=== PATIENT | male | born 1985 | race Caucasian/White ===

== ENCOUNTER 2017-12-18 21:16 | Emergency (ER) | payer OTHER ==
--- OUTSIDE RECORDS SUMMARY | 2017-12-18 21:18 | XMS REPORT | Clinical Summary ---
:1985 Author Organization [facility] Address [address] [place] [address] Care Team Providers Name Role Phone Asked, No Pcp Primary Care Provider Unavailable Allergies No Known Allergies Current Medications Prescription Sig. Disp. Refills Start Date End Date Status cyclobenzaprine Take 1 tablet 20 tablet 0 08/28/2017 09/27/2017 (FLEXERIL) 10 mg (10 mg total) tablet by mouth 2 (two) times a day as needed for muscle spasms for up to 30 days. ibuprofen Take 1 tablet 30 tablet 0 08/28/2017 09/27/2017 (ADVIL,MOTRIN) 600 MG (600 mg total) tablet by mouth every 6 (six) hours as needed for mild pain for up to 30 days. acetaminophen-codeine Take 1-2 15 tablet 0 08/28/2017 09/02/2017 (TYLENOL WITH CODEINE tablets by #3) 300-30 mg per mouth every 6 tablet (six) hours as needed for moderate pain for up to 5 days. Active Problems Not on file Encounters Date Type Specialty Care Team Description 08/28/2017 Emergency Emergency Medicine Brock Mock Strain of lumbar region, initial encounter (Primary Dx); MD Tera Functional diarrhea after 12/17/2016 Social History Tobacco Use Types Packs/Day Years Used Date Never Assessed Smokeless Tobacco: Never Used Alcohol Use Drinks/Week oz/Week Comments No Sex Assigned at Date Recorded Not on file Last Filed Vital Signs Vital Sign Reading Time Taken Blood Pressure 107/68 08/28/2017 9:40 PM CDT Pulse 71 08/28/2017 9:40 PM CDT Temperature 36.2 C (97.1 F) 08/28/2017 7:22 PM CDT Respiratory Rate 18 08/28/2017 9:40 PM CDT Oxygen Saturation 95% 08/28/2017 9:40 PM CDT Inhaled Oxygen Concentration - - Weight - - Height - - Body Mass Index - - Plan of Treatment Health Maintenance Due Date Last Done Comments INFLUENZA VACCINE 01/13/2018 Procedures Procedure Name Priority Date/Time Associated Diagnosis Comments CT LUMBAR SPINE WO STAT 08/28/2017 8:08 PM Results for this CONTRAST CDT procedure are in the results section. after 12/17/[address] Lumbar Spine Wo Contrast (08/28/2017 8:08 PM) Narrative Performed At EXAMINATION:CT LUMBAR SPINE WO CONTRAST RADIANT COMPARISON:None CLINICAL HISTORY:BACK PAINUNSPECIFIED TECHNIQUE: Coronal and sagittal reformations were accomplished.Up to date CT equipment and radiation dose reduction technique were utilized. FINDINGS: L1-2: The disc is degenerated without significant bulge or protrusion. The neural foramina are patent. The facets are unremarkable. L2-3: There is a mild bulge which in combination with facet hypertrophy and ligamentum flavum thickening results in mild spinal stenosis. The neural foramina are patent. L3-4: There is a mild bulge which in combination with facet hypertrophy and ligamentum flavum thickening results in mild spinal stenosis. The neural foramina are patent. L4-5:The disc is unremarkable without significant bulge or protrusion. The neural foramina are patent. There are degenerative facet changes.. L5-S1:The disc is unremarkable without significant bulge or protrusion. There is 7 mm of anterior listhesis of L5 on S1 secondary to underlying spondylolysis. The neural foramina are distorted there is no definite compromise of either L5 root. There is no malalignment and no spinal stenosis. There is no fracture or lytic lesion. IMPRESSION: Grade 1 anterior listhesis of L5 on S1 secondary to underlying spondylolysis. No definite compromise of either L5 root. [facility]-[id number] Procedure Note Interface, Radiology Results Incoming - 08/28/2017 8:19 PM CDT EXAMINATION: CT LUMBAR SPINE WO CONTRAST COMPARISON: None CLINICAL HISTORY: BACK PAIN UNSPECIFIED TECHNIQUE: Coronal and sagittal reformations were accomplished. Up to date CT equipment and radiation dose reduction technique were utilized. FINDINGS: L1-2: The disc is degenerated without significant bulge or protrusion. The neural foramina are patent. The facets are unremarkable. L2-3: There is a mild bulge which in combination with facet hypertrophy and ligamentum flavum thickening results in mild spinal stenosis. The neural foramina are patent. L3-4: There is a mild bulge which in combination with facet hypertrophy and ligamentum flavum thickening results in mild spinal stenosis. The neural foramina are patent. L4-5:The disc is unremarkable without significant bulge or protrusion. The neural foramina are patent. There are degenerative facet changes.. L5-S1:The disc is unremarkable without significant bulge or protrusion. There is 7 mm of anterior listhesis of L5 on S1 secondary to underlying spondylolysis. The neural foramina are distorted there is no definite compromise of either L5 root. There is no malalignment and no spinal stenosis. There is no fracture or lytic lesion. IMPRESSION: Grade 1 anterior listhesis of L5 on S1 secondary to underlying spondylolysis. No definite compromise of either L5 root. [facility]-[id number] Performing Organization Address [facility] Phone Number [phone] [place] [address] after 12/17/2016 Insurance Payer Benefit Plan / Group Subscriber ID Type Phone Address COMMERCIAL MISC MISC COMMERCIAL xxxxxxxxxx Commercial [employer] [phone]
--- OUTSIDE RECORDS SUMMARY | 2017-12-18 21:25 | XMS REPORT | Continuity of Care Document ---
:1985 Author Organization Interface Problems Problem Status Onset Classification Date Comments Source Date Reported CHEST PAIN Active 11/12/19 [facility] [place] mason [place]ey,[facility] CHEST PAIN, Active 11/12/19 DIABETES, HTN 18 [facility] Left upper 08/28/19 11/25/2017 [facility] quadrant pain 18 Abdominal mass 08/20/19 11/25/2017 [facility] 18 Abdominal pain, 08/20/19 11/25/2017 [facility] acute 18 CHSET PAIN R/O OR Active 07/05/[address] ALEXANDRA BILLING Active 03/29/[address] STEMI Active 03/29/[address] LFLT TRANSFER Active 10/08/19 [facility] [address] [place] [address] Diarrhea, 11/25/2017 [facility] unspecified Intra-abdominal 11/25/2017 [facility] and pelvic swelling, mass and lump, unspecified site Essential 11/25/2017 [facility] hypertension 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 bypass graft retirement use of 11/25/2017 [facility] aspirin Personal history 11/25/2017 [facility] of nicotine dependence 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 STEMI (<span Resolved Problem 11/25/2017 ID="[id number]"> [place],M Confirmed</span>) [facility] CAD (<span Resolved Problem 11/25/2017 ID="[id number]"> [place], Confirmed</span>) [facility] Knee pain Resolved Problem 11/25/2017 [place],[facility] Hypertension Resolved Problem 11/25/2017 [place],[facility] Obesity Resolved Problem 11/25/2017 [place],[facility] Psoriasis (<span Resolved Problem 11/25/2017 ID="[id number]"> [place],[facility] Confirmed</span>) [facility] [place] PTSD (<span Resolved Problem 11/25/2017 ID="[id number]"> [place], Confirmed</span>) [facility] [place] CHEST PAIN, Active UNSPECIFIED [place],M [facility] DIABETES DUE TO Active UNDERLYING [facility] CONDITION W H HYPERTENSIVE Active EMERGENCY [place] [facility] ELEVATION Active [facility] (STEMI) MYOCARDIAL Medical [facility]CTI Center Medications Medication Details Route Status Patient Ordering Order Source Instructions Provider Date PLease bring Pt's PLease bring No Longer Own APremilast to Pt's Own Active 2017 [facility] pharmacy for label APremilast to pharmacy for label, Reminder, Drug form: MISC, Route: MISC, Daily, 11/12/17 9:00:00 CDT, Duration: 30 day, Stop date: 12/11/17 9:00:00 CDT Sertraline 100 mg, 1 tab, No Longer Route: PO, Active 2017 [facility] Drug form: TAB, Daily, Dosing Weight 136, kg, Start date: 11/12/17 9:00:00 CDT, Duration: 30 day, Stop date: 12/11/17 9:00:00 CDTNotes: (Same as: Zoloft) Ticagrelor 90 mg, 1 tab, Inactive Route: PO, 2017 [facility] Drug form: TAB, Q12H, Dosing Weight 136, kg, Start date: 11/11/17 21:00:00 CDT, Duration: 30 day, Stop date: 12/11/17 9:00:00 CDTNotes: (Same as: Brilinta) atorvastatin 80 mg, 2 tab, Inactive Route: PO, 2017 [facility] Drug form: TAB, Bedtime, Dosing Weight 136, kg, Start date: 11/11/17 21:00:00 CDT, Duration: 30 day, Stop date: 12/10/17 21:00:00 CDTNotes: (Same as: Lipitor) Hytrin 2 mg, 1 cap, Inactive Route: PO, 2017 [facility] Drug form: CAP, Daily, Start date: 11/11/17 21:00:00 CDT, Duration: 30 day, Stop date: 12/10/17 21:00:00 CDTNotes: (Same As: Hytrin) 24 HR Metoprolol 100 mg, 1 tab, Inactive Tartrate 100 MG Route: PO, 2017 [facility] Extended Release Drug form: Tablet [Toprol] ERTAB, Daily, Start date: 11/11/17 17:00:00 CDT, Duration: 30 day, Stop date: 12/10/17 17:00:00 CDTNotes: (Same as: Toprol XL) May split tab, but do not crush. Fish Oil 1,000 mg, 1 Inactive cap, Route: 2017 [facility] PO, Drug form: CAP, BID, Dosing Weight 136, kg, Start date: 11/11/17 17:00:00 CDT, Duration: 30 day, Stop date: 12/11/17 9:00:00 CDTNotes: (Same as: MaxEPA, [place] 3 fish oil ) Non-Formulary Drug Prazosin 2 mg, Route: Inactive PO, Drug form: 2017 [facility] CAP, BID, Dosing Weight 136, kg, Start date: 11/11/17 17:00:00 CDT, Duration: 30 day, Stop date: 12/11/17 9:00:00 CDT apremilast 30 mg apremilast 30 Inactive oral tablet mg oral 2017 tablet, 30 mg, Route: PO, BID, 11/11/17 17:00:00 CDT, Duration: 30 day, Stop date: 12/11/17 9:00:00 CDT ezetimibe 10 mg, 1 tab, Inactive Route: PO, 2017 [facility] Drug form: TAB, Daily, Dosing Weight 136, kg, Start date: 11/11/17 17:00:00 CDT, Duration: 30 day, Stop date: 12/10/17 17:00:00 CDTNotes: (Same as: Zetia) Docusate Sodium 100 mg, 1 cap, Inactive 100 MG Oral Route: PO, 2017 [facility] Capsule Drug form: CAP, BID, Dosing Weight 136, kg, Start date: 11/11/17 17:00:00 CDT, Duration: 30 day, Stop date: 12/11/17 9:00:00 CDTNotes: (Same as: Colace) (Do Not Crush) morphine Sulfate 6 mg, 3 mL, Inactive Route: PO, 2017 [facility] Drug form: SOLN, Q6H, PRN Pain Score 7-10, Start date: 11/11/17 16:00:00 CDT, Duration: 30 day, Stop date: 12/11/17 15:59:00 CDTNotes: (Same as:MORPhine Sulfate) gabapentin 300 MG 300 mg, 1 cap, Inactive Oral Capsule Route: PO2017 [facility] Drug form: CAP, Q8H, Dosing Weight 136, kg, Start date: 11/11/17 16:00:00 CDT, Duration: 30 day, Stop date: 12/11/17 8:00:00 CDTNotes: (Same as: Neurontin) Dicyclomine 10 mg=1 cap, Active Hydrochloride 10 PO, QID-Before 2017 [facility] MG Oral Capsule Meals, PRN [Bentyl] Abdominal Pain, # 20 cap, 0 Refill(s), Pharmacy: [facility]/pharmacy #[id number] Aspirin 81 MG 81 mg, 1 tab, Inactive Enteric Coated Route: PO2017 [facility] Tablet Drug form: ECTAB, Daily, Dosing Weight 136, kg, Start date: 11/11/17 11:00:00 CDT, Duration: 30 day, Stop date: 12/11/17 9:00:00 CDTNotes: Do not crush or chew. (Same As: Ecotrin) Isosorbide 30 mg, 1 tab, Inactive Route: PO2017 [facility] Drug form: ERTAB, QAM, Dosing Weight 136, kg, Start date: 11/11/17 11:00:00 CDT, Duration: 30 day, Stop date: 12/11/17 9:00:00 CDT Lisinopril 5 mg, 1 tab, Inactive Route: PO2017 [facility] Drug form: TAB, Daily, Dosing Weight 136, kg, Start date: 11/11/17 11:00:00 CDT, Duration: 30 day, Stop date: 12/11/17 9:00:00 CDTNotes: (Same as: Prinivil, Zestril) Morphine 2 mg, 1 mL, Inactive Route: IVP, 2017 [facility] Drug form: SOLN, Q6H, Dosing Weight 136, kg, PRN Pain Score 7-10, Start date: 11/11/17 9:48:00 CDT, Duration: 1 doses or times, Stop date: Limited # of times Acetaminophen 325 1 tab, Route: Inactive MG / Hydrocodone PO, Drug Form: 2017 [facility] Bitartrate 5 MG TAB, Dosing Oral Tablet [[place] Weight 136, 5/325] kg, Q6H, PRN Pain Score 4-6, Start date: 11/11/17 9:48:00 CDT, Duration: 30 day, Stop date: 12/11/17 9:47:00 CDTNotes: (Same as: [place] 325/5) Do not exceed 4gm/day of acetaminophen. Nitroglycerin 0.4 0.4 mg, 1 tab, Inactive MG Sublingual Route: 2017 [facility] Tablet Drug form: TAB, Q5Min, Dosing Weight 136, kg, PRN Chest Pain, Start date: 11/11/17 9:44:00 CDT, Duration: 30 day, Stop date: 12/11/17 9:43:00 CDTNotes: (Same as:Nitroquick, Nitrostat) "Do Not Crush" Sublingual tablet Bisacodyl 5 mg, 1 tab, Inactive Route: PO, 2017 [facility] Drug form: ECTAB, Q6H, Dosing Weight 136, kg, PRN Constipation, Start date: 11/11/17 9:44:00 CDT, Duration: 30 day, Stop date: 12/11/17 9:43:00 CDTNotes: (Same As: Dulcolax, Correctol) (Do Not Crush) "Do Not Crush" Saline Flush 0.9% 10 ml, Route: Inactive IVP, Drug 2017 [facility] Form: INJ, Dosing Weight 136, kg, Q12H, Start date: 11/11/17 9:00:00 CDT, Duration: 30 day, Stop date: 12/10/17 21:00:00 CDTNotes: (Same as: BD Posiflush) Saline Flush 0.9% 10 ml, Route: Inactive IVP, Drug 2017 [facility] Form: INJ, Dosing Weight 136, kg, PRN, PRN Line Flush, Start date: 11/11/17 6:03:00 CDT, Duration: 30 day, Stop date: 12/11/17 6:02:00 CDTNotes: (Same as: BD Posiflush) Nitroglycerin 0.4 mg, 1 tab, Inactive Route: SL, 2017 [facility] Drug form: TAB, Q5Min, Dosing Weight 136, kg, PRN Chest Pain, Start date: 11/11/17 6:03:00 CDT, Duration: 3 doses or times, Stop date: Limited # of timesNotes: (Same as:Nitroquick, Nitrostat) "Do Not Crush" Sublingual tablet pneumococcal 0.5 mL, Route: Inactive capsular IM, Drug Form: 2017 [facility] polysaccharide INJ, ONCALL, type 1 vaccine / Start date: pneumococcal 11/11/17 capsular 1:56:13 CDT, polysaccharide Stop date: type 10A vaccine / 12/11/17 pneumococcal 1:51:13 capsular CDTNotes: polysaccharide (Same as: type 11A vaccine / Pneumovax 23) pneumococcal Refrigerate capsular polysaccharide type 12F vaccine / pneumococcal capsular polysacchar ezetimibe 10 mg=1 tab, Active PO, Daily, # 2017 30 tab, 0 Refill(s) Metformin 500 mg, PO, Active BID, 0 2017 Refill(s) Clonazepam 0.5 mg, PO, Active TID, PRN 2017 [facility] Anxiety, 0 Refill(s) Acetaminophen 300 1 tab, PO, Active MG / Codeine Q4H, PRN Pain, 2017 [place] Phosphate 30 MG # 24 tab, 0 Oral Tablet Refill(s) [Tylenol with Codeine #3] Morphine 4 mg, 1 mL, Inactive Route: IVP, 2017 [place] Drug form: SOLN, ONCE, Dosing Weight 127.273, kg, Priority: STAT, Start date: 08/19/17 3:21:00 BLEACHER PULP, Stop date: 08/19/17 3:21:00 CSTNotes: (Same as:MORPhine Sulfate) Ondansetron 4 mg, 2 mL, Inactive Route: IVP, 2017 [place] Drug form: INJ, ONCE, Dosing Weight 127.273, kg, Priority: STAT, Start date: 08/19/17 3:21:00 BLEACHER PULP, Stop date: 08/19/17 3:21:00 CSTNotes: (Same as: [place]) MEDICATION WASTE Product Size: 4 mg Product Wasted: ___ mg Sodium Chloride 1,000 mL, 1000 Inactive 0.9% (Bolus) IV ml/hr, Infuse 2017 [place] Over: 1 hr, Route: IV, 1,000, Drug form: INJ, ONCE, Priority: STAT, Dosing Weight 127.273 kg, Start date: 08/19/17 3:21:00 BLEACHER PULP, Stop date: 08/19/17 3:21:00 BLEACHER PULP indomethacin 25 mg 25 mg=1 cap, Active [place] oral capsule PO, BID, PRN 2016 [facility] Pain, # 14 Center cap, 0 Refill(s) Acetaminophen 300 1 - 2 tab, PO, No Longer [place] MG / Codeine Q6H, PRN Pain, Active 2016 [facility] Phosphate 30 MG X 2 day, # 12 Center Oral Tablet tab, 0 [Tylenol with Refill(s) Codeine #3] Acetaminophen 300 1 tab, Route: Inactive [place] MG / Codeine PO, Drug Form: 2015 [facility] Phosphate 30 MG TAB, Dosing Center Oral Tablet Weight [Tylenol with 134.347, kg, Codeine #3] ONCE, Start date: 03/31/16 17:18:00 CDT, Stop date: 03/31/16 17:18:00 CDTNotes: Do not exceed 4gm/day of acetaminophen. (Same as: Tylenol with Codeine # 3) Bupropion 150 mg=1 tab, Active [place] PO, Before 2016 [facility] Breakfast, 0 Center Refill(s) buPROPion 100 mg 100 mg=1 tab, Active [place] oral tablet, PO, After 2016 [facility] extended release Dinner, 0 Center Refill(s) bisacodyl 5 mg 5 mg=1 tab, Active [place] oral enteric PO, Q6H, PRN 2016 [facility] coated tablet Constipation, Center 0 Refill(s) atorvastatin 80 mg 80 mg=1 tab, Active [place] oral tablet PO, Bedtime, # 2016 [facility] 90 tab, 1 Center Refill(s) Acetaminophen 325 1 tab, PO, Inactive [place] MG / Hydrocodone Q4H, PRN Pain 2016 [facility] Bitartrate 5 MG Score 1-3, 0 Center Oral Tablet [[place] Refill(s) 5/325] metoprolol 50 mg 50 mg=1 tab, Active [place] oral tablet, PO, Daily, # 2016 [facility] extended release 90 tab, 1 Center Refill(s) Aspirin 81 MG 81 mg=1 tab, Active [place] Enteric Coated PO, Daily, # 2016 [facility] Tablet 90 tab, 1 Center Refill(s) Bupropion 150 mg, 1 tab, Inactive [place] Route: PO, 2016 [facility] Drug form: [place] ERTAB, Before Breakfast, Dosing Weight 134.347, kg, Start date: 03/31/16 11:30:00 CDT, Duration: 30 day, Stop date: 04/30/16 7:30:00 CSTNotes: (Do not crush) (Same As: Wellbutrin SR) Bupropion 100 mg, Route: No Longer [place] PO, Before Active 2015 [facility] Breakfast, Center Dosing Weight 134.347, kg, Start date: 03/31/16 7:30:00 CDT, Duration: 30 day, Stop date: 04/29/16 7:30:00 BLEACHER PULP Sertraline 50 mg, 1 tab, No Longer [place] Route: PO, Active 2015 [facility] Drug form: [place] TAB, Daily, Dosing Weight 131.818, kg, Start date: 03/30/16 21:00:00 CDT, Duration: 30 day, Stop date: 04/29/16 9:00:00 CSTNotes: (Same as: Zoloft) heparin sodium, 5,000 unit, 1 No Longer [place] porcine 2500 mL, Route: Active 2015 [facility] UNT/ML Injectable SUB-Q, Drug Center Solution form: INJ, Q8H, Dosing Weight 134.347, kg, Start date: 03/30/16 21:00:00 CDT, Duration: 30 day, Stop date: 04/29/16 16:00:00 CSTNotes: porcine heparin atorvastatin 80 mg, 1 tab, No Longer [place] Route: PO, Active 2015 [facility] Drug form: [place] TAB, Bedtime, Dosing Weight 134.347, kg, Start date: 03/30/16 21:00:00 CDT, Stop date: 04/28/16 21:00:00 CSTNotes: Same as Lipitor Dulcolax Laxative 5 mg, 1 tab, No Longer [place] Route: PO, Active 2015 [facility] Drug form: Center ECTAB, Q6H, Dosing Weight 134.347, kg, PRN Constipation, Start date: 03/30/16 17:50:00 CDT, Duration: 30 day, Stop date: 04/29/16 17:49:00 CSTNotes: (Same As: Dulcolax, Correctol) (Do Not Crush) "Do Not Crush" Motrin 200 mg, 1 tab, No Longer [place] Route: PO, Active 2015 [facility] Drug form: [place] TAB, Q6H, Dosing Weight 134.347, kg, PRN For Temp > 100.4 F, Start date: 03/30/16 17:50:00 CDT, Duration: 30 day, Stop date: 04/29/16 17:49:00 CSTNotes: (Same as: Advil) Give with food. Bupropion 150 mg, Route: Inactive [place] PO, BID, 2015 [facility] Dosing Weight Center 134.347, kg, Start date: 03/30/16 17:00:00 CDT, Duration: 30 day, Stop date: 04/29/16 9:00:00 BLEACHER PULP Sodium Chloride 250 mL, 250 Inactive [place] 0.154 MEQ/ML ml/hr, Infuse 2016 Medical Injectable Over: 1 hr, [place] Solution Route: IV, 250, Drug form: INJ, ONCALL, Priority: Routine, Dosing Weight 134.347 kg, Start date: 03/30/16 16:00:00 CDT, Duration: 1 doses or times, Stop date: 03/31/16 0:00:00 CDT Sodium Chloride 750 mL, Rate: No Longer [place] 0.154 MEQ/ML 75 ml/hr, Active 2015 [facility] Injectable Infuse over: Center Solution 10 hr, Route: IV, Dosing Weight 134.347 kg, Total Volume: 750, Start date: 03/30/16 15:42:00 CDT, Duration: 24 hr, Stop date: 03/31/16 15:41:00 CDT Iohexol 110 mL, Route: No Longer [place] IVP, Drug Active 2015 Medical Form: BRYANNA [place] Dosing Weight 134.347, kg, ONCALL, STAT, Start date: 03/30/16 14:11:00 CDT, Stop date: 03/31/16 0:00:00 CDT, Dose=2.2ml/kg, Max [id number] -- "To be infused by Radiology Staff ONLY"Notes: (Same as:Omnipaque 350). WASTE: F/P - Black; E - Municipal Trash Bin Lisinopril 5 mg, 1 tab, No Longer [place] Route: PO, Active 2015 [facility] Drug form: [place] TAB, Daily, Dosing Weight 131.818, kg, Start date: 03/30/16 9:00:00 CDT, Duration: 30 day, Stop date: 04/28/16 9:00:00 CSTNotes: (Same as: Prinivil, Zestril) metoprolol 12.5 mg, 1 No Longer [place] tartrate tab, Route: Active 2015 Medical PO, Drug form: [place] TAB, Q12H, Dosing Weight 131.818, kg, Start date: 03/30/16 9:00:00 CDT, Duration: 30 day, Stop date: 04/28/16 21:00:00 CSTNotes: (Same as: Lopressor) 12.5mg=1/4 X 50 mg tab. Plavix 75 mg, 1 tab, No Longer [place] Route: PO, Active 2015 [facility] Drug form: [place] TAB, Daily, Dosing Weight 131.818, kg, Start date: 03/30/16 9:00:00 CDT, Duration: 30 day, Stop date: 04/28/16 9:00:00 CSTNotes: (Same As: Plavix) Aspirin 81 mg, 1 tab, No Longer [place] Route: PO, Active 2015 [facility] Drug form: [place] ECTAB, Daily, Dosing Weight 131.818, kg, Start date: 03/30/16 9:00:00 CDT, Duration: 30 day, Stop date: 04/28/16 9:00:00 CSTNotes: Do not crush or chew. (Same As: Ecotrin) Acetaminophen 325 1 tab, Route: No Longer [place] MG / Hydrocodone PO, Drug Form: Active 2016 [facility] Bitartrate 5 MG TAB, Dosing Center Oral Tablet [[place] Weight 5/325] 134.347, kg, Q4H, PRN Pain Score 1-3, Start date: 03/30/16 8:38:00 CDT, Duration: 30 day, Stop date: 04/29/16 8:37:00 CSTNotes: (Same as: [place] 325/5) Do not exceed 4gm/day of acetaminophen. gabapentin 300 mg, 1 cap, No Longer [place] Route: PO, Active 2015 [facility] Drug form: Center CAP, Q8H, Dosing Weight 131.818, kg, (CrCl > 60 ml/min), Start date: 03/30/16 8:00:00 CDT, Duration: 30 day, Stop date: 04/29/16 0:00:00 CSTNotes: (Same as: Neurontin) sodium phosphate + 15 mmol, 5 mL, No Longer [place] sodium chloride Route: IVPB, Active 2015 Medical 0.9% INJ 250 mL Drug form: Center INJ, PRN, Dosing Weight 134.347, kg, PRN Abnormal Lab Result, For NON-ICU Patients Only., Start date: 03/30/16 6:07:00 CDT, Duration: 30 day, Stop date: 04/29/16 5:06:00 BLEACHER PULP potassium 30 mmol, 10 No Longer [place] phosphate + sodium mL, Route: Active 2015 Medical chloride 0.9% INJ IVPB, Drug Center 250 mL form: INJ, PRN, Dosing Weight 134.347, kg, PRN Abnormal Lab Result, For NON-ICU Patients Only., Start date: 03/30/16 6:07:00 CDT, Duration: 30 day, Stop date: 04/29/16 5:06:00 CSTNotes: (Same as: K Phosphate.) 1 mMol phoshate has 1.47 mEq potassium Infuse over 4 hours potassium 2 pkt, Route: No Longer [place] phosphate-sodium PO, Drug Form: Active 2015 [facility] phosphate 250 PDR/REC, Center mg-280 mg-160 mg Dosing Weight oral powder for 134.347, kg, reconstitution PRN, PRN Abnormal Lab Result, For NON-ICU Patients Only, Start date: 03/30/16 6:07:00 CDT, Duration: 30 day, Stop date: 04/29/16 5:06:00 CSTNotes: (Same as: Phos-NaK) Each 1.5 gm pkt has 250mg phosphorous. Mix w/2.5oz water and stir. potassium chloride 10 mEq, 50 mL, No Longer [place] Route: IVPB, Active 2015 Medical Drug form: Center INJ, PRN, Dosing Weight 134.347, kg, PRN Abnormal Lab Result, For NON-ICU Patients Only, Start date: 03/30/16 6:07:00 CDT, Duration: 30 day, Stop date: 04/29/16 5:06:00 CSTNotes: (Same as: KCL) Infuse over 2 hours. Magnesium Sulfate 2 gm, 50 mL, No Longer [place] Route: IVPB, Active 2015 [facility] Drug form: Center INJ, PRN, Dosing Weight 134.347, kg, PRN Abnormal Lab Result, For NON-ICU Patients Only., Start date: 03/30/16 6:07:00 CDT, Duration: 30 day, Stop date: 04/29/16 5:06:00 CSTNotes: WASTE: F/P - Sink; E - Municipal Trash Bin Calcium Gluconate 3 gm, 30 mL, No Longer [place] Route: IVPB, 2015 Medical Drug form: Center INJ, PRN, Dosing Weight 134.347, kg, PRN Abnormal Lab Result, For NON-ICU Patients Only., Start date: 03/30/16 6:07:00 CDT, Duration: 30 day, Stop date: 04/29/16 5:06:00 CSTNotes: WASTE: F/P - Sink; E - Municipal Trash Bin Magnesium Oxide 800 mg, 2 tab, No Longer [place] Route: PO, Active 2015 Medical Drug form: Center TAB, PRN, Dosing Weight 134.347, kg, PRN Abnormal Lab Result, For NON-ICU Patients Only., Start date: 03/30/16 6:07:00 CDT, Duration: 30 day, Stop date: 04/29/16 5:06:00 CSTNotes: (Same as: Mag-Ox 400) Magnesium oxide [id number] elemental magnesium Dose=____mg magnesium oxide (___mg elemental magnesium) Ketorolac 15 mg, 1 mL, Inactive [place] Route: IV, 2015 Medical Drug form: [place] INJ, ONCE, Dosing Weight 134.347, kg, Start date: 03/30/16 3:38:00 CDT, Stop date: 03/30/16 3:38:00 CDTNotes: (Same as:Toradol) IV bolus must be given >15 seconds. Give IM administration slowly and deeply into the muscle. Not for use > 4 days. Morphine 4 mg, Route: Inactive [facility] IVP, ONCE, 2015 Medical Dosing Weight Center 134.347, kg, Priority: STAT, Start date: 03/30/16 3:27:00 CDT, Stop date: 03/30/16 3:27:00 CDT sertraline 50 mg 50 mg=1 tab, Active [facility] oral tablet PO, Daily, 0 2015 Medical Refill(s) [place] Tramadol 100 mg, 2 tab, No Longer [facility] Route: PO, Active 2015 Medical Drug form: Center TAB, Q6H, Dosing Weight 131.818, kg, PRN Pain Score 4-6, Start date: 03/30/16 1:15:00 CDT, Duration: 30 day, Stop date: 04/29/16 1:14:00 CSTNotes: Not to exceed 400mg/day. (Same As: Ultram) Saline Flush 0.9% 10 mL, Route: No Longer [facility] IVP, Drug Active 2015 Medical Form: INJ, Center Dosing Weight 131.818, kg, PRN, PRN Line Flush, Start date: 03/29/16 22:26:00 CDT, Duration: 30 day, Stop date: 04/28/16 21:25:00 CSTNotes: (Same as: BD Posiflush) Lipitor 20 mg, 1 tab, Inactive [facility] Route: PO, 2016 Medical Drug form: Center TAB, Bedtime, Dosing Weight 123.182, kg, Start date: 10/22/15 21:00:00 CDT, Duration: 30 day, Stop date: 11/20/15 21:00:00 CDTNotes: (Same As: Lipitor) atorvastatin 20 mg 20 mg=1 tab, Inactive [place] oral tablet PO, Bedtime, # 2016 Medical 30 tab, 0 Center Refill(s) metoprolol 25 mg=1 tab, Active [place] tartrate 25 mg PO, Q12H, # 60 2016 Medical oral tablet tab, 0 Center Refill(s) oxyCODONE 5 mg 5 mg=1 tab, Active [place] oral tablet PO, Q4H, PRN 2016 [facility] Pain Score Center 4-6, # 30 tab, 0 Refill(s) lisinopril 5 mg 5 mg=1 tab, Active [place] oral tablet PO, Daily, # 2016 Medical 30 tab, 0 Center Refill(s) docusate sodium 100 mg=1 cap, Active [place] 100 mg oral PO, BID, # 30 2015 [facility] capsule cap, 0 Center Refill(s) gabapentin 300 MG 300 mg=1 cap, Active [place] Oral Capsule PO, Q8H-06, # 2016 Medical 60 cap, 0 Center Refill(s) celecoxib 200 mg 200 mg=1 cap, Active [place] oral capsule PO, Q12H, # 30 2016 [facility] cap, 0 Center Refill(s) Aspirin 81 MG 162 mg=2 tab, Active [place] Enteric Coated PO, Daily, # 2016 [facility] Tablet 60 tab, 0 Center Refill(s) clopidogrel 75 mg 75 mg=1 tab, Active [place] oral tablet PO, Daily, # 2016 [facility] 30 tab, 0 Center Refill(s) tramadol 100 mg=2 tab, Active [place] hydrochloride 50 PO, Q6H, # 50 2016 [facility] MG Oral Tablet tab, 0 Center Refill(s) topiramate 25 mg 25 mg=1 cap, Inactive [place] oral capsule PO, Q12H, # 30 2016 [facility] cap, 0 Center Refill(s) Oxycodone 5 mg, 1 tab, Inactive [place] Hydrochloride 5 MG Route: PO, 2016 [facility] Oral Tablet Drug form: Center TAB, Q4H, Dosing Weight 123.182, kg, PRN Pain Score 4-6, Start date: 10/22/15 8:35:00 CDT, Duration: 30 day, Stop date: 11/21/15 8:34:00 CDTNotes: (Same as: Roxicodone) gabapentin 300 MG 300 mg, 1 cap, No Longer [facility] Oral Capsule Route: PO, Active 2015 Medical Drug form: Center CAP, Q8H-06, Dosing Weight 123.182, kg, (CrCl > 60 ml/min), Start date: 10/21/15 22:00:00 CDT, Duration: 30 day, Stop date: 11/20/15 14:00:00 CDTNotes: (Same as: Neurontin) Tramadol 100 mg, 2 tab, No Longer [facility] Route: PO, Active 2015 Medical Drug form: [place] TAB, Q6H, Dosing Weight 123.182, kg, Start date: 10/21/15 17:55:00 CDT, Duration: 30 day, Stop date: 11/20/15 12:00:00 CDTNotes: Not to exceed 400mg/day. (Same As: Ultram) Acetaminophen 325 1 tab, Route: No Longer [facility] MG / Hydrocodone PO, Drug Form: Active 2015 Medical Bitartrate 5 MG TAB, Dosing Center Oral Tablet [[place] Weight 5/325] 123.182, kg, Q4H, PRN Pain Score 1-3, Start date: 10/21/15 17:54:00 CDT, Duration: 30 day, Stop date: 11/20/15 17:53:00 CDTNotes: (Same as: [place] 325/5) Do not exceed 4gm/day of acetaminophen. Benzocaine 15 MG / 1 lozenge, No Longer [facility] Menthol 3.6 MG Route: MUCOUS Active 2015 Medical Lozenge [Cepacol [facility], [facility] Sore Throat Pain Form: ANISHA, Relief 15/3.6] Dosing Weight 123.182, kg, Q2H, PRN Sore Throat, Start date: 10/21/15 0:30:00 CDT, Duration: 30 day, Stop date: 11/20/15 0:29:00 CDTNotes: Cepacol lozenges Dispense 1 box=16 lozenges (Same As: Cepacol Lozenges) Morphine 2 mg, 1 mL, Inactive [facility] Route: IVP2015 Medical Drug form: [place] INJ, ONCALL, Dosing Weight 123.182, kg, Start date: 10/20/15 13:00:00 CDT, Duration: 1 doses or times, Stop date: 10/21/15 0:00:00 CDTNotes: (Same as:MORPhine Sulfate) Tylenol 1,000 mg, 2 No Longer [place] tab, Route: Active 2015 Medical PO, Drug form: [place] TAB, Q6H, Dosing Weight 123.182, kg, Start date: 10/19/15 12:00:00 CDT, Duration: 30 day, Stop date: 11/18/15 6:00:00 CDTNotes: Max acetaminophen 4000 mg/day (4 gm/day). (Same as: Tylenol Extra Strength) Morphine 2 mg, 1 mL, Inactive [facility] Route: IVP2015 Medical Drug form: [place] INJ, ONCE, Dosing Weight 123.182, kg, Start date: 10/19/15 10:22:00 CDT, Stop date: 10/19/15 10:22:00 CDTNotes: (Same as:MORPhine Sulfate) Celebrex 200 mg, 1 cap, No Longer [facility] Route: PO, Active 2015 Medical Drug form: [place] CAP, Q12H, Dosing Weight 123.182, kg, Start date: 10/19/15 8:00:00 CDT, Duration: 30 day, Stop date: 11/17/15 21:00:00 CDTNotes: NSAID. Please check indication. Not for seizure. (Same As: CeleBREX) remove patch 3 patch, No Longer [facility] Route: TOP, Active 2015 Medical Bedtime, Drug Center form: ERFILM, Start date: 10/18/15 21:00:00 CDT, Duration: 30 day, Stop date: 11/16/15 21:00:00 CDTNotes: Remove patch 12 hours after application each day. metoprolol 25 mg, 1 tab, No Longer [facility] tartrate Route: PO, Active 2015 Medical Drug form: [facility] TAB, Q12H, Dosing Weight 123.182, kg, Start date: 10/18/15 21:00:00 CDT, Duration: 30 day, Stop date: 11/17/15 9:00:00 CDTNotes: (Same as: Lopressor) Celebrex 400 mg, 2 cap, Inactive [facility] Route: PO, 2015 Medical Drug form: [place] CAP, ONCE, Dosing Weight 123.182, kg, Priority: NOW, Start date: 10/18/15 17:30:00 CDT, Stop date: 10/18/15 17:30:00 CDTNotes: NSAID. Please check indication. Not for seizure. (Same As: CeleBREX) tapentadol 100 mg, 2 tab, No Longer [facility] Route: PO, Active 2015 Medical Drug form: [facility] TAB, Q4H, Dosing Weight 123.182, kg, PRN Pain Score 7-10, Start date: 10/18/15 17:29:00 CDT, Duration: 30 day, Stop date: 11/17/15 17:28:00 CDTNotes: Same as: Nucynta tapentadol 50 mg, 1 tab, No Longer [facility] Route: PO, Active 2015 Medical Drug form: [facility] TAB, Q4H, Dosing Weight 123.182, kg, PRN Pain Score 4-6, Start date: 10/18/15 17:28:00 CDT, Duration: 30 day, Stop date: 11/17/15 17:27:00 CDTNotes: Same as: Nucynta Lisinopril 5 mg, 1 tab, No Longer [facility] Route: PO, Active 2015 Medical Drug form: [facility] TAB, Daily, Dosing Weight 123.182, kg, Start date: 10/18/15 17:00:00 CDT, Duration: 30 day, Stop date: 11/17/15 9:00:00 CDTNotes: (Same as: Prinivil, Zestril) Lidocaine 3 patch, No Longer [facility] Hydrochloride 0.05 Route: TOP, Active 2015 Medical MG/MG Transdermal Daily, Drug Center Patch form: FILM, Start date: 10/18/15 9:00:00 CDT, Duration: 30 day, Stop date: 11/16/15 9:00:00 CDTNotes: Apply only once for up to 12 hours in a 24-hour period (12 hours on and 12 hours off). (Same as: Lidoderm) "Remove old patch before application of new patch" Plavix 75 mg, 1 tab, No Longer [facility] Route: PO, Active 2015 Medical Drug form: [facility] TAB, Daily, Dosing Weight 123.182, kg, Start date: 10/18/15 9:00:00 CDT, Duration: 30 day, Stop date: 11/16/15 9:00:00 CDTNotes: (Same As: Plavix) metoprolol 12.5 mg, 1 No Longer [facility] tartrate tab, Route: Active 2015 Medical PO, Drug form: Center TAB, Q12H, Dosing Weight 123.182, kg, Start date: 10/17/15 21:00:00 CDT, Duration: 30 day, Stop date: 11/16/15 9:00:00 CDTNotes: (Same as: Lopressor) 12.5mg=1/4 X 50 mg tab. sennosides, [place] 17.2 mg, 2 No Longer [facility] tab, Route: Active 2015 Medical PO, Drug Form: Center TAB, Dosing Weight 123.182, kg, Bedtime, Start date: 10/17/15 21:00:00 CDT, Duration: 30 day, Stop date: 11/15/15 21:00:00 CDTNotes: (Same as: Senokot) Tetrahydrocannabin 5 mg, 1 cap, No Longer [facility] ol Route: PO, Active 2015 Medical Drug form: Center CAP, Q12H, Dosing Weight 123.182, kg, Start date: 10/17/15 21:00:00 CDT, Duration: 30 day, Stop date: 11/16/15 9:00:00 CDTNotes: (Same as: Marinol) Non-Formulary Drug. Insulin Glargine 5 unit, 0.05 No Longer [facility] mL, Route: Active 2016 Medical SUB-Q, Drug Center form: INJ, Daily, Dosing Weight 123.182, kg, Priority: NOW, Start date: 10/17/15 17:31:00 CDT, Duration: 30 day, Stop date: 11/16/15 9:00:00 CDTNotes: Same as Ayo Solostar PEN Do not hold insulin without contacting prescriber "single patient use only" WASTE: F/P - Black; E - Municipal Trash Bin Stable for 28 days at room temperature. Expires in days from Date Protonix 40 mg, 1 tab, No Longer [facility] Route: PO, Active 2015 Medical Drug form: [place] ECTAB, Before Dinner, Dosing Weight 123.182, kg, Start date: 10/17/15 16:30:00 CDT, Duration: 30 day, Stop date: 11/15/15 16:30:00 CDTNotes: Tablet should not be chewed or crushed. (Same as: Protonix) potassium 2 pkt, Route: No Longer [place] phosphate-sodium PO, Drug Form: Active 2015 Medical phosphate 250 PDR/REC, Center mg-278 mg-164 mg Dosing Weight oral powder 123.182, kg, PRN, PRN Abnormal Lab Result, For NON-ICU Patients Only, Start date: 10/17/15 16:14:00 CDT, Duration: 30 day, Stop date: 11/16/15 16:13:00 CDTNotes: (Same as: Neutra-Phos) Each 1.25 gm pkt has 250mg phosphorous. Mix w/2.5oz water and stir. sodium phosphate + 15 mmol, 5 mL, No Longer [facility] Sodium Chloride Route: IVPB, Active 2015 Medical 0.9% IV 250 mL PRN, Dosing Center Weight 123.182, kg, PRN Abnormal Lab Result, For NON-ICU Patients Only., Start date: 10/17/15 16:14:00 CDT, Duration: 30 day, Stop date: 11/16/15 16:13:00 CDT potassium 30 mmol, 10 No Longer [facility] phosphate + Sodium mL, Route: Active 2015 Medical Chloride 0.9% IV IVPB, PRN, Center 250 mL Dosing Weight 123.182, kg, PRN Abnormal Lab Result, For NON-ICU Patients Only., Start date: 10/17/15 16:14:00 CDT, Duration: 30 day, Stop date: 11/16/15 16:13:00 CDTNotes: (Same as: K Phosphate.) 1 mMol phoshate has 1.47 mEq potassium Infuse over 4 hours Magnesium Sulfate 1 gm, 100 mL, No Longer [place] Route: IVPB, Active 2015 Medical Drug form: Center INJ, PRN, Dosing Weight 123.182, kg, PRN Abnormal Lab Result, For NON-ICU Patients Only., Start date: 10/17/15 16:14:00 CDT, Duration: 30 day, Stop date: 11/16/15 16:13:00 CDTNotes: WASTE: F/P - Sink; E - Municipal Trash Bin Calcium Gluconate 3 gm, 30 mL, No Longer [place] Route: IVPB, Active 2015 Medical PRN, Dosing Center Weight 123.182, kg, PRN Abnormal Lab Result, For NON-ICU Patients Only., Start date: 10/17/15 16:14:00 CDT, Duration: 30 day, Stop date: 11/16/15 16:13:00 CDTNotes: WASTE: F/P - Sink; E - Municipal Trash Bin Magnesium Oxide 800 mg, 2 tab, No Longer [place] Route: PO, Active 2015 Medical Drug form: Center TAB, PRN, Dosing Weight 123.182, kg, PRN Abnormal Lab Result, For NON-ICU Patients Only., Start date: 10/17/15 16:14:00 CDT, Duration: 30 day, Stop date: 11/16/15 16:13:00 CDTNotes: (Same as: Mag-Ox 400) Magnesium oxide [id number] elemental magnesium Dose=____mg magnesium oxide (___mg elemental magnesium) potassium chloride 10 mEq, 50 mL, No Longer [place] Route: IVPB, Active 2015 Medical Drug form: Center INJ, PRN, Dosing Weight 123.182, kg, PRN Abnormal Lab Result, For NON-ICU Patients Only, Start date: 10/17/15 16:14:00 CDT, Duration: 30 day, Stop date: 11/16/15 16:13:00 CDTNotes: (Same as: KCL) Infuse over 2 hours. Glucagon 1 mg, Route: No Longer [facility] IM, Drug form: Active 2015 Medical PDR/INJ, PRN, Center Dosing Weight 123.182, kg, PRN Blood Glucose Results, Start date: 10/17/15 16:10:00 CDT, Duration: 30 day, Stop date: 11/16/15 16:09:00 CDT Dextrose 50% 25 gm, 50 mL, No Longer [facility] Syringe Route: IVP, Active 2015 Medical Drug Form: [facility] INJ, Dosing Weight 123.182, kg, PRN, PRN Blood Glucose Results, Start date: 10/17/15 16:10:00 CDT, Duration: 30 day, Stop date: 11/16/15 16:09:00 CDT Insulin, Aspart, 6 unit, 0.06 No Longer [place] Human mL, Route: Active 2015 Medical SUB-Q, Drug Center form: SOLN, TID-Before Meals, Dosing Weight 123.182, kg, PRN Blood Glucose Results, Start date: 10/17/15 16:10:00 CDT, Duration: 30 day, Stop date: 11/16/15 16:09:00 CDTNotes: Roll in palms of hands gently; Do not shake vigorously. (Same as: NovoLOG) "single patient use only" WASTE: F/P - Black; E - Municipal Trash Bin Stable for 28 days at room temperature. Expires in days from Date heparin sodium, 5,000 unit, 1 No Longer [facility] porcine 2500 mL, Route: Active 2015 Medical UNT/ML Injectable SUB-Q, Drug Center Solution form: INJ, Q8H, Dosing Weight 123.182, kg, Start date: 10/17/15 16:00:00 CDT, Duration: 30 day, Stop date: 11/16/15 8:00:00 CDTNotes: porcine heparin pregabalin 100 mg, 1 cap, No Longer [facility] Route: PO, Active 2015 Medical Drug form: [place] CAP, Q8Hnow, Dosing Weight 123.182, kg, Start date: 10/17/15 14:00:00 CDT, Duration: 30 day, Stop date: 11/16/15 6:00:00 CDTNotes: (Same as: Lyrica) Acetaminophen 1,000 mg, 2 No Longer [place] tab, Route: Active 2015 Medical PO, Drug form: [place] TAB, Q6Hnow, Dosing Weight 123.182, kg, Start date: 10/17/15 14:00:00 CDT, Duration: 30 day, Stop date: 11/16/15 8:00:00 CDTNotes: Max acetaminophen 4000 mg/day (4 gm/day). (Same as: Tylenol Extra Strength) Docusate 100 mg, 1 cap, No Longer [facility] Route: PO, Active 2015 Medical Drug form: [place] CAP, BID, Dosing Weight 123.182, kg, Start date: 10/17/15 9:00:00 CDT, Duration: 30 day, Stop date: 11/15/15 17:00:00 CDTNotes: (Same as: Colace) (Do Not Crush) Aspirin 81 MG 162 mg, 2 tab, No Longer [facility] Enteric Coated Route: PO, Active 2015 Medical Tablet Drug form: [place] ECTAB, Daily, Dosing Weight 123.182, kg, Start date: 10/17/15 9:00:00 CDT, Duration: 30 day, Stop date: 11/15/15 9:00:00 CDTNotes: Do not crush or chew. (Same As: Ecotrin) gabapentin 100 mg, 1 cap, Inactive [facility] Route: PO, 2015 Medical Drug form: [place] CAP, Q8Hnow, Dosing Weight 123.182, kg, Start date: 10/17/15 8:00:00 CDT, Duration: 30 day, Stop date: 11/16/15 0:00:00 CDTNotes: (Same as: Neurontin) Tramadol 100 mg, 2 tab, No Longer [facility] Route: PO, Active 2015 Medical Drug form: [place] TAB, Q6Hnow, Dosing Weight 123.182, kg, Start date: 10/17/15 8:00:00 CDT, Duration: 30 day, Stop date: 11/16/15 2:00:00 CDTNotes: Not to exceed 400mg/day. (Same As: Ultram) Alprazolam 0.25 mg, 1 No Longer [facility] tab, Route: Active 2015 Medical PO, Drug form: [place] TAB, Q8H, Dosing Weight 123.182, kg, PRN Anxiety, Start date: 10/17/15 7:45:00 CDT, Duration: 30 day, Stop date: 11/16/15 7:44:00 CDTNotes: With food or milk (Same as: Xanax) Oxycodone 10 mg, 2 tab, No Longer [facility] Hydrochloride 5 MG Route: PO, Active 2015 Medical Oral Tablet Drug form: [place] TAB, Q4H, Dosing Weight 123.182, kg, PRN Pain Score 7-10, Start date: 10/17/15 7:45:00 CDT, Duration: 30 day, Stop date: 11/16/15 7:44:00 CDTNotes: (Same as: Roxicodone) ketOROLAC 15 mg/mL 15 mg, 1 mL, Inactive [facility] injectable Route: IV, 2015 Medical solution Drug form: [place] INJ, ONCE, Dosing Weight 123.182, kg, Start date: 10/17/15 6:05:00 CDT, Stop date: 10/17/15 6:05:00 CDTNotes: (Same as:Toradol) IV bolus must be given >15 seconds. Give IM administration slowly and deeply into the muscle. Not for use > 4 days. Acetaminophen 1,000 mg, 100 Inactive [facility] mL, Route: IV, 2015 Medical Drug form: [place] INJ, Q6H, Dosing Weight 123.182, kg, Start date: 10/17/15 6:00:00 CDT, Duration: 30 day, Stop date: 11/16/15 0:00:00 CDT, > 67 kg; Pediatric DosingNotes: Infuse over 15 minutes Do not exceed 4gm/day of acetaminophen MEDICATION WASTE Product Size: 1000 mg Product Wasted: _0__ mg Hydromorphone 15 mg, 30 mL, Inactive [facility] Route: IV, 2015 [facility] Initial Center Loading Dose: 0.4mg, BUSINESS RELATIONSHIP MANAGER Dose: 0.2 mg, BUSINESS RELATIONSHIP MANAGER Lockout: 10 minutes, Continuous Basal Rate: 0 mg, 4 Hour Limit (In MG): 6, Drug Form: INJ, Continuous, Start date: 10/17/15 2:30:00 CDT, Duration: 30 day, Stop date: 11/16/15...Not es: (Same as: Dilaudid) conc=0.5 mg/ml Hydromorphone BUSINESS RELATIONSHIP MANAGER Dose: ;Delay: ;Basal: Naloxone 0.04 mg, 0.1 Inactive [facility] mL, Route: 2016 Medical IVP, Drug Center form: INJ, Q2MIN, Dosing Weight 123.182, kg, PRN Narcotic Reversal, Start date: 10/17/15 2:20:00 CDT, Duration: 30 day, Stop date: 11/16/15 2:19:00 CDTNotes: Same as Narcan Calcium Chloride 500 mL, 500 Inactive [facility] 0.0014 MEQ/ML / ml/hr, Infuse 2015 Medical Potassium Chloride Over: 1 hr, Center 0.004 MEQ/ML / Route: IV, Sodium Chloride 500, Drug 0.103 MEQ/ML / form: INJ, Sodium Lactate ONCE, 0.028 MEQ/ML Priority: Injectable STAT, Dosing Solution Weight 123.182 kg, Start date: 10/17/15 2:07:00 CDT, Duration: 1 doses or times, Stop date: 10/17/15 2:07:00 CDT ceFAZolin (SCIP) 2 gm, 100 mL, Inactive [facility] Route: IVPB, 2015 Medical Drug form: Center INJ, ABXQ8H, Dosing Weight 123.182, kg, Start date: 10/17/15 2:00:00 CDT, Duration: 2 day, Stop date: 10/18/15 18:00:00 CDTNotes: Same as: Ancef Calcium Chloride 500 mL, 500 Inactive [facility] 0.0014 MEQ/ML / ml/hr, Infuse 2015 Medical Potassium Chloride Over: 1 hr, Center 0.004 MEQ/ML / Route: IV, Sodium Chloride 500, Drug 0.103 MEQ/ML / form: INJ, Sodium Lactate ONCE, 0.028 MEQ/ML Priority: Injectable STAT, Dosing Solution Weight 123.182 kg, Start date: 10/17/15 0:19:00 CDT, Duration: 1 doses or times, Stop date: 10/17/15 0:19:00 CDT Vancomycin 6.67 1,750 mg, Inactive [facility] MG/ML Injectable Route: IVPB, 2015 Medical Solution Drug form: Center INJ, Q12H, Dosing Weight 123.182, kg, Time Critical Medication, Start date: 10/17/15 0:00:00 CDT, Duration: 2 day, Stop date: 10/18/15 12:00:00 CDTNotes: TIME CRITICAL MEDICATION (Same As: Vancocin) Infusion rate 2001 mg: infuse over 2.5 hours MEDICATION WASTE Product Size: 1000 mg Product Wasted: ___ mg Calcium Chloride 500 mL, 500 Inactive [facility] 0.0014 MEQ/ML / ml/hr, Infuse 2015 [facility] Potassium Chloride Over: 1 hr, [place] 0.004 MEQ/ML / Route: IV, Sodium Chloride 500, Drug 0.103 MEQ/ML / form: INJ, Sodium Lactate ONCE, 0.028 MEQ/ML Priority: Injectable STAT, Dosing Solution Weight 123.182 kg, Start date: 10/16/15 22:31:00 CDT, Duration: 1 doses or times, Stop date: 10/16/15 22:31:00 CDT Fentanyl 50 microgram, Inactive [facility] 1 mL, Route: 2015 Medical IV, Drug form: Center INJ, ONCE, Dosing Weight 123.182, kg, Start date: 10/16/15 21:33:00 CDT, Stop date: 10/16/15 21:33:00 CDTNotes: (Same as: Sublimaze) Preservative free. Acetaminophen 325 2 tab, Route: Inactive [facility] MG / Hydrocodone PO, Drug Form: 2015 Medical Bitartrate 5 MG TAB, Dosing Center Oral Tablet [[place] Weight 5/325] 123.182, kg, ONCE, Start date: 10/16/15 21:30:00 CDT, Stop date: 10/16/15 21:30:00 CDTNotes: (Same as: [place] 325/5) Do not exceed 4gm/day of acetaminophen. Dexmedetomidine 400 microgram, No Longer [facility] 4 mL, Rate: Active 2015 Medical Titrate, Start Center Dose: 0.2 microgram/kg/h r, Titration: 0.1 microgram/kg/h r every 30 min, Goal(s): RASS +1 to 0, Max Dose: 1.5 microgram/kg/h r, Route: IV, Dosing Weight 123.182 kg, Total Volume: 100, Start date: 10/16/15 21:30:...Notes : Not for use > 24 hours Calcium Carbonate 1,000 mg, 2 No Longer [place] 500 MG Chewable tab, Route: Active 2015 Medical Tablet PO, Drug form: [place] CHEWTAB, PRN, Dosing Weight 123.182, kg, PRN Abnormal Lab Result, FOR ICU USE ONLY, Start date: 10/16/15 20:15:00 CDT, Duration: 30 day, Stop date: 11/15/15 20:14:00 CDTNotes: (Same As: Tums) Calcium Carbonate 500 ov=774 mg elemental calcium Dose= mg calcium carbonate ( mg elemental calcium) Magnesium Oxide 800 mg, 2 tab, No Longer [place] Route: PO, Active 2015 Medical Drug form: [place] TAB, PRN, Dosing Weight 123.182, kg, PRN Abnormal Lab Result, FOR ICU USE ONLY, Start date: 10/16/15 20:15:00 CDT, Duration: 30 day, Stop date: 11/15/15 20:14:00 CDTNotes: (Same as: Mag-Ox 400) Magnesium oxide [id number] elemental magnesium Dose=____mg magnesium oxide (___mg elemental magnesium) Magnesium Sulfate 2 gm, 50 mL, No Longer [place] Route: IVPB, Active 2015 Medical Drug form: [place] INJ, PRN, Dosing Weight 123.182, kg, PRN Abnormal Lab Result, Start date: 10/16/15 20:15:00 CDT, Duration: 30 day, Stop date: 11/15/15 20:14:00 CDT, FOR ICU USE ONLYNotes: WASTE: F/P - Sink; E - Municipal Trash Bin Neutra-Phos 2 pkt, Route: No Longer [place] PO, Drug Form: Active 2015 Medical PDR/REC, Center Dosing Weight 123.182, kg, PRN, PRN Abnormal Lab Result, FOR ICU USE ONLY, Start date: 10/16/15 20:15:00 CDT, Duration: 30 day, Stop date: 11/15/15 20:14:00 CDTNotes: (Same as: Neutra-Phos) Each 1.25 gm pkt has 250mg phosphorous. Mix w/2.5oz water and stir. Calcium Gluconate 1 gm, 10 mL, No Longer [place] Route: IVPB, Active 2015 Medical PRN, Dosing Center Weight 123.182, kg, PRN Abnormal Lab Result, Start date: 10/16/15 20:15:00 CDT, Duration: 30 day, Stop date: 11/15/15 20:14:00 CDT, FOR ICU USE ONLYNotes: WASTE: F/P - Sink; E - Municipal Trash Bin potassium chloride 20 mEq, 100 No Longer [place] mL, Route: Active 2015 Medical IVPB, Drug Center form: INJ, PRN, Dosing Weight 123.182, kg, PRN Abnormal Lab Result, Via central line, Start date: 10/16/15 20:15:00 CDT, Duration: 30 day, Stop date: 11/15/15 20:14:00 CDT, FOR ICU USE ONLYNotes: (Same as: KCL) Infuse no faster than 10 mEq/hr if given peripherally. sodium phosphate + 15 mmol, 5 mL, No Longer [facility] Sodium Chloride Route: IVPB, Active 2015 Medical 0.9% IV 250 mL PRN, Dosing Center Weight 123.182, kg, PRN Abnormal Lab Result, Start date: 10/16/15 20:15:00 CDT, Duration: 30 day, Stop date: 11/15/15 20:14:00 CDT, FOR ICU USE ONLY potassium 30 mmol, 10 No Longer [facility] phosphate + Sodium mL, Route: Active 2015 Medical Chloride 0.9% IV IVPB, PRN, Center 250 mL Dosing Weight 123.182, kg, PRN Abnormal Lab Result, Start date: 10/16/15 20:15:00 CDT, Duration: 30 day, Stop date: 11/15/15 20:14:00 CDT, FOR ICU USE ONLYNotes: (Same as: K Phosphate.) 1 mMol phoshate has 1.47 mEq potassium Infuse over 4 hours Norepinephrine 8 mg, 8 mL, No Longer [place] Rate: Titrate, Active 2015 Medical Start Dose: 5 Center microgram/min, Titration: 2 microgram/min every 2-5 minutes, Goal(s): MAP>65, Max Dose: 70 microgram/min, Route: IV, Dosing Weight 123.182 kg, Total Volume: 250, Start date: 10/16/15 20:15:00 CDT, Duration: 30...Notes: Not for direct administration - DILUTE. Protect from light. (Same as:Levophed). Administer by either central venous catheter or peripherally-i nserted central catheter (PICC) line. Insulin regular 99 mL, Rate: No Longer [place] 100 unit + Sodium Start Insulin Active 2015 Medical Chloride 0.9% Drip Per ICU Center (titrate) 99 mL Protocol, Dosing Weight 123.182, kg, Route: IVPB, Total Volume: 100, Start Date: 10/16/15 20:15:00 CDT, Duration: 30 day, Stop date: 11/15/15 20:14:00 CDT, Replace Every: 24 hrNotes: (Same as: Humulin R and NovoLIN R) WASTE: F/P - Black; E - Municipal Trash Bin (Do not shake) Dextrose 50% 12.5 gm, 25 No Longer [place] Syringe mL, Route: Active 2015 Medical IVP, Drug Center Form: INJ, Dosing Weight 123.182, kg, PRN, PRN Blood Glucose Results, Start date: 10/16/15 20:15:00 CDT, Duration: 30 day, Stop date: 11/15/15 20:14:00 CDT norepinephrine Route: IV, Inactive [facility] (ANES) Drug form: 2015 Medical INJ, ONCE, Center Stop date: 10/16/15 19:45:00 CDT calcium gluconate Route: IV, Inactive [facility] (ANES) Drug form: 2016 Medical INJ, ONCE, Center Stop date: 10/16/15 19:20:00 CDT Sodium Chloride Route: IV, Inactive [facility] 0.9% IV (ANES) Total Volume: 2015 Medical (ANES) 500, Start Center date: 10/16/15 19:15:00 CDT, Stop date: 10/16/15 20:15:00 CDT protamine (ANES) Route: IV, Inactive [facility] (ANES) Drug form: 2016 Medical INJ, Start Center date: 10/16/15 18:42:00 CDT, Stop date: 10/16/15 19:42:00 CDT magnesium sulfate Route: IV, Inactive [facility] (ANES) Drug form: 2015 Medical INJ, ONCE, Center Stop date: 10/16/15 18:20:00 CDT lidocaine (ANES) Route: IV, Inactive [facility] Drug form: 2015 Medical INJ, ONCE, Center Stop date: 10/16/15 18:20:00 CDT Insulin regular Route: IV, Inactive [facility] (ANES) Drug form: 2015 Medical INJ, ONCE, Center Stop date: 10/16/15 18:15:00 CDT midazolam (ANES) Route: IV, Inactive [facility] Drug form: 2015 Medical SOLN, ONCE, Center Stop date: 10/16/15 17:40:00 CDT Thrombate III 560 unit, Inactive [facility] Route: IV, 2015 Medical Drug form: Center INJ, ONCE, Start date: 10/16/15 16:49:00 CDT, Stop date: 10/16/15 16:49:00 CDTNotes: WASTE: F/P - Red; E -Red Call 2 hours ahead for the next dose; "blood product derivative" EPINEPHrine (ANES) Route: IV, Inactive [facility] Drug form: 2015 Medical INJ, ONCE, Center Stop date: 10/16/15 16:45:00 CDT vecuronium (ANES) Route: IV, Inactive [facility] Drug form: 2015 Medical INJ, ONCE, Center Stop date: 10/16/15 16:45:00 CDT vasopressin (ANES) Route: IV, Inactive [facility] Drug form: 2016 Medical INJ, ONCE, Center Stop date: 10/16/15 16:20:00 CDT norepinephrine Route: IV, Inactive [place] (ANES) Drug form: 2015 Medical INJ, ONCE, Center Stop date: 10/16/15 16:20:00 CDT norepinephrine Route: IV, Inactive [facility] (ANES) (ANES) Drug form: 2015 Medical INJ, Start Center date: 10/16/15 16:10:00 CDT, Stop date: 10/16/15 17:10:00 CDT antithrombin III Route: IV, Inactive [place] (ANES) Drug form: 2015 Medical INJ, ONCE, Center Stop date: 10/16/15 16:00:00 CDT ceFAZolin (ANES) Route: IV, Inactive [facility] Drug form: 2015 Medical INJ, ONCE, Center Stop date: 10/16/15 16:00:00 CDT heparin (ANES) Route: IV, Inactive [facility] Drug form: 2015 Medical INJ, ONCE, [place] Stop date: 10/16/15 15:50:00 CDT Thrombate III 560 unit, Inactive [facility] Route: IV, 2015 Medical Drug form: [place] INJ, ONCE, Start date: 10/16/15 15:14:00 CDT, Stop date: 10/16/15 15:14:00 CDTNotes: WASTE: F/P - Red; E -Red Call 2 hours ahead for the next dose; "blood product derivative" rocuronium (ANES) Route: IV, Inactive [facility] Drug form: 2015 Medical INJ, ONCE, [place] Stop date: 10/16/15 15:10:00 CDT Antithrombin III 573 unit, Inactive [facility] Route: IVP, 2015 Medical Drug form: [place] INJ, ONCE, Dosing Weight 123.182, kg, Start date: 10/16/15 15:08:00 CDT, Duration: 1 doses or times, Stop date: 10/16/15 15:08:00 CDT metoprolol (ANES) Route: IV, Inactive 10/15[facility] Drug form: 2015 Medical INJ, ONCE, [place] Stop date: 10/16/15 14:45:00 CDT fentaNYL (ANES) Route: IV, Inactive 10/15[facility] Drug form: 2015 Medical INJ, ONCE, Center Stop date: 10/16/15 14:45:00 CDT ceFAZolin (ANES) Route: IV, Inactive 10/15[facility] Drug form: 2016 Medical INJ, ONCE, Center Stop date: 10/16/15 12:54:00 CDT propofol (ANES) Route: IV, Inactive [facility] Drug form: 2016 Medical INJ, ONCE, Center Stop date: 10/16/15 12:49:00 CDT lidocaine (ANES) Route: IV, Inactive [facility] Drug form: 2016 Medical INJ, ONCE, Center Stop date: 10/16/15 12:49:00 CDT fentaNYL (ANES) Route: IV, Inactive [facility] Drug form: 2016 Medical INJ, ONCE, Center Stop date: 10/16/15 12:49:00 CDT midazolam (ANES) Route: IV, Inactive [facility] Drug form: 2015 Medical SOLN, ONCE, Center Stop date: 10/16/15 12:49:00 CDT rocuronium (ANES) Route: IV, Inactive [facility] Drug form: 2015 Medical INJ, ONCE, Center Stop date: 10/16/15 12:49:00 CDT vancomycin (ANES) Route: IV, Inactive [facility] (ANES) Drug form: 2015 Medical INJ, Start Center date: 10/16/15 12:20:00 CDT, Stop date: 10/16/15 13:20:00 CDT Isolyte S PH 7.4 Route: IV, Inactive [facility] (ANES) (ANES) Total Volume: 2015 Medical 1,000, Start Center date: 10/16/15 12:13:00 CDT, Stop date: 10/16/15 13:13:00 CDT Sodium Chloride Route: IV, Inactive [facility] 0.9% IV (ANES) Drug form: 2015 Medical (ANES) + INJ, Start Center tranexamic acid date: 10/16/15 (ANES) (ANES) 12:10:00 CDT, Stop date: 10/16/15 13:10:00 CDT Lactated Ringers Route: IV, Inactive [facility] Injection IV Drug form: 2015 Medical (ANES) (ANES) + INJ, Start Center tranexamic acid date: 10/16/15 (ANES) (ANES) 12:10:00 CDT, Stop date: 10/16/15 13:10:00 CDT Sodium Chloride Route: IV, Inactive [place] 0.9% IV (ANES) Total Volume: 2015 Medical (ANES) 1,000, Start Center date: 10/16/15 11:46:00 CDT, Stop date: 10/16/15 12:46:00 CDT NS 1,000 mL 1,000 mL, No Longer [place] Rate: 75 Active 2015 Medical ml/hr, Infuse Center over: 13.3 hr, Route: IV, Dosing Weight 123.182 kg, Total Volume: 1,000, Start date: 10/16/15 0:01:00 CDT, Duration: 30 day, Stop date: 11/15/15 0:00:00 CDT Iohexol 99 mL, Route: Inactive [facility] IVP, Drug 2015 Medical Form: [facility] Dosing Weight 123.182, kg, ONCALL, STAT, Start date: 10/15/15 18:24:00 CDT, Duration: 1 doses or times, Dose=2.2ml/kg, Max vigd=[id number] -- "To be infused by Radiology Staff ONLY" Lisinopril 2.5 mg, 1 tab, No Longer [place] Route: PO, Active 2015 Medical Drug form: Center TAB, Daily, Dosing Weight 123.182, kg, Start date: 10/15/15 15:05:00 CDT, Duration: 30 day, Stop date: 11/14/15 9:00:00 CDTNotes: (Same as: Prinivil) PlasmaLyte A 1,000 mL, Inactive [place] PH-7.4 1,000 mL Rate: 75 2016 Medical ml/hr, Infuse Center over: 13.3 hr, Route: IV, Dosing Weight 123.182 kg, Total Volume: 1,000, Start date: 10/15/15 0:01:00 CDT, Duration: 30 day, Stop date: 11/14/15 0:00:00 CDTNotes: WASTE: F/P - Sink; E - Municipal Trash Bin Iohexol 100 mL, Route: Inactive [facility] IVP, Drug 2015 Medical Form: [facility] Dosing Weight 123.182, kg, ONCALL, STAT, Start date: 10/14/15 14:26:00 CDT, Duration: 1 doses or times, Dose=2.2ml/kg, Max mpmf=[id number] -- "To be infused by Radiology Staff ONLY"Notes: (Same as:Omnipaque 350). WASTE: F/P - Black; E - Municipal Trash Bin heparin 5,000 unit, 1 Inactive [place] mL, Route: 2015 Medical SUB-Q, Drug Center form: INJ, Q8H, Dosing Weight 123.182, kg, Start date: 10/12/15 16:00:00 CDT, Duration: 30 day, Stop date: 11/11/15 8:00:00 CDTNotes: porcine heparin Acetaminophen 300 1 tab, Route: No Longer [place] MG / Codeine PO, Drug Form: Active 2015 Medical Phosphate 30 MG TAB, Dosing Center Oral Tablet Weight [Tylenol with 123.182, kg, Codeine #3] Q6H, PRN Pain Score 1-5, Start date: 10/12/15 15:46:00 CDT, Duration: 30 day, Stop date: 11/11/15 15:45:00 CDTNotes: Do not exceed 4gm/day of acetaminophen. (Same as: Tylenol with Codeine # 3) heparin additive 500 mL, Rate: No Longer [place] 25,000 unit [14 27.22 ml/hr, Active 2015 Medical unit/kg/hr] + Infuse over: [place] Premix Diluent 18.4 hr, Dextrose 5% 500 mL Route: IV, Dosing Weight 97.21 kg, Total Volume: 500 mL, Start date: 10/12/15 15:45:00 CDT, Duration: 30 day, Stop date: 11/11/15 15:44:00 CDT topiramate 25 mg, 1 cap, No Longer [place] Route: PO, Active 2015 Medical Drug form: Center CAP, Q12H, Dosing Weight 123.182, kg, Start date: 10/11/15 21:00:00 CDT, Duration: 30 day, Stop date: 11/10/15 9:00:00 CDTNotes: Sprinkle formulation. 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) Magnesium Sulfate 2 gm, 50 mL, No Longer [facility] Route: IVPB, Active 2015 Medical Drug form: [place] INJ, PRN, Dosing Weight 123.182, kg, PRN Abnormal Lab Result, For NON-ICU Patients Only., Start date: 10/11/15 11:58:00 CDT, Duration: 30 day, Stop date: 11/10/15 11:57:00 CDTNotes: WASTE: F/P - Sink; E - [place] Trash Bin Magnesium Oxide 800 mg, 2 tab, No Longer [facility] Route: PO, Active 2015 Medical Drug form: [place] TAB, PRN, Dosing Weight 123.182, kg, PRN Abnormal Lab Result, For NON-ICU Patients Only., Start date: 10/11/15 11:58:00 CDT, Duration: 30 day, Stop date: 11/10/15 11:57:00 CDTNotes: (Same as: Mag-Ox 400) Magnesium oxide [id number] elemental magnesium Dose=____mg magnesium oxide (___mg elemental magnesium) sodium phosphate + 30 mmol, 10 No Longer [place] Sodium Chloride mL, Route: Active 2015 Medical 0.9% IV 250 mL IVPB, PRN, Center Dosing Weight 123.182, kg, PRN Abnormal Lab Result, For NON-ICU Patients Only., Start date: 10/11/15 11:58:00 CDT, Duration: 30 day, Stop date: 11/10/15 11:57:00 CDT Calcium Gluconate 2 gm, 20 mL, No Longer [facility] Route: IVPB, Active 2015 Medical PRN, Dosing Center Weight 123.182, kg, PRN Abnormal Lab Result, For NON-ICU Patients Only., Start date: 10/11/15 11:58:00 CDT, Duration: 30 day, Stop date: 11/10/15 11:57:00 CDTNotes: WASTE: F/P - Sink; E - [place] Trash Bin potassium chloride 20 mEq, 1 tab, No Longer [place] Route: PO, Active 2015 Medical Drug form: Center ERTAB, PRN, Dosing Weight 123.182, kg, PRN Abnormal Lab Result, For NON-ICU Patients Only, Start date: 10/11/15 11:58:00 CDT, Duration: 30 day, Stop date: 11/10/15 11:57:00 CDTNotes: (Same as: K-Dur 20) "Do Not Crush" With food and full glass of water potassium 2 pkt, Route: No Longer [place] phosphate-sodium PO, Drug Form: Active 2015 Medical phosphate 250 PDR/REC, Center mg-278 mg-164 mg Dosing Weight oral powder 123.182, kg, PRN, PRN Abnormal Lab Result, For NON-ICU Patients Only, Start date: 10/11/15 11:58:00 CDT, Duration: 30 day, Stop date: 11/10/15 11:57:00 CDTNotes: (Same as: Neutra-Phos) Each 1.25 gm pkt has 250mg phosphorous. Mix w/2.5oz water and stir. potassium 15 mmol, 5 mL, No Longer [place] phosphate + Sodium Route: IVPB, Active 2015 Medical Chloride 0.9% IV PRN, Dosing Center 250 mL Weight 123.182, kg, PRN Abnormal Lab Result, For NON-ICU Patients Only., Start date: 10/11/15 11:58:00 CDT, Duration: 30 day, Stop date: 11/10/15 11:57:00 CDTNotes: (Same as: K Phosphate.) 1 mMol phoshate has 1.47 mEq potassium Infuse over 4 hours Tylenol 650 mg, 2 tab, No Longer [place] Route: PO, Active 2015 Medical Drug form: Center TAB, Q6H, Dosing Weight 123.182, kg, PRN Headache 1-3, Start date: 10/11/15 11:12:00 CDT, Stop date: 11/10/15 11:11:00 CDTNotes: Do not exceed 4 gm/day. (Same as: Tylenol) potassium chloride 10 mEq, 50 mL, Inactive [place] Route: IVPB, 2015 Medical Drug form: Center INJ, Q1H, Dosing Weight 123.182, kg, Total Dose=40 meq, Start date: 10/11/15 7:00:00 CDT, Duration: 4 doses or times, Stop date: 10/11/15 10:00:00 CDT, Peripheral LineNotes: (Same as: KCL) Infuse over 2 hours. Magnesium Sulfate 2 gm, 50 mL, Inactive [place] Route: IVPB, 2015 Medical Drug form: Center INJ, ONCE, Dosing Weight 123.182, kg, Total dose=2 gm, Start date: 10/11/15 6:22:00 CDT, Duration: 1 doses or times, Stop date: 10/11/15 6:22:00 CDTNotes: WASTE: F/P - Sink; E - Municipal Trash Bin Isolyte S PH 7.4 1,000 mL, No Longer [place] 1,000 mL Rate: 75 Active 2015 Medical ml/hr, Infuse Center over: 13.3 hr, Route: IV, Dosing Weight 123.182 kg, Total Volume: 1,000, Start date: 10/11/15 0:01:00 CDT, Duration: 30 day, Stop date: 11/10/15 0:00:00 CDTNotes: (Same as: Isolyte S PH 7.4) heparin additive 500 mL, Rate: No Longer [place] 25,000 unit [14 27.22 ml/hr, Active 2015 Medical unit/kg/hr] + Infuse over: Center Premix Diluent 18.4 hr, Dextrose 5% 500 mL Route: IV, Dosing Weight 97.21 kg, Total Volume: 500 mL, Start date: 10/10/15 14:33:00 CDT, Duration: 30 day, Stop date: 11/09/15 14:32:00 CDT Acetaminophen 325 1 tab, Route: No Longer [place] MG / Hydrocodone PO, Drug Form: Active 2015 Medical Bitartrate 5 MG TAB, Dosing Center Oral Tablet [[place] Weight 5/325] 123.182, kg, Q4H, PRN Pain Score 1-3, Start date: 10/10/15 13:43:00 CDT, Duration: 30 day, Stop date: 11/09/15 13:42:00 CDTNotes: (Same as: [place] 325/5) Do not exceed 4gm/day of acetaminophen. Alprazolam 0.5 MG 0.5 mg, 1 tab, No Longer [place] Oral Tablet Route: PO, Active 2015 Medical [Xanax] Drug form: [place] TAB, TID, Dosing Weight 123.182, kg, PRN Anxiety, Start date: 10/10/15 13:42:00 CDT, Duration: 30 day, Stop date: 11/09/15 13:41:00 CDTNotes: With food or milk (Same as: Xanax) Melatonin 3 MG 3 mg, 1 tab, No Longer [place] Extended Release Route: PO, Active 2015 Medical Tablet Drug Form: [place] TAB, Dosing Weight 123.182, kg, Bedtime, PRN Insomnia, Start date: 10/09/15 21:42:00 CDT, Duration: 30 day, Stop date: 11/08/15 21:41:00 CDTNotes: (Same as: Melatonin) Tylenol 650 mg, 20.3 Inactive [place] mL, Route: PO, 2015 Medical Drug form: [place] LIQ, ONCE, Dosing Weight 123.182, kg, Priority: STAT, Start date: 10/09/15 17:39:00 CDT, Stop date: 10/09/15 17:39:00 CDTNotes: Max acetaminophen= 4000mg/day (4 gm/day). (Same as: Tylenol) heparin additive 500 mL, Rate: No Longer [place] 25,000 unit [12 23.33 ml/hr, Active 2015 Medical unit/kg/hr] + Infuse over: [place] Premix Diluent 21.4 hr, Dextrose 5% 500 mL Route: IV, Dosing Weight 97.21 kg, Total Volume: 500 mL, Start date: 10/09/15 17:39:00 CDT, Duration: 30 day, Stop date: 11/08/15 17:38:00 CDT Sodium Chloride 750 mL, Rate: No Longer [place] 0.154 MEQ/ML 75 ml/hr, Active 2015 Medical Injectable Infuse over: [place] Solution 10 hr, Route: IV, Dosing Weight 123.182 kg, Total Volume: 750, Start date: 10/09/15 15:04:00 CDT, Duration: 10 hr, Stop date: 10/10/15 1:03:00 CDT Nitroglycerin 100 mg, 250 No Longer [facility] mL, Rate: Active 2015 Medical Titrate, Start Center Dose: 0.25 microgram/kg/m in, Titration: 0.2 microgram/kg/m in every 5 minutes, Goal(s): Chest pain and SBP between 100 - 150 mmHg, Max Dose: 3 microgram/kg/m in, Route: IV, Dosing Weight 123.182 kg, Total Volume: 250...Notes: (Same as:Tridil) Final conc=0.4 mg/ml. Premix bottle. Nitroglycerin 0.4 mg, 1 tab, Inactive [facility] Route: SL, 2015 Medical Drug form: Center TAB, ONCE, Dosing Weight 123.182, kg, Start date: 10/09/15 10:41:00 CDT, Stop date: 10/09/15 10:41:00 CDTNotes: (Same as:Nitroquick, Nitrostat) "Do Not Crush" Sublingual tablet Ticagrelor 90 mg, 1 tab, Inactive [facility] Route: PO, 2015 Medical Drug form: [place] TAB, Q12H, Dosing Weight 123.182, kg, Start date: 10/09/15 9:00:00 CDT, Duration: 30 day, Stop date: 11/07/15 21:00:00 CDTNotes: (Same as: Brilinta) metoprolol 12.5 mg, 1 No Longer [facility] tartrate tab, Route: Active 2015 Medical PO, Drug form: [place] TAB, BID, Dosing Weight 123.182, kg, Start date: 10/09/15 9:00:00 CDT, Duration: 30 day, Stop date: 11/07/15 17:00:00 CDTNotes: (Same as: Lopressor) 12.5mg=1/4 X 50 mg tab. Acetaminophen 325 1 tab, Route: Inactive [facility] MG / Hydrocodone PO, Drug Form: 2015 Medical Bitartrate 5 MG TAB, Dosing Center Oral Tablet Weight 123.182, kg, ONCE, STAT, Start date: 10/09/15 5:06:00 CDT, Stop date: 10/09/15 5:06:00 CDT Aspirin 81 mg, 1 tab, No Longer [facility] Route: PO, Active 2015 Medical Drug form: [place] ECTAB, Daily, Dosing Weight 123.182, kg, Start date: 10/09/15 2:12:00 CDT, Duration: 30 day, Stop date: 11/07/15 9:00:00 CDTNotes: Do not crush or chew. (Same As: Ecotrin) atorvastatin 80 mg, 1 tab, No Longer [facility] Route: PO, Active 2015 Medical Drug form: [place] TAB, Bedtime, Dosing Weight 123.182, kg, Start date: 10/09/15 2:09:00 CDT, Stop date: 11/05/15 21:00:00 CDTNotes: Same as Lipitor Ondansetron 4 mg, Route: Inactive [facility] IVP, Drug 2015 Medical form: INJ, [place] ONCE, Dosing Weight 123.182, kg, Priority: STAT, Start date: 10/08/15 20:51:00 CDT, Stop date: 10/08/15 20:51:00 CDT Morphine 4 mg, Route: Inactive [facility] IVP, ONCE, 2015 Medical Dosing Weight Center 123.182, kg, Priority: STAT, Start date: 10/08/15 20:51:00 CDT, Stop date: 10/08/15 20:51:00 CDT heparin additive 500 mL, Rate: No Longer [facility] 25,000 unit [12 23.33 ml/hr, Active 2015 Medical unit/kg/hr] + Infuse over: [place] Premix Diluent 21.4 hr, Dextrose 5% 500 mL Route: IV, Dosing Weight 97.21 kg, Total Volume: 500 mL, Start date: 10/08/15 18:16:00 CDT, Duration: 30 day, Stop date: 11/07/15 18:15:00 CDT Heparin - one time 4,000 unit, Inactive [facility] bolus for ACS Route: IV, 2015 Medical Drug form: [place] INJ, ONCE, Dosing Weight 123.182, kg, Priority: STAT, Start date: 10/08/15 18:16:00 CDT, Stop date: 10/08/15 18:16:00 CDT Heparin 60 unit/kg Route: IVP, No Longer [facility] Bolus (Heparin PRN, 5,800 Active 2015 Medical Dosing Weight) unit, 5.8 mL, Center Drug form: INJ, PRN, Heparin Protocol, Start date: 10/08/15 18:16:00 CDT Stop date: 11/07/15 18:15:00 CDT, 30 day Heparin 30 unit/kg Route: IVP, No Longer [facility] Bolus (Heparin PRN, 2,900 Active 2015 Medical Dosing Weight) unit, 2.9 mL, Center Drug form: INJ, PRN, Heparin Protocol, Start date: 10/08/15 18:16:00 CDT Stop date: 11/07/15 18:15:00 CDT, 30 day Ticagrelor 180 mg, 2 tab, Inactive [facility] Route: PO, 2015 Medical Drug form: Center TAB, ONCE, kg, Start date: 10/08/15 17:42:00 CDT, Stop date: 10/08/15 17:42:00 CDTNotes: (Same as: Brilinta) Plavix 300 mg, Route: Inactive [facility] PO, Drug form: 2015 Medical TAB, ONCE, kg, [place] Priority: STAT, Start date: 10/08/15 17:36:00 CDT, Stop date: 10/08/15 17:36:00 CDT Allergies, Adverse Reactions, Alerts Substance Category Reaction Severity Reaction Status Date Comments Source type Reported NKDA Assertion Drug Active allergy [place] Immunizations Immunization Date Given Site Status Last Updated Comments Source Results Order Name Results Value Reference Date Interpretation Comments Source Range CARDIAC Troponin-I null 0.00 - 11/11 [facility] 0.40 [place] CARDIAC Total CK 169 unit/L 12 - 11/11 [facility] /2017 [facility] CARDIAC Troponin-I null 0.00 - 11/11 [facility] 0.40 [facility] CARDIAC CK MB Index 0.7 0.0 - 2.5 30 [facility] /2018 [facility] CARDIAC CK MB 1.2 ng/mL 0.5 - 3.6 30 [facility] /2017 [facility] CARDIAC Troponin-I null 0.00 - 11/11 [facility] 0.40 [facility] CARDIAC Total CK 207 unit/L 12 - 191 11/11 MH [facility]YM[facility] /2017 [facility] CARDIAC CK MB Index 0.6 0.0 - 2.5 /30 MH [facility]YM[facility] /2017 [facility] CARDIAC CK MB 1.2 ng/mL 0.5 - 3.6 11/11 MH [facility]YMES /2017 [facility] ELECTROLYT AGAP 19.1 meq/L 10.0 - 11/11 MH ES 20.0 /2017 [facility] ELECTROLYT eGFR 74 11/11 Result Comment: The eGFR is calculated using the CKD-EPI formula. In most young, healthy individuals the eGFR will be >90 mL/ min/1.73m2. The eGFR declines with age. An eGFR of 60-89 may be normal in ES mL/min/1.7 /2017 some populations, particularly the elderly, for whom the CKD-EPI formula has not been extensively validated. Use of the eGFR is not recommended in the following populations: [facility] 3m2 Individuals with unstable creatinine concentrations, including patients and those with serious co-morbid conditions. Patients with extremes in muscle mass or diet. The data above are obtained from the National Kidney Disease Education Program (NKDEP) which additionally recommends that when the eGFR is used in patients with extremes of body mass index for purposes of drug dosing, the eGFR should be multiplied by the estimated BMI. ELECTROLYT Calcium Lvl 9.3 mg/dL 8.5 - 10.5 11/11 MH ES [facility] ELECTROLYT Chloride Lvl 95 meq/L 95 - 109 11/11 ES /2017 [facility] ELECTROLYT CO2 25 meq/L 24 - 32 11/11 ES /2017 [facility] ELECTROLYT Sodium Lvl 134 meq/L 135 - 145 / ES /2017 [facility] ELECTROLYT Potassium 5.1 meq/L 3.5 - 5.1 11/11 MH ES Lvl /2017 [facility] ELECTROLYT Creatinine 1.27 mg/dL 0.50 - 11/11 MH ES Lvl 1.40 /2017 [facility] ELECTROLYT Glucose Lvl 272 mg/dL 70 - 99 /30 MH ES /2017 [facility] ELECTROLYT BUN 12 mg/dL 7 - 22 11/11 MH ES /2017 [facility] HEMATOLOGY Basophils # 0.2 K/CMM 0.0 - 0.2 11/11 [facility] HEMATOLOGY Eosinophils 0.3 K/CMM 0.0 - 0.5 /30 MH # /2018 [facility] HEMATOLOGY Monocytes # 1.2 K/CMM 0.0 - 0.8 11/11 [facility] HEMATOLOGY Lymphocytes 2.7 K/CMM 1.0 - 5.5 11/11 MH # /2018 [facility] HEMATOLOGY Segs-Bands # 11.0 K/CMM 1.5 - 8.1 11/11 [facility] HEMATOLOGY Basophils 1.1 % 0.0 - 1.0 11/11 [facility] HEMATOLOGY Eosinophils 1.7 % 0.0 - 4.0 11/11 [facility] HEMATOLOGY Monocytes 7.7 % 2.0 - 12.0 11/11 [facility] HEMATOLOGY Lymphocytes 17.5 % 20.0 - 11/11 MH 40.0 /2017 [facility] HEMATOLOGY Segs 72.0 % 45.0 - 11/11 MH 75.0 [facility] HEMATOLOGY MCV 84.9 fL 80.0 - 11/11 94.0 [facility] HEMATOLOGY MPV 9.3 fL 7.4 - 10.4 11/11 [facility] HEMATOLOGY Platelet 310 K/CMM 133 - 450 11/11 [facility] HEMATOLOGY RDW 13.6 % 11.5 - 11/11 MH 14.5 [facility] HEMATOLOGY MCHC 33.8 g/dL 32.0 - 11/11 MH 36.0 [facility] HEMATOLOGY MCH 28.7 pg 27.0 - 11/11 MH 31.0 [facility] HEMATOLOGY Hct 45.8 % 42.0 - 11/11 MH 54.0 [facility] HEMATOLOGY Hgb 15.5 g/dL 14.0 - 11/11 MH 18.0 [facility] HEMATOLOGY RBC 5.39 M/CMM 4.70 - 11/11 MH 6.10 [facility] HEMATOLOGY WBC 15.3 K/CMM 3.7 - 10.4 11/11 [facility] URINE AND UA Color Yellow Yellow 08/19 STOOL [place] *NA* (08/19/17 2:08 AM) URINE AND UA Turbidity Clear Clear 08/19 STOOL [place] (08/19/17 2:08 AM) URINE AND UA Protein Negative Negative 08/19 [facility]OOL mg/dL mg/dL [place] URINE AND UA Spec Grav 1.017 <=1.030 08/19 STOOL [place] URINE AND UA pH 5.0 5.0 - 8.0 08/19 STOOL [place] URINE AND UA Bili Negative Negative 08/19 [place] *NA* (08/19/17 2:08 AM) URINE AND UA Blood Negative Negative 08/19 STOOL [place] (08/19/17 2:08 AM) URINE AND UA Ketones Negative Negative 08/19 [facility] mg/dL mg/dL [place] URINE AND UA Nitrite Negative Negative 08/19 STOOL [place] (08/19/17 2:08 AM) URINE AND UA RBC null 0 - 2 08/19 [place] URINE AND UA Mucus Few /LPF None Seen 08/19 STOOL /LPF [place] URINE AND UA Sq Epi Occasional Few /LPF 08/19 STOOL /LPF [place] URINE AND UA WBC 1 /HPF 0 - 5 08/19 STOOL [place] URINE AND UA Leuk Est Negative Negative 08/19 [place] (08/19/17 2:08 AM) URINE AND UA Glucose 50 mg/dL 08/19 STOOL [place] URINE AND UA <=1.0 0.1 - 1.0 08/19 STOOL Urobilinogen mg/dL /2017 [place] CARDIAC CK MB Index 2.6 0.0 - 2.5 08/19 [facility]ES [place] CARDIAC CK MB 2.4 ng/mL 0.5 - 3.6 08/19 EN[facility]ES [place] CARDIAC Total CK 91 unit/L 12 - 191 08/19 [facility] [place] CARDIAC Troponin-I null 0.00 - 08/19 [facility] 0.40 /2018 [place] CHEM PANEL Lipase Lvl 233 unit/L 73 - 393 08/19 [place] CHEM PANEL eGFR 116 08/19 Result Comment: The eGFR is calculated using the CKD-EPI formula. In most young, healthy individuals the eGFR will be >90 mL/ min/1.73m2. The eGFR declines with age. An eGFR of 60-89 may be normal in mL/min/1.7 some populations, particularly the elderly, for whom the CKD-EPI formula has not been extensively validated. Use of the eGFR is not recommended in the following populations: [place] 3m2 Individuals with unstable creatinine concentrations, including patients and those with serious co-morbid conditions. Patients with extremes in muscle mass or diet. The data above are obtained from the National Kidney Disease Education Program (NKDEP) which additionally recommends that when the eGFR is used in patients with extremes of body mass index for purposes of drug dosing, the eGFR should be multiplied by the estimated BMI. CHEM PANEL A/G Ratio 0.8 0.7 - 1.6 08/19 [place] CHEM PANEL Globulin 4.0 g/dL 2.7 - 4.2 08/19 [place] CHEM PANEL B/C Ratio 9 6 - 25 08/19 [place] CHEM PANEL AGAP 8.8 meq/L 10.0 - 08/19 MH 20.0 [place] CHEM PANEL Total 7.3 g/dL 6.4 - 8.4 08/19 [place] CHEM PANEL Calcium Lvl 8.6 mg/dL 8.5 - 10.5 08/19 [place] CHEM PANEL Potassium 3.8 meq/L 3.5 - 5.1 08/19 Lvl [place] CHEM PANEL CO2 27 meq/L 24 - 32 08/19 [place] CHEM PANEL Chloride Lvl 102 meq/L 95 - 109 08/19 [place] CHEM PANEL AST 48 unit/L 0 - 37 08/19 [place] CHEM PANEL ALT 64 unit/L 0 - 65 08/19 [place] CHEM PANEL Bili Total 0.4 mg/dL 0.2 - 1.3 08/19 [place] CHEM PANEL Alk Phos 73 unit/L 39 - 136 08/19 [place] CHEM PANEL Albumin Lvl 3.3 g/dL 3.5 - 5.0 08/19 [place] CHEM PANEL Glucose Lvl 236 mg/dL 70 - 99 08/19 [place] CHEM PANEL Creatinine 0.86 mg/dL 0.50 - 03 MH Lvl 1.40 [place] CHEM PANEL BUN 8 mg/dL 7 - 22 08/19 [place] CHEM PANEL Sodium Lvl 134 meq/L 135 - 145 08/19 [place] HEMATOLOGY Segs 66.5 % 45.0 - 03 MH 75.0 [place] HEMATOLOGY Lymphocytes 18.0 % 20.0 - 03/ MH 40.0 [place] HEMATOLOGY Monocytes 7.7 % 2.0 - 12.0 08/19 [place] HEMATOLOGY Eosinophils 6.9 % 0.0 - 4.0 08/19 [place] HEMATOLOGY Basophils 0.9 % 0.0 - 1.0 08/19 [place] HEMATOLOGY Segs-Bands # 10.3 K/CMM 1.5 - 8.1 08/19 [facility] Lymphocytes 2.8 K/CMM 1.0 - 5.5 08/19 MH # [place] HEMATOLOGY Monocytes # 1.2 K/CMM 0.0 - 0.8 08/19 [place] HEMATOLOGY Eosinophils 1.1 K/CMM 0.0 - 0.5 08/19 MH [place] HEMATOLOGY Basophils # 0.1 K/CMM 0.0 - 0.2 08/19 [place] HEMATOLOGY WBC 15.4 K/CMM 3.7 - 10.4 08/19 [place] HEMATOLOGY RBC 4.90 M/CMM 4.70 - 08/19 MH 6.10 [place] HEMATOLOGY Hgb 14.8 g/dL 14.0 - 08/19 MH 18.0 [place] HEMATOLOGY MCH 30.2 pg 27.0 - 08/19 MH 31.0 [place] HEMATOLOGY Hct 43.4 % 42.0 - 08/19 MH 54.0 [place] HEMATOLOGY MCV 88.6 fL 80.0 - 08/19 MH 94.0 [place] HEMATOLOGY MPV 9.2 fL 7.4 - 10.4 08/19 [facility] Platelet 261 K/CMM 133 - 450 08/19 [place] HEMATOLOGY RDW 13.4 % 11.5 - 08/19 MH 14.5 [facility] MCHC 34.1 g/dL 32.0 - 08/19 MH 36.0 [place] Chest Chest 1view Clinical Indication: - chest pain 08/19 - [facility] 1view DX DX /2017 - [place] Comparison: 07/08/2017 Read by: Loco Parr DO Dictated Date/time: 08/19/17 02:01 FINDINGS: Electronically Signed by: Loco Parr DO 08/19/17 02:02 FINAL REPORT HEART: Cardiomediastinal silhouette unremarkable. There is evidence of median sternotomy with wires. PULMONARY VASCULATURE: The pulmonary vasculature is unremarkable. LUNGS: Lung volumes are maintained. There are no pneumothoraces noted. Costophrenic sulci: -Right costophrenic sulcus: The right costophrenic sulcus is sharp without evidence for pleural effusions or thickening. -Left costophrenic sulcus: The left costophrenic sulcus is sharp without evidence for pleural effusions or thickening. BONES: The visualized osseous structures are unremarkable. IMPRESSION: 1. Unremarkable chest x-ray. SL: SROSENBLUM-PC Chest Chest 1view EXAM: XR CHEST 1 VIEW 07/08 - [place] 1view DX DX /2017 [facility] DATE: 07/08/2017 Read by: Mariam Larry MD Dictated Date/time: 07/08/17 09:16 Electronically Signed by: Mariam Larry MD 07/08/17 09:18 FINAL REPORT INDICATION: Respiratory failure - resp failure . Comparison is made with yesterday FINDINGS: Cardia mediastinal silhouette is median sternotomy wires are unchanged. Costophrenic sulci are sharp without effusion. The lungs are clear. IMPRESSION: No significant interval change when compared to prior radiograph. Chest Chest 1view EXAM: XR CHEST 1 VIEW 07/07 - [place] 1view DX DX [facility] DATE: 07/07/2017 3:00 AM [facility] Read by: Anne Rao MD Dictated Date/time: 07/07/17 08:49 Electronically Signed by: Anne Rao MD 07/07/17 11:04 FINAL REPORT INDICATION: - intubated. FINDINGS: Comparison is made to July 05. The cardiomediastinal silhouette and postoperative changes are stable. There is mild right perihilar subsegmental atelectasis. The lungs are otherwise clear. No pleural effusions. IMPRESSION: Mild right perihilar subsegmental atelectasis. The lungs are otherwise clear. Chest Chest 1view EXAM: XR CHEST 1 VIEW 07/05 - [place] 1view DX DX [facility] DATE: 07/05/2017 9:05 PM [facility] Read by: Dewey Thomas MD Dictated Date/time: 07/06/17 08:54 Electronically Signed by: Dewey Thomas MD 07/06/17 08:55 FINAL REPORT INDICATION: - CHEST PAIN COMPARISON: None. TECHNIQUE: AP chest FINDINGS: Lines, tubes and hardware: Surgical clips project over the upper and lower mediastinum. Lungs and pleura: The left costophrenic sulcus is incompletely visualized. No pulmonary or pleural based abnormality is identified. Pulmonary vascularity is normal. Heart and mediastinum: The cardiomediastinal silhouette is mildly enlarged. The mediastinal contours are normal. Bones: Changes of median sternotomy are noted. IMPRESSION: 1. Mild cardiomegaly. 2. Clear lungs. CHEM PANEL Phosphorus 3.8 mg/dL 2.5 - 4.5 03/31 [facility] CHEM PANEL Magnesium 2.3 mg/dL 1.8 - 2.4 03/31 [facility] ELECTROLYT AGAP 13.4 meq/L 10.0 - 03/31 [facility] ES 20.0 [facility] ELECTROLYT eGFR 81 03/31 Result Comment: The eGFR is calculated using the CKD-EPI formula. In most young, healthy individuals the eGFR will be >90 mL/ min/1.73m2. The eGFR declines with age. An eGFR of 60-89 may be normal in [facility] mL/min/1.7 some populations, particularly the elderly, for whom the CKD-EPI formula has not been extensively validated. Use of the eGFR is not recommended in the following populations: [address] Individuals with unstable creatinine concentrations, including patients and those with serious co-morbid conditions. Patients with extremes in muscle mass or diet. The data above are obtained from the National Kidney Disease Education Program (NKDEP) which additionally recommends that when the eGFR is used in patients with extremes of body mass index for purposes of drug dosing, the eGFR should be multiplied by the estimated BMI. ELECTROLYT Chloride Lvl 104 meq/L 95 - 109 03/31 [facility] ELECTROLYT CO2 26 meq/L 24 - 32 03/31 [facility] ELECTROLYT Calcium Lvl 8.8 mg/dL 8.5 - 10.5 03/31 [facility] ELECTROLYT Potassium 4.4 meq/L 3.5 - 5.1 03/31 [facility] Lv [facility] ELECTROLYT Creatinine 1.20 mg/dL 0.50 - 03/31 [facility] Lvl 1.40 [facility] ELECTROLYT Sodium Lvl 139 meq/L 135 - 145 03/31 [facility] ELECTROLYT BUN 11 mg/dL 7 - 22 03/31 [facility] ELECTROLYT Glucose Lvl 98 mg/dL 70 - 99 03/31 [facility] HEMATOLOGY Basophils # 0.1 K/CMM 0.0 - 0.2 03/31 [facility] HEMATOLOGY Segs-Bands # 8.3 K/CMM 1.5 - 8.1 03/31 [facility] HEMATOLOGY Monocytes # 1.4 K/CMM 0.0 - 0.8 03/31 [facility] HEMATOLOGY Lymphocytes 1.9 K/CMM 1.0 - 5.5 03/31 [facility] HEMATOLOGY Segs 70.7 % 45.0 - 03/31 [place] 75.0 [facility] HEMATOLOGY Eosinophils 0.1 K/CMM 0.0 - 0.5 03/31 [facility] HEMATOLOGY Lymphocytes 15.7 % 20.0 - 03/31 [place] 40.0 [facility] HEMATOLOGY Basophils 0.4 % 0.0 - 1.0 03/31 [facility] HEMATOLOGY Eosinophils 0.9 % 0.0 - 4.0 03/31 [facility] HEMATOLOGY Monocytes 12.3 % 2.0 - 12.0 03/31 [facility] HEMATOLOGY Hgb 12.8 g/dL 14.0 - 03/31 [place] 18.0 [facility] HEMATOLOGY RBC 4.12 M/CMM 4.70 - 03/31 [place] 6. [facility] HEMATOLOGY MCHC 33.9 g/dL 32.0 - 03/31 [place] 36.0 [facility] HEMATOLOGY MCV 91.4 fL 80.0 - 03/31 [place] 94.0 [facility] HEMATOLOGY MCH 31.0 pg 27.0 - 03/31 [place] 31.0 [facility] HEMATOLOGY Hct 37.7 % 42.0 - 03/31 [place] 54.0 [facility] HEMATOLOGY RDW 15.8 % 11.5 - 03/31 [place] 14.5 [facility] HEMATOLOGY Platelet 181 K/CMM 133 - 450 03/31 [facility] HEMATOLOGY MPV 9.3 fL 7.4 - 10.4 03/31 [facility] HEMATOLOGY WBC 11.8 K/CMM 3.7 - 10.4 03/31 [place] [facility] PARATHYROI Ca Norm WB 1.12 1.05 - 03/31 [place] D PROFILE mMol/L 1. [facility] PARATHYROI Ca Ion WB 1.19 1.05 - 03/31 [place] D PROFILE mMol/L 1. [facility] DRUG U Cocaine Negative Negative 03/30 [place] [facility] (03/30/16 2:22 PM) DRUG U Propoxyph Negative Negative 03/30 [place] [facility] Center (03/30/16 2:22 PM) DRUG U Methadone Negative Negative 03/30 [place] [facility] *NA* [place] (03/30/16 2:22 PM) DRUG U Cannab Scr Negative Negative 03/30 [place] [facility] *NA* [place] (03/30/16 2:22 PM) DRUG U Phencyc Negative Negative 03/30 [place] [facility] *NA* [place] (03/30/16 2:22 PM) DRUG U Opiate Scr Positive Negative 03/30 [place] [facility]03/30/16 2:22 PM) DRUG UDS Note See Note 03/30 [place] [facility] (03/30/16 2:22 PM) [place] DRUG U Benzodia Negative Negative 03/30 [place] SCREEN [facility] *NA* [place] (03/30/16 2:22 PM) DRUG U Venita Scr Negative Negative 03/30 [place] [facility]* Center (03/30/16 2:22 PM) DRUG U Amph Scr Negative Negative 03/30 [place] [facility] *NA* [place] (03/30/16 2:22 PM) URINE AND UA Nitrite Negative Negative 03/30 [place] STOOL [facility] (03/30/16 2:22 PM) Center URINE AND UA 2.0 mg/dL 0.1 - 1.0 03/30 [facility] Urobilinogen [facility] URINE AND UA WBC 2 /HPF 0 - 5 03/30 [place] [facility] URINE AND UA Leuk Est Negative Negative 03/30 [place] STOOL [facility] (03/30/16 2:22 PM) Center URINE AND UA Blood Negative Negative 03/30 [facility] (03/30/16 2:22 PM) [place] URINE AND UA Bacteria Occasional None Seen 03/30 [facility] /HPF /HPF [facility] URINE AND UA RBC null 0 - 2 03/30 [facility] URINE AND UA Ketones Negative Negative 03/30 [facility] mg/dL mg/dL [facility] URINE AND UA Glucose Negative Negative 03/30 [facility] mg/dL mg/dL [facility] URINE AND UA Protein 30 mg/dL Negative 03/30 [facility] mg/dL [facility] URINE AND UA Bili Negative Negative 03/30 [facility] [place] (03/30/16 2:22 PM) URINE AND UA Mucus Many /LPF None Seen 03/30 [facility] /LPF [facility] URINE AND UA Sq Epi None Seen 03/30 [facility] URINE AND UA Color Yellow Yellow 03/30 [facility] [place] (03/30/16 2:22 PM) URINE AND UA Spec Grav 1.021 <=1.030 03/30 [facility] URINE AND UA Turbidity Clear Clear 03/30 [facility] (03/30/16 2:22 PM) [place] URINE AND UA pH 6.0 5.0 - 8.0 03/30 [facility] Chest Chest EXAM: CTA CHEST WITH CONTRAST 03/30 - [facility] Pulmonary Pulmonary - Medical Embolism Embolism CTA This report was dictated by a Foundation Relations Director/Fellow. I have personally reviewed the images as Center CTA well as the Resident's interpretation and agree with the findings. DATE: 03/30/2016 11:02 AM CDT Read by: Belle Kang MD Resident: Belle Kang MD Dictated Date/time: 03/31/16 08:16 Electronically Signed by: Gautam Cr MD 03/31/16 17:54 FINAL REPORT INDICATION: Chest pain COMPARISON: None TECHNIQUE: Volumetric CT acquisition of the chest, during pulmonary arterial phase, after intravenous contrast. Axial, sagittal, coronal, and oblique MIP reconstructions are created at the acquisition workstation. IV Contrast: 96 mL Omnipaque 350, 95 mL Visipaque 320 DLP: 2682 mGy-cm FINDINGS: Lines and tubes: None Lower neck: Unremarkable Heart and Mediastinum: The heart is normal in size, the cardiothoracic ratio measures 15/28 cm. 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 Vasculature: There is no pulmonary embolus to the segmental level. Evaluation of distal subsegmental arteries is limited Measurements and appearance of the thoracic aorta are normal. At the same level where the ascending aorta measures 2.4 cm the pulmonary trunk measures 2.7 cm. Lungs: There is mild bibasilar dependent subsegmental atelectasis. Small focal region of subsegmental atelectasis in the right middle lobe on axial image 78. Azygos lobe noted in the right upper lobe, a normal variant. Pleura: No pleural effusion or pneumothorax. Trachea: Normal without mass or stenosis. Lymph Nodes: There is no hilar, mediastinal, axillary or internal mammary lymphadenopathy. Upper abdomen: Unremarkable. Bones and soft tissues: No destructive bony lesion. Sternotomy wires are noted. IMPRESSION: 1. No pulmonary embolism. 2. No acute cardiopulmonary abnormality. 3. There is subsegmental atelectasis in the bilateral lung bases. RECOMMENDATIONS: None. CARDIAC Troponin-T <0.010 0.000 - 03/30 [place] [facility] ng/mL 0. [facility] CARDIAC Total CK 91 unit/L - 03/30 [place] [facility] /2016 [facility] CARDIAC Troponin-I 0.05 ng/mL 0.00 - 03/30 [place] [facility] 0. [facility] CARDIAC CK MB Index 1.1 0.0 - 2.5 03/30 [place] [facility] /2015 [facility] CARDIAC CK MB 1.0 ng/mL 0.5 - 3.6 03/30 [place] [facility] /2016 [facility] CARDIAC CK MB 0.8 ng/mL 0.5 - 3.6 03/30 [place] [facility] /2016 [facility] CARDIAC CK MB Index 0.8 0.0 - 2.5 03/30 [place] [facility] /2016 [facility] CARDIAC Troponin-T <0.010 0.000 - 03/30 [place] [facility] ng/mL 0.100 [facility] CARDIAC Total CK 106 unit/L 12 - 191 03/30 [place] [facility] /2016 [facility] CARDIAC Troponin-I 0.06 ng/mL 0.00 - 03/30 [place] [facility] 0.40 [facility] LIPIDS VLDL 19 03/30 [place] /2016 [facility] LIPIDS Chol 149 mg/dL <=199 03/30 [place] mg/dL Medical [place] LIPIDS Trig 96 mg/dL <=149 03/30 [place] mg/dL [facility] LIPIDS HDL 45 mg/dL >=61 mg/dL 03/30 [facility] LIPIDS LDL 85 mg/dL <=99 mg/dL 03/30 [facility] (Calculated) [facility] LIPIDS CHD Risk 3.31 4.00 - 03/30 [place] 7.30 /2015 [facility] SPECIAL Hgb A1C 4.8 % <=5.6 % 03/30 [facility] CHEMISTRY /2015 [facility] HEMATOLOGY PTT 26.9 s 22.9 - 03/30 [place] 35.8 /2015 [facility] HEMATOLOGY PT 13.3 s 12.0 - 03/30 [place] 14.7 [facility] HEMATOLOGY INR 0.99 0.85 - 03/30 [place] 1.17 /2015 [facility] HEMATOLOGY MCHC 34.2 g/dL 32.0 - 03/30 [place] 36.0 [facility] HEMATOLOGY Hgb 13.1 g/dL 14.0 - 03/30 [place] 18.0 [facility] HEMATOLOGY RBC 4.27 M/CMM 4.70 - 03/30 [place] 6.10 [facility] HEMATOLOGY MPV 8.9 fL 7.4 - 10.4 03/30 [facility] HEMATOLOGY Platelet 205 K/CMM 133 - 450 03/30 [facility] HEMATOLOGY MCH 30.8 pg 27.0 - 03/30 [place] 31.0 2016 [facility] HEMATOLOGY RDW 15.9 % 11.5 - 03/30 [place] 14.5 [facility] HEMATOLOGY Hct 38.4 % 42.0 - 03/30 [place] 54.0 /2016 [facility] HEMATOLOGY WBC 15.2 K/CMM 3.7 - 10.4 03/30 [facility] HEMATOLOGY MCV 90.0 fL 80.0 - 03/30 [place] 94.0 /2016 [facility] HEMATOLOGY Lymphocytes 16.1 % 20.0 - 03/30 [place] 40.0 /2016 [facility] HEMATOLOGY Monocytes # 2.0 K/CMM 0.0 - 0.8 03/30 /2015 [facility] HEMATOLOGY Eosinophils 0.2 K/CMM 0.0 - 0.5 03/30 [facility] [place] # /2016 [facility] HEMATOLOGY Segs 69.4 % 45.0 - 03/30 [place] 75.0 [facility] HEMATOLOGY Eosinophils 1.1 % 0.0 - 4.0 03/30 [facility] HEMATOLOGY Monocytes 13.1 % 2.0 - 12.0 03/30 [facility] HEMATOLOGY Segs-Bands # 10.5 K/CMM 1.5 - 8.1 03/30 [facility] HEMATOLOGY Basophils 0.3 % 0.0 - 1.0 03/30 [facility] HEMATOLOGY Lymphocytes 2.4 K/CMM 1.0 - 5.5 03/30 [facility] # 2016 [facility] CHEM PANEL Magnesium 1.8 mg/dL 1.8 - 2.4 03/30 [facility] Lvl [facility] CHEM PANEL Phosphorus 4.3 mg/dL 2.5 - 4.5 03/30 [facility] CHEM PANEL Globulin 3.5 g/dL 2.7 - 4.2 03/30 [facility] CHEM PANEL A/G Ratio 1.0 0.7 - 1.6 03/30 [facility] CHEM PANEL Bili Total 0.9 mg/dL 0.2 - 1.3 03/30 [facility] CHEM PANEL AGAP 15.9 meq/L 10.0 - 03/30 [facility] 20.0 [facility] CHEM PANEL B/C Ratio 8 6 - 25 03/30 [facility] CHEM PANEL eGFR 80 03/30 Result Comment: The eGFR is calculated using the CKD-EPI formula. In most young, healthy individuals the eGFR will be >90 mL/ min/1.73m2. The eGFR declines with age. An eGFR of 60-89 may be normal in [facility] mL/min/1.7 /2016 some populations, particularly the elderly, for whom the CKD-EPI formula has not been extensively validated. Use of the eGFR is not recommended in the following populations: [address] Individuals with unstable creatinine concentrations, including patients and those with serious co-morbid conditions. Patients with extremes in muscle mass or diet. The data above are obtained from the National Kidney Disease Education Program (NKDEP) which additionally recommends that when the eGFR is used in patients with extremes of body mass index for purposes of drug dosing, the eGFR should be multiplied by the estimated BMI. CHEM PANEL CO2 23 meq/L 24 - 32 03/30 [place] /2016 [facility] CHEM PANEL Calcium Lvl 8.3 mg/dL 8.5 - 10.5 03/30 [place] /2015 [facility] CHEM PANEL Total 7.0 g/dL 6.4 - 8.4 03/30 [facility] Protein /2015 [facility] CHEM PANEL AST 23 unit/L 0 - 37 03/30 [place] /2015 [facility] CHEM PANEL Alk Phos 67 unit/L 39 - 136 03/30 [place] /2015 [facility] CHEM PANEL Albumin Lvl 3.5 g/dL 3.5 - 5.0 03/30 [place] /2015 [facility] CHEM PANEL ALT 45 unit/L 0 - 65 03/30 [place] /2015 [facility] CHEM PANEL BUN 10 mg/dL 7 - 22 03/30 [place] /2016 [facility] CHEM PANEL Creatinine 1.21 mg/dL 0.50 - 03/30 [facility] Lvl 1.40 [facility] CHEM PANEL Glucose Lvl 90 mg/dL 70 - 99 03/30 [place] /2015 [facility] CHEM PANEL Chloride Lvl 103 meq/L 95 - 109 03/30 [place] /2016 [facility] CHEM PANEL Sodium Lvl 138 meq/L 135 - 145 03/30 [place] /2016 [facility] CHEM PANEL Potassium 3.9 meq/L 3.5 - 5.1 03/30 [facility] CARDIAC CK MB Index 0.5 0.0 - 2.5 03/30 [facility] ENZYMES /2016 [facility] CARDIAC Troponin-I 0.07 ng/mL 0.00 - 03/30 [facility] ENZYMES 0.40 [facility] CARDIAC CK MB 0.7 ng/mL 0.5 - 3.6 03/30 [facility] ENZYMES /2016 [facility] CARDIAC Total CK 135 unit/L 12 - 191 03/30 [facility] ENZYMES /2016 [facility] CHEM PANEL Albumin Lvl 4.0 g/dL 3.5 - 5.0 03/30 [place] /2016 [facility] CHEM PANEL Total 7.7 g/dL 6.4 - 8.4 03/30 [facility] Protein /2016 [facility] CHEM PANEL ALT 52 unit/L 0 - 65 03/30 [place] /2016 [facility] CHEM PANEL AST 28 unit/L 0 - 37 03/30 [place] /2016 [facility] CHEM PANEL Alk Phos 72 unit/L 39 - 136 03/30 [facility] CHEM PANEL Bili Total 1.0 mg/dL 0.2 - 1.3 03/30 [facility] CHEM PANEL A/G Ratio 1.1 0.7 - 1.6 03/30 [facility] CHEM PANEL Globulin 3.7 g/dL 2.7 - 4.2 03/30 [facility] CHEM PANEL eGFR 92 03/30 Result Comment: The eGFR is calculated using the CKD-EPI formula. In most young, healthy individuals the eGFR will be >90 mL/ min/1.73m2. The eGFR declines with age. An eGFR of 60-89 may be normal in [facility] mL/min/1.7 /2015 some populations, particularly the elderly, for whom the CKD-EPI formula has not been extensively validated. Use of the eGFR is not recommended in the following populations: [address] Individuals with unstable creatinine concentrations, including patients and those with serious co-morbid conditions. Patients with extremes in muscle mass or diet. The data above are obtained from the National Kidney Disease Education Program (NKDEP) which additionally recommends that when the eGFR is used in patients with extremes of body mass index for purposes of drug dosing, the eGFR should be multiplied by the estimated BMI. CHEM PANEL AGAP 14.0 meq/L 10.0 - 03/30 [facility] 20.0 [facility] CHEM PANEL Calcium Lvl 8.7 mg/dL 8.5 - 10.5 03/30 2015 [facility] CHEM PANEL CO2 24 meq/L 24 - 32 03/30 [facility] CHEM PANEL Potassium 4.0 meq/L 3.5 - 5.1 03/30 [facility] Lvl [facility] CHEM PANEL Chloride Lvl 101 meq/L 95 - 109 03/30 [facility] CHEM PANEL Sodium Lvl 135 meq/L 135 - 145 03/30 [facility] CHEM PANEL Glucose Lvl 96 mg/dL 70 - 99 03/30 [facility] CHEM PANEL BUN 9 mg/dL 7 - 22 03/30 2015 [facility] CHEM PANEL Creatinine 1.08 mg/dL 0.50 - 03/30 [facility] Lvl 1.40 [facility] CHEM PANEL B/C Ratio 8 6 - 25 03/30 [facility] HEMATOLOGY Segs-Bands # 12.0 K/CMM 1.5 - 8.1 03/30 /2015 [facility] HEMATOLOGY Basophils 0.5 % 0.0 - 1.0 03/30 [facility] HEMATOLOGY Monocytes # 2.4 K/CMM 0.0 - 0.8 03/30 [facility] HEMATOLOGY Lymphocytes 2.3 K/CMM 1.0 - 5.5 03/30 [place] # /2015 [facility] HEMATOLOGY Basophils # 0.1 K/CMM 0.0 - 0.2 03/30 [facility] HEMATOLOGY Eosinophils 0.1 K/CMM 0.0 - 0.5 03/30 [place] # /2015 [facility] HEMATOLOGY Lymphocytes 13.6 % 20.0 - 03/30 [place] 40.0 [facility] HEMATOLOGY Eosinophils 0.8 % 0.0 - 4.0 03/30 /2015 [facility] HEMATOLOGY Monocytes 14.0 % 2.0 - 12.0 03/30 /2015 [facility] HEMATOLOGY Segs 71.1 % 45.0 - 03/30 [place] 75.0 [facility] HEMATOLOGY RDW 15.6 % 11.5 - 03/30 [place] 14.5 [facility] HEMATOLOGY Platelet 232 K/CMM 133 - 450 03/30 [facility] HEMATOLOGY MPV 8.9 fL 7.4 - 10.4 03/30 /2015 [facility] HEMATOLOGY MCH 30.8 pg 27.0 - 03/30 [place] 31.0 [facility] HEMATOLOGY MCHC 34.3 g/dL 32.0 - 03/30 [place] 36.0 2016 [facility] HEMATOLOGY Hgb 14.2 g/dL 14.0 - 03/30 [place] 18.0 2016 [facility] HEMATOLOGY Hct 41.3 % 42.0 - 03/30 [place] 54.0 2016 [facility] HEMATOLOGY MCV 89.8 fL 80.0 - 03/30 [place] 94.0 2016 [facility] HEMATOLOGY WBC 16.9 K/CMM 3.7 - 10.4 03/30 /2015 [facility] HEMATOLOGY RBC 4.60 M/CMM 4.70 - 03/30 [place] 6.10 [facility] Chest Chest 1view EXAM: XR CHEST 1 VIEW 03/29 - [facility] 1view DX - [facility] This report was dictated by a Foundation Relations Director/Fellow. I have personally reviewed the images as Center well as the Resident's interpretation and agree with the findings. DATE: 03/29/2016 10:26 PM CDT Read by: Elena Blancas MD Resident: Elena Blancas MD Dictated Date/time: 03/29/16 22:39 Electronically Signed by: Khadijah Tyler MD 03/29/16 23:02 FINAL REPORT INDICATION: Chest pain COMPARISON: None TECHNIQUE: AP chest FINDINGS: Lines and tubes: None. Lungs and pleura: No pulmonary or pleural based abnormality is identified. Heart and mediastinum: The heart size is normal for technique. Postsurgical changes of prior coronary artery bypass graft noted. Bones: No acute bony abnormality is identified. IMPRESSION: No acute cardiopulmonary abnormality. CHEM PANEL Phosphorus 4.6 mg/dL 2.5 - 4.5 10/[address] CHEM PANEL Magnesium 1.8 mg/dL 1.8 - 2.4 10/21 [facility] CHEM PANEL Bili Direct 0.1 mg/dL 0.0 - 0.3 10/[address] CHEM PANEL Albumin Lvl 3.3 g/dL 3.5 - 5.0 10/[address] CHEM PANEL ALT 98 unit/L 0 - 65 10/[address] CHEM PANEL Bili Total 0.4 mg/dL 0.2 - 1.3 10/[address] CHEM PANEL AST 40 unit/L 0 - 37 10/[address] CHEM PANEL Alk Phos 75 unit/L 39 - 136 10/[address] CHEM PANEL Total 7.3 g/dL 6.4 - 8.4 10/21 [facility] Protein [facility] CHEM PANEL Globulin 4.0 g/dL 2.0 - 4.0 / [address] CHEM PANEL A/G Ratio 0.8 0.7 - 1.6 10/[address] CHEM PANEL Bili 0.3 mg/dL 0.0 - 1.0 10/21 [facility]2015 [facility] CHEM PANEL eGFR 99 10/21 Result Comment: The eGFR is calculated using the CKD-EPI formula. In most young, healthy individuals the eGFR will be >90 mL/ min/1.73m2. The eGFR declines with age. An eGFR of 60-89 may be normal in [facility] mL/min/1.7 /2015 some populations, particularly the elderly, for whom the CKD-EPI formula has not been extensively validated. Use of the eGFR is not recommended in the following populations: [address] Individuals with unstable creatinine concentrations, including patients and those with serious co-morbid conditions. Patients with extremes in muscle mass or diet. The data above are obtained from the National Kidney Disease Education Program (NKDEP) which additionally recommends that when the eGFR is used in patients with extremes of body mass index for purposes of drug dosing, the eGFR should be multiplied by the estimated BMI. CHEM PANEL BUN 12 mg/dL 7 - 22 10/21 [facility] CHEM PANEL Creatinine 1.01 mg/dL 0.50 - 10/21 [facility] Lvl 1.40 [facility] CHEM PANEL Sodium Lvl 136 meq/L 135 - 145 10/21 2015 [facility] CHEM PANEL Potassium 3.7 meq/L 3.5 - 5.1 10/21 [facility] Lvl [facility] CHEM PANEL Chloride Lvl 105 meq/L 95 - 109 05/ [facility] CHEM PANEL Glucose Lvl 120 mg/dL 70 - 99 10/21 [facility] CHEM PANEL CO2 20 meq/L 24 - 32 10/21 [facility] CHEM PANEL Calcium Lvl 9.1 mg/dL 8.5 - 10.5 10/21 [facility] CHEM PANEL AGAP 14.7 meq/L 10.0 - 05 [facility] 20.0 [facility] HEMATOLOGY Lymphocytes 2.6 K/CMM 1.0 - 5.5 05/ [facility] # /2016 [facility] HEMATOLOGY Basophils # 0.2 K/CMM 0.0 - 0.2 05/ [facility] HEMATOLOGY Eosinophils 0.5 K/CMM 0.0 - 0.5 05/ [place] 2016 [facility] HEMATOLOGY Lymphocytes 14.4 % 20.0 - 05/ [place] 40.0 /2015 [facility] HEMATOLOGY Monocytes # 1.4 K/CMM 0.0 - 0.8 / /2015 [facility] HEMATOLOGY Segs 74.1 % 45.0 - 05/ [place] 75.0 [facility] HEMATOLOGY Basophils 0.8 % 0.0 - 1.0 10/21 [facility] HEMATOLOGY Segs-Bands # 13.3 K/CMM 1.5 - 8.1 10/21 [facility] HEMATOLOGY Monocytes 8.0 % 2.0 - 12.0 10/21 [facility] HEMATOLOGY Eosinophils 2.7 % 0.0 - 4.0 10/21 [facility] HEMATOLOGY Hct 30.3 % 42.0 - 10/21 [place] 54.0 [facility] HEMATOLOGY Hgb 10.5 g/dL 14.0 - 10/21 [place] 18.0 [facility] HEMATOLOGY WBC 18.0 K/CMM 3.7 - 10.4 10/21 [facility] HEMATOLOGY RBC 3.34 M/CMM 4.70 - 10/21 [place] 6.10 [facility] HEMATOLOGY MCV 90.6 fL 80.0 - 10/21 [facility] 94.0 /2015 [facility] HEMATOLOGY RDW 15.2 % 11.5 - 10/21 14.5 [facility] HEMATOLOGY MCH 31.5 pg 27.0 - 10/21 31.0 [facility] HEMATOLOGY MCHC 34.7 g/dL 32.0 - 10/21 [place] 36.0 [facility] HEMATOLOGY Platelet 304 K/CMM 133 - 450 10/21 [facility] HEMATOLOGY MPV 7.8 fL 7.4 - 10.4 10/21 [facility] HEMATOLOGY PTT 29.8 s 22.9 - 10/21 [place] 35.8 /2015 [facility] HEMATOLOGY PT 13.8 s 12.0 - 10/21 [place] 14.7 [facility] HEMATOLOGY INR 1.03 0.85 - 10/21 [place] 1.17 [facility] PARATHYROI Ca Norm WB 1.15 1.05 - 10/21 [facility] D PROFILE mMol/L 1. [facility] PARATHYROI Ca Ion WB 1.16 1.05 - 10/21 [facility] D PROFILE mMol/L 1. [facility] Chest Chest 1view EXAM: XR CHEST 1 VIEW 10/21 - [facility] 1view DX DX /2015 [facility] DATE: 10/22/2015 3:00 AM CDT Read by: Gautam Cr MD Dictated Date/time: 10/22/15 14:09 Electronically Signed by: Gautam Cr MD 10/22/15 14:10 FINAL REPORT INDICATION: Abnormal chest sounds COMPARISON: Yesterday. TECHNIQUE: AP chest FINDINGS: Lines and tubes: None. Lungs and pleura: There is elevation of the right diaphragm. Platelike atelectasis in both lung bases. Heart and mediastinum: Stable prominent cardiomediastinal silhouette. Bones and Soft Tissues: No significant changes. IMPRESSION: 1. No significant changes. CHEM PANEL Glucose Lvl 101 mg/dL 70 - 99 10/20 [facility] CHEM PANEL eGFR 122 10/20 Result Comment: The eGFR is calculated using the CKD-EPI formula. In most young, healthy individuals the eGFR will be >90 mL/ min/1.73m2. The eGFR declines with age. An eGFR of 60-89 may be normal in [facility] mL/min/1. some populations, particularly the elderly, for whom the CKD-EPI formula has not been extensively validated. Use of the eGFR is not recommended in the following populations: [address] Individuals with unstable creatinine concentrations, including patients and those with serious co-morbid conditions. Patients with extremes in muscle mass or diet. The data above are obtained from the National Kidney Disease Education Program (NKDEP) which additionally recommends that when the eGFR is used in patients with extremes of body mass index for purposes of drug dosing, the eGFR should be multiplied by the estimated BMI. CHEM PANEL Calcium Lvl 9.0 mg/dL 8.5 - 10.5 10/20 [facility] CHEM PANEL AGAP 10.8 meq/L 10.0 - 10/20 [facility] 20.0 [facility] CHEM PANEL Chloride Lvl 105 meq/L 95 - 109 10/20 [facility] CHEM PANEL Sodium Lvl 137 meq/L 135 - 145 10/20 2015 [facility] CHEM PANEL CO2 25 meq/L 24 - 32 10/20 [facility] CHEM PANEL Potassium 3.8 meq/L 3.5 - 5.1 10/20 [facility] CHEM PANEL Creatinine 0.76 mg/dL 0.50 - 10/20 [facility] Lvl 1.40 [facility] CHEM PANEL BUN 11 mg/dL 7 - 22 10/20 [facility] CHEM PANEL Phosphorus 4.2 mg/dL 2.5 - 4.5 / [facility] CHEM PANEL Magnesium 2.0 mg/dL 1.8 - 2.4 10/20 [facility] Lvl /2015 [facility] CHEM PANEL Globulin 4.0 g/dL 2.0 - 4.0 / [facility] CHEM PANEL AST 45 unit/L 0 - 37 05 [facility] CHEM PANEL A/G Ratio 0.8 0.7 - 1.6 05/ [facility] CHEM PANEL Albumin Lvl 3.2 g/dL 3.5 - 5.0 / [facility] CHEM PANEL Alk Phos 72 unit/L 39 - 136 10/20 [facility] CHEM PANEL ALT 82 unit/L 0 - 65 10/20 [facility] CHEM PANEL Total 7.2 g/dL 6.4 - 8.4 10/20 [facility] Protein [facility] CHEM PANEL Bili Total 0.4 mg/dL 0.2 - 1.3 10/20 [facility] CHEM PANEL Bili Direct 0.1 mg/dL 0.0 - 0.3 10/20 [facility] CHEM PANEL Bili 0.3 mg/dL 0.0 - 1.0 10/20 [facility] Indirect [facility] HEMATOLOGY Hgb 9.8 g/dL 14.0 - 10/20 18.0 [facility] HEMATOLOGY Hct 28.2 % 42.0 - 10/20 [place] 54.0 2016 [facility] HEMATOLOGY RBC 3.09 M/CMM 4.70 - 10/20 [place] 6.10 [facility] HEMATOLOGY MCV 91.1 fL 80.0 - 10/20 [place] 94.0 /2015 [facility] HEMATOLOGY MCHC 34.6 g/dL 32.0 - 05 [place] 36.0 /2016 [facility] HEMATOLOGY MCH 31.5 pg 27.0 - 10/20 31.0 2016 [facility] HEMATOLOGY Platelet 265 K/CMM 133 - 450 05 [facility] HEMATOLOGY RDW 15.6 % 11.5 - 05 [place] 14.5 /2015 [facility] HEMATOLOGY MPV 8.1 fL 7.4 - 10.4 10/20 [facility] HEMATOLOGY WBC 15.2 K/CMM 3.7 - 10.4 05 /2015 [facility] HEMATOLOGY INR 1.03 0.85 - 10/20 [place] 1.17 [facility] HEMATOLOGY PTT 30.3 s 22.9 - 10/20 [place] 35.8 /2015 [facility] HEMATOLOGY PT 13.8 s 12.0 - 10/20 [place] 14.7 /2015 [facility] HEMATOLOGY Eosinophils 0.4 K/CMM 0.0 - 0.5 05 [place] # /2015 [facility] HEMATOLOGY Basophils # 0.1 K/CMM 0.0 - 0.2 05 /2015 [facility] HEMATOLOGY Segs-Bands # 10.7 K/CMM 1.5 - 8.1 10/20 [facility] HEMATOLOGY Lymphocytes 2.2 K/CMM 1.0 - 5.5 10/20 [facility] # /2015 [facility] HEMATOLOGY Monocytes # 1.9 K/CMM 0.0 - 0.8 10/20 /2015 [facility] HEMATOLOGY Lymphocytes 14.3 % 20.0 - 10/20 [place] 40.0 /2015 [facility] HEMATOLOGY Monocytes 12.5 % 2.0 - 12.0 / /2015 [facility] HEMATOLOGY Segs 70.0 % 45.0 - 10/20 [place] 75.0 [facility] HEMATOLOGY Basophils 0.5 % 0.0 - 1.0 10/20 [facility] HEMATOLOGY Eosinophils 2.7 % 0.0 - 4.0 10/20 [facility] PARATHYROI Ca Norm WB 1.16 1.05 - 10/20 [facility] D PROFILE mMol/L 1. [facility] PARATHYROI Ca Ion WB 1.16 1.05 - 10/20 [facility] D PROFILE mMol/L 1. [facility] Chest Chest 1view EXAM: XR CHEST 1 VIEW 10/20 [facility] 1view DX [facility] DATE: 10/21/2015 3:00 AM CDT Read by: Anne Rao MD Dictated Date/time: 10/21/15 15:40 Electronically Signed by: Anne Rao MD 10/21/15 16:09 FINAL REPORT INDICATION: Abnormal chest sounds. FINDINGS: Comparison is made to May 7. The cardiomediastinal silhouette and postoperative changes are stable. Subsegmental atelectasis is seen in the bilateral lower lobes, greater on the right. No definite pleural effusions are identified. IMPRESSION: No change. MOLECULAR C difficile Negative Negative 10/19 [facility] DIAGNOSTIC DNA [facility] (10/20/15 4:58 PM) [place] URINE AND UA <=1.0 0.1 - 1.0 10/19 [facility] Urobilinogen mg/dL /2015 [facility] URINE AND UA Sq Epi None Seen 10/19 [facility]2015 [facility] URINE AND UA RBC 1 /HPF 0 - 2 10/19 [facility] /2015 [facility] URINE AND UA WBC null 0 - 5 10/19 [facility]2015 [facility] URINE AND UA Mucus Few /LPF None Seen 10/19 [facility] /LPF /2015 [facility] URINE AND UA Turbidity Clear Clear 10/19 [facility] (10/20/15 1:35 PM) [place] URINE AND UA Color Yellow Yellow 10/19 [facility] *NA* [place] (10/20/15 1:35 PM) URINE AND UA Leuk Est Negative Negative 10/19 [facility] (10/20/15 1:35 PM) [place] URINE AND UA Blood Negative Negative 10/19 [facility] (10/20/15 1:35 PM) [place] URINE AND UA Bili Negative Negative 10/19 [facility] *NA* [place] (10/20/15 1:35 PM) URINE AND UA Nitrite Negative Negative 10/19 [facility] (10/20/15 1:35 PM) [place] URINE AND UA Protein Negative Negative 10/19 [facility] mg/dL mg/dL /2015 [facility] URINE AND UA Glucose Negative Negative 10/19 [facility] mg/dL mg/dL /2015 [facility] URINE AND UA Ketones Negative Negative 10/19 [facility] mg/dL mg/dL [facility] URINE AND UA Spec Grav 1.012 <=1.030 10/19 [facility]2015 [facility] URINE AND UA pH 7.5 5.0 - 8.0 10/19 [facility]2015 [facility] Chest Chest 1view EXAM: XR CHEST 1 VIEW 10/19 - [place] [address] DX DX /2015 [facility] DATE: 10/20/2015 5:44 PM CDT Read by: Anne Rao MD Dictated Date/time: 10/21/15 12:47 Electronically Signed by: Anne Rao MD 10/21/15 16:05 FINAL REPORT INDICATION: Tube placement/removal/reposition. FINDINGS: Comparison is made to October 19 at 1426. The cardiomediastinal silhouette and postoperative changes are stable. Subsegmental atelectasis is seen in the right lower lobe. No pleural effusions are identified. IMPRESSION: No change. Chest Chest 1view EXAM: XR CHEST 1 VIEW 10/19 - [place] [address] DX /2015 [facility] DATE: 10/20/2015 5:30 PM CDT Read by: Anne Rao MD Dictated Date/time: 10/20/15 15:15 Electronically Signed by: Anne Rao MD 10/20/15 17:43 FINAL REPORT INDICATION: Tube placement/removal/reposition. FINDINGS: Comparison is made to October 19 at 7:44 AM. The cardiomediastinal silhouette and postoperative changes are stable. Subsegmental atelectasis is seen in the right lower lobe. There may be trace residual bilateral pleural effusions. There is a minis cule right apical pneumothorax. Bilateral chest tubes have been removed. IMPRESSION: The bilateral chest tubes have been removed. Otherwise, no significant change. CHEM PANEL A/G Ratio 0.7 0.7 - 1.6 10/[address] CHEM PANEL Bili 0.6 mg/dL 0.0 - 1.0 10/19 [facility] CHEM PANEL Globulin 4.5 g/dL 2.0 - 4.0 10/[address] CHEM PANEL AST 52 unit/L 0 - 37 10/[address] CHEM PANEL ALT 66 unit/L 0 - 65 10/[address] CHEM PANEL Albumin Lvl 3.1 g/dL 3.5 - 5.0 10/[address] CHEM PANEL Total 7.6 g/dL 6.4 - 8.4 10/19 [facility] 2015 [facility] CHEM PANEL Bili Direct 0.2 mg/dL 0.0 - 0.3 10/[address] CHEM PANEL Bili Total 0.8 mg/dL 0.2 - 1.3 10/19 [facility] CHEM PANEL Alk Phos 87 unit/L 39 - 136 10/19 [facility] CHEM PANEL Phosphorus 3.5 mg/dL 2.5 - 4.5 10/19 [facility] CHEM PANEL Magnesium 1.5 mg/dL 1.8 - 2.4 10/19 [facility] ELECTROLYT Potassium 3.8 meq/L 3.5 - 5.1 10/19 [facility] ELECTROLYT AGAP 16.9 meq/L 10.0 - 10/19 [facility] 20.0 [facility] ELECTROLYT eGFR 121 10/19 Result Comment: The eGFR is calculated using the CKD-EPI formula. In most young, healthy individuals the eGFR will be >90 mL/ min/1.73m2. The eGFR declines with age. An eGFR of 60-89 may be normal in [facility] mL/min/1. some populations, particularly the elderly, for whom the CKD-EPI formula has not been extensively validated. Use of the eGFR is not recommended in the following populations: [address] Individuals with unstable creatinine concentrations, including patients and those with serious co-morbid conditions. Patients with extremes in muscle mass or diet. The data above are obtained from the National Kidney Disease Education Program (NKDEP) which additionally recommends that when the eGFR is used in patients with extremes of body mass index for purposes of drug dosing, the eGFR should be multiplied by the estimated BMI. ELECTROLYT CO2 21 meq/L 24 - 32 10/19 [facility] ELECTROLYT Calcium Lvl 8.7 mg/dL 8.5 - 10.5 10/19 [facility] ELECTROLYT Creatinine 0.78 mg/dL 0.50 - 10/19 [facility] Lvl 1.40 [facility] ELECTROLYT Glucose Lvl 61 mg/dL 70 - 99 10/19 [facility] ELECTROLYT BUN 11 mg/dL 7 - 22 10/19 [facility] ELECTROLYT Chloride Lvl 101 meq/L 95 - 109 10/19 [facility] ELECTROLYT Potassium 3.9 meq/L 3.5 - 5.1 10/19 [facility] ELECTROLYT Sodium Lvl 135 meq/L 135 - 145 05 [facility] ES /2015 [facility] HEMATOLOGY Basophils # 0.1 K/CMM 0.0 - 0.2 05 [facility] HEMATOLOGY Monocytes 9.8 % 2.0 - 12.0 05 [facility] HEMATOLOGY Lymphocytes 1.7 K/CMM 1.0 - 5.5 05 [place] # /2015 [facility] HEMATOLOGY Segs-Bands # 13.2 K/CMM 1.5 - 8.1 10/19 [facility] HEMATOLOGY Eosinophils 1.9 % 0.0 - 4.0 10/19 [facility] HEMATOLOGY Lymphocytes 10.1 % 20.0 - 05 [place] 40.0 /2015 [facility] HEMATOLOGY Basophils 0.4 % 0.0 - 1.0 10/19 [facility] HEMATOLOGY Monocytes # 1.6 K/CMM 0.0 - 0.8 10/19 [facility] HEMATOLOGY Eosinophils 0.3 K/CMM 0.0 - 0.5 10/19 [place] # [facility] HEMATOLOGY Segs 77.8 % 45.0 - 05 [place] 75.0 /2015 [facility] HEMATOLOGY INR 1.02 0.85 - 10/19 [place] 1.17 /2015 [facility] HEMATOLOGY PTT 29.6 s 22.9 - 10/19 [place] 35.8 /2015 [facility] HEMATOLOGY PT 13.7 s 12.0 - 05 [place] 14.7 /2015 [facility] HEMATOLOGY RBC 3.30 M/CMM 4.70 - 10/19 [place] 6.10 /2015 [facility] HEMATOLOGY WBC 16.9 K/CMM 3.7 - 10.4 05 /2015 [facility] HEMATOLOGY MPV 8.6 fL 7.4 - 10.4 05 [facility] HEMATOLOGY Hgb 10.4 g/dL 14.0 - 05 [place] 18.0 /2016 [facility] HEMATOLOGY Hct 30.1 % 42.0 - 05 [place] 54.0 /2016 [facility] HEMATOLOGY MCH 31.6 pg 27.0 - 05 [place] 31.0 /2016 [facility] HEMATOLOGY MCHC 34.6 g/dL 32.0 - 05 [facility] [place] 36.0 /2015 [facility] HEMATOLOGY MCV 91.3 fL 80.0 - 10/19 [facility] 94.0 /2015 [facility] HEMATOLOGY RDW 15.2 % 11.5 - 10/19 [facility] 14.5 [facility] HEMATOLOGY Platelet 227 K/CMM 133 - 450 10/19 [facility] PARATHYROI Ca Ion WB 1.16 1.05 - 10/19 [facility] D PROFILE mMol/L 1. [facility] PARATHYROI Ca Norm WB 1.16 1.05 - 10/19 [facility] D PROFILE mMol/L 1. [facility] Chest Chest 1view EXAM: XR CHEST 1 VIEW 10/19 - [facility] 1view DX /2015 [facility] DATE: 10/20/2015 3:00 AM CDT Read by: Anne Rao MD Dictated Date/time: 10/20/15 16:08 Electronically Signed by: Anne Rao MD 10/20/15 16:08 FINAL REPORT INDICATION: Abnormal chest sounds. FINDINGS: Comparison is made to yesterday. The cardiomediastinal silhouette and postoperative changes are stable. The mediastinal drain has been removed. Bilateral chest tubes remain in place. There is subsegmental atelectasis in the bilateral lower lobes, greater on the right. There is right upper lobe subsegmental atelectasis. There is a small residual right hydropneumothorax. The left costophrenic sulcus is clear. IMPRESSION: The mediastinal drain has been removed since yesterday. Otherwise, no significant change. MOLECULAR BCR-ABL1/ABL 0.000 0.000 10/18 [facility] DIAGNOSTIC 1 % (IS) [facility] MOLECULAR BCR-ABL1 SEE NOTE 10/18 Result Comment: The P190 and P210 BCR -ABL1 fusion transcripts are [facility] DIAGNOSTIC Interp NOT detected. [facility] Reverse information systems auditor real-time PCR is performed for the P190 and P210 BCR-ABL1 transcripts associated with the t(9;22) chromosomal translocation. For P190, results are expressed as a percent ratio of BCR-ABL1 to the ABL1 transcript, and further adjusted to the international scale (IS) for P210. Assay sensitivity is dependent on RNA quality and sample cellularity but is usually at least 4-logs below baseline BCR-ABL1 transcript levels. BCR-ABL1 reporting has changed as of January 2012. Although not precisely equivalent, a BCR-ABL1/ABL1 value of 10% (IS) correlates with a 1-log reduction in the old assay; 1% with a 2-log reduction; and 0.1% with a 3-log reduction. This test was developed and its analytical performance characteristics have been determined by [facility] [employer] [facility]. It has not been cleared or approved by FDA. This assay has been validated pursuant to the CLIA regulations and is used for clinical purposes. Test Performed at: [address] [id number] Lv Herrera MD, PhD MOLECULAR BCR-ABL1/ABL 0.000 0.000 10/18 [facility] DIAGNOSTIC 1 % /2015 [facility] MOLECULAR Source Blood 10/18 [facility] BCR-ABL1 [facility] MOLECULAR BCR-ABL1 NOT GIVEN 10/18 [facility] Prior Result [facility] MOLECULAR P190 NOT 10/18 Result Comment: Test Performed at: [facility] BCR-ABL1 DETECTED /[address] [id number] Lv Herrera MD, PhD MOLECULAR P210 NOT 10/18 Result Comment: Test Performed at: [facility] BCR-ABL1 DETECTED /[address] [id number] Lv Herrera MD, PhD Chest Chest 1view EXAM: XR CHEST 1 VIEW 10/18 - [facility] 1view DX DX - [facility] DATE: 10/19/2015 3:00 AM CDT Read by: Anne Rao MD Dictated Date/time: 10/19/15 11:02 Electronically Signed by: Anne Rao MD 10/20/15 10:57 FINAL REPORT INDICATION: Abnormal chest sounds. FINDINGS: Comparison is made to yesterday. The cardiomediastinal silhouette, postoperative changes, life-support lines and tubes are stable. The right hemidiaphragm is slightly elevated. There is a right basilar opacity which could be due to ate lectasis and/or pneumonia. Subsegmental atelectasis is scattered in the left lung. There is a small right pleural effusion. IMPRESSION: No significant change. CHEM PANEL Lactic Acid 1.2 mMol/L 0.5 - 2.2 10/17 [facility] Chest Chest 1view EXAM: XR CHEST 1 VIEW 10/17 - [address] DX DX - [facility] DATE: 10/18/2015 3:00 AM CDT Read by: Gautam Cr MD Dictated Date/time: 10/18/15 12:13 Electronically Signed by: Gautam Cr MD 10/18/15 12:15 FINAL REPORT INDICATION: Abnormal chest sounds COMPARISON: Yesterday. TECHNIQUE: AP chest FINDINGS: Lines and tubes: Stable bilateral chest tubes. A single mediastinal drain remains in place. The [place]-Deidre catheter and a 2nd mediastinal drain was removed. Lungs and pleura: There are bilateral pleural effusions and scattered subsegmental atelectasis in both lungs. No pneumothorax given the limitation of a semiupright exam. Heart and mediastinum: Stable prominent cardiomediastinal silhouette. Bones and Soft Tissues: No significant changes. IMPRESSION: 1. No significant changes. HEMATOLOGY RBC Morph Normal 10/16 [facility]2015 [facility] (10/17/15 1:47 AM) [place] HEMATOLOGY Plt Morph Normal 10/16 [facility]2015 [facility] (10/17/15 1:47 AM) [place] Chest Chest 1view EXAM: XR CHEST 1 VIEW 10/16 - [address] DX - [facility] DATE: 10/17/2015 6:34 AM CDT Read by: Anne Rao MD Dictated Date/time: 10/17/15 09:24 Electronically Signed by: Anne Rao MD 10/17/15 15:31 FINAL REPORT INDICATION: Abnormal chest sounds. FINDINGS: Comparison is made to yesterday. The cardiomediastinal silhouette is prominent but stable. Postoperative changes are stable. There is mild residual pneumomediastinum. The endotracheal tube and nasogastric tube have been removed. Other life- support lines and tubes remain in place. Subsegmental atelectasis is scattered in the right upper lobe and bilateral lower lobes. No pleural effusions are identified. IMPRESSION: Extubated. The nasogastric tube has been removed. Otherwise, no significant change. BACTERIAL MRSA by PCR Negative 10/16 [facility] (10/16/15 8:52 PM) Center CHEM PANEL B/C Ratio 9 6 - 25 05 [place] /2015 [facility] CHEM PANEL Lactic Acid 4.4 mMol/L 0.5 - 2.2 10/16 Result [facility] Lvl /2015 Comment: [facility] Result(s) called to Nell Nathanael at 10/16/2015 21:22 by KW. Read back OK. Chest Chest 1view EXAM: XR CHEST 1 VIEW 10/15 - [facility] 1view DX DX /2015 - [facility] DATE: 10/16/2015 8:15 PM CDT Read by: Khadijah Tyler MD Dictated Date/time: 10/16/15 20:58 Electronically Signed by: Khadijah Tyler MD 10/16/15 21:00 FINAL REPORT INDICATION: Tube placement/removal/reposition COMPARISON: October 11, 2015 TECHNIQUE: AP chest FINDINGS: Lines and tubes: Endotracheal tube has its tip at the level of the clavicles. A nasogastric tube has its side-port in the distal esophagus and is recommended to be advanced further. Right internal jugular axis [place]-Deidre catheter has its tip in the main pulmonary trunk. Bilateral chest drains are present. No residual pneumothorax. Midline sternotomy is noted Lungs and pleura: Lungs are clear.No pulmonary or pleural based abnormality is identified. Heart and mediastinum: The heart size is normal for technique. The mediastinal contours are normal. Bones: No acute bony abnormality is identified. IMPRESSION: 1. Endotracheal tube in satisfactory position 2. Right-sided [place]-Deidre catheter has its tip in the main pulmonary trunk. 3. Mediastinal drains and bilateral chest drains are present. 4. Recommend further advancement of the nasogastric tube for optimal position. 5. Lungs are clear BLOOD BANK RBC product Product available 10/15 [facility] RESULTS /2015 [facility] (10/16/15 6:00 AM) [place] BLOOD BANK FFP product Product available 10/15 [facility] RESULTS /2015 [facility] (10/16/15 4:00 AM) [place] BLOOD BANK Platelet Product available 10/15 [facility] RESULTS product /2015 [facility] (10/16/15 4:00 AM) [place] Sinus w Sinus w EXAM: CT SINUS WITH CONTRAST 10/14 - [facility] contrast contrast CT /2015 - [facility] CT Center DATE: 10/15/2015 4:03 PM CDT Read by: Reinaldo Valerio MD Dictated Date/time: 10/15/15 19:27 Electronically Signed by: Reinaldo Valerio MD 10/15/15 19:33 FINAL REPORT INDICATION: Facial Pain, leukocytosis COMPARISON: None TECHNIQUE: Axial postcontrast images of the sinuses, with coronal and sagittal reformats. IV contrast: 99 mL Omnipaque 350 DLP: 532 mGycm FINDINGS: Except for trace right maxillary sinus mucosal thickening and focal mucosal thickening at the right maxillary ostium, the paranasal sinuses are clear. No air-fluid level. The nasal septum is intact but deviated to the left with a small left-sided septal spur contacting the attachment of the inferior turbinate. Orbits are normal. No inflammatory changes in the branch operations coordinator spaces or facial subcutaneous soft tissues. Imaged portions of the tympanomastoid cavities are clear. Temporomandibular joints are normally aligned. Nasopharynx is unremarkable. IMPRESSION: No acute abnormality. Paranasal sinuses are clear except for minimal right maxillary sinus mucosal disease. Leftward nasal septal deviation. BLOOD BANK ABO/Rh A POS 10/13 [place] RESULTS /2015 [facility] BLOOD BANK Antibody Negative 10/13 [facility] RESULTS Scrn [facility] (10/14/15 4:36 PM) [place] BLOOD BANK FFP product Product available 10/13 [facility] RESULTS /2015 [facility] (10/14/15 10:44 AM) [place] BLOOD BANK RBC product Product available 10/13 [facility] RESULTS /2015 [facility] (10/14/15 10:44 AM) [place] Chest w Chest w EXAM: CT CHEST WITH CONTRAST 10/13 - [facility] contrast contrast CT /2015 - [facility] CT Center DATE: 10/14/2015 11:53 AM CDT Read by: Anne Rao MD Dictated Date/time: 10/15/15 08:24 Electronically Signed by: Anne Rao MD 10/15/15 08:38 FINAL REPORT INDICATION: Chest pain TECHNIQUE: Volumetric CT acquisition of the chest was obtained following the intravenous administration of 100 mL Omnipaque 350 contrast. Sagittal, coronal and axial MIP reformatted images were reconstructed and obtained at the workstation. COMPARISON: No prior chest CT is available for comparison. FINDINGS: The heart is not enlarged, and no significant cardial effusion is identified. The ascending aorta and central pulmonary arteries are normal in caliber. There is very mild residual thymic tissue in the anterior mediastinum. Calcified left infrahilar lymph nodes are the result of granulomatous disease. No enlarged hilar, mediastinal, or axillary lymph nodes are otherwise identified. The adrenal glands are unremarkable. Dependent atelectasis is seen in the bilateral lower lobes. There is very mild air trapping in the left lower lobe. No pleural effusions are present. Note is made of very mild soft tissue density stranding in the upper midline posterior chest wall. Note is made of Schmorl's nodes in the thoracic spine. IMPRESSION: No acute intrathoracic abnormality identified. Ext Upper Ext Upper EXAM: US EXTREMITY NONVASCULAR 10/11 - [facility] non non vascular /2015 - [facility] vascular Center US DATE: 10/12/2015 at 2039 hours Read by: Jayce Rinaldi MD Dictated Date/time: 10/13/15 08:14 Electronically Signed by: Jayce Rinaldi MD 10/13/15 08:16 FINAL REPORT INDICATION: Swelling ADDITIONAL INFORMATION: None. COMPARISON: None. TECHNIQUE: Multiplanar grayscale and color Doppler ultrasound of the left upper back. FINDINGS: In the area of palpable abnormality is a complex 0.8 x 0.6 x 0.5 cm cystic structure with no surrounding vascularity. This may represent a sebaceous cyst. Abscess is thought unlikely although infection is not excluded by imaging. IMPRESSION: 1. Cystic structure in area of palpable abnormality, likely sebaceous cyst. Abscess thought unlikely although infection is not excluded by imaging. CARDIAC Troponin-I 1.18 ng/mL 0.00 - 10/11 Result [facility] ENZYMES 0.40 /2015 Comment: [facility] Critical Center Result(s) called to Navneet villela 10/12/2015 14:15 by niall. Read back OK. HEMATOLOGY Sed Rate 22 mm/h 0 - 15 10/11 /2015 [facility] IMMUNOLOGY JOSEP Negative Negative 10/11 [facility] (10/12/15 11:36 AM) Center CHEM PANEL Procalcitoni 0.06 ng/mL 0.00 - 10/10 [facility] n Lvl 0.10 [facility] CHEM PANEL Lactic Acid 1.1 mMol/L 0.5 - 2.2 10/10 [facility] Lvl /2015 [facility] Chest Chest 1view EXAM: XR CHEST 1 VIEW 10/10 - [facility] 1view DX DX /2015 - [facility] DATE: 10/11/2015 1506 PM CDT Read by: Wilfrid Michaels MD Dictated Date/time: 10/11/15 15:42 Electronically Signed by: Wilfrid Michaels 10/11/15 15:44 FINAL REPORT INDICATION: Dyspnea COMPARISON: 10/08/2015 TECHNIQUE: AP chest FINDINGS: Stable cardiomediastinal silhouette. Low lung volumes with subsegmental atelectasis. No pleural effusion or pneumothorax. IMPRESSION: No significant change. URINE AND UA Sq Epi None Seen 10/10 [facility] URINE AND UA <=1.0 0.1 - 1.0 10/10 [facility] Urobilinogen mg/dL [facility] URINE AND UA Glucose Negative Negative 10/10 [facility] mg/dL mg/dL [facility] URINE AND UA Ketones Negative Negative 10/10 [facility] mg/dL mg/dL /2015 [facility] URINE AND UA Protein Negative Negative 10/10 [facility] mg/dL mg/dL [facility] URINE AND UA Color Yellow Yellow 10/10 [facility] *NA* [place] (10/11/15 9:14 AM) URINE AND UA pH 5.0 5.0 - 8.0 10/10 [facility] URINE AND UA Turbidity Clear Clear 10/10 [facility] (10/11/15 9:14 AM) [place] URINE AND UA Spec Grav 1.008 <=1.030 10/10 [facility]2015 [facility] URINE AND UA Nitrite Negative Negative 10/10 [facility] (10/11/15 9:14 AM) [place] URINE AND UA Leuk Est Negative Negative 10/10 [facility] (10/11/15 9:14 AM) [place] URINE AND UA Mucus Few /LPF None Seen 10/10 [facility] /LPF /2015 [facility] URINE AND UA Bili Negative Negative 10/10 [facility] *NA* [place] (10/11/15 9:14 AM) URINE AND UA Blood Negative Negative 10/10 [facility] (10/11/15 9:14 AM) [place] HEMATOLOGY RBC Morph Normal 10/10 [facility] (10/11/15 3:15 AM) [place] HEMATOLOGY Plt Morph Normal 10/10 Medical (10/11/15 3:15 AM) [place] BLOOD BANK Antibody Negative 10/09 [facility] RESULTS Scr Medical (10/10/15 1:00 PM) [place] BLOOD BANK ABO/Rh A POS 10/09 [place] RESULTS Medical [place] BLOOD BANK RBC product Product available 10/09 [place] RESULTS Medical (10/10/15 8:06 AM) [place] BLOOD BANK FFP product Product available 10/09 [facility] RESULTS Medical (10/10/15 8:06 AM) [place] HVI VAS HVI VAS INDICATION: Pre-operative lower extremity vein mapping. - [facility] Venous Venous Lower /2015 - Medical Lower Ext Ext Bilat This report was dictated by a Foundation Relations Director/Fellow. I have personally reviewed the images as [place] Bil Doppler well as the Resident's interpretation and agree with the findings. Doppler IMPRESSION: Read by: Gareth Corrigan MD Resident: Gareth Corrigan MD Dictated Date/time: 10/10/15 11:29 1. There is no evidence of deep venous thrombosis in the bilateral lower extremities. Electronically Signed by: Sathya Fuller MD 10/18/15 05:58 FINAL REPORT 2. Bilateral greater saphenous veins are patent with diameter measurements listed below. COMMENT: No prior studies are available for comparison. Bilateral lower extremity grayscale, color-flow, and Doppler examination of the venous system was performed. Examination of the bilateral common femoral, superficial femoral, deep femoral, and popliteal veins demonstrates normal phasic flow and appropriate response to compression and augmentation. There is no evidence of deep venous thrombosis. On the right, the above-knee greater saphenous vein measures 5.7, 2.4, and 2.6 mm in the upper, middle, and lower segments, respectively. The below-knee greater saphenous vein measures 1.9, 2.5, and 2. 2 mm in the upper, middle, and lower segments, respectively. On the left, the above-knee greater saphenous vein measures 3.8, 2.5, and 1.4 mm in the upper, middle, and lower segments, respectively. The below-knee greater saphenous vein measures 1.5, 2.3, and 3.2 mm in the upper, middle, and lower segments, respectively. HEMATOLOGY Plav Effect 160 PRU 10/09 [place] Plt /2016 [facility] HVI VAS HVI VAS INDICATION: Preoperative carotid evaluation prior to high risk surgery. 10/08 - [facility] Arterial Arterial /2015 - Medical Extracrani Extracranial This report was dictated by a Foundation Relations Director/Fellow. I have personally reviewed the images as Center al Doppler Doppler Bi well as the Resident's interpretation and agree with the findings. Bi IMPRESSION: Read by: Gareth Corrigan MD Resident: Gareth Corrigan MD Dictated Date/time: 10/10/15 11:23 1. There is evidence of mild atherosclerotic disease of the bilateral internal carotid arteries consistent with less than 50% stenosis. Electronically Signed by: Sathya Fuller MD 10/18/15 05 :58 FINAL REPORT 2. There is antegrade flow in the vertebral arteries. COMMENT: No prior studies are available for comparison. Bilateral grayscale, color- flow, and Doppler examination of the extracranial carotid arterial system was performed. On the right, mild calcification is noted in the internal carotid artery. The right internal carotid to common carotid peak systolic velocity ratio is 0.75. The peak systolic velocity in the internal ca rotid artery is 132 cm/sec. The end diastolic velocity in the internal carotid artery is 52.8 cm/sec. This is consistent with less than 50% stenosis. On the left, mild calcification is noted in the internal carotid artery. The left internal carotid to common carotid peak systolic velocity ratio is 0.74. The peak systolic velocity in the internal swain tid artery is 122 cm/sec. The end diastolic velocity in the internal carotid artery is 55.3 cm/sec. This is consistent with less than 50% stenosis. Bilateral external carotid arteries are patent. Bilateral antegrade flow was noted in the vertebral arteries. CARDIAC Troponin-T 0.744 0.000 - 10/08 Result [place] ENZYMES ng/mL 0.100 /2016 Comment: [facility] Critical Center Result(s) called to Caro Kovacs at 10/09/2015 17:14 by TG. Read back OK. HEMATOLOGY POC 116 s 10/08 [place] Activated /2016 [facility] Time CARDIAC Troponin-I 4.01 ng/mL 0.00 - 10/08 Result [facility] ENZYMES 0.40 /2016 Comment: [facility] Critical Center Result(s) called to Romain Gillette at 10/09/2015 11:58 by DH. Read back OK. CARDIAC Troponin-I 4.59 ng/mL 0.00 - 10/08 Result [place] ENZYMES 0.40 Comment: Medical Critical Center Result(s) called to liset tanner at 10/09/2015 05:31 byCF. Read back OK. CARDIAC Troponin-T 0.688 0.000 - 10/08 Result [place] ENZYMES ng/mL 0.100 Comment: Medical Critical Center Result(s) called to Peter De Luna at 10/09/2015 06:13 byJw. Read back OK. CARDIAC BNP 53 pg/mL <=100 10/08 [place] ENZYMES pg/mL /2015 [facility] LIPIDS Trig 362 mg/dL <=149 10/08 [place] mg/dL [facility] LIPIDS VLDL 72 10/08 [place] [facility] Center LIPIDS HDL 26 mg/dL >=61 mg/dL 10/08 [place] [facility] LIPIDS Chol 257 mg/dL <=199 10/08 [place] mg/dL [facility] Center LIPIDS LDL 159 mg/dL <=99 mg/dL 10/08 [place] (Calculated) [facility] Center LIPIDS CHD Risk 9.88 4.00 - 10/08 [place] 7.30 [facility] Center SPECIAL Hgb A1C 5.1 % <=5.6 % 10/08 [place] CHEMISTRY [facility] Center DRUG U Opiate Scr Positive Negative 10/08 [place] SCREEN Medical *ABN* Center (10/09/15 1:41 AM) DRUG U Cannab Scr Negative Negative 10/08 [place] SCREEN Medical *NA* Center (10/09/15 1:41 AM) DRUG U Venita Scr Negative Negative 10/08 [place] SCREEN [facility] *NA* Center (10/09/15 1:41 AM) DRUG U Cocaine Negative Negative 10/08 [place] SCREEN Scr [facility] *NA* Center (10/09/15 1:41 AM) DRUG U Benzodia Negative Negative 10/08 [place] SCREEN Scr [facility] *NA* Center (10/09/15 1:41 AM) DRUG UDS Note See Note 10/08 [place] SCREEN Medical (10/09/15 1:41 AM) Center DRUG U Phencyc Negative Negative 10/08 [facility] [place] SCREEN Scr Medical *NA* [place] (10/09/15 1:41 AM) DRUG U Amph Scr Negative Negative 10/08 [facility] SCREEN Medical *NA* [place] (10/09/15 1:41 AM) URINE AND UA Amorph Many /HPF None Seen 10/08 [facility] Janet /HPF [facility] URINE AND Micro? Performed 10/08 [facility] (10/09/15 1:41 AM) [place] URINE AND UA Bacteria Few /HPF None Seen 10/08 [facility] STOOL /HPF [facility] URINE AND UA Mucus Rare /LPF None Seen 10/08 [place] STOOL /LPF /2015 [facility] URINE AND UA RBC 0-2 /HPF 0 - 2 10/08 [facility] URINE AND UA Sq Epi Rare /LPF Few /LPF 10/08 [facility] STOOL [facility] URINE AND UA WBC 0-2 /HPF None Seen 10/08 [facility] /HPF [facility] URINE AND UA Nitrite Negative Negative 10/08 [facility] (10/09/15 1:41 AM) [place] URINE AND UA Bili Negative Negative 10/08 [facility] STOOL Medical *NA* [place] (10/09/15 1:41 AM) URINE AND UA 0.2 EU/dL 0.1 - 1.0 10/08 [facility] Urobilinogen [facility] URINE AND UA Blood Negative Negative 10/08 [facility] STOOL [facility] (10/09/15 1:41 AM) [place] URINE AND UA Leuk Est Negative Negative 10/08 [facility] (10/09/15 1:41 AM) [place] URINE AND UA Ketones Negative Negative 10/08 [facility] mg/dL mg/dL [facility] URINE AND UA pH 7.0 5.0 - 8.0 10/08 [facility] URINE AND UA Glucose Negative Negative 10/08 [facility] mg/dL mg/dL [facility] URINE AND UA Protein Negative Negative 10/08 [facility] mg/dL mg/dL [facility] URINE AND UA Color Yellow Yellow 10/08 [facility] STOOL Medical *NA* [place] (10/09/15 1:41 AM) URINE AND UA Spec Grav 1.020 <=1.030 10/08 [facility] URINE AND UA Turbidity Slight Cloudy Clear 10/08 [place] [facility] (10/09/15 1:41 AM) Center CARDIAC Troponin-T 0.582 0.000 - 10/08 Result [facility] ENZYMES ng/mL 0.100 Comment: Medical Critical Center Result(s) called to Sonny Chaidez at 10/09/2015 00:36 byJw. Read back OK. Chest Chest 1view EXAM: XR CHEST 1 VIEW 10/07 - [facility] 1view DX - Medical This report was dictated by a Foundation Relations Director/Fellow. I have personally reviewed the images as Center well as the Resident's interpretation and agree with the findings. DATE: 10/08/2015 5:32 PM CDT Read by: Gail Blair MD Resident: Gail Blair MD Dictated Date/time: 10/08/15 18:18 Electronically Signed by: Aster Finnegan MD 10/08/15 22:02 FINAL REPORT INDICATION: Chest pain COMPARISON: None available TECHNIQUE: AP chest FINDINGS: No pulmonary or pleural-based abnormality is identified. Pulmonary vascularity is normal. The heart size is markedly enlarged. No acute bony abnormality is identified. IMPRESSION: Mild cardiomegaly. No other acute cardiopulmonary abnormality. Vital Signs Vital Sign Value Date Comments Source Systolic (mm Hg) 126 11/11/2017 [facility] Diastolic (mm Hg) 71 11/11/2017 [facility] Respitory Rate 18 11/11/2017 [facility] Heart Rate 111 11/11/2017 [facility] Temperature Oral (F) 98.3 F 11/11/2017 [facility] Systolic (mm Hg) 149 11/11/2017 [facility] Diastolic (mm Hg) 78 11/11/2017 [facility] Temperature Oral (F) 98.4 F 11/11/2017 [facility] Heart Rate 99 11/11/2017 [facility] Respitory Rate 17 11/11/2017 [facility] Systolic (mm Hg) 148 11/11/2017 [facility] Diastolic (mm Hg) 88 11/11/2017 [facility] Heart Rate 101 11/11/2017 [facility] Respitory Rate 17 11/11/2017 [facility] Temperature Oral (F) 98.6 F 11/11/2017 [facility] Weight 136 11/11/2017 [facility] BMI Calculated 40.66 11/11/2017 [facility] Height 182.88 cm 11/11/2017 [facility] Systolic (mm Hg) 121 08/19/2017 [facility] Diastolic (mm Hg) 72 08/19/2017 [facility] Respitory Rate 19 08/19/2017 [facility] Heart Rate 81 08/19/2017 [facility] Weight 127.273 08/19/2017 [facility] Heart Rate 89 08/19/2017 [facility] Respitory Rate 18 08/19/2017 [facility] Systolic (mm Hg) 128 08/19/2017 [facility] Diastolic (mm Hg) 79 08/19/2017 [facility] Temperature Oral (F) 98.8 F 08/19/2017 [facility] Height 185.42 cm 08/19/2017 [facility] BMI Calculated 37.02 08/19/2017 [facility] Temperature Oral (F) 100.1 F 03/31/2016 [facility] Systolic (mm Hg) 121 03/31/2016 [facility] Diastolic (mm Hg) 61 03/31/2016 [facility] Temperature Oral (F) 99.2 F 03/31/2016 [facility] Systolic (mm Hg) 123 03/31/[address] [facility] Diastolic (mm Hg) 63 03/31/2016 [facility] Systolic (mm Hg) 117 03/31/2016 [facility] Diastolic (mm Hg) 66 03/31/2016 [facility] Temperature Oral (F) 99.3 F 03/31/2016 [facility] Respitory Rate 19 03/31/[address] [facility] Respitory Rate 18 03/31/2016 [facility] Respitory Rate 14 03/31/2016 [facility] Weight 134.347 03/30/2016 [facility] Height 185.42 cm 03/30/2016 [facility] BMI Calculated 39.08 03/30/2016 [facility] Weight 131.818 03/30/2016 [facility] BMI Calculated 38.34 03/30/2016 [facility] Height 185.42 cm 03/30/2016 [facility] Heart Rate 107 03/30/[address] [facility] Systolic (mm Hg) 122 10/22/[address] [facility] Diastolic (mm Hg) 61 10/22/2015 [facility] Systolic (mm Hg) 110 10/22/[address] [facility] Diastolic (mm Hg) 60 10/22/2015 [facility] Temperature Oral (F) 98.7 F 10/22/2015 [facility] Respitory Rate 20 10/22/2015 [facility] Temperature Oral (F) 98.9 F 10/22/2015 [facility] Respitory Rate 20 10/22/2015 [facility] Systolic (mm Hg) 99 10/22/2015 [facility] Diastolic (mm Hg) 59 10/22/2015 [facility] Respitory Rate 20 10/22/2015 [facility] Temperature Oral (F) 98.2 F 10/22/2015 [facility] Height 185.42 cm 10/17/2015 [facility] Height 185.42 cm 10/17/2015 [facility] Height 185.42 cm 10/08/2015 [facility] Heart Rate 89 10/08/2015 [facility] Weight 123.182 10/08/2015 [facility] BMI Calculated 35.83 10/08/2015 [facility] Encounters Location Location Encounter Encounter Reason Attending ADM DC Status Source Details Type Number For Provider Date Date Visit [facility] [id number] [facility] 10/07 10/21 [facility] Redd Potts /2015 [facility] Observation [id number] [facility] 03/30 04/01 [facility] Redd Pool /2015 [facility] [id number] [place] 08/19 08/19 Redd Nowak /2017 [facility] [id number] [facility] 11/11 11/11 Redd Correa /2017 [facility] Procedures Procedure Code Date Perfomer Comments Source CABG - Coronary [id number] [facility] artery bypass graft CABG - Coronary [id number] [facility] artery bypass graft CABG - Coronary [id number] [facility] graft
--- OUTSIDE RECORDS SUMMARY | 2017-12-18 21:26 | XMS REPORT | Summary of Care ---
:1985 Author Organization [facility] Address [address] [place] [address]- Encounter HQ Joy(FIN) [id number] Date(s): 08/19/17 - 08/19/[address] [phone] Encounter Diagnosis Abdominal mass (Discharge Diagnosis) - 08/19/17 Abdominal pain, acute (Discharge Diagnosis) - 08/19/17 Left upper quadrant pain (Final) - 08/26/17 Diarrhea, unspecified (Final) - Intra-abdominal and pelvic swelling, mass and lump, unspecified site (Final) - Essential (primary) hypertension (Final) - Atherosclerotic heart disease of [place] coronary artery without angina pectoris (Final) - Old myocardial infarction (Final) - Presence of aortocoronary bypass graft (Final) - 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 (Final) - Personal history of nicotine dependence (Final) - 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 (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) - Discharge Disposition: Home or Self Care Attending Physician: Gagan Esposito MD Vital Signs Most recent to oldest [Reference Range]: 1 2 Height 185.42 cm (08/19/17 12:22 AM) Temperature Oral [96.4-99.1 DegF] 98.8 DegF (08/19/17 12:22 AM) Blood Pressure [90-140/60-90 mmHg] 121/72 mmHg 128/79 mmHg (08/19/17 4:20 AM) (08/19/17 12:22 AM) Respiratory Rate [14-20 BRMIN] 19 BRMIN 18 BRMIN (08/19/17 4:20 AM) (08/19/17 12:22 AM) Peripheral Pulse Rate [60-100 bpm] 81 bpm 89 bpm (08/19/17 4:20 AM) (08/19/17 12:22 AM) Weight 127.273 kg (08/19/17 12:22 AM) Body Mass Index 37.02 m2 (08/19/17 12:22 AM) Problem List Condition Effective Dates Status Health Status Informant STEMI (ST elevation myocardial Resolved infarction)(Confirmed) CAD (coronary artery Resolved disease)(Confirmed) Knee pain(Confirmed) Resolved Hypertension(Confirmed) Resolved Obesity(Confirmed) Resolved Psoriasis (a type of skin Resolved inflammation)(Confirmed) PTSD (post-traumatic stress Resolved disorder)(Confirmed) Allergies, Adverse Reactions, Alerts Substance Reaction Severity Status NKDA Active Medications morphine Sulfate 4 mg, 1 mL, Route: IVP, Drug form: SOLN, ONCE, Dosing Weight 127.273, kg, Priority: STAT, Start date: 08/19/17 3:21:00 ADVANCED MANUFACTURING TECHNICIAN, Stop date: 08/19/17 3:21:00 ADVANCED MANUFACTURING TECHNICIAN Notes: (Same as:MORPhine Sulfate) Start Date: 08/19/17 Stop Date: 08/19/17 Status: Completedondansetron 4 mg, 2 mL, Route: IVP, Drug form: INJ, ONCE, Dosing Weight 127.273, kg, Priority: STAT, Start date:08/19/17 3:21:00 ADVANCED MANUFACTURING TECHNICIAN, Stop date: 08/19/17 3:21:00 ADVANCED MANUFACTURING TECHNICIAN Notes: (Same as: Zofran) MEDICATION WASTE Product Size: 4 mgProduct Wasted: ___ mg Start Date: 08/19/17 Stop Date: 08/19/17 Status: CompletedSodium Chloride 0.9% (Bolus) IV 1,000 mL, 1000 ml/hr, Infuse Over: 1 hr, Route: IV, 1,000, Drug form: INJ, ONCE , Priority: STAT, Dosing Weight 127.273 kg, Start date: 08/19/17 3:21:00 ADVANCED MANUFACTURING TECHNICIAN, Stop date: 08/19/17 3:21:00 ADVANCED MANUFACTURING TECHNICIAN Start Date: 08/19/17 Stop Date: 08/19/17 Status: CompletedTylenol with Codeine #3 oral tablet 1 tab, PO, Q4H, PRN Pain, # 24 tab, 0 Refill(s) Start Date: 08/19/17 Status: Ordered Results ELECTROLYTES Most recent to oldest [Reference Range]: 1 Sodium Lvl [135-145 mEq/L] 134 mEq/L *LOW* (08/19/17 1:30 AM) Potassium Lvl [3.5-5.1 mEq/L] 3.8 mEq/L (08/19/17 1:30 AM) Chloride Lvl [95-109 mEq/L] 102 mEq/L (08/19/17 1:30 AM) CO2 [24-32 mEq/L] 27 mEq/L (08/19/17 1:30 AM) AGAP [10.0-20.0 mEq/L] 8.8 mEq/L *LOW* (08/19/17 1:30 AM) CHEM PANEL Most recent to oldest [Reference Range]: 1 Creatinine Lvl [0.50-1.40 mg/dL] 0.86 mg/dL (08/19/17 1:30 AM) eGFR 116 mL/min/1.73m2 1 *NA* (08/19/17 1:30 AM) BUN [7-22 mg/dL] 8 mg/dL (08/19/17 1:30 AM) B/C Ratio [6-25] 9 (08/19/17 1:30 AM) Glucose Lvl [70-99 mg/dL] 236 mg/dL *HI* (08/19/17 1:30 AM) Total Protein [6.4-8.4 g/dL] 7.3 g/dL (08/19/17 1:30 AM) Albumin Lvl [3.5-5.0 g/dL] 3.3 g/dL *LOW* (08/19/17 1:30 AM) Globulin [2.7-4.2 g/dL] 4.0 g/dL (08/19/17 1:30 AM) A/G Ratio [0.7-1.6] 0.8 (08/19/17 1:30 AM) Calcium Lvl [8.5-10.5 mg/dL] 8.6 mg/dL (08/19/17 1:30 AM) ALT [0-65 unit/L] 64 unit/L (08/19/17 1:30 AM) AST [0-37 unit/L] 48 unit/L *HI* (08/19/17 1:30 AM) Alk Phos [39-136 unit/L] 73 unit/L (08/19/17 1:30 AM) Bili Total [0.2-1.3 mg/dL] 0.4 mg/dL (08/19/17 1:30 AM) Lipase Lvl [73-393 unit/L] 233 unit/L (08/19/17 1:30 AM) 1Result Comment: The eGFR is calculated using the CKD-EPI formula. In most young , healthy individualsthe eGFR will be >90 mL/min/1.73m2. The eGFR declines with age. An eGFR of 60-89 may be normal insome populations, particularly the elderly, for whom the CKD-EPI formula has not been extensively validated. Use of the eGFR is not recommended in the following populations: Individuals with unstable creatinine concentrations, including patients and those with serious co-morbid conditions. Patients with extremes in muscle mass or diet. The data above are obtained from the National Kidney Disease Education Program ( NKDEP) which additionally recommends that when the eGFR is used in patients with extremes of body mass index for purposesof drug dosing, the eGFR should be multiplied by the estimated BMI.CARDIAC ENZYMES Most recent to oldest [Reference Range]: 1 Total CK [12-191 unit/L] 91 unit/L (08/19/17 1:30 AM) CK MB [0.5-3.6 ng/mL] 2.4 ng/mL (08/19/17 1:30 AM) CK MB Index [0.0-2.5] 2.6 *HI* (08/19/17 1:30 AM) Troponin-I [0.00-0.40 ng/mL] <0.02 ng/mL (08/19/17 1:30 AM) URINE AND STOOL Most recent to oldest [Reference Range]: 1 UA Turbidity [Clear] Clear (08/19/17 2:08 AM) UA Color [Yellow] Yellow *NA* (08/19/17 2:08 AM) UA pH [5.0-8.0] 5.0 (08/19/17 2:08 AM) UA Spec Grav [<=1.030] 1.017 (08/19/17 2:08 AM) UA Glucose 50 mg/dL *NA* (08/19/17 2:08 AM) UA Blood [Negative] Negative (08/19/17 2:08 AM) UA Ketones [Negative mg/dL] Negative mg/dL *NA* (08/19/17 2:08 AM) UA Protein [Negative mg/dL] Negative mg/dL (08/19/17 2:08 AM) UA Urobilinogen [0.1-1.0 mg/dL] <=1.0 mg/dL *NA* (08/19/17 2:08 AM) UA Bili [Negative] Negative *NA* (08/19/17 2:08 AM) UA Leuk Est [Negative] Negative (08/19/17 2:08 AM) UA Nitrite [Negative] Negative (08/19/17 2:08 AM) UA WBC [0-5 /HPF] 1 /HPF (08/19/17 2:08 AM) UA RBC [0-2 /HPF] <1 /HPF (08/19/17 2:08 AM) UA Sq Epi [Few /LPF] Occasional /LPF *NA* (08/19/17 2:08 AM) UA Mucus [None Seen /LPF] Few /LPF *NA* (08/19/17 2:08 AM) HEMATOLOGY Most recent to oldest [Reference Range]: 1 WBC [3.7-10.4 K/CMM] 15.4 K/CMM *HI* (08/19/17 1:30 AM) RBC [4.70-6.10 M/CMM] 4.90 M/CMM (08/19/17 1:30 AM) Hgb [14.0-18.0 g/dL] 14.8 g/dL (08/19/17 1:30 AM) Hct [42.0-54.0 %] 43.4 % (08/19/17 1:30 AM) MCV [80.0-94.0 fL] 88.6 fL (08/19/17 1:30 AM) MCH [27.0-31.0 pg] 30.2 pg (08/19/17 1:30 AM) MCHC [32.0-36.0 g/dL] 34.1 g/dL (08/19/17 1:30 AM) RDW [11.5-14.5 %] 13.4 % (08/19/17 1:30 AM) MPV [7.4-10.4 fL] 9.2 fL (08/19/17 1:30 AM) Platelet [133-450 K/CMM] 261 K/CMM (08/19/17 1:30 AM) Segs [45.0-75.0 %] 66.5 % (08/19/17 1:30 AM) Lymphocytes [20.0-40.0 %] 18.0 % *LOW* (08/19/17 1:30 AM) Monocytes [2.0-12.0 %] 7.7 % (08/19/17 1:30 AM) Eosinophils [0.0-4.0 %] 6.9 % *HI* (08/19/17 1:30 AM) Basophils [0.0-1.0 %] 0.9 % (08/19/17 1:30 AM) Segs-Bands # [1.5-8.1 K/CMM] 10.3 K/CMM *HI* (08/19/17 1:30 AM) Lymphocytes # [1.0-5.5 K/CMM] 2.8 K/CMM (08/19/17 1:30 AM) Monocytes # [0.0-0.8 K/CMM] 1.2 K/CMM *HI* (08/19/17 1:30 AM) Eosinophils # [0.0-0.5 K/CMM] 1.1 K/CMM *HI* (08/19/17 1:30 AM) Basophils # [0.0-0.2 K/CMM] 0.1 K/CMM (08/19/17 1:30 AM) Immunizations No data available for this section Procedures Procedure Date Related Diagnosis Body Site Status CABG - Coronary artery bypass graft Completed CABG - Coronary artery bypass graft Completed Social History Social History Type Response Substance Abuse Use: None. Sexual Sexually active: Yes. Alcohol Never Smoking Status Current every day smoker; Type: Cigarettes; Exposure to Tobacco Smoke pt smokes; Cigarette Smoking Last 365 Days Yes; Reg Smoking Cessation Counseling Yes entered on: 11/11/17 Assessment and Plan No data available for this section
--- OUTSIDE RECORDS SUMMARY | 2017-12-18 21:26 | XMS REPORT | Summary of Care ---
:1985 Author Organization [facility] Address [address] [place], [place] [address]- Encounter HQ Veronique_salomon(FIN) [id number] Date(s): 11/11/17 - 11/11/17 [facility] [address] [place] [address]- Discharge Disposition: Home or Self Care Attending Physician: Duke Correa MD Admitting Physician: Duke Correa MD Vital Signs Most recent to oldest 1 2 3 [Reference Range]: Height 182.88 cm (11/11/17 1:51 AM) Temperature Oral [96.4-99.1 98.3 DegF 98.4 DegF 98.6 DegF DegF] (11/11/17 2:49 PM) (11/11/17 11:06 AM) (11/11/17 7:57 AM) Blood Pressure [90-140/60-90 126/71 mmHg 149/78 mmHg 148/88 mmHg mmHg] (11/11/17 2:49 PM) *HI* *HI* (11/11/17 11:06 AM) (11/11/17 7:57 AM) Respiratory Rate [14-20 BRMIN] 18 BRMIN 17 BRMIN 17 BRMIN (11/11/17 2:49 PM) (11/11/17 11:06 AM) (11/11/17 7:57 AM) Peripheral Pulse Rate [60-100 111 bpm 99 bpm 101 bpm bpm] *HI* (11/11/17 11:06 AM) *HI* (11/11/17 2:49 PM) (11/11/17 7:57 AM) Weight 136 kg (11/11/17 1:51 AM) Body Mass Index 40.66 m2 (11/11/17 1:51 AM) Problem List Condition Effective Dates Status Health Status Informant STEMI (ST elevation myocardial Resolved infarction)(Confirmed) CAD (coronary artery Resolved disease)(Confirmed) Knee pain(Confirmed) Resolved Hypertension(Confirmed) Resolved Obesity(Confirmed) Resolved Psoriasis (a type of skin Resolved inflammation)(Confirmed) PTSD (post-traumatic stress Resolved disorder)(Confirmed) Allergies, Adverse Reactions, Alerts Substance Reaction Severity Status NKDA Active Medications apremilast 30 mg oral tablet apremilast 30 mg oral tablet, 30 mg, Route: PO, BID, 11/11/17 17:00:00 CDT, Duration: 30 day, Stop date: 12/11/17 9:00:00 CDT Start Date: 11/11/17 Stop Date: 11/11/17 Status: Discontinuedaspirin 81 mg tablet, enteric coated 81 mg, 1 tab, Route: PO, Drug form: ECTAB, Daily, Dosing Weight 136, kg, Start date: 11/11/17 11:00:00 CDT, Duration: 30 day, Stop date: 12/11/17 9:00:00 CDT Notes: Do not crush or chew.(Same As: Ecotrin) Start Date: 11/11/17 Stop Date: 11/11/17 Status: Discontinuedatorvastatin 80 mg, 2 tab, Route: PO, Drug form: TAB, Bedtime, Dosing Weight 136, kg, Start date: 11/11/17 21:00:00 CDT, Duration: 30 day, Stop date: 12/10/17 21:00:00 CDT Notes: (Same as: Lipitor) Start Date: 11/11/17 Stop Date: 11/11/17 Status: CanceledBentyl 10 mg oral capsule 10 mg=1 cap, PO, QID-Before Meals, PRN Abdominal Pain, # 20 cap, 0 Refill(s), Pharmacy: [facility]/pharmacy#[id number] Start Date: 11/11/17 Stop Date: 11/16/17 Status: Orderedbisacodyl 5 mg, 1 tab, Route: PO, Drug form: ECTAB, Q6H, Dosing Weight 136, kg, PRN Constipation, Start date: 11/11/17 9:44:00 CDT, Duration: 30 day, Stop date: 9:43:00 CDT Notes: (Same As: Dulcolax, Correctol) (Do Not Crush) "Do Not Crush" Start Date: 11/11/17 Stop Date: 11/11/17 Status: DiscontinuedclonazePAM 0.5 mg, PO, TID, PRN Anxiety, 0 Refill(s) Start Date: 11/11/17 Status: Ordereddocusate sodium 100 mg oral capsule 100 mg, 1 cap, Route: PO, Drug form: CAP, BID, Dosing Weight 136, kg, Start date : 11/11/17 17:00:00 CDT, Duration: 30 day, Stop date: 12/11/17 9:00:00 CDT Notes: (Same as: Colace) (Do Not Crush) Start Date: 11/11/17 Stop Date: 11/11/17 Status: Discontinuedezetimibe 10 mg=1 tab, PO, Daily, # 30 tab, 0 Refill(s) Start Date: 11/11/17 Status: Orderedezetimibe 10 mg, 1 tab, Route: PO, Drug form: TAB, Daily, Dosing Weight 136, kg, Start date: 11/11/17 17:00:00CDT, Duration: 30 day, Stop date: 12/10/17 17:00:00 CDT Notes: (Same as: Zetia) Start Date: 11/11/17 Stop Date: 11/11/17 Status: DiscontinuedFish Oil 1,000 mg, 1 cap, Route: PO, Drug form: CAP, BID, Dosing Weight 136, kg, Start date: 11/11/17 17:00:00 CDT, Duration: 30 day, Stop date: 12/11/17 9:00:00 CDT Notes: (Same as: MaxEPA, [place] 3 fish oil )Non-Formulary Drug Start Date: 11/11/17 Stop Date: 11/11/17 Status: Discontinuedgabapentin 300 mg oral capsule 300 mg, 1 cap, Route: PO, Drug form: CAP, Q8H, Dosing Weight 136, kg, Start date : 11/11/17 16:00:00 CDT, Duration: 30 day, Stop date: 12/11/17 8:00:00 CDT Notes: (Same as: Neurontin) Start Date: 11/11/17 Stop Date: 11/11/17 Status: DiscontinuedHytrin 2 mg, 1 cap, Route: PO, Drug form: CAP, Daily, Start date: 11/11/17 21:00:00 CDT , Duration: 30 day, Stop date: 12/10/17 21:00:00 CDT Notes: (Same As: Hytrin) Start Date: 11/11/17 Stop Date: 11/11/17 Status: Canceledisosorbide mononitrate 30 mg, 1 tab, Route: PO, Drug form: ERTAB, QAM, Dosing Weight 136, kg, Start date: 11/11/17 11:00:00CDT, Duration: 30 day, Stop date: 12/11/17 9:00:00 CDT Start Date: 11/11/17 Stop Date: 11/11/17 Status: Discontinuedlisinopril 5 mg, 1 tab, Route: PO, Drug form: TAB, Daily, Dosing Weight 136, kg, Start date : 11/11/17 11:00:00 CDT, Duration: 30 day, Stop date: 12/11/17 9:00:00 CDT Notes: (Same as: Prinivil, Zestril) Start Date: 11/11/17 Stop Date: 11/11/17 Status: DiscontinuedmetFORMIN 500 mg, PO, BID, 0 Refill(s) Start Date: 11/11/17 Status: Orderedmorphine Sulfate 2 mg, 1 mL, Route: IVP, Drug form: SOLN, Q6H, Dosing Weight 136, kg, PRN Pain Score 7-10, Start date: 11/11/17 9:48:00 CDT, Duration: 1 doses or times, Stop date: Limited # of times Start Date: 11/11/17 Stop Date: 11/11/17 Status: Completedmorphine Sulfate 6 mg, 3 mL, Route: PO, Drug form: SOLN, Q6H, PRN Pain Score 7-10, Start date: 16:00:00 CDT,Duration: 30 day, Stop date: 12/11/17 15:59:00 CDT Notes: (Same as:MORPhine Sulfate) Start Date: 11/11/17 Stop Date: 11/11/17 Status: Discontinuednitroglycerin 0.4 mg sublingual tablet 0.4 mg, 1 tab, Route: SL, Drug form: TAB, Q5Min, Dosing Weight 136, kg, PRN Chest Pain, Start date: 11/11/17 9:44:00 CDT, Duration: 30 day, Stop date: 12/11 9:43:00 CDT Notes: (Same as:Nitroquick, Nitrostat)"Do Not Crush" Sublingual tablet Start Date: 11/11/17 Stop Date: 11/11/17 Status: Discontinuednitroglycerin SL Tab 0.4 mg, 1 tab, Route: SL, Drug form: TAB, Q5Min, Dosing Weight 136, kg, PRN Chest Pain, Start date: 11/11/17 6:03:00 CDT, Duration: 3 doses or times, Stop date: Limited # of times Notes: (Same as:Nitroquick, Nitrostat)"Do Not Crush" Sublingual tablet Start Date: 11/11/17 Stop Date: 11/11/17 Status: CompletedNorco 5/325 oral tablet 1 tab, Route: PO, Drug Form: TAB, Dosing Weight 136, kg, Q6H, PRN Pain Score 4-6 , Start date: 11/11/17 9:48:00 CDT, Duration: 30 day, Stop date: 12/11/17 9:47: 00 CDT Notes: (Same as: [place] 325/5) Do not exceed 4gm/day of acetaminophen. Start Date: 11/11/17 Stop Date: 11/11/17 Status: DiscontinuedPLease bring Pt's Own APremilast to pharmacy for label PLease bring Pt's Own APremilast to pharmacy for label, Reminder, Drug form: MISC, Route: MISC, Daily, 11/12/17 9:00:00 CDT, Duration: 30 day, Stop date: 9:00:00 CDT Start Date: 11/12/17 Stop Date: 11/11/17 Status: Canceledpneumococcal 23-valent vaccine 0.5 mL, Route: IM, Drug Form: INJ, ONCALL, Start date: 11/11/17 1:56:13 CDT, Stop date: 12/11/17 1:51:13 CDT Notes: (Same as: Pneumovax 23) Refrigerate Start Date: 11/11/17 Stop Date: 11/11/17 Status: Discontinuedprazosin 2 mg, Route: PO, Drug form: CAP, BID, Dosing Weight 136, kg, Start date: 17:00:00 CDT, Duration: 30 day, Stop date: 12/11/17 9:00:00 CDT Start Date: 11/11/17 Stop Date: 11/11/17 Status: DeletedSaline Flush 0.9% 10 ml, Route: IVP, Drug Form: INJ, Dosing Weight 136, kg, Q12H, Start date: 9:00:00 CDT, Duration: 30 day, Stop date: 12/10/17 21:00:00 CDT Notes: (Same as: BD Posiflush) Start Date: 11/11/17 Stop Date: 11/11/17 Status: DiscontinuedSaline Flush 0.9% 10 ml, Route: IVP, Drug Form: INJ, Dosing Weight 136, kg, PRN, PRN Line Flush, Start date: 11/11/17 6:03:00 CDT, Duration: 30 day, Stop date: 12/11/17 6:02:00 CDT Notes: (Same as: BD Posiflush) Start Date: 11/11/17 Stop Date: 11/11/17 Status: Discontinuedsertraline 100 mg, 1 tab, Route: PO, Drug form: TAB, Daily, Dosing Weight 136, kg, Start date: 11/12/17 9:00:00CDT, Duration: 30 day, Stop date: 12/11/17 9:00:00 CDT Notes: (Same as: Zoloft) Start Date: 11/12/17 Stop Date: 11/11/17 Status: Canceledticagrelor 90 mg, 1 tab, Route: PO, Drug form: TAB, Q12H, Dosing Weight 136, kg, Start date : 11/11/17 21:00:00 CDT, Duration: 30 day, Stop date: 12/11/17 9:00:00 CDT Notes: (Same as: Brilinta) Start Date: 11/11/17 Stop Date: 11/11/17 Status: CanceledToprol-XL 100 mg oral tablet, extended release 100 mg, 1 tab, Route: PO, Drug form: ERTAB, Daily, Start date: 11/11/17 17:00: 00 CDT, Duration: 30 day, Stop date: 12/10/17 17:00:00 CDT Notes: (Same as: Toprol XL) May split tab, but do not crush. Start Date: 11/11/17 Stop Date: 11/11/17 Status: Discontinued Results ELECTROLYTES Most recent to oldest [Reference Range]: 1 2 3 Sodium Lvl [135-145 mEq/L] 134 mEq/L *LOW* (11/11/17 6:40 AM) Potassium Lvl [3.5-5.1 mEq/L] 5.1 mEq/L (11/11/17 6:40 AM) Chloride Lvl [95-109 mEq/L] 95 mEq/L (11/11/17 6:40 AM) CO2 [24-32 mEq/L] 25 mEq/L (11/11/17 6:40 AM) AGAP [10.0-20.0 mEq/L] 19.1 mEq/L (11/11/17 6:40 AM) CHEM PANEL Most recent to oldest [Reference Range]: 1 2 3 Creatinine Lvl [0.50-1.40 mg/dL] 1.27 mg/dL (11/11/17 6:40 AM) eGFR 74 mL/min/1.73m2 1 *NA* (11/11/17 6:40 AM) BUN [7-22 mg/dL] 12 mg/dL (11/11/17 6:40 AM) Glucose Lvl [70-99 mg/dL] 272 mg/dL *HI* (11/11/17 6:40 AM) Calcium Lvl [8.5-10.5 mg/dL] 9.3 mg/dL (11/11/17 6:40 AM) 1Result Comment: The eGFR is calculated [...] estimated BMI.CARDIAC ENZYMES Most recent to oldest 1 2 3 [Reference Range]: Total CK [12-191 unit/L] 169 unit/L 207 unit/L (11/11/17 10:33 AM) *HI* (11/11/17 6:40 AM) CK MB [0.5-3.6 ng/mL] 1.2 ng/mL 1.2 ng/mL (11/11/17 10:33 AM) (11/11/17 6:40 AM) CK MB Index [0.0-2.5] 0.7 0.6 (11/11/17 10:33 AM) (11/11/17 6:40 AM) Troponin-I [0.00-0.40 <0.02 ng/mL <0.02 ng/mL <0.02 ng/mL ng/mL] (11/11/17 3:20 PM) (11/11/17 10:33 AM) (11/11/17 6:40 AM) HEMATOLOGY Most recent to oldest [Reference Range]: 1 2 3 WBC [3.7-10.4 K/CMM] 15.3 K/CMM *HI* (11/11/17 6:40 AM) RBC [4.70-6.10 M/CMM] 5.39 M/CMM (11/11/17 6:40 AM) Hgb [14.0-18.0 g/dL] 15.5 g/dL (11/11/17 6:40 AM) Hct [42.0-54.0 %] 45.8 % (11/11/17 6:40 AM) MCV [80.0-94.0 fL] 84.9 fL (11/11/17 6:40 AM) MCH [27.0-31.0 pg] 28.7 pg (11/11/17 6:40 AM) MCHC [32.0-36.0 g/dL] 33.8 g/dL (11/11/17 6:40 AM) RDW [11.5-14.5 %] 13.6 % (11/11/17 6:40 AM) MPV [7.4-10.4 fL] 9.3 fL (11/11/17 6:40 AM) Platelet [133-450 K/CMM] 310 K/CMM (11/11/17 6:40 AM) Segs [45.0-75.0 %] 72.0 % (11/11/17 6:40 AM) Lymphocytes [20.0-40.0 %] 17.5 % *LOW* (11/11/17 6:40 AM) Monocytes [2.0-12.0 %] 7.7 % (11/11/17 6:40 AM) Eosinophils [0.0-4.0 %] 1.7 % (11/11/17 6:40 AM) Basophils [0.0-1.0 %] 1.1 % *HI* (11/11/17 6:40 AM) Segs-Bands # [1.5-8.1 K/CMM] 11.0 K/CMM *HI* (11/11/17 6:40 AM) Lymphocytes # [1.0-5.5 K/CMM] 2.7 K/CMM (11/11/17 6:40 AM) Monocytes # [0.0-0.8 K/CMM] 1.2 K/CMM *HI* (11/11/17 6:40 AM) Eosinophils # [0.0-0.5 K/CMM] 0.3 K/CMM (11/11/17 6:40 AM) Basophils # [0.0-0.2 K/CMM] 0.2 K/CMM (11/11/17 6:40 AM) Immunizations No data available for this [...]
--- OUTSIDE RECORDS SUMMARY | 2017-12-18 21:27 | XMS REPORT | Summary of Care ---
:1985 Author Organization [facility] Address [address], [place] [address]- Encounter HQ Encntr_salomon(FIN) [phone] Date(s): 03/29/16 - 03/31/[address] Professional Services provided by [facility] [place] [address]- Discharge Disposition: Home or Self Care Attending Physician: Stiven Pool MD Admitting Physician: Stiven Pool MD Referring Physician: Jet Rojas MD Vital Signs Most recent to oldest 1 2 3 [Reference Range]: Height 185.42 cm 185.42 cm (03/30/16 1:21 AM) (03/29/16 10:15 PM) Current Weight 133.007 kg (03/31/16 5:16 AM) Temperature Oral 100.1 DegF 99.2 DegF 99.3 DegF [96.4-99.1 DegF] *HI* *HI* *HI* (03/31/16 6:00 PM) (03/31/16 4:00 PM) (03/31/16 8:00 AM) Blood Pressure 121/61 mmHg 123/63 mmHg 117/66 mmHg [90-140/60-90 mmHg] (03/31/16 6:00 PM) (03/31/16 4:00 PM) (03/31/16 3:10 PM) Respiratory Rate [14-20 19 BRMIN 18 BRMIN 14 BRMIN BRMIN] (03/31/16 4:00 AM) (03/31/16 2:00 AM) (03/31/16 12:00 AM) Peripheral Pulse Rate 107 bpm [60-100 bpm] *HI* (03/29/16 10:15 PM) Weight 134.347 kg 131.818 kg (03/30/16 1:21 AM) (03/29/16 10:15 PM) Body Mass Index 39.08 m2 38.34 m2 (03/30/16 1:21 AM) (03/29/16 10:15 PM) Problem List Condition Effective Dates Status Health Status Informant STEMI (ST elevation myocardial Resolved infarction)(Confirmed) CAD (coronary artery Resolved disease)(Confirmed) Knee pain(Confirmed) Resolved Hypertension(Confirmed) Resolved Obesity(Confirmed) Resolved Psoriasis (a type of skin Resolved inflammation)(Confirmed) PTSD (post-traumatic stress Resolved disorder)(Confirmed) Allergies, Adverse Reactions, Alerts Substance Reaction Severity Status NKDA Active Medications aspirin 81 mg, 1 tab, Route: PO, Drug form: ECTAB, Daily, Dosing Weight 131.818, kg, Start date: 03/30/16 9:00:00 CDT, Duration: 30 day, Stop date: 04/28/16 9:00:00 VALVE TESTER Notes: Do not crush or chew.(Same As: Ecotrin) Start Date: 03/30/16 Stop Date: 03/31/16 Status: Discontinuedaspirin 81 mg tablet, enteric coated 81 mg=1 tab, PO, Daily, # 90 tab, 1 Refill(s) Start Date: 03/31/16 Status: Orderedatorvastatin 80 mg, 1 tab, Route: PO, Drug form: TAB, Bedtime, Dosing Weight 134.347, kg, Start date: 03/30/16 21:00:00 CDT, Stop date: 04/28/16 21:00:00 VALVE TESTER Notes: Same as Lipitor Start Date: 03/30/16 Stop Date: 03/31/16 Status: Discontinuedatorvastatin 80 mg oral tablet 80 mg=1 tab, PO, Bedtime, # 90 tab, 1 Refill(s) Start Date: 03/31/16 Status: Orderedbisacodyl 5 mg oral enteric coated tablet 5 mg=1 tab, PO, Q6H, PRN Constipation, 0 Refill(s) Start Date: 03/31/16 Status: OrderedbuPROPion 150 mg=1 tab, PO, Before Breakfast, 0 Refill(s) Start Date: 03/31/16 Status: OrderedbuPROPion 150 mg, Route: PO, BID, Dosing Weight 134.347, kg, Start date: 03/30/16 17:00: 00 CDT, Duration: 30 day, Stop date: 04/29/16 9:00:00 VALVE TESTER Start Date: 03/30/16 Stop Date: 03/30/16 Status: CanceledbuPROPion 250 mg, Route: PO, After Dinner, Dosing Weight 134.347, kg, Start date: 17:00:00 CDT, Duration: 30 day, Stop date: 04/28/16 17:00:00 VALVE TESTER Start Date: 03/30/16 Stop Date: 03/30/16 Status: CanceledbuPROPion 100 mg, Route: PO, Before Breakfast, Dosing Weight 134.347, kg, Start date: 7:30:00 CDT, Duration: 30 day, Stop date: 04/29/16 7:30:00 VALVE TESTER Start Date: 03/31/16 Stop Date: 03/30/16 Status: CanceledbuPROPion 150 mg, 1 tab, Route: PO, Drug form: ERTAB, Before Breakfast, Dosing Weight 134.347, kg, Start date:03/31/16 11:30:00 CDT, Duration: 30 day, Stop date: 7:30:00 VALVE TESTER Notes: (Do not crush) (Same As: Wellbutrin SR) Start Date: 03/31/16 Stop Date: 03/31/16 Status: DiscontinuedbuPROPion 100 mg, 1 tab, Route: PO, Drug form: ERTAB, After Dinner, Dosing Weight 134.347 , kg, Start date: 03/30/16 17:00:00 CDT, Duration: 30 day, Stop date: 04/28/16 17:00:00 VALVE TESTER Notes: Do not crush or chew. (Same As: Wellbutrin SR) Start Date: 03/30/16 Stop Date: 03/31/16 Status: DiscontinuedbuPROPion 100 mg oral tablet, extended release 100 mg=1 tab, PO, After Dinner, 0 Refill(s) Start Date: 03/31/16 Status: Orderedcalcium gluconate + sodium chloride 0.9% INJ 100 mL 3 gm, 30 mL, Route: IVPB, Drug form: INJ, PRN, Dosing Weight 134.347, kg, PRN Abnormal Lab Result, For NON-ICU Patients Only., Start date: 03/30/16 6:07:00 CDT, Duration: 30 day, Stop date: 04/29/16 5:06:00 VALVE TESTER Notes: WASTE: F/P - Sink; E - Municipal Trash Bin Start Date: 03/30/16 Stop Date: 03/31/16 Status: Discontinuedcalcium gluconate + sodium chloride 0.9% INJ 100 mL 2 gm, 20 mL, Route: IVPB, Drug form: INJ, PRN, Dosing Weight 134.347, kg, PRN Abnormal Lab Result, For NON-ICU Patients Only., Start date: 03/30/16 6:07:00 CDT, Duration: 30 day, Stop date: 04/29/16 5:06:00 VALVE TESTER Notes: WASTE: F/P - Sink; E - Municipal Trash Bin Start Date: 03/30/16 Stop Date: 03/31/16 Status: DiscontinuedDulcolax Laxative 5 mg, 1 tab, Route: PO, Drug form: ECTAB, Q6H, Dosing Weight 134.347, kg, PRN Constipation, Start date: 03/30/16 17:50:00 CDT, Duration: 30 day, Stop date: 17:49:00 VALVE TESTER Notes: (Same As: Dulcolax, Correctol) (Do Not Crush) "Do Not Crush" Start Date: 03/30/16 Stop Date: 03/31/16 Status: Discontinuedgabapentin 300 mg, 1 cap, Route: PO, Drug form: CAP, Q8H, Dosing Weight 131.818, kg, (CrCl > 60 ml/min), Start date: 03/30/16 8:00:00 CDT, Duration: 30 day, Stop date: 0:00:00 VALVE TESTER Notes: (Same as: Neurontin) Start Date: 03/30/16 Stop Date: 03/31/16 Status: Discontinuedheparin 5000 units/mL injectable solution 5,000 unit, 1 mL, Route: SUB-Q, Drug form: INJ, Q8H, Dosing Weight 134.347, kg, Start date: 03/30/1621:00:00 CDT, Duration: 30 day, Stop date: 04/29/16 16:00: 00 VALVE TESTER Notes: porcine heparin Start Date: 03/30/16 Stop Date: 03/31/16 Status: Discontinuedindomethacin 25 mg oral capsule 25 mg=1 cap, PO, BID, PRN Pain, # 14 cap, 0 Refill(s) Start Date: 03/31/16 Stop Date: 04/07/16 Status: OrderedketOROLAC 15 mg, 1 mL, Route: IV, Drug form: INJ, ONCE, Dosing Weight 134.347, kg, Start date: 03/30/16 3:38:00 CDT, Stop date: 03/30/16 3:38:00 CDT Notes: (Same as:Toradol) IV bolus must be given >15 seconds. Give IM administration slowly and deeply into the muscle. Not for use > 4 days. Start Date: 03/30/16 Stop Date: 03/30/16 Status: Completedlisinopril 5 mg, 1 tab, Route: PO, Drug form: TAB, Daily, Dosing Weight 131.818, kg, Start date: 03/30/16 9:00:00 CDT, Duration: 30 day, Stop date: 04/28/16 9:00:00 VALVE TESTER Notes: (Same as: Prinivil, Zestril) Start Date: 03/30/16 Stop Date: 03/31/16 Status: Discontinuedmagnesium oxide 800 mg, 2 tab, Route: PO, Drug form: TAB, PRN, Dosing Weight 134.347, kg, PRN Abnormal Lab Result, For NON-ICU Patients Only., Start date: 03/30/16 6:07:00 CDT, Duration: 30 day, Stop date: 04/29/16 5:06:00 VALVE TESTER Notes: (Same as: Mag-Ox 400)Magnesium oxide [id number] elemental magnesiumDose= ____mg magnesium oxide (___mg elemental magnesium) Start Date: 03/30/16 Stop Date: 03/31/16 Status: Discontinuedmagnesium sulfate 2 gm, 50 mL, Route: IVPB, Drug form: INJ, PRN, Dosing Weight 134.347, kg, PRN Abnormal Lab Result, For NON-ICU Patients Only., Start date: 03/30/16 6:07:00 CDT, Duration: 30 day, Stop date: 04/29/16 5:06:00 VALVE TESTER Notes: WASTE: F/P - Sink; E - Municipal Trash Bin Start Date: 03/30/16 Stop Date: 03/31/16 Status: Discontinuedmagnesium sulfate 1 gm, 100 mL, Route: IVPB, Drug form: INJ, PRN, Dosing Weight 134.347, kg, PRN Abnormal Lab Result, For NON-ICU Patients Only., Start date: 03/30/16 6:07:00 CDT, Duration: 30 day, Stop date: 04/29/16 5:06:00 VALVE TESTER Notes: WASTE: F/P - Sink; E - Municipal Trash Bin Start Date: 03/30/16 Stop Date: 03/31/16 Status: Discontinuedmetoprolol 50 mg oral tablet, extended release 50 mg=1 tab, PO, Daily, # 90 tab, 1 Refill(s) Start Date: 03/31/16 Status: Orderedmetoprolol tartrate 12.5 mg, 1 tab, Route: PO, Drug form: TAB, Q12H, Dosing Weight 131.818, kg, Start date: 03/30/16 9:00:00 CDT, Duration: 30 day, Stop date: 04/28/16 21:00: 00 VALVE TESTER Notes: (Same as: Lopressor) 12.5mg=1/4 X 50 mg tab. Start Date: 03/30/16 Stop Date: 03/31/16 Status: Discontinuedmorphine Sulfate 4 mg, Route: IVP, ONCE, Dosing Weight 134.347, kg, Priority: STAT, Start date: 03/30/16 3:27:00 CDT,Stop date: 03/30/16 3:27:00 CDT Start Date: 03/30/16 Stop Date: 03/30/16 Status: DiscontinuedMotrin 200 mg, 1 tab, Route: PO, Drug form: TAB, Q6H, Dosing Weight 134.347, kg, PRN For Temp > 100.4 F, Start date: 03/30/16 17:50:00 CDT, Duration: 30 day, Stop date: 04/29/16 17:49:00 VALVE TESTER Notes: (Same as: Advil) Give with food. Start Date: 03/30/16 Stop Date: 03/31/16 Status: DiscontinuedNorco 5/325 oral tablet 1 tab, Route: PO, Drug Form: TAB, Dosing Weight 134.347, kg, Q4H, PRN Pain Score 1-3, Start date: 03/30/16 8:38:00 CDT, Duration: 30 day, Stop date: 8:37:00 VALVE TESTER Notes: (Same as: [place] 325/5) Do not exceed 4gm/day of acetaminophen. Start Date: 03/30/16 Stop Date: 03/31/16 Status: DiscontinuedNorco 5/325 oral tablet 1 tab, PO, Q4H, PRN Pain Score 1-3, 0 Refill(s) Start Date: 03/31/16 Stop Date: 03/31/16 Status: DiscontinuedOmnipaque 350mg/ml 110 mL, Route: IVP, Drug Form: SOLN, Dosing Weight 134.347, kg, ONCALL, STAT, Start date: 03/30/16 14:11:00 CDT, Stop date: 03/31/16 0:00:00 CDT, Dose=2.2ml/ kg, Max chau=[id number] -- "To be infused by Radiology Staff ONLY" Notes: (Same as:Omnipaque 350).WASTE: F/P - Black; E - Municipal Trash Bin Start Date: 03/30/16 Stop Date: 03/31/16 Status: DiscontinuedPlavix 75 mg, 1 tab, Route: PO, Drug form: TAB, Daily, Dosing Weight 131.818, kg, Start date: 03/30/16 9:00:00 CDT, Duration: 30 day, Stop date: 04/28/16 9:00:00 VALVE TESTER Notes: (Same As: Plavix) Start Date: 03/30/16 Stop Date: 03/31/16 Status: Discontinuedpotassium chloride 10 mEq, 50 mL, Route: IVPB, Drug form: INJ, PRN, Dosing Weight 134.347, kg, PRN Abnormal Lab Result,For NON-ICU Patients Only, Start date: 03/30/16 6:07:00 CDT , Duration: 30 day, Stop date: 04/29/16 5:06:00 VALVE TESTER Notes: (Same as: KCL) Infuse over 2 hours. Start Date: 03/30/16 Stop Date: 03/31/16 Status: Discontinuedpotassium chloride 20 mEq, 1 tab, Route: PO, Drug form: ERTAB, PRN, Dosing Weight 134.347, kg, PRN Abnormal Lab Result,For NON-ICU Patients Only, Start date: 03/30/16 6:07:00 CDT , Duration: 30 day, Stop date: 04/29/16 5:06:00 VALVE TESTER Notes: (Same as: K-Dur 20)"Do Not Crush" With food and full glass of water Start Date: 03/30/16 Stop Date: 03/31/16 Status: Discontinuedpotassium chloride 20 mEq, 15 mL, Route: NJ, Drug form: LIQ, PRN, Dosing Weight 134.347, kg, PRN Abnormal Lab Result, For NON-ICU Patients Only, Start date: 03/30/16 6:07:00 CDT , Duration: 30 day, Stop date: 04/29/16 5:06:00 VALVE TESTER Notes: (Same as: Potassium Chloride) Start Date: 03/30/16 Stop Date: 03/31/16 Status: Discontinuedpotassium phosphate + sodium chloride 0.9% INJ 250 mL 30 mmol, 10 mL, Route: IVPB, Drug form: INJ, PRN, Dosing Weight 134.347, kg, PRN Abnormal Lab Result, For NON-ICU Patients Only., Start date: 03/30/16 6:07: 00 CDT, Duration: 30 day, Stop date: 165:06:00 VALVE TESTER Notes: (Same as: K Phosphate.) 1 mMol phoshate has 1.47 mEq potassium Infuse over 4 hours Start Date: 03/30/16 Stop Date: 03/31/16 Status: Discontinuedpotassium phosphate + sodium chloride 0.9% INJ 250 mL 15 mmol, 5 mL, Route: IVPB, Drug form: INJ, PRN, Dosing Weight 134.347, kg, PRN Abnormal Lab Result,For NON-ICU Patients Only., Start date: 03/30/16 6:07:00 CDT , Duration: 30 day, Stop date: 04/29/16 5:06:00 VALVE TESTER Notes: (Same as: K Phosphate.) 1 mMol phoshate has 1.47 mEq potassium Infuse over 4 hours Start Date: 03/30/16 Stop Date: 03/31/16 Status: Discontinuedpotassium phosphate-sodium phosphate 250 mg-280 mg-160 mg oral powder for reconstitution 2 pkt, Route: PO, Drug Form: PDR/REC, Dosing Weight 134.347, kg, PRN, PRN Abnormal Lab Result, For NON-ICU Patients Only, Start date: 03/30/16 6:07:00 CDT , Duration: 30 day, Stop date: 04/29/16 5:06:00CST Notes: (Same as: Phos-NaK) Each 1.5 gm pkt has 250mg phosphorous. Mix w/2.5oz water and stir. Start Date: 03/30/16 Stop Date: 03/31/16 Status: DiscontinuedSaline Flush 0.9% 10 mL, Route: IVP, Drug Form: INJ, Dosing Weight 131.818, kg, PRN, PRN Line Flush, Start date: 03/29/16 22:26:00 CDT, Duration: 30 day, Stop date: 04/28/16 21:25:00 VALVE TESTER Notes: (Same as: BD Posiflush) Start Date: 03/29/16 Stop Date: 03/31/16 Status: Discontinuedsertraline 50 mg, 1 tab, Route: PO, Drug form: TAB, Daily, Dosing Weight 131.818, kg, Start date: 03/30/16 21:00:00 CDT, Duration: 30 day, Stop date: 04/29/16 9:00: 00 VALVE TESTER Notes: (Same as: Zoloft) Start Date: 03/30/16 Stop Date: 03/31/16 Status: Discontinuedsertraline 50 mg oral tablet 50 mg=1 tab, PO, Daily, 0 Refill(s) Start Date: 03/30/16 Status: OrderedSodium Chloride 0.9% (Bolus) IV 250 mL, 250 ml/hr, Infuse Over: 1 hr, Route: IV, 250, Drug form: INJ, ONCALL, Priority: Routine, Dosing Weight 134.347 kg, Start date: 03/30/16 16:00:00 CDT, Duration: 1 doses or times, Stop date: 03/31/16 0:00:00 CDT Start Date: 03/30/16 Stop Date: 03/30/16 Status: Completedsodium chloride 0.9% 1000 ml INJ 750 mL 750 mL, Rate: 75 ml/hr, Infuse over: 10 hr, Route: IV, Dosing Weight 134.347 kg , Total Volume: 750, Start date: 03/30/16 15:42:00 CDT, Duration: 24 hr, Stop date: 03/31/16 15:41:00 CDT Start Date: 03/30/16 Stop Date: 03/31/16 Status: Completedsodium phosphate + sodium chloride 0.9% INJ 250 mL 15 mmol, 5 mL, Route: IVPB, Drug form: INJ, PRN, Dosing Weight 134.347, kg, PRN Abnormal Lab Result,For NON-ICU Patients Only., Start date: 03/30/16 6:07:00 CDT , Duration: 30 day, Stop date: 04/29/16 5:06:00 VALVE TESTER Start Date: 03/30/16 Stop Date: 03/31/16 Status: Discontinuedsodium phosphate + sodium chloride 0.9% INJ 250 mL 30 mmol, 10 mL, Route: IVPB, Drug form: INJ, PRN, Dosing Weight 134.347, kg, PRN Abnormal Lab Result, For NON-ICU Patients Only., Start date: 03/30/16 6:07: 00 CDT, Duration: 30 day, Stop date: :06:00 VALVE TESTER Start Date: 03/30/16 Stop Date: 03/31/16 Status: Discontinuedtramadol 100 mg, 2 tab, Route: PO, Drug form: TAB, Q6H, Dosing Weight 131.818, kg, PRN Pain Score 4-6, Start date: 03/30/16 1:15:00 CDT, Duration: 30 day, Stop date: 04/29/16 1:14:00 VALVE TESTER Notes: Not to exceed 400mg/day. (Same As: Ultram) Start Date: 03/30/16 Stop Date: 03/31/16 Status: DiscontinuedTylenol with Codeine #3 oral tablet 1 - 2 tab, PO, Q6H, PRN Pain, X 2 day, # 12 tab, 0 Refill(s) Start Date: 03/31/16 Stop Date: 04/02/16 Status: CompletedTylenol with Codeine #3 oral tablet 1 tab, Route: PO, Drug Form: TAB, Dosing Weight 134.347, kg, ONCE, Start date: 03/31/16 17:18:00 CDT, Stop date: 03/31/16 17:18:00 CDT Notes: Do not exceed 4gm/day of acetaminophen. (Same as: Tylenol with Codeine # 3) Start Date: 03/31/16 Stop Date: 03/31/16 Status: Completed Results ELECTROLYTES Most recent to oldest 1 2 3 [Reference Range]: Sodium Lvl [135-145 mEq/L] 139 mEq/L 138 mEq/L 135 mEq/L (03/31/16 2:43 AM) (03/30/16 1:06 AM) (03/29/16 10:31 PM) Potassium Lvl [3.5-5.1 4.4 mEq/L 3.9 mEq/L 4.0 mEq/L mEq/L] (03/31/16 2:43 AM) (03/30/16 1:06 AM) (03/29/16 10:31 PM) Chloride Lvl [95-109 mEq/L] 104 mEq/L 103 mEq/L 101 mEq/L (03/31/16 2:43 AM) (03/30/16 1:06 AM) (03/29/16 10:31 PM) CO2 [24-32 mEq/L] 26 mEq/L 23 mEq/L 24 mEq/L (03/31/16 2:43 AM) *LOW* (03/29/16 10:31 PM) (03/30/16 1:06 AM) AGAP [10.0-20.0 mEq/L] 13.4 mEq/L 15.9 mEq/L 14.0 mEq/L (03/31/16 2:43 AM) (03/30/16 1:06 AM) (03/29/16 10:31 PM) CHEM PANEL Most recent to oldest 1 2 3 [Reference Range]: Creatinine Lvl [0.50-1.40 1.20 mg/dL 1.21 mg/dL 1.08 mg/dL mg/dL] (03/31/16 2:43 AM) (03/30/16 1:06 AM) (03/29/16 10:31 PM) eGFR 81 mL/min/1.73m2 1 80 mL/min/1.73m2 2 92 mL/min/1.73m2 3 *NA* *NA* *NA* (03/31/16 2:43 AM) (03/30/16 1:06 AM) (03/29/16 10:31 PM) BUN [7-22 mg/dL] 11 mg/dL 10 mg/dL 9 mg/dL (03/31/16 2:43 AM) (03/30/16 1:06 AM) (03/29/16 10:31 PM) B/C Ratio [6-25] 8 8 (03/30/16 1:06 AM) (03/29/16 10:31 PM) Glucose Lvl [70-99 mg/dL] 98 mg/dL 90 mg/dL 96 mg/dL (03/31/16 2:43 AM) (03/30/16 1:06 AM) (03/29/16 10:31 PM) Total Protein [6.4-8.4 g/dL] 7.0 g/dL 7.7 g/dL (03/30/16 1:06 AM) (03/29/16 10:31 PM) Albumin Lvl [3.5-5.0 g/dL] 3.5 g/dL 4.0 g/dL (03/30/16 1:06 AM) (03/29/16 10:31 PM) Globulin [2.7-4.2 g/dL] 3.5 g/dL 3.7 g/dL (03/30/16 1:06 AM) (03/29/16 10:31 PM) A/G Ratio [0.7-1.6] 1.0 1.1 (03/30/16 1:06 AM) (03/29/16 10:31 PM) Calcium Lvl [8.5-10.5 mg/dL] 8.8 mg/dL 8.3 mg/dL 8.7 mg/dL (03/31/16 2:43 AM) *LOW* (03/29/16 10:31 PM) (03/30/16 1:06 AM) Phosphorus [2.5-4.5 mg/dL] 3.8 mg/dL 4.3 mg/dL (03/31/16 2:43 AM) (03/30/16 1:06 AM) Magnesium Lvl [1.8-2.4 2.3 mg/dL 1.8 mg/dL mg/dL] (03/31/16 2:43 AM) (03/30/16 1:06 AM) ALT [0-65 unit/L] 45 unit/L 52 unit/L (03/30/16 1:06 AM) (03/29/16 10:31 PM) AST [0-37 unit/L] 23 unit/L 28 unit/L (03/30/16 1:06 AM) (03/29/16 10:31 PM) Alk Phos [39-136 unit/L] 67 unit/L 72 unit/L (03/30/16 1:06 AM) (03/29/16 10:31 PM) Bili Total [0.2-1.3 mg/dL] 0.9 mg/dL 1.0 mg/dL (03/30/16 1:06 AM) (03/29/16 10:31 PM) 1Result Comment: The eGFR is calculated using the CKD-EPI formula. In most young , healthy individualsthe eGFR will be >90 mL/min/1.73m2. The eGFR declines with age. An eGFR of 60-89 may be normal in some populations, particularly the elderly, for whom [...] eGFR should be multiplied by the estimated BMI.2Result Comment: The eGFR is calculated using the CKD-EPI formula. In most young, healthy individualsthe eGFR will be >90 mL/ min/1.73m2. The eGFR declines with age. An eGFR of 60-89 may be normal in some populations, particularly the elderly, for whom [...] eGFR should be multiplied by the estimated BMI.3Result Comment: The eGFR is calculated using the CKD-EPI formula. In most young, healthy individualsthe eGFR will be >90 mL/ min/1.73m2. The eGFR declines with age. An eGFR of 60-89 may be normal in some populations, particularly the elderly, for whom [...] 3 [Reference Range]: Total CK [12-191 unit/L] 91 unit/L 106 unit/L 135 unit/L (03/30/16 10:09 AM) (03/30/16 3:10 AM) (03/29/16 10:31 PM) CK MB [0.5-3.6 ng/mL] 1.0 ng/mL 0.8 ng/mL 0.7 ng/mL (03/30/16 10:09 AM) (03/30/16 3:10 AM) (03/29/16 10:31 PM) CK MB Index [0.0-2.5] 1.1 0.8 0.5 (03/30/16 10:09 AM) (03/30/16 3:10 AM) (03/29/16 10:31 PM) Troponin-T [0.000-0.100 <0.010 ng/mL <0.010 ng/mL ng/mL] (03/30/16 10:09 AM) (03/30/16 3:10 AM) Troponin-I [0.00-0.40 0.05 ng/mL 0.06 ng/mL 0.07 ng/mL ng/mL] (03/30/16 10:09 AM) (03/30/16 3:10 AM) (03/29/16 10:31 PM) LIPIDS Most recent to oldest [Reference Range]: 1 2 3 CHD Risk [4.00-7.30] 3.31 *LOW* (03/30/16 3:10 AM) Chol [<=199 mg/dL] 149 mg/dL (03/30/16 3:10 AM) Trig [<=149 mg/dL] 96 mg/dL (03/30/16 3:10 AM) HDL [>=61 mg/dL] 45 mg/dL *LOW* (03/30/16 3:10 AM) LDL (Calculated) [<=99 mg/dL] 85 mg/dL (03/30/16 3:10 AM) VLDL 19 *NA* (03/30/16 3:10 AM) SPECIAL CHEMISTRY Most recent to oldest [Reference Range]: 1 2 3 Hgb A1C [<=5.6 %] 4.8 % (03/30/16 3:10 AM) PARATHYROID PROFILE Most recent to oldest [Reference Range]: 1 2 3 Ca Ion WB [1.05-1.25 mMol/L] 1.19 mMol/L (03/31/16 2:43 AM) Ca Norm WB [1.05-1.25 mMol/L] 1.12 mMol/L (03/31/16 2:43 AM) DRUG SCREEN Most recent to oldest [Reference Range]: 1 2 3 U Methadone Scr [Negative] Negative *NA* (03/30/16 2:22 PM) U Propoxyph Scr [Negative] Negative *NA* (03/30/16 2:22 PM) U Amph Scr [Negative] Negative *NA* (03/30/16 2:22 PM) U Venita Scr [Negative] Negative *NA* (03/30/16 2:22 PM) U Benzodia Scr [Negative] Negative *NA* (03/30/16 2:22 PM) U Cocaine Scr [Negative] Negative *NA* (03/30/16 2:22 PM) U Opiate Scr [Negative] Positive *ABN* (03/30/16 2:22 PM) U Phencyc Scr [Negative] Negative *NA* (03/30/16 2:22 PM) U Cannab Scr [Negative] Negative *NA* (03/30/16 2:22 PM) UDS Note See Note (03/30/16 2:22 PM) URINE AND STOOL Most recent to oldest [Reference Range]: 1 2 3 UA Turbidity [Clear] Clear (03/30/16 2:22 PM) UA Color [Yellow] Yellow *NA* (03/30/16 2:22 PM) UA pH [5.0-8.0] 6.0 (03/30/16 2:22 PM) UA Spec Grav [<=1.030] 1.021 (03/30/16 2:22 PM) UA Glucose [Negative mg/dL] Negative mg/dL *NA* (03/30/16 2:22 PM) UA Blood [Negative] Negative (03/30/16 2:22 PM) UA Ketones [Negative mg/dL] Negative mg/dL *NA* (03/30/16 2:22 PM) UA Protein [Negative mg/dL] 30 mg/dL *ABN* (03/30/16 2:22 PM) UA Urobilinogen [0.1-1.0 mg/dL] 2.0 mg/dL *HI* (03/30/16 2:22 PM) UA Bili [Negative] Negative *NA* (03/30/16 2:22 PM) UA Leuk Est [Negative] Negative (03/30/16 2:22 PM) UA Nitrite [Negative] Negative (03/30/16 2:22 PM) UA WBC [0-5 /HPF] 2 /HPF (03/30/16 2:22 PM) UA RBC [0-2 /HPF] <1 /HPF (03/30/16 2:22 PM) UA Bacteria [None Seen /HPF] Occasional /HPF *NA* (03/30/16 2:22 PM) UA Sq Epi None Seen *NA* (03/30/16 2:22 PM) UA Mucus [None Seen /LPF] Many /LPF *ABN* (03/30/16 2:22 PM) HEMATOLOGY Most recent to oldest 1 2 3 [Reference Range]: WBC [3.7-10.4 K/CMM] 11.8 K/CMM 15.2 K/CMM 16.9 K/CMM *HI* *HI* *HI* (03/31/16 2:43 AM) (03/30/16 1:19 AM) (03/29/16 10:31 PM) RBC [4.70-6.10 M/CMM] 4.12 M/CMM 4.27 M/CMM 4.60 M/CMM *LOW* *LOW* *LOW* (03/31/16 2:43 AM) (03/30/16 1:19 AM) (03/29/16 10:31 PM) Hgb [14.0-18.0 g/dL] 12.8 g/dL 13.1 g/dL 14.2 g/dL *LOW* *LOW* (03/29/16 10:31 PM) (03/31/16 2:43 AM) (03/30/16 1:19 AM) Hct [42.0-54.0 %] 37.7 % 38.4 % 41.3 % *LOW* *LOW* *LOW* (03/31/16 2:43 AM) (03/30/16 1:19 AM) (03/29/16 10:31 PM) MCV [80.0-94.0 fL] 91.4 fL 90.0 fL 89.8 fL (03/31/16 2:43 AM) (03/30/16 1:19 AM) (03/29/16 10:31 PM) MCH [27.0-31.0 pg] 31.0 pg 30.8 pg 30.8 pg (03/31/16 2:43 AM) (03/30/16 1:19 AM) (03/29/16 10:31 PM) MCHC [32.0-36.0 g/dL] 33.9 g/dL 34.2 g/dL 34.3 g/dL (03/31/16 2:43 AM) (03/30/16 1:19 AM) (03/29/16 10:31 PM) RDW [11.5-14.5 %] 15.8 % 15.9 % 15.6 % *HI* *HI* *HI* (03/31/16 2:43 AM) (03/30/16 1:19 AM) (03/29/16 10:31 PM) Platelet [133-450 K/CMM] 181 K/CMM 205 K/CMM 232 K/CMM (03/31/16 2:43 AM) (03/30/16 1:19 AM) (03/29/16 10:31 PM) MPV [7.4-10.4 fL] 9.3 fL 8.9 fL 8.9 fL (03/31/16 2:43 AM) (03/30/16 1:19 AM) (03/29/16 10:31 PM) Segs [45.0-75.0 %] 70.7 % 69.4 % 71.1 % (03/31/16 2:43 AM) (03/30/16 1:19 AM) (03/29/16 10:31 PM) Lymphocytes [20.0-40.0 %] 15.7 % 16.1 % 13.6 % *LOW* *LOW* *LOW* (03/31/16 2:43 AM) (03/30/16 1:19 AM) (03/29/16 10:31 PM) Monocytes [2.0-12.0 %] 12.3 % 13.1 % 14.0 % *HI* *HI* *HI* (03/31/16 2:43 AM) (03/30/16 1:19 AM) (03/29/16 10:31 PM) Eosinophils [0.0-4.0 %] 0.9 % 1.1 % 0.8 % (03/31/16 2:43 AM) (03/30/16 1:19 AM) (03/29/16 10:31 PM) Basophils [0.0-1.0 %] 0.4 % 0.3 % 0.5 % (03/31/16 2:43 AM) (03/30/16 1:19 AM) (03/29/16 10:31 PM) Segs-Bands # [1.5-8.1 8.3 K/CMM 10.5 K/CMM 12.0 K/CMM K/CMM] *HI* *HI* *HI* (03/31/16 2:43 AM) (03/30/16 1:19 AM) (03/29/16 10:31 PM) Lymphocytes # [1.0-5.5 1.9 K/CMM 2.4 K/CMM 2.3 K/CMM K/CMM] (03/31/16 2:43 AM) (03/30/16 1:19 AM) (03/29/16 10:31 PM) Monocytes # [0.0-0.8 K/CMM] 1.4 K/CMM 2.0 K/CMM 2.4 K/CMM *HI* *HI* *HI* (03/31/16 2:43 AM) (03/30/16 1:19 AM) (03/29/16 10:31 PM) Eosinophils # [0.0-0.5 0.1 K/CMM 0.2 K/CMM 0.1 K/CMM K/CMM] (03/31/16 2:43 AM) (03/30/16 1:19 AM) (03/29/16 10:31 PM) Basophils # [0.0-0.2 K/CMM] 0.1 K/CMM 0.1 K/CMM (03/31/16 2:43 AM) (03/29/16 10:31 PM) PT [12.0-14.7 seconds] 13.3 seconds (03/30/16 1:19 AM) INR [0.85-1.17] 0.99 (03/30/16 1:19 AM) PTT [22.9-35.8 seconds] 26.9 seconds (03/30/16 1:19 AM) Immunizations No data available for this section Procedures Procedure Date Related Diagnosis Body Site CABG - Coronary artery bypass graft Social History Social History Type Response Substance Abuse Use: None. Sexual Sexually active: Yes. Alcohol Current, Alcohol use interferes with work or home: No. Drinks more than intended: No. Others hurt by drinking: No. Ready to change: Yes. Household alcohol concerns: No. Smoking Status Current every day smoker; Type: Cigarettes; Tobacco use per day : 10; Started at age[age] 12.0; Exposure to Tobacco Smoke None; Cigarette Smoking Last 365 Days Yes; Reg Smoking Cessation Counseling Yes Assessment and Plan Extracted from: Title: CCU Discharge Summary Author: Tin Campos MD Date: 03/31/16 Discharge Summary Attending: Stiven Pool MD Service: Cardiology Code status: Full Code [Ordered] Reason for Admission: CHEST PAIN Working DRG: Chest pain Isolation: None Documented Consulting Physicians: (none on file) Date of Admission: 03/30/2016 Admission Attending: Dr Pool Date of Discharge: 03/31/2016 Discharge Attending: Dr Pool Dx Prior to Admission: 1. CAD s/p 4v CABG (October/2015) 2. HTN 3. PTSD/Anxiety Discharge Dx: 1. Non-cardiac Chest Pain Consultants: None/Cardiology service Imaging/Procedures/Labs: TTE: Conclusions 1) Technically difficult study. 2) Definity contrast was used to enhance endocardial border. 3) Normal LV size and global systolic function. LVEF 60-65% Hypokinesis involving the apex, distal septum, and distal inferior wall. 4) Normal diastolic function. 5) Normal RV size and systolic function. 6) No significant valvular abnormalities. 7) RV systolic pressure cannot be evaluated accurately. 8) No pericardial effusion. 9) No prior study available. STRESS: CONCLUSIONS: 1. Normal hemodynamic adenosine test. 2. Normal ECG adenosine test. 3. Abnormal adenosine Tc-99m myocardial perfusion study showing medium sized, moderate to severe, anterior, solis-septal and apical nontransmural scar in the distribution of the LAD. 4. Gated perfusion images show apical hypokinesis with an ejection fraction of 56% . Hospital Course Summary: Mr. Villalobos y/o M, H/O 4 vessel CABG- SERRANO LAD, FLAVIA OM, SVG RAMUS, SVG PDA , HTN, PTSD, anxiety presented to the ER with chest pain. Patient had to drive for a long time yesterday( thursday- 03/28/16) as pa rt of his job. He came back home around 6 30 pm, when he started experiencing chest pain. Retrosternal pain, non radiating, stabbing, 5-6/10 at its onset, aggravted by deep inspiration and movements, no t aggravated by exertion, no relieving factors. Pain persisted at 6/10 throughout the night and throughout the day of admission. He decided to present to the ER around 830 pm because the pain was not go ing away. Now he is admitted to [facility] under CCU team for further management. He denies palpitations, syncope/presyncope, SOB. Patient had Nuclear Treadmill stress test given that he has a high pre-test p robability. Stress showed no evidence of reversible ischemia. D/w patient that pain is either musculoskeletal or pleuritic/pericardial. Pt advised that he can take minimal NSAID (only after DAPT), but w ould prefer tylenol. He also says [place] works well. Advised that he can return to work as tolerated but needs to continue to f/u closely as out-patient. TO FOLLOW UP: #CAD: Continue current regimen. Switched Metoprolol from Tartrate to Succinate (same daily dose). F/u with Cardiology as OP in 3-4 week #Non-cardiac CP: Continue f/u with PCP and cardiology and continue to re- address and monitor Physical Exam at Discharge: General - Pt lying comfortably in bed, NAD HEENT - KOFI, EOMI CVS - +S1/S2, RRR no m/r/g, mild L chest wall tenderness Pulm - CTAB, no crackles/wheezes. Abdomen - + BS, soft, non-tender, non-distended, no rebound/guarding Extremities/Skin - warm/dry, no edema, no rashes Neuro - A&O x 3 Discharge Weight: 135 kg Discharge Disposition: Home with follow up Burn Nurse Discharge Diet: Cardiac Diet/Low sodium Discharge Activity: As tolerated Discharge Medications: 03/30/16 9:00 aspirin 81 mg PO Daily 03/30/16 21:00 atorvastatin 80 mg PO Bedtime 03/31/16 11:30 buPROPion 150 mg PO Before Breakfast 03/30/16 17:00 buPROPion 100 mg PO After Dinner 03/30/16 9:00 clopidogrel (Plavix) 75 mg PO Daily 03/30/16 8:00 gabapentin 300 mg PO Q8H 03/30/16 21:00 heparin (heparin 5000 units/mL injectable solution) 5,000 unit SUB-Q Q8H 03/30/16 9:00 lisinopril 5 mg PO Daily Metoprolol Succinate 50mg PO daily 03/30/16 21:00 sertraline 50 mg PO Daily Discharge Instructions: Patient made aware of changes in his medications and the dates and times of his follow-up appointments. Please return to the ED if you experience: worsening pain, numbness, severe nausea/vomiting, fever > 101.5, chills, shortness of breath, chest pain, persisting dizziness or loss of consciousness, palpitations, increased lower extremity swelling, signs of infection, or any other concerning symptoms Follow-up Plan: Continue taking all medications and following up with all appts. Medication Reconcilation: -Change: Metoprolol from tartrate to Succinate (same daily dose) Follow-up Appointments: PCP in 1 week Cardiology in 4 weeks Tin Campos MD Internal Medicine; PGY2 Addendum by Tin Campos MD on Discussed with team/attending. Pt had mild 03/31/2016 19:37 low grade temp and WBC that down-trended, given hx, it is possible there is mild pericardial or pleural inflammation, possibly viral. TTE has no effusion with good function and CT scan shows no acute process. He feels improved and can be managed out-patient with indomethacin (educated to take anti-platelets prior to) and he says he will be able to make a PCP appt in a few days to get followed up. Pt can be discharged with Rx and F/u Today. Return precautions given. Extracted from: Title: CCU Progress Note Author: Tin Campos MD Date: 03/31/16 DAILY PROGRESS NOTE Date of Service: 03/31/2016 Attending: Stiven Pool MD Service: Cardiology Code status: Full Code [Ordered] Reason for Admission: CHEST PAIN Working DRG: None Documented Isolation: None Documented Consulting Physicians: (none on file) S: Pt was seen and examined at the bedside. He has some mild reproducible and pleuritic CP that is otherwise improved. Brief ROS: no sOB or paliptations O: Medications: Scheduled Meds (10): 03/30/16 aspirin 81 mg PO Daily 03/30/16 atorvastatin 40 mg PO Bedtime 03/31/16 buPROPion 150 mg PO Before Breakfast 03/30/16 buPROPion 100 mg PO After Dinner 03/30/16 clopidogrel (Plavix) 75 mg PO Daily 03/30/16 gabapentin 300 mg PO Q8H 03/30/16 heparin (heparin 5000 units/mL injectable solution) 5,000 unit SUB-Q Q8H 03/30/16 lisinopril 5 mg PO Daily 03/30/16 metoprolol (metoprolol tartrate) 12.5 mg PO Q12H 03/30/16 sertraline 50 mg PO Daily Vitals: Vitals Tmp(F) Pulse BP RR SpO2 FIO2 03/31 06:00 ---- 92 131/66 -- --- --- 03/31 05:16 98.5 --- ----- -- --- --- 03/31 05:00 ---- 86 ----- -- --- --- 03/31 04:00 ---- 94 116/60 19 --- --- 03/31 03:00 ---- 90 ----- -- --- --- 24 Hr Tmax: 100.3F (37.94c) at 03/30 17:00 Vital Signs are the last 5 in the past 48 hours. Physical Exam: General - Pt lying comfortably in bed, NAD HEENT - KOFI, EOMI, no LAD CVS - +S1/S2, RRR no m/r/g Pulm - CTAB, no crackles/wheezes. Abdomen - + BS, soft, non-tender, non-distended, no rebound/guarding Extremities/Skin - warm/dry, no edema, no rashes Neuro - A&O x 3 Ins/Outs: I/O Intake Output Balance 03/30/2016 7a-3p 350.00 500.00 -150.00 3p-11p 1340.00 600.00 740.00 11p-7a 300.00 0.00 300.00 Totals 1990.00 1100.00 890.00 03/29/2016 7a-3p 0.00 0.00 0.00 3p-11p 0.00 0.00 0.00 11p-7a 31.00 0.00 31.00 Totals 31.00 0.00 31.00 Lines, Tubes, and Drains: 03/29/2016 22:41 Peripheral Lines: Antecubital Right 18 gauge Over the needle catheter Labs: WBC 11.8 <-- 15 Imaging: TTE: Conclusions 1) Technically difficult study. 2) Definity contrast was used to enhance endocardial border. 3) Normal LV size and global systolic function. LVEF 60-65% Hypokinesis involving the apex, distal septum, and distal inferior wall. 4) Normal diastolic function. 5) Normal RV size and systolic function. 6) No significant valvular abnormalities. 7) RV systolic pressure cannot be evaluated accurately. 8) No pericardial effusion. 9) No prior study available. Assessment: 30 yo man with PMH of 4 vessel CABG- SERRANO LAD, FLAVIA OM, SVG RAMUS, SVG PDA , HTN, PTSD, anxiety presented to the ER with chest pain, now admitted in [facility] under CCU team for further managment and evaluation. #Chest pain Atypical chest pain Possibly pericardial inflammation Will rule out ACS because of high risk factors EKG does not show any new changes Cardiac enzymes negative till now. Will trend cardiac enzymes, get TTE Unable to give nitro, morphine due to soft BP Will give toradol once and tramdol --> Stress today - f/u CT PE #Hypotension - stable SBP at home in 100-110 range BP in similiar range here Will resume home BP meds Will hold BP meds for SBP < 100 #Anxiety, depression Will resume sertraline Will find out home dose of buproprion and resume it #Leukocytosis Stress related possibly Will get UA CXR clear Diet: NPO now code: full dispo: pending resolution of pain DVT: heparin subcutaneous Tin Campos MD Internal Medicine; PGY2 Addendum by Stiven Pool MD on 03/31/2016 09:46 I have personally seen and examined the patient with the resident. I agree with the management and plan as discussed, and outlined in the note. -- Pt with 4 vessel CABG, admitted for positional chest pain, Tn X 3 -ve -- EKG unchanged -- Echo - normal LVEF -- Stress test pending Extracted from: Title: CCU Admission H&P * Author: Rian Castro MD Date: 03/30/16 Patient: MEE SANDY Age: 30 years Sex: Male : 1985 Associated Diagnoses: None Author: Rian Castro MD Basic Information Chief complaint: Chest pain History of Present Illness 30 yo man with PMH of 4 vessel CABG- SERRANO LAD, FLAVIA OM, SVG RAMUS, SVG PDA , HTN, PTSD, anxiety presented to the ER with chest pain. Patient had to drive for a long time yesterday( thursday- 03/28/16) as part of his job. He came back home around 6 30 pm, when he started experiencing chest pain. Retrosternal pain, non radiating, stabbing, 5-6/10 at its onset, aggravted by deep inspiration and movement s, not aggravated by exertion, no relieving factors. Pain persisted at 6/10 throughout the night and throughout the day of admission. He decided to present to the ER around 830 pm because the pain was n ot going away. Now he is admitted to [facility] under CCU team for further management. He denies palpitations, syncope/presyncope, SOB. Review of Systems Constitutional: negative Eye: Negative. Ear/Nose/Mouth/Throat: Negative. Respiratory: Negative. Cardiovascular: as above Gastrointestinal: negative Genitourinary: Negative. Hematology/Lymphatics: Negative. Endocrine: Negative. Immunologic: Negative. Musculoskeletal: Negative. Integumentary: Negative. Neurologic: Negative. Psychiatric: Negative. All other systems are negative Health Status Allergies: Allergic Reactions (Selected) Severity Not Documented NKDA- No reactions were documented., Allergies (1) Active Reaction NKDA None Documented Current medications: (Selected) Inpatient Medications Ordered Plavix: 75 mg, 1 tab, PO, Daily Saline Flush 0.9%: 10 mL, IVP, PRN, PRN: Line Flush aspirin: 81 mg, 1 tab, PO, Daily calcium gluconate + sodium chloride 0.9% INJ 100 mL: 2 gm, 20 mL, 120 ml/hr, IVPB, PRN, PRN: Abnormal Lab Result calcium gluconate + sodium chloride 0.9% INJ 100 mL: 3 gm, 30 mL, 130 ml/hr, IVPB, PRN, PRN: Abnormal Lab Result gabapentin: 300 mg, 1 cap, PO, Q8H lisinopril: 5 mg, 1 tab, PO, Daily magnesium oxide: 800 mg, 2 tab, PO, PRN, PRN: Abnormal Lab Result magnesium sulfate: 1 gm, 100 mL, 100 ml/hr, IVPB, PRN, PRN: Abnormal Lab Result magnesium sulfate: 2 gm, 50 mL, 25 ml/hr, IVPB, PRN, PRN: Abnormal Lab Result metoprolol tartrate: 12.5 mg, 1 tab, PO, Q12H potassium chloride: 10 mEq, 50 mL, 50 ml/hr, IVPB, PRN, PRN: Abnormal Lab Result potassium chloride: 20 mEq, 1 tab, PO, PRN, PRN: Abnormal Lab Result potassium chloride: 20 mEq, 15 mL, NJ, PRN, PRN: Abnormal Lab Result potassium phosphate + sodium chloride 0.9% INJ 250 mL: 15 mmol, 5 mL, 63.75 ml/ hr, IVPB, PRN, PRN: Abnormal Lab Result potassium phosphate + sodium chloride 0.9% INJ 250 mL: 30 mmol, 10 mL, 65 ml/hr , IVPB, PRN, PRN: Abnormal Lab Result potassium phosphate-sodium phosphate 250 mg-280 mg-160 mg oral powder for reconstitution: 2 pkt, PO, PRN, PRN: Abnormal Lab Result sertraline: 50 mg, 1 tab, PO, Daily sodium phosphate + sodium chloride 0.9% INJ 250 mL: 15 mmol, 5 mL, 63.75 ml/hr , IVPB, PRN, PRN: Abnormal Lab Result sodium phosphate + sodium chloride 0.9% INJ 250 mL: 30 mmol, 10 mL, 65 ml/hr, IVPB, PRN, PRN: Abnormal Lab Result tramadol: 100 mg, 2 tab, PO, Q6H, PRN: Pain Score 4-6 Prescriptions Prescribed aspirin 81 mg tablet, enteric coated: 162 mg, 2 tab, PO, Daily, 60 tab, 0 Refill(s) celecoxib 200 mg oral capsule: 200 mg, 1 cap, PO, Q12H, 30 cap, 0 Refill(s) clopidogrel 75 mg oral tablet: 75 mg, 1 tab, PO, Daily, 30 tab, 0 Refill(s) docusate sodium 100 mg oral capsule: 100 mg, 1 cap, PO, BID, 30 cap, 0 Refill(s ) gabapentin 300 mg oral capsule: 300 mg, 1 cap, PO, Q8H-06, 60 cap, 0 Refill(s) lisinopril 5 mg oral tablet: 5 mg, 1 tab, PO, Daily, 30 tab, 0 Refill(s) metoprolol tartrate 25 mg oral tablet: 25 mg, 1 tab, PO, Q12H, 60 tab, 0 Refill (s) Documented Medications Documented sertraline 50 mg oral tablet: 50 mg, 1 tab, PO, Daily, 0 Refill(s), Medications (21) Active Scheduled: (6) aspirin 81 mg ECT 81 mg 1 tab, PO, Daily clopidogrel 75 mg TAB 75 mg 1 tab, PO, Daily gabapentin 300 mg CAP 300 mg 1 cap, PO, Q8H lisinopril 5 mg TAB 5 mg 1 tab, PO, Daily metoprolol tartrate 12.5 mg TAB 12.5 mg 1 tab, PO, Q12H sertraline 50 mg TAB 50 mg 1 tab, PO, Daily Continuous: (0) PRN: (15) calcium gluconate 100mg/ml 10ml VL + sodium chloride 0.9% INJ 100 mL 2 gm 20 mL, IVPB, PRN calcium gluconate 100mg/ml 10ml VL + sodium chloride 0.9% INJ 100 mL 3 gm 30 mL, IVPB, PRN magnesium oxide (242 mg elemental) tab 800 mg 2 tab, PO, PRN magnesium sulfate 1gm/100ml D5W premix 1 gm 100 mL, IVPB, PRN magnesium sulfate 2 gm/H20 50ml soln 2 gm 50 mL, IVPB, PRN potassium chloride 10 mEq/50 ml PB 10 mEq 50 mL, IVPB, PRN potassium chloride 20 mEq ERT 20 mEq 1 tab, PO, PRN potassium chloride 20mEq/15ml LIQ ud 20 mEq 15 mL, NJ, PRN potassium phosphate 3mmol/1ml 15ml VL + sodium chloride 0.9% INJ 250 mL 15 mmol 5 mL, IVPB, PRN potassium phosphate 3mmol/1ml 15ml VL + sodium chloride 0.9% INJ 250 mL 30 mmol 10 mL, IVPB, PRN potassium phosphate-sodium phosphate 1.5 gm pkt 2 pkt, PO, PRN sodium chloride 0.9% 10 ml flush syr BD 10 mL, IVP, PRN sodium phosphate 3 mmol/1 ml 15 ml vial + sodium chloride 0.9% INJ 250 mL 15 mmol 5 mL, IVPB, PRN sodium phosphate 3 mmol/1 ml 15 ml vial + sodium chloride 0.9% INJ 250 mL 30 mmol 10 mL, IVPB, PRN traMADol 50 mg TAB 100 mg 2 tab, PO, Q6H Problem list: No qualifying data available Histories Past Medical History: Resolved Hypertension ([id number]): Resolved. PTSD (post-traumatic stress disorder) ([id number]): Resolved. STEMI (ST elevation myocardial infarction) (7202729310): Resolved. Knee pain ([id number]): Resolved. CAD (coronary artery disease) (2202186610): Resolved. Psoriasis (a type of skin inflammation) (39909251): Resolved. Obesity (8704028253): Resolved. Family History: No family history items have been selected or recorded. Procedure history: CABG - Coronary artery bypass graft ([id number]). Social History Social & Psychosocial Habits Alcohol 03/30/2016 Use: Current Has alcohol use interfered with work or home life? No Do you ever drink more than intended? No Has anyone been hurt or at risk by your drinking? No Ready to change: Yes Concerns about alcohol use in household: No Sexual 03/30/2016 Sexually active: Yes Substance Abuse 03/30/2016 Use: None Tobacco 03/29/2016 Use: Current every day smoker Type: Cigarettes Tobacco use per day: 10 Started [age] age: 12.0 Years Exposure to Tobacco Smoke None Cigarette Smoking Last 365 Days Yes Reg Smoking Cessation Counseling Yes . PMH 4 vessel CABG- SERRANO LAD, FLAVIA OM, SVG RAMUS, SVG PDA , HTN, PTSD, anxiety, psoriatic arthritis PSH CABG Allergies none Home Medications aspirin 81 mg plavix 75 mg daily metoprolol tartrate 25 mg BID lisinopril 5mg daily gabapentin sertraline tramadol buspirone FH premature CAD in first degree relatives SH Ex smoker No substance abuse No alcohol abuse Physical Examination VS/Measurements Vital Signs (last 24 hrs) Last Charted Temp Oral 98.2 DegF (MAR 30:16) Heart Rate Apical 88 bpm (MAR 30 06:00) Resp Rate 14 BRMIN (MAR 30:) SBP 98 mmHg (MAR 30:) DBP L 55mmHg (MAR 30:) SpO2 100 % (MAR 30 04:) Weight 134.34 kg (MAR 30) Height 185.42 cm (MAR 30:) BMI 39.08 (MAR 30) General: Alert and oriented, No acute distress. Eye: Pupils are equal, round and reactive to light, Extraocular movements are intact. HENT: Normocephalic, Normal hearing. Neck: Supple, Non-tender, No carotid bruit, No jugular venous distention. Respiratory: Lungs are clear to auscultation, Respirations are non-labored, Breath sounds are equal, Symmetrical chest wall expansion. Cardiovascular: Normal rate, Regular rhythm, No murmur, No gallop, Good pulses equal in all extremities. Tenderness over the sternum Gastrointestinal: Soft, NT ND. BS+ Genitourinary: No costovertebral angle tenderness. Lymphatics: No lymphadenopathy neck, axilla, groin. Musculoskeletal Normal range of motion. Normal strength. Integumentary: Warm. Neurologic: Alert, Oriented, Normal sensory, Normal motor function, No focal deficits. Cognition and Speech: Oriented. Psychiatric: Cooperative. Review / Management Results review: Labs (Last four charted values) WBC H 15.2 (MAR 30) H 16.9 (MAR 29) Hgb L 13.1 (MAR 30) 14.2 (MAR 15) Hct L 38.4 (MAR 30) L 41.3 (MAR 15) Plt 205 (MAR 30) 232 (MAR 29) Na 138 (MAR 30) 135 (MAR 15) K 3.9 (MAR 30) 4.0 (MAR 15) CO2 L 23 (MAR 30) 24 (MAR 15) Cl 103 (MAR 30) 101 (MAR 15) Cr 1.21 (MAR 30) 1.08 (MAR 15) BUN 10 (MAR 30) 9 (MAR 15) Glucose Random 90 (MAR 30) 96 (MAR 15) Mg 1.8 (MAR 30) Phos 4.3 (MAR 30) Ca L 8.3 (MAR 30) 8.7 (MAR 15) PT 13.3 (MAR 30) INR 0.99 (MAR 30) PTT 26.9 (MAR 16) Troponin 0.06 (MAR 30) 0.07 (MAR 15) CK MB 0.8 (MAR 30) 0.7 (MAR 15) Total CK 106 (MAR 30) 135 (MAR 29) . Impression and Plan 30 yo man with PMH of 4 vessel CABG- SERRANO LAD, FLAVIA OM, SVG RAMUS, SVG PDA , HTN, PTSD, anxiety presented to the ER with chest pain, now admitted in [facility] under CCU team for further managment and evaluation. #Chest pain Atypical chest pain Possibly pericardial inflammation Will rule out ACS because of high risk factors EKG does not show any new changes Cardiac enzymes negative till now. Will trend cardiac enzymes, get TTE Unable to give nitro, morphine due to soft BP Will give toradol once and tramdol Will follow up pain #Hypotension SBP at home in 100-110 range BP in similiar range here Will resume home BP meds Will hold BP meds for SBP < 100 #Anxiety, depression Will resume sertraline Will find out home dose of buproprion and resume it #Leukocytosis Stress related possibly Will get UA CXR clear Diet: NPO now code: full dispo: pending resolution of pain DVT: heparin subcutaneous Addendum by Stiven Pool MD on 03/30/2016 10:56 I have personally seen and examined the patient with the resident. I agree with the management and plan as discussed, and outlined in the note. -- Pt with 4 vessel CABG, admitted for positional chest pain, Tn X 3 -ve -- EKG unchanged -- Get an echo and nuclear stress test
--- OUTSIDE RECORDS SUMMARY | 2017-12-18 21:27 | XMS REPORT | Summary of Care ---
:1985 Author Organization [facility] Address [address] [place] [id number] Encounter HQ Encntr_alias(FIN) [id number] Date(s): 10/08/15 - 10/22/15 [facility] [address] [place] [address] Professional Services provided by [facility] [place] [address]- Discharge Disposition: Home Attending Physician: Racheal Potts MD Admitting Physician: Stiven Pool MD Vital Signs Most recent to oldest 1 2 3 [Reference Range]: Height 185.42 cm 185.42 cm 185.42 cm (10/16/15 11:15 PM) (10/16/15 8:23 PM) (10/08/15 5:30 PM) Temperature Oral [96.4-99.1 98.7 DegF 98.9 DegF 98.2 DegF DegF] (10/22/15 5:00 AM) (10/22/15 12:14 AM) (10/21/15 8:57 PM) Blood Pressure [90-140/60-90 122/61 mmHg 110/60 mmHg 99/59 mmHg mmHg] (10/22/15 8:11 AM) (10/22/15 5:00 AM) (10/22/15 12:00 AM) Respiratory Rate [14-20 BRMIN] 20 BRMIN 20 BRMIN 20 BRMIN (10/22/15 5:00 AM) (10/22/15 12:00 AM) (10/21/15 9:00 PM) Peripheral Pulse Rate [60-100 89 bpm bpm] (10/08/15 5:30 PM) Weight 123.182 kg (10/08/15 5:30 PM) Body Mass Index 35.83 m2 (10/08/15 5:30 PM) Problem List Condition Effective Dates Status Health Status Informant Hypertension(Confirmed) Resolved PTSD (post-traumatic stress Resolved disorder)(Confirmed) Allergies, Adverse Reactions, Alerts Substance Reaction Severity Status NKDA Active Medications acetaminophen 1,000 mg, 100 mL, Route: IV, Drug form: INJ, Q6H, Dosing Weight 123.182, kg, Start date: 10/17/15 6:00:00 CDT, Duration: 30 day, Stop date: 11/16/15 0:00:00 CDT, > 67 kg; Pediatric Dosing Notes: Infuse over 15 minutesDo not exceed 4gm/day of acetaminophen MEDICATION WASTE ProductSize: 1000 mgProduct Wasted: _0__ mg Start Date: 10/17/15 Stop Date: 10/17/15 Status: Discontinuedacetaminophen 1,000 mg, 2 tab, Route: PO, Drug form: TAB, Q6Hnow, Dosing Weight 123.182, kg, Start date: 10/17/15 14:00:00 CDT, Duration: 30 day, Stop date: 11/16/15 8:00: 00 CDT Notes: Max acetaminophen 4000 mg/day (4 gm/day). (Same as: Tylenol Extra Strength) Start Date: 10/17/15 Stop Date: 10/19/15 Status: Discontinuedacetaminophen-hydrocodone 325 mg-5 mg oral tablet 1 tab, Route: PO, Drug Form: TAB, Dosing Weight 123.182, kg, ONCE, STAT, Start date: 10/09/15 5:06:00 CDT, Stop date: 10/09/15 5:06:00 CDT Start Date: 10/09/15 Stop Date: 10/09/15 Status: CompletedALPRAZOLam 0.25 mg, 1 tab, Route: PO, Drug form: TAB, Q8H, Dosing Weight 123.182, kg, PRN Anxiety, Start date: 10/17/15 7:45:00 CDT, Duration: 30 day, Stop date: 7:44:00 CDT Notes: With food or milk(Same as: Xanax) Start Date: 10/17/15 Stop Date: 10/22/15 Status: Discontinuedantithrombin III 573 unit, Route: IVP, Drug form: INJ, ONCE, Dosing Weight 123.182, kg, Start date: 10/16/15 15:08:00CDT, Duration: 1 doses or times, Stop date: 10/16/15 15: 08:00 CDT Start Date: 10/16/15 Stop Date: 10/16/15 Status: Discontinuedantithrombin III (ANES) Route: IV, Drug form: INJ, ONCE, Stop date: 10/16/15 16:00:00 CDT Start Date: 10/16/15 Stop Date: 10/16/15 Status: Completedaspirin 81 mg, 1 tab, Route: PO, Drug form: ECTAB, Daily, Dosing Weight 123.182, kg, Start date: 10/09/15 2:12:00 CDT, Duration: 30 day, Stop date: 11/07/15 9:00:00 CDT Notes: Do not crush or chew.(Same As: Ecotrin) Start Date: 10/09/15 Stop Date: 10/16/15 Status: Discontinuedaspirin 81 mg tablet, enteric coated 162 mg=2 tab, PO, Daily, # 60 tab, 0 Refill(s) Start Date: 10/22/15 Status: Orderedaspirin 81 mg tablet, enteric coated 162 mg, 2 tab, Route: PO, Drug form: ECTAB, Daily, Dosing Weight 123.182, kg, Start date: 10/17/15 9:00:00 CDT, Duration: 30 day, Stop date: 11/15/15 9:00:00 CDT Notes: Do not crush or chew.(Same As: Ecotrin) Start Date: 10/17/15 Stop Date: 10/22/15 Status: Discontinuedatorvastatin 80 mg, 1 tab, Route: PO, Drug form: TAB, Bedtime, Dosing Weight 123.182, kg, Start date: 10/09/15 2:09:00 CDT, Stop date: 11/05/15 21:00:00 CDT Notes: Same as Lipitor Start Date: 10/09/15 Stop Date: 10/22/15 Status: Discontinuedatorvastatin 20 mg oral tablet 20 mg=1 tab, PO, Bedtime, # 30 tab, 0 Refill(s) Start Date: 10/22/15 Stop Date: 10/22/15 Status: Discontinuedcalcium carbonate 500 mg (200 mg elemental calcium) oral tablet 1,000 mg, 2 tab, Route: PO, Drug form: CHEWTAB, PRN, Dosing Weight 123.182, kg, PRN Abnormal Lab Result, FOR ICU USE ONLY, Start date: 10/16/15 20:15:00 CDT, Duration: 30 day, Stop date: 11/15/15 20:14:00 CDT Notes: (Same As: Tums)Calcium Carbonate 500 po=523 mg elemental calcium Dose=_ mg calcium carbonate ( mg elemental calcium) Start Date: 10/16/15 Stop Date: 10/17/15 Status: Discontinuedcalcium carbonate 500 mg (200 mg elemental calcium) oral tablet 500 mg, 1 tab, Route: PO, Drug form: CHEWTAB, PRN, Dosing Weight 123.182, kg, PRN Abnormal Lab Result, FOR ICU USE ONLY, Start date: 10/16/15 20:15:00 CDT, Duration: 30 day, Stop date: 11/15/15 20:14:00 CDT Notes: (Same As: Antonietas)Calcium Carbonate 500 bg=457 mg elemental calcium Dose=_ mg calcium carbonate ( mg elemental calcium) Start Date: 10/16/15 Stop Date: 10/17/15 Status: Discontinuedcalcium gluconate (ANES) Route: IV, Drug form: INJ, ONCE, Stop date: 10/16/15 19:20:00 CDT Start Date: 10/16/15 Stop Date: 10/16/15 Status: Completedcalcium gluconate + Sodium Chloride 0.9% IV 100 mL 2 gm, 20 mL, Route: IVPB, PRN, Dosing Weight 123.182, kg, PRN Abnormal Lab Result, For NON-ICU Patients Only., Start date: 10/11/15 11:58:00 CDT, Duration : 30 day, Stop date: 11/10/15 11:57:00 CDT Notes: WASTE: F/P - Sink; E - Municipal Trash Bin Start Date: 10/11/15 Stop Date: 10/16/15 Status: Discontinuedcalcium gluconate + Sodium Chloride 0.9% IV 100 mL 3 gm, 30 mL, Route: IVPB, PRN, Dosing Weight 123.182, kg, PRN Abnormal Lab Result, For NON-ICU Patients Only., Start date: 10/11/15 11:58:00 CDT, Duration : 30 day, Stop date: 11/10/15 11:57:00 CDT Notes: WASTE: F/P - Sink; E - Municipal Trash Bin Start Date: 10/11/15 Stop Date: 10/16/15 Status: Discontinuedcalcium gluconate + Sodium Chloride 0.9% IV 100 mL 3 gm, 30 mL, Route: IVPB, PRN, Dosing Weight 123.182, kg, PRN Abnormal Lab Result, For NON-ICU Patients Only., Start date: 10/17/15 16:14:00 CDT, Duration : 30 day, Stop date: 11/16/15 16:13:00 CDT Notes: WASTE: F/P - Sink; E - Municipal Trash Bin Start Date: 10/17/15 Stop Date: 10/22/15 Status: Discontinuedcalcium gluconate + Sodium Chloride 0.9% IV 100 mL 2 gm, 20 mL, Route: IVPB, PRN, Dosing Weight 123.182, kg, PRN Abnormal Lab Result, For NON-ICU Patients Only., Start date: 10/17/15 16:14:00 CDT, Duration : 30 day, Stop date: 11/16/15 16:13:00 CDT Notes: WASTE: F/P - Sink; E - Municipal Trash Bin Start Date: 10/17/15 Stop Date: 10/22/15 Status: Discontinuedcalcium gluconate + Sodium Chloride 0.9% IV 50 mL 1 gm, 10 mL, Route: IVPB, PRN, Dosing Weight 123.182, kg, PRN Abnormal Lab Result, Start date: 10/16/15 20:15:00 CDT, Duration: 30 day, Stop date: 20:14:00 CDT, FOR ICU USE ONLY Notes: WASTE: F/P - Sink; E - Municipal Trash Bin Start Date: 10/16/15 Stop Date: 10/17/15 Status: DiscontinuedceFAZolin (ANES) Route: IV, Drug form: INJ, ONCE, Stop date: 10/16/15 12:54:00 CDT Start Date: 10/16/15 Stop Date: 10/16/15 Status: CompletedceFAZolin (ANES) Route: IV, Drug form: INJ, ONCE, Stop date: 10/16/15 16:00:00 CDT Start Date: 10/16/15 Stop Date: 10/16/15 Status: CompletedceFAZolin (SCIP) 2 gm, 100 mL, Route: IVPB, Drug form: INJ, ABXQ8H, Dosing Weight 123.182, kg, Start date: 10/17/15 2:00:00 CDT, Duration: 2 day, Stop date: 10/18/15 18:00:00 CDT Notes: Same as: Ancef Start Date: 10/17/15 Stop Date: 10/17/15 Status: DiscontinuedCeleBREX 200 mg, 1 cap, Route: PO, Drug form: CAP, Q12H, Dosing Weight 123.182, kg, Start date: 10/19/15 8:00:00 CDT, Duration: 30 day, Stop date: 11/17/15 21:00: 00 CDT Notes: NSAID. Please check indication. Not for seizure. (Same As: CeleBREX) Start Date: 10/19/15 Stop Date: 10/22/15 Status: DiscontinuedCeleBREX 400 mg, 2 cap, Route: PO, Drug form: CAP, ONCE, Dosing Weight 123.182, kg, Priority: NOW, Start date: 10/18/15 17:30:00 CDT, Stop date: 10/18/15 17:30:00 CDT Notes: NSAID. Please check indication. Not for seizure. (Same As: CeleBREX) Start Date: 10/18/15 Stop Date: 10/18/15 Status: Completedcelecoxib 200 mg oral capsule 200 mg=1 cap, PO, Q12H, # 30 cap, 0 Refill(s) Start Date: 10/22/15 Status: OrderedCepacol Sore Throat 15 mg-3.6 mg mucous membrane lozenge 1 lozenge, Route: MUCOUS MEM, Drug Form: ANISHA, Dosing Weight 123.182, kg, Q2H, PRN Sore Throat, Startdate: 10/21/15 0:30:00 CDT, Duration: 30 day, Stop date: 11/20/15 0:29:00 CDT Notes: Cepacol lozengesDispense 1 box=16 lozenges (Same As: Cepacol Lozenges) Start Date: 10/21/15 Stop Date: 10/22/15 Status: Discontinuedclopidogrel 75 mg oral tablet 75 mg=1 tab, PO, Daily, # 30 tab, 0 Refill(s) Start Date: 10/22/15 Status: OrderedDextrose 50% Syringe 12.5 gm, 25 mL, Route: IVP, Drug Form: INJ, Dosing Weight 123.182, kg, PRN, PRN Blood Glucose Results, Start date: 10/16/15 20:15:00 CDT, Duration: 30 day, Stop date: 11/15/15 20:14:00 CDT Start Date: 10/16/15 Stop Date: 10/17/15 Status: DiscontinuedDextrose 50% Syringe 25 gm, 50 mL, Route: IVP, Drug Form: INJ, Dosing Weight 123.182, kg, PRN, PRN Blood Glucose Results,Start date: 10/16/15 20:15:00 CDT, Duration: 30 day, Stop date: 11/15/15 20:14:00 CDT Start Date: 10/16/15 Stop Date: 10/17/15 Status: DiscontinuedDextrose 50% Syringe 25 gm, 50 mL, Route: IVP, Drug Form: INJ, Dosing Weight 123.182, kg, PRN, PRN Blood Glucose Results,Start date: 10/17/15 16:10:00 CDT, Duration: 30 day, Stop date: 11/16/15 16:09:00 CDT Start Date: 10/17/15 Stop Date: 10/21/15 Status: DiscontinuedDextrose 50% Syringe 12.5 gm, 25 mL, Route: IVP, Drug Form: INJ, Dosing Weight 123.182, kg, PRN, PRN Blood Glucose Results, Start date: 10/17/15 16:10:00 CDT, Duration: 30 day, Stop date: 11/16/15 16:09:00 CDT Start Date: 10/17/15 Stop Date: 10/21/15 Status: Discontinueddocusate 100 mg, 1 cap, Route: PO, Drug form: CAP, BID, Dosing Weight 123.182, kg, Start date: 10/17/15 9:00:00 CDT, Duration: 30 day, Stop date: 11/15/15 17:00:00 CDT Notes: (Same as: Colace) (Do Not Crush) Start Date: 10/17/15 Stop Date: 10/22/15 Status: Discontinueddocusate sodium 100 mg oral capsule 100 mg=1 cap, PO, BID, # 30 cap, 0 Refill(s) Start Date: 10/22/15 Status: Ordereddronabinol 5 mg, 1 cap, Route: PO, Drug form: CAP, Q12H, Dosing Weight 123.182, kg, Start date: 10/17/15 21:00:00 CDT, Duration: 30 day, Stop date: 11/16/15 9:00:00 CDT Notes: (Same as: Marinol) Non-Formulary Drug. Start Date: 10/17/15 Stop Date: 10/21/15 Status: DiscontinuedEPINEPHrine (ANES) Route: IV, Drug form: INJ, ONCE, Stop date: 10/16/15 16:45:00 CDT Start Date: 10/16/15 Stop Date: 10/16/15 Status: CompletedfentaNYL 50 microgram, 1 mL, Route: IV, Drug form: INJ, ONCE, Dosing Weight 123.182, kg, Start date: 10/15/1620:33:00 CDT, Stop date: 10/16/15 21:33:00 CDT Notes: (Same as: Sublimaze) Preservative free. Start Date: 10/16/15 Stop Date: 10/16/15 Status: CompletedfentaNYL (ANES) Route: IV, Drug form: INJ, ONCE, Stop date: 10/16/15 12:49:00 CDT Start Date: 10/16/15 Stop Date: 10/16/15 Status: CompletedfentaNYL (ANES) Route: IV, Drug form: INJ, ONCE, Stop date: 10/16/15 14:45:00 CDT Start Date: 10/16/15 Stop Date: 10/16/15 Status: Completedgabapentin 100 mg, 1 cap, Route: PO, Drug form: CAP, Q8Hnow, Dosing Weight 123.182, kg, Start date: 10/17/15 8:00:00 CDT, Duration: 30 day, Stop date: 11/16/15 0:00:00 CDT Notes: (Same as: Neurontin) Start Date: 10/17/15 Stop Date: 10/17/15 Status: Discontinuedgabapentin 300 mg oral capsule 300 mg=1 cap, PO, Q8H-06, # 60 cap, 0 Refill(s) Start Date: 10/22/15 Status: Orderedgabapentin 300 mg oral capsule 300 mg, 1 cap, Route: PO, Drug form: CAP, Q8H-06, Dosing Weight 123.182, kg, ( CrCl > 60 ml/min), Start date: 10/21/15 22:00:00 CDT, Duration: 30 day, Stop date: 11/20/15 14:00:00 CDT Notes: (Same as: Neurontin) Start Date: 10/21/15 Stop Date: 10/22/15 Status: Discontinuedglucagon 1 mg, Route: IM, Drug form: PDR/INJ, PRN, Dosing Weight 123.182, kg, PRN Blood Glucose Results, Start date: 10/17/15 16:10:00 CDT, Duration: 30 day, Stop date : 11/16/15 16:09:00 CDT Start Date: 10/17/15 Stop Date: 10/21/15 Status: Discontinuedheparin 5,000 unit, 1 mL, Route: SUB-Q, Drug form: INJ, Q8H, Dosing Weight 123.182, kg, Start date: 10/12/1615:00:00 CDT, Duration: 30 day, Stop date: 11/11/15 8:00:00 CDT Notes: porcine heparin Start Date: 10/12/15 Stop Date: 10/12/15 Status: Canceledheparin (ANES) Route: IV, Drug form: INJ, ONCE, Stop date: 10/16/15 15:50:00 CDT Start Date: 10/16/15 Stop Date: 10/16/15 Status: CompletedHeparin - one time bolus for ACS 4,000 unit, Route: IV, Drug form: INJ, ONCE, Dosing Weight 123.182, kg, Priority : STAT, Start date: 10/08/15 18:16:00 CDT, Stop date: 10/08/15 18:16:00 CDT Start Date: 10/08/15 Stop Date: 10/08/15 Status: DiscontinuedHeparin 30 unit/kg Bolus (Heparin Dosing Weight) Route: IVP, PRN, 2,900 unit, 2.9 mL, Drug form: INJ, PRN, Heparin Protocol, Start date: 10/08/15 18:16:00 CDT Stop date: 11/07/15 18:15:00 CDT, 30 day Start Date: 10/08/15 Stop Date: 10/10/15 Status: Discontinuedheparin 5000 units/mL injectable solution 5,000 unit, 1 mL, Route: SUB-Q, Drug form: INJ, Q8H, Dosing Weight 123.182, kg, Start date: 10/17/1615:00:00 CDT, Duration: 30 day, Stop date: 11/16/15 8:00:00 CDT Notes: porcine heparin Start Date: 10/17/15 Stop Date: 10/21/15 Status: DiscontinuedHeparin 60 unit/kg Bolus (Heparin Dosing Weight) Route: IVP, PRN, 5,800 unit, 5.8 mL, Drug form: INJ, PRN, Heparin Protocol, Start date: 10/08/15 18:16:00 CDT Stop date: 11/07/15 18:15:00 CDT, 30 day Start Date: 10/08/15 Stop Date: 10/10/15 Status: Discontinuedheparin additive 25,000 unit [12 unit/kg/hr] + Premix Diluent Dextrose 5% 500 mL 500 mL, Rate: 23.33 ml/hr, Infuse over: 21.4 hr, Route: IV, Dosing Weight 97.21 kg, Total Volume: 500 mL, Start date: 10/09/15 17:39:00 CDT, Duration: 30 day, Stop date: 11/08/15 17:38:00 CDT Start Date: 10/09/15 Stop Date: 10/10/15 Status: Discontinuedheparin additive 25,000 unit [12 unit/kg/hr] + Premix Diluent Dextrose 5% 500 mL 500 mL, Rate: 23.33 ml/hr, Infuse over: 21.4 hr, Route: IV, Dosing Weight 97.21 kg, Total Volume: 500 mL, Start date: 10/08/15 18:16:00 CDT, Duration: 30 day, Stop date: 11/07/15 18:15:00 CDT Start Date: 10/08/15 Stop Date: 10/09/15 Status: Discontinuedheparin additive 25,000 unit [14 unit/kg/hr] + Premix Diluent Dextrose 5% 500 mL 500 mL, Rate: 27.22 ml/hr, Infuse over: 18.4 hr, Route: IV, Dosing Weight 97.21 kg, Total Volume: 500 mL, Start date: 10/12/15 15:45:00 CDT, Duration: 30 day, Stop date: 11/11/15 15:44:00 CDT Start Date: 10/12/15 Stop Date: 10/16/15 Status: Discontinuedheparin additive 25,000 unit [14 unit/kg/hr] + Premix Diluent Dextrose 5% 500 mL 500 mL, Rate: 27.22 ml/hr, Infuse over: 18.4 hr, Route: IV, Dosing Weight 97.21 kg, Total Volume: 500 mL, Start date: 10/10/15 14:33:00 CDT, Duration: 30 day, Stop date: 11/09/15 14:32:00 CDT Start Date: 10/10/15 Stop Date: 10/12/15 Status: DiscontinuedHYDROmorphone 0.5mg/mL PASTE MIXER LIQUID (15mg/30 mL) 15 mg 15 mg, 30 mL, Route: IV, Initial Loading Dose: 0.4mg, PASTE MIXER LIQUID Dose: 0.2 mg, PASTE MIXER LIQUID Lockout: 10 minutes, Continuous Basal Rate: 0 mg, 4 Hour Limit (In MG): 6, Drug Form: INJ, Continuous, Start date: 10/17/15 2:30:00 CDT, Duration: 30 day, Stop date: 11/16/15... Notes: (Same as: Dilaudid) conc=0.5 mg/mlHydromorphone PASTE MIXER LIQUID Dose: ;Delay : ;Basal: Start Date: 10/17/15 Stop Date: 10/17/15 Status: Discontinuedinsulin aspart 6 unit, 0.06 mL, Route: SUB-Q, Drug form: SOLN, TID-Before Meals, Dosing Weight 123.182, kg, PRN Blood Glucose Results, Start date: 10/17/15 16:10:00 CDT, Duration: 30 day, Stop date: 11/16/15 16:09:00CDT Notes: Roll in palms of hands gently; Do not shake vigorously. (Same as: NovoLOG)"single patient use only"WASTE: F/P - Black; E - Municipal Trash Bin Stable for 28 days at room temperature.Expires in days from Date Start Date: 10/17/15 Stop Date: 10/21/15 Status: Discontinuedinsulin aspart 4 unit, 0.04 mL, Route: SUB-Q, Drug form: SOLN, TID-Before Meals, Dosing Weight 123.182, kg, PRN Blood Glucose Results, Start date: 10/17/15 16:10:00 CDT, Duration: 30 day, Stop date: 11/16/15 16:09:00CDT Notes: Roll in palms of hands gently; Do not shake vigorously. (Same as: NovoLOG)"single patient use only"WASTE: F/P - Black; E - Municipal Trash Bin Stable for 28 days at room temperature.Expires in days from Date Start Date: 10/17/15 Stop Date: 10/21/15 Status: Discontinuedinsulin aspart 8 unit, 0.08 mL, Route: SUB-Q, Drug form: SOLN, TID-Before Meals, Dosing Weight 123.182, kg, PRN Blood Glucose Results, Start date: 10/17/15 16:10:00 CDT, Duration: 30 day, Stop date: 11/16/15 16:09:00CDT Notes: Roll in palms of hands gently; Do not shake vigorously. (Same as: NovoLOG)"single patient use only"WASTE: F/P - Black; E - Municipal Trash Bin Stable for 28 days at room temperature.Expires in days from Date Start Date: 10/17/15 Stop Date: 10/21/15 Status: Discontinuedinsulin aspart 2 unit, 0.02 mL, Route: SUB-Q, Drug form: SOLN, TID-Before Meals, Dosing Weight 123.182, kg, PRN Blood Glucose Results, Start date: 10/17/15 16:10:00 CDT, Duration: 30 day, Stop date: 11/16/15 16:09:00CDT Notes: Roll in palms of hands gently; Do not shake vigorously. (Same as: NovoLOG)"single patient use only"WASTE: F/P - Black; E - Municipal Trash Bin Stable for 28 days at room temperature.Expires in days from Date Start Date: 10/17/15 Stop Date: 10/21/15 Status: Discontinuedinsulin aspart 10 unit, 0.1 mL, Route: SUB-Q, Drug form: SOLN, TID-Before Meals, Dosing Weight 123.182, kg, PRN Blood Glucose Results, Start date: 10/17/15 16:10:00 CDT, Duration: 30 day, Stop date: 11/16/15 16:09:00CDT Notes: Roll in palms of hands gently; Do not shake vigorously. (Same as: NovoLOG)"single patient use only"WASTE: F/P - Black; E - Municipal Trash Bin Stable for 28 days at room temperature.Expires in days from Date Start Date: 10/17/15 Stop Date: 10/21/15 Status: Discontinuedinsulin glargine 5 unit, 0.05 mL, Route: SUB-Q, Drug form: INJ, Daily, Dosing Weight 123.182, kg , Priority: NOW, Start date: 10/17/15 17:31:00 CDT, Duration: 30 day, Stop date : 11/16/15 9:00:00 CDT Notes: Same as Ayo Teran not hold insulin without contacting prescriber"single patient use only"WASTE: F/P - Black; E - Municipal Trash Bin Stable for 28 days at room temperature.Expires in days from Date Start Date: 10/17/15 Stop Date: 10/21/15 Status: DiscontinuedInsulin regular (ANES) Route: IV, Drug form: INJ, ONCE, Stop date: 10/16/15 18:15:00 CDT Start Date: 10/16/15 Stop Date: 10/16/15 Status: CompletedInsulin regular 100 unit + Sodium Chloride 0.9% (titrate) 99 mL 99 mL, Rate: Start Insulin Drip Per ICU Protocol, Dosing Weight 123.182, kg, Route: IVPB, Total Volume: 100, Start Date: 10/16/15 20:15:00 CDT, Duration: 30 day, Stop date: 11/15/15 20:14:00 CDT, Replace Every: 24 hr Notes: (Same as: Humulin R and NovoLIN R)WASTE: F/P - Black; E - Municipal Trash Bin (Do not shake) Start Date: 10/16/15 Stop Date: 10/17/15 Status: DiscontinuedIsolyte S PH 7.4 (ANES) (ANES) Route: IV, Total Volume: 1,000, Start date: 10/16/15 12:13:00 CDT, Stop date: 13:13:00 CDT Start Date: 10/16/15 Stop Date: 10/16/15 Status: CompletedIsolyte S PH 7.4 1,000 mL 1,000 mL, Rate: 75 ml/hr, Infuse over: 13.3 hr, Route: IV, Dosing Weight 123.182 kg, Total Volume: 1,000, Start date: 10/11/15 0:01:00 CDT, Duration: 30 day, Stop date: 11/10/15 0:00:00 CDT Notes: (Same as: Isolyte S PH 7.4) Start Date: 10/11/15 Stop Date: 10/15/15 Status: DiscontinuedketOROLAC 15 mg/mL injectable solution 15 mg, 1 mL, Route: IV, Drug form: INJ, ONCE, Dosing Weight 123.182, kg, Start date: 10/17/15 6:05:00 CDT, Stop date: 10/17/15 6:05:00 CDT Notes: (Same as:Toradol) IV bolus must be given >15 seconds. Give IM administration slowly and deeply into the muscle. Not for use > 4 days. Start Date: 10/17/15 Stop Date: 10/17/15 Status: CompletedLactated Ringers (Bolus) IV 500 mL, 500 ml/hr, Infuse Over: 1 hr, Route: IV, 500, Drug form: INJ, ONCE, Priority: STAT, Dosing Weight 123.182 kg, Start date: 10/16/15 22:31:00 CDT, Duration: 1 doses or times, Stop date: 10/16/15 22:31:00 CDT Start Date: 10/16/15 Stop Date: 10/16/15 Status: CompletedLactated Ringers (Bolus) IV 500 mL, 500 ml/hr, Infuse Over: 1 hr, Route: IV, 500, Drug form: INJ, ONCE, Priority: STAT, Dosing Weight 123.182 kg, Start date: 10/17/15 2:07:00 CDT, Duration: 1 doses or times, Stop date: 10/17/15 2:07:00 CDT Start Date: 10/17/15 Stop Date: 10/17/15 Status: CompletedLactated Ringers (Bolus) IV 500 mL, 500 ml/hr, Infuse Over: 1 hr, Route: IV, 500, Drug form: INJ, ONCE, Priority: STAT, Dosing Weight 123.182 kg, Start date: 10/17/15 0:19:00 CDT, Duration: 1 doses or times, Stop date: 10/17/15 0:19:00 CDT Start Date: 10/17/15 Stop Date: 10/17/15 Status: CompletedLactated Ringers Injection IV (ANES) (ANES) + tranexamic acid ( ANES) (ANES) Route: IV, Drug form: INJ, Start date: 10/16/15 12:10:00 CDT, Stop date: 13:10:00 CDT Start Date: 10/16/15 Stop Date: 10/16/15 Status: Completedlidocaine (ANES) Route: IV, Drug form: INJ, ONCE, Stop date: 10/16/15 12:49:00 CDT Start Date: 10/16/15 Stop Date: 10/16/15 Status: Completedlidocaine (ANES) Route: IV, Drug form: INJ, ONCE, Stop date: 10/16/15 18:20:00 CDT Start Date: 10/16/15 Stop Date: 10/16/15 Status: Completedlidocaine topical patch (5% film) 3 patch, Route: TOP, Daily, Drug form: FILM, Start date: 10/18/15 9:00:00 CDT, Duration: 30 day, Stop date: 11/16/15 9:00:00 CDT Notes: Apply only once for up to 12 hours in [id number] period (12 hours on and 12 hours off).(Same as: Lidoderm)"Remove old patch before application of new patch" Start Date: 10/18/15 Stop Date: 10/22/15 Status: DiscontinuedLipitor 20 mg, 1 tab, Route: PO, Drug form: TAB, Bedtime, Dosing Weight 123.182, kg, Start date: 10/22/15 21:00:00 CDT, Duration: 30 day, Stop date: 11/20/15 21:00: 00 CDT Notes: (Same As: Lipitor) Start Date: 10/22/15 Stop Date: 10/22/15 Status: Canceledlisinopril 2.5 mg, 1 tab, Route: PO, Drug form: TAB, Daily, Dosing Weight 123.182, kg, Start date: 10/15/15 15:05:00 CDT, Duration: 30 day, Stop date: 11/14/15 9:00: 00 CDT Notes: (Same as: Prinivil) Start Date: 10/15/15 Stop Date: 10/16/15 Status: Discontinuedlisinopril 5 mg, 1 tab, Route: PO, Drug form: TAB, Daily, Dosing Weight 123.182, kg, Start date: 10/18/15 17:00:00 CDT, Duration: 30 day, Stop date: 11/17/15 9:00:00 CDT Notes: (Same as: Prinivil, Zestril) Start Date: 10/18/15 Stop Date: 10/22/15 Status: Discontinuedlisinopril 5 mg oral tablet 5 mg=1 tab, PO, Daily, # 30 tab, 0 Refill(s) Start Date: 10/22/15 Status: Orderedmagnesium oxide 800 mg, 2 tab, Route: PO, Drug form: TAB, PRN, Dosing Weight 123.182, kg, PRN Abnormal Lab Result, For NON-ICU Patients Only., Start date: 10/11/15 11:58:00 CDT, Duration: 30 day, Stop date: 11/10/15 11:57:00 CDT Notes: (Same as: Mag-Ox 400)Magnesium oxide [id number] elemental magnesiumDose= ____mg magnesium oxide (___mg elemental magnesium) Start Date: 10/11/15 Stop Date: 10/16/15 Status: Discontinuedmagnesium oxide 800 mg, 2 tab, Route: PO, Drug form: TAB, PRN, Dosing Weight 123.182, kg, PRN Abnormal Lab Result, For NON-ICU Patients Only., Start date: 10/17/15 16:14:00 CDT, Duration: 30 day, Stop date: 11/16/15 16:13:00 CDT Notes: (Same as: Mag-Ox 400)Magnesium oxide [id number] elemental magnesiumDose= ____mg magnesium oxide (___mg elemental magnesium) Start Date: 10/17/15 Stop Date: 10/22/15 Status: Discontinuedmagnesium oxide 800 mg, 2 tab, Route: PO, Drug form: TAB, PRN, Dosing Weight 123.182, kg, PRN Abnormal Lab Result, FOR ICU USE ONLY, Start date: 10/16/15 20:15:00 CDT, Duration: 30 day, Stop date: 11/15/15 20:14:00 CDT Notes: (Same as: Mag-Ox 400)Magnesium oxide [id number] elemental magnesiumDose= ____mg magnesium oxide (___mg elemental magnesium) Start Date: 10/16/15 Stop Date: 10/17/15 Status: Discontinuedmagnesium sulfate 2 gm, 50 mL, Route: IVPB, Drug form: INJ, PRN, Dosing Weight 123.182, kg, PRN Abnormal Lab Result, For NON-ICU Patients Only., Start date: 10/11/15 11:58:00 CDT, Duration: 30 day, Stop date: 11/10/15 11:57:00 CDT Notes: WASTE: F/P - Sink; E - Municipal Trash Bin Start Date: 10/11/15 Stop Date: 10/16/15 Status: Discontinuedmagnesium sulfate 1 gm, 100 mL, Route: IVPB, Drug form: INJ, PRN, Dosing Weight 123.182, kg, PRN Abnormal Lab Result, For NON-ICU Patients Only., Start date: 10/11/15 11:58:00 CDT, Duration: 30 day, Stop date: 11/10/15 11:57:00 CDT Notes: WASTE: F/P - Sink; E - Municipal Trash Bin Start Date: 10/11/15 Stop Date: 10/16/15 Status: Discontinuedmagnesium sulfate 2 gm, 50 mL, Route: IVPB, Drug form: INJ, ONCE, Dosing Weight 123.182, kg, Total dose=2 gm, Start date: 10/11/15 6:22:00 CDT, Duration: 1 doses or times, Stop date: 10/11/15 6:22:00 CDT Notes: WASTE: F/P - Sink; E - Municipal Trash Bin Start Date: 10/11/15 Stop Date: 10/11/15 Status: Completedmagnesium sulfate 1 gm, 100 mL, Route: IVPB, Drug form: INJ, PRN, Dosing Weight 123.182, kg, PRN Abnormal Lab Result, For NON-ICU Patients Only., Start date: 10/17/15 16:14:00 CDT, Duration: 30 day, Stop date: 11/16/15 16:13:00 CDT Notes: WASTE: F/P - Sink; E - Municipal Trash Bin Start Date: 10/17/15 Stop Date: 10/22/15 Status: Discontinuedmagnesium sulfate 2 gm, 50 mL, Route: IVPB, Drug form: INJ, PRN, Dosing Weight 123.182, kg, PRN Abnormal Lab Result, For NON-ICU Patients Only., Start date: 10/17/15 16:14:00 CDT, Duration: 30 day, Stop date: 11/16/15 16:13:00 CDT Notes: WASTE: F/P - Sink; E - Municipal Trash Bin Start Date: 10/17/15 Stop Date: 10/22/15 Status: Discontinuedmagnesium sulfate 2 gm, 50 mL, Route: IVPB, Drug form: INJ, PRN, Dosing Weight 123.182, kg, PRN Abnormal Lab Result, Start date: 10/16/15 20:15:00 CDT, Duration: 30 day, Stop date: 11/15/15 20:14:00 CDT, FOR ICU USE ONLY Notes: WASTE: F/P - Sink; E - Municipal Trash Bin Start Date: 10/16/15 Stop Date: 10/17/15 Status: Discontinuedmagnesium sulfate (ANES) Route: IV, Drug form: INJ, ONCE, Stop date: 10/16/15 18:20:00 CDT Start Date: 10/16/15 Stop Date: 10/16/15 Status: Completedmelatonin 3 mg oral tablet 3 mg, 1 tab, Route: PO, Drug Form: TAB, Dosing Weight 123.182, kg, Bedtime, PRN Insomnia, Start date: 10/09/15 21:42:00 CDT, Duration: 30 day, Stop date: 21:41:00 CDT Notes: (Same as: Melatonin) Start Date: 10/09/15 Stop Date: 10/16/15 Status: Discontinuedmetoprolol (ANES) Route: IV, Drug form: INJ, ONCE, Stop date: 10/16/15 14:45:00 CDT Start Date: 10/16/15 Stop Date: 10/16/15 Status: Completedmetoprolol tartrate 12.5 mg, 1 tab, Route: PO, Drug form: TAB, Q12H, Dosing Weight 123.182, kg, Start date: 10/17/15 21:00:00 CDT, Duration: 30 day, Stop date: 11/16/15 9:00: 00 CDT Notes: (Same as: Lopressor) 12.5mg=1/4 X 50 mg tab. Start Date: 10/17/15 Stop Date: 10/18/15 Status: Discontinuedmetoprolol tartrate 25 mg, 1 tab, Route: PO, Drug form: TAB, Q12H, Dosing Weight 123.182, kg, Start date: 10/18/15 21:00:00 CDT, Duration: 30 day, Stop date: 11/17/15 9:00:00 CDT Notes: (Same as: Lopressor) Start Date: 10/18/15 Stop Date: 10/22/15 Status: Discontinuedmetoprolol tartrate 12.5 mg, 1 tab, Route: PO, Drug form: TAB, BID, Dosing Weight 123.182, kg, Start date: 10/09/15 9:00:00 CDT, Duration: 30 day, Stop date: 11/07/15 17:00: 00 CDT Notes: (Same as: Lopressor) 12.5mg=1/4 X 50 mg tab. Start Date: 10/09/15 Stop Date: 10/16/15 Status: Discontinuedmetoprolol tartrate 25 mg oral tablet 25 mg=1 tab, PO, Q12H, # 60 tab, 0 Refill(s) Start Date: 10/22/15 Status: Orderedmidazolam (ANES) Route: IV, Drug form: SOLN, ONCE, Stop date: 10/16/15 12:49:00 CDT Start Date: 10/16/15 Stop Date: 10/16/15 Status: Completedmidazolam (ANES) Route: IV, Drug form: SOLN, ONCE, Stop date: 10/16/15 17:40:00 CDT Start Date: 10/16/15 Stop Date: 10/16/15 Status: Completedmorphine Sulfate 2 mg, 1 mL, Route: IVP, Drug form: INJ, ONCE, Dosing Weight 123.182, kg, Start date: 10/19/15 10:22:00 CDT, Stop date: 10/19/15 10:22:00 CDT Notes: (Same as:MORPhine Sulfate) Start Date: 10/19/15 Stop Date: 10/19/15 Status: Completedmorphine Sulfate 2 mg, 1 mL, Route: IVP, Drug form: INJ, ONCALL, Dosing Weight 123.182, kg, Start date: 10/20/15 13:00:00 CDT, Duration: 1 doses or times, Stop date: 0:00:00 CDT Notes: (Same as:MORPhine Sulfate) Start Date: 10/20/15 Stop Date: 10/20/15 Status: Completedmorphine Sulfate 4 mg, Route: IVP, ONCE, Dosing Weight 123.182, kg, Priority: STAT, Start date: 10/08/15 20:51:00 CDT, Stop date: 10/08/15 20:51:00 CDT Start Date: 10/08/15 Stop Date: 10/08/15 Status: Completednaloxone 0.04 mg, 0.1 mL, Route: IVP, Drug form: INJ, Q2MIN, Dosing Weight 123.182, kg, PRN Narcotic Reversal, Start date: 10/17/15 2:20:00 CDT, Duration: 30 day, Stop date: 11/16/15 2:19:00 CDT Notes: Same as Narcan Start Date: 10/17/15 Stop Date: 10/17/15 Status: DiscontinuedNeutra-Phos 2 pkt, Route: PO, Drug Form: PDR/REC, Dosing Weight 123.182, kg, PRN, PRN Abnormal Lab Result, FOR ICU USE ONLY, Start date: 10/16/15 20:15:00 CDT, Duration: 30 day, Stop date: 11/15/15 20:14:00 CDT Notes: (Same as: Neutra-Phos) Each 1.25 gm pkt has 250mg phosphorous. Mix w/ 2.5oz water and stir. Start Date: 10/16/15 Stop Date: 10/17/15 Status: Discontinuednitroglycerin 100 mg in D5W 250 mL (Titrate.) IV 100 mg 100 mg, 250 mL, Rate: Titrate, Start Dose: 0.25 microgram/kg/min, Titration: 0.2 microgram/kg/min every 5 minutes, Goal(s): Chest pain and SBP between 100 - 150 mmHg, Max Dose: 3 microgram/kg/min, Route: IV, Dosing Weight 123.182 kg, Total Volume: 250... Notes: (Same as:Tridil) Final conc=0.4 mg/ml. Premix bottle. Start Date: 10/09/15 Stop Date: 10/10/15 Status: Discontinuednitroglycerin SL Tab 0.4 mg, 1 tab, Route: SL, Drug form: TAB, ONCE, Dosing Weight 123.182, kg, Start date: 10/09/15 10:41:00 CDT, Stop date: 10/09/15 10:41:00 CDT Notes: (Same as:Nitroquick, Nitrostat)"Do Not Crush" Sublingual tablet Start Date: 10/09/15 Stop Date: 10/09/15 Status: CompletedNorco 5/325 oral tablet 2 tab, Route: PO, Drug Form: TAB, Dosing Weight 123.182, kg, ONCE, Start date: 10/16/15 21:30:00 CDT, Stop date: 10/16/15 21:30:00 CDT Notes: (Same as: Knifley 325/5) Do not exceed 4gm/day of acetaminophen. Start Date: 10/16/15 Stop Date: 10/16/15 Status: CompletedNorco 5/325 oral tablet 1 tab, Route: PO, Drug Form: TAB, Dosing Weight 123.182, kg, Q4H, PRN Pain Score 1-3, Start date: 10/10/15 13:43:00 CDT, Duration: 30 day, Stop date: 11/08 13:42:00 CDT Notes: (Same as: Knifley 325/5) Do not exceed 4gm/day of acetaminophen. Start Date: 10/10/15 Stop Date: 10/16/15 Status: DiscontinuedNorco 5/325 oral tablet 1 tab, Route: PO, Drug Form: TAB, Dosing Weight 123.182, kg, Q4H, PRN Pain Score 1-3, Start date: 10/21/15 17:54:00 CDT, Duration: 30 day, Stop date: 11/19 17:53:00 CDT Notes: (Same as: Knifley 325/5) Do not exceed 4gm/day of acetaminophen. Start Date: 10/21/15 Stop Date: 10/22/15 Status: Discontinuednorepinephrine (ANES) Route: IV, Drug form: INJ, ONCE, Stop date: 10/16/15 16:20:00 CDT Start Date: 10/16/15 Stop Date: 10/16/15 Status: Completednorepinephrine (ANES) Route: IV, Drug form: INJ, ONCE, Stop date: 10/16/15 19:45:00 CDT Start Date: 10/16/15 Stop Date: 10/16/15 Status: Completednorepinephrine (ANES) (ANES) Route: IV, Drug form: INJ, Start date: 10/16/15 16:10:00 CDT, Stop date: 17:10:00 CDT Start Date: 10/16/15 Stop Date: 10/16/15 Status: Completednorepinephrine 8 mg in 250 mL (Titrate.) IV 8 mg + Sodium Chloride 0.9% IV 242 mL 8 mg, 8 mL, Rate: Titrate, Start Dose: 5 microgram/min, Titration: 2 microgram/ min every 2-5 minutes, Goal(s): MAP>65, Max Dose: 70 microgram/min, Route: IV, Dosing Weight 123.182 kg, Total Volume: 250, Start date: 10/16/15 20:15:00 CDT, Duration: 30... Notes: Not for direct administration - DILUTE. Protect from light. (Same as: Levophed). Administer byeither central venous catheter or peripherally-inserted central catheter (PICC) line. Start Date: 10/16/15 Stop Date: 10/17/15 Status: DiscontinuedNS 1,000 mL 1,000 mL, Rate: 75 ml/hr, Infuse over: 13.3 hr, Route: IV, Dosing Weight 123.182 kg, Total Volume: 1,000, Start date: 10/16/15 0:01:00 CDT, Duration: 30 day, Stop date: 11/15/15 0:00:00 CDT Start Date: 10/16/15 Stop Date: 10/17/15 Status: DiscontinuedOmnipaque 350mg/ml 100 mL, Route: IVP, Drug Form: SOLN, Dosing Weight 123.182, kg, ONCALL, STAT, Start date: 10/14/15 14:26:00 CDT, Duration: 1 doses or times, Dose=2.2ml/kg, Max btca=083lm -- "To be infused by Radiology Staff ONLY" Notes: (Same as:Omnipaque 350).WASTE: F/P - Black; E - Municipal Trash Bin Start Date: 10/14/15 Stop Date: 10/14/15 Status: CompletedOmnipaque 350mg/ml 99 mL, Route: IVP, Drug Form: SOLN, Dosing Weight 123.182, kg, ONCALL, STAT, Start date: 10/15/15 18:24:00 CDT, Duration: 1 doses or times, Dose=2.2ml/kg, Max oncf=350rk -- "To be infused by RadiologyStaff ONLY" Start Date: 10/15/15 Stop Date: 10/15/15 Status: Completedondansetron 4 mg, Route: IVP, Drug form: INJ, ONCE, Dosing Weight 123.182, kg, Priority: STAT, Start date: 10/08/15 20:51:00 CDT, Stop date: 10/08/15 20:51:00 CDT Start Date: 10/08/15 Stop Date: 10/08/15 Status: CompletedoxyCODONE 5 mg immediate release 5 mg, 1 tab, Route: PO, Drug form: TAB, Q4H, Dosing Weight 123.182, kg, PRN Pain Score 4-6, Start date: 10/22/15 8:35:00 CDT, Duration: 30 day, Stop date: 11/21/15 8:34:00 CDT Notes: (Same as: Roxicodone) Start Date: 10/22/15 Stop Date: 10/22/15 Status: DiscontinuedoxyCODONE 5 mg immediate release 10 mg, 2 tab, Route: PO, Drug form: TAB, Q4H, Dosing Weight 123.182, kg, PRN Pain Score 7-10, Start date: 10/17/15 7:45:00 CDT, Duration: 30 day, Stop date: 11/16/15 7:44:00 CDT Notes: (Same as: Roxicodone) Start Date: 10/17/15 Stop Date: 10/18/15 Status: DiscontinuedoxyCODONE 5 mg immediate release 5 mg, 1 tab, Route: PO, Drug form: TAB, Q4H, Dosing Weight 123.182, kg, PRN Pain Score 4-6, Start date: 10/17/15 7:45:00 CDT, Duration: 30 day, Stop date: 11/16/15 7:44:00 CDT Notes: (Same as: Roxicodone) Start Date: 10/17/15 Stop Date: 10/18/15 Status: DiscontinuedoxyCODONE 5 mg oral tablet 5 mg=1 tab, PO, Q4H, PRN Pain Score 4-6, # 30 tab, 0 Refill(s) Start Date: 10/22/15 Stop Date: 11/12/15 Status: OrderedPlasmaLyte A PH-7.4 1,000 mL 1,000 mL, Rate: 75 ml/hr, Infuse over: 13.3 hr, Route: IV, Dosing Weight 123.182 kg, Total Volume: 1,000, Start date: 10/15/15 0:01:00 CDT, Duration: 30 day, Stop date: 11/14/15 0:00:00 CDT Notes: WASTE: F/P - Sink; E - Municipal Trash Bin Start Date: 10/15/15 Stop Date: 10/15/15 Status: DiscontinuedPlavix 75 mg, 1 tab, Route: PO, Drug form: TAB, Daily, Dosing Weight 123.182, kg, Start date: 10/18/15 9:00:00 CDT, Duration: 30 day, Stop date: 11/16/15 9:00:00 CDT Notes: (Same As: Plavix) Start Date: 10/18/15 Stop Date: 10/22/15 Status: DiscontinuedPlavix 300 mg, Route: PO, Drug form: TAB, ONCE, kg, Priority: STAT, Start date: 17:36:00 CDT, Stopdate: 10/08/15 17:36:00 CDT Start Date: 10/08/15 Stop Date: 10/08/15 Status: Discontinuedpotassium chloride 20 mEq, 1 tab, Route: PO, Drug form: ERTAB, PRN, Dosing Weight 123.182, kg, PRN Abnormal Lab Result,For NON-ICU Patients Only, Start date: 10/11/15 11:58:00 CDT , Duration: 30 day, Stop date: 11/10/15 11:57:00 CDT Notes: (Same as: K-Dur 20)"Do Not Crush" With food and full glass of water Start Date: 10/11/15 Stop Date: 10/16/15 Status: Discontinuedpotassium chloride 20 mEq, 15 mL, Route: NJ, Drug form: LIQ, PRN, Dosing Weight 123.182, kg, PRN Abnormal Lab Result, For NON-ICU Patients Only, Start date: 10/11/15 11:58:00 CDT, Duration: 30 day, Stop date: 11/10/15 11:57:00 CDT Notes: (Same as: Potassium Chloride) Start Date: 10/11/15 Stop Date: 10/16/15 Status: Discontinuedpotassium chloride 10 mEq, 50 mL, Route: IVPB, Drug form: INJ, PRN, Dosing Weight 123.182, kg, PRN Abnormal Lab Result,For NON-ICU Patients Only, Start date: 10/11/15 11:58:00 CDT , Duration: 30 day, Stop date: 11/10/15 11:57:00 CDT Notes: (Same as: KCL) Infuse over 2 hours. Start Date: 10/11/15 Stop Date: 10/16/15 Status: Discontinuedpotassium chloride 10 mEq, 50 mL, Route: IVPB, Drug form: INJ, PRN, Dosing Weight 123.182, kg, PRN Abnormal Lab Result,For NON-ICU Patients Only, Start date: 10/17/15 16:14:00 CDT , Duration: 30 day, Stop date: 11/16/15 16:13:00 CDT Notes: (Same as: KCL) Infuse over 2 hours. Start Date: 10/17/15 Stop Date: 10/22/15 Status: Discontinuedpotassium chloride 20 mEq, 1 tab, Route: PO, Drug form: ERTAB, PRN, Dosing Weight 123.182, kg, PRN Abnormal Lab Result,For NON-ICU Patients Only, Start date: 10/17/15 16:14:00 CDT , Duration: 30 day, Stop date: 11/16/15 16:13:00 CDT Notes: (Same as: K-Dur 20)"Do Not Crush" With food and full glass of water Start Date: 10/17/15 Stop Date: 10/22/15 Status: Discontinuedpotassium chloride 20 mEq, 15 mL, Route: NJ, Drug form: LIQ, PRN, Dosing Weight 123.182, kg, PRN Abnormal Lab Result, For NON-ICU Patients Only, Start date: 10/17/15 16:14:00 CDT, Duration: 30 day, Stop date: 11/16/15 16:13:00 CDT Notes: (Same as: Potassium Chloride) Start Date: 10/17/15 Stop Date: 10/22/15 Status: Discontinuedpotassium chloride 10 mEq, 50 mL, Route: IVPB, Drug form: INJ, Q1H, Dosing Weight 123.182, kg, Total Dose=40 meq, Startdate: 10/11/15 7:00:00 CDT, Duration: 4 doses or times, Stop date: 10/11/15 10:00:00 CDT, Peripheral Line Notes: (Same as: KCL) Infuse over 2 hours. Start Date: 10/11/15 Stop Date: 10/11/15 Status: Completedpotassium chloride 20 mEq, 100 mL, Route: IVPB, Drug form: INJ, PRN, Dosing Weight 123.182, kg, PRN Abnormal Lab Result, Via central line, Start date: 10/16/15 20:15:00 CDT, Duration: 30 day, Stop date: 11/15/15 20:14:00CDT, FOR ICU USE ONLY Notes: (Same as: KCL) Infuse no faster than 10 mEq/hr if given peripherally. Start Date: 10/16/15 Stop Date: 10/17/15 Status: Discontinuedpotassium chloride 10 mEq, 50 mL, Route: IVPB, Drug form: INJ, PRN, Dosing Weight 123.182, kg, PRN Abnormal Lab Result,Via peripheral line, Start date: 10/16/15 20:15:00 CDT, Duration: 30 day, Stop date: 11/15/15 20:14:00 CDT, FOR ICU USE ONLY Notes: (Same as: KCL) Infuse over 2 hours. Start Date: 10/16/15 Stop Date: 10/17/15 Status: Discontinuedpotassium chloride 20 mEq, 15 mL, Route: NJ, Drug form: LIQ, PRN, Dosing Weight 123.182, kg, PRN Abnormal Lab Result, Start date: 10/16/15 20:15:00 CDT, Duration: 30 day, Stop date: 11/15/15 20:14:00 CDT, FOR ICU USE ONLY Notes: (Same as: Potassium Chloride) Start Date: 10/16/15 Stop Date: 10/17/15 Status: Discontinuedpotassium chloride 20 mEq, 1 tab, Route: PO, Drug form: ERTAB, PRN, Dosing Weight 123.182, kg, PRN Abnormal Lab Result,Start date: 10/16/15 20:15:00 CDT, Duration: 30 day, Stop date: 11/15/15 20:14:00 CDT, FOR ICU USE ONLY Notes: (Same as: K-Dur 20)"Do Not Crush" With food and full glass of water Start Date: 10/16/15 Stop Date: 10/17/15 Status: Discontinuedpotassium phosphate + Sodium Chloride 0.9% IV 250 mL 15 mmol, 5 mL, Route: IVPB, PRN, Dosing Weight 123.182, kg, PRN Abnormal Lab Result, For NON-ICU Patients Only., Start date: 10/11/15 11:58:00 CDT, Duration : 30 day, Stop date: 11/10/15 11:57:00 CDT Notes: (Same as: K Phosphate.) 1 mMol phoshate has 1.47 mEq potassium Infuse over 4 hours Start Date: 10/11/15 Stop Date: 10/16/15 Status: Discontinuedpotassium phosphate + Sodium Chloride 0.9% IV 250 mL 30 mmol, 10 mL, Route: IVPB, PRN, Dosing Weight 123.182, kg, PRN Abnormal Lab Result, For NON-ICU Patients Only., Start date: 10/11/15 11:58:00 CDT, Duration : 30 day, Stop date: 11/10/15 11:57:00 CDT Notes: (Same as: K Phosphate.) 1 mMol phoshate has 1.47 mEq potassium Infuse over 4 hours Start Date: 10/11/15 Stop Date: 10/16/15 Status: Discontinuedpotassium phosphate + Sodium Chloride 0.9% IV 250 mL 30 mmol, 10 mL, Route: IVPB, PRN, Dosing Weight 123.182, kg, PRN Abnormal Lab Result, For NON-ICU Patients Only., Start date: 10/17/15 16:14:00 CDT, Duration : 30 day, Stop date: 11/16/15 16:13:00 CDT Notes: (Same as: K Phosphate.) 1 mMol phoshate has 1.47 mEq potassium Infuse over 4 hours Start Date: 10/17/15 Stop Date: 10/22/15 Status: Discontinuedpotassium phosphate + Sodium Chloride 0.9% IV 250 mL 15 mmol, 5 mL, Route: IVPB, PRN, Dosing Weight 123.182, kg, PRN Abnormal Lab Result, For NON-ICU Patients Only., Start date: 10/17/15 16:14:00 CDT, Duration : 30 day, Stop date: 11/16/15 16:13:00 CDT Notes: (Same as: K Phosphate.) 1 mMol phoshate has 1.47 mEq potassium Infuse over 4 hours Start Date: 10/17/15 Stop Date: 10/22/15 Status: Discontinuedpotassium phosphate + Sodium Chloride 0.9% IV 250 mL 30 mmol, 10 mL, Route: IVPB, PRN, Dosing Weight 123.182, kg, PRN Abnormal Lab Result, Start date: 10/16/15 20:15:00 CDT, Duration: 30 day, Stop date: 20:14:00 CDT, FOR ICU USE ONLY Notes: (Same as: K Phosphate.) 1 mMol phoshate has 1.47 mEq potassium Infuse over 4 hours Start Date: 10/16/15 Stop Date: 10/17/15 Status: Discontinuedpotassium phosphate + Sodium Chloride 0.9% IV 250 mL 15 mmol, 5 mL, Route: IVPB, PRN, Dosing Weight 123.182, kg, PRN Abnormal Lab Result, Start date: 10/16/15 20:15:00 CDT, Duration: 30 day, Stop date: 20:14:00 CDT, FOR ICU USE ONLY Notes: (Same as: K Phosphate.) 1 mMol phoshate has 1.47 mEq potassium Infuse over 4 hours Start Date: 10/16/15 Stop Date: 10/17/15 Status: Discontinuedpotassium phosphate + Sodium Chloride 0.9% IV 250 mL 45 mmol, 15 mL, Route: IVPB, PRN, Dosing Weight 123.182, kg, PRN Abnormal Lab Result, Start date: 10/16/15 20:15:00 CDT, Duration: 30 day, Stop date: 20:14:00 CDT, FOR ICU USE ONLY Notes: (Same as: K Phosphate.) 1 mMol phoshate has 1.47 mEq potassium Infuse over 4 hours Start Date: 10/16/15 Stop Date: 10/17/15 Status: Discontinuedpotassium phosphate-sodium phosphate 250 mg-278 mg-164 mg oral powder 2 pkt, Route: PO, Drug Form: PDR/REC, Dosing Weight 123.182, kg, PRN, PRN Abnormal Lab Result, For NON-ICU Patients Only, Start date: 10/11/15 11:58:00 CDT, Duration: 30 day, Stop date: 11/10/15 11:57:00 CDT Notes: (Same as: Neutra-Phos) Each 1.25 gm pkt has 250mg phosphorous. Mix w/ 2.5oz water and stir. Start Date: 10/11/15 Stop Date: 10/16/15 Status: Discontinuedpotassium phosphate-sodium phosphate 250 mg-278 mg-164 mg oral powder 2 pkt, Route: PO, Drug Form: PDR/REC, Dosing Weight 123.182, kg, PRN, PRN Abnormal Lab Result, For NON-ICU Patients Only, Start date: 10/17/15 16:14:00 CDT, Duration: 30 day, Stop date: 11/16/15 16:13:00 CDT Notes: (Same as: Neutra-Phos) Each 1.25 gm pkt has 250mg phosphorous. Mix w/ 2.5oz water and stir. Start Date: 10/17/15 Stop Date: 10/22/15 Status: DiscontinuedPrecedex 400 microgram in NS 100 mL (Titrate.) IV 400 microgram + Sodium Chloride 0.9% IV 96 mL 400 microgram, 4 mL, Rate: Titrate, Start Dose: 0.2 microgram/kg/hr, Titration: 0.1 microgram/kg/hr every 30 min, Goal(s): RASS +1 to 0, Max Dose: 1.5 microgram /kg/hr, Route: IV, Dosing Weight 123.182 kg, Total Volume: 100, Start date: 08/28 21:30:... Notes: Not for use > 24 hours Start Date: 10/16/15 Stop Date: 10/17/15 Status: Discontinuedpregabalin 100 mg, 1 cap, Route: PO, Drug form: CAP, Q8Hnow, Dosing Weight 123.182, kg, Start date: 10/17/15 14:00:00 CDT, Duration: 30 day, Stop date: 11/16/15 6:00: 00 CDT Notes: (Same as: Lyrica) Start Date: 10/17/15 Stop Date: 10/21/15 Status: Discontinuedpropofol (ANES) Route: IV, Drug form: INJ, ONCE, Stop date: 10/16/15 12:49:00 CDT Start Date: 10/16/15 Stop Date: 10/16/15 Status: Completedprotamine (ANES) (ANES) Route: IV, Drug form: INJ, Start date: 10/16/15 18:42:00 CDT, Stop date: 19:42:00 CDT Start Date: 10/16/15 Stop Date: 10/16/15 Status: CompletedProtonix 40 mg, 1 tab, Route: PO, Drug form: ECTAB, Before Dinner, Dosing Weight 123.182 , kg, Start date: 10/17/15 16:30:00 CDT, Duration: 30 day, Stop date: 11/15/15 16:30:00 CDT Notes: Tablet should not be chewed or crushed.(Same as: Protonix) Start Date: 10/17/15 Stop Date: 10/22/15 Status: Discontinuedremove patch 3 patch, Route: TOP, Bedtime, Drug form: ERFILM, Start date: 10/18/15 21:00:00 CDT, Duration: 30 day, Stop date: 11/16/15 21:00:00 CDT Notes: Remove patch 12 hours after application each day. Start Date: 10/18/15 Stop Date: 10/22/15 Status: Discontinuedrizatriptan 10 mg, 1 tab, Route: PO, Drug form: TAB, ONCE, Dosing Weight 123.182, kg, PRN Headache 1-5, Start date: 10/11/15 11:59:00 CDT Notes: (Same as: [employer]) Start Date: 10/11/15 Stop Date: 10/11/15 Status: Completedrocuronium (ANES) Route: IV, Drug form: INJ, ONCE, Stop date: 10/16/15 12:49:00 CDT Start Date: 10/16/15 Stop Date: 10/16/15 Status: Completedrocuronium (ANES) Route: IV, Drug form: INJ, ONCE, Stop date: 10/16/15 15:10:00 CDT Start Date: 10/16/15 Stop Date: 10/16/15 Status: Completedsenna 17.2 mg, 2 tab, Route: PO, Drug Form: TAB, Dosing Weight 123.182, kg, Bedtime, Start date: 10/17/15 21:00:00 CDT, Duration: 30 day, Stop date: 11/15/15 21:00: 00 CDT Notes: (Same as: Senokot) Start Date: 10/17/15 Stop Date: 10/22/15 Status: DiscontinuedSodium Chloride 0.9% IV (ANES) (ANES) Route: IV, Total Volume: 500, Start date: 10/16/15 19:15:00 CDT, Stop date: 08/28 20:15:00 CDT Start Date: 10/16/15 Stop Date: 10/16/15 Status: CompletedSodium Chloride 0.9% IV (ANES) (ANES) Route: IV, Total Volume: 1,000, Start date: 10/16/15 11:46:00 CDT, Stop date: 12:46:00 CDT Start Date: 10/16/15 Stop Date: 10/16/15 Status: CompletedSodium Chloride 0.9% IV (ANES) (ANES) + tranexamic acid (ANES) (ANES) Route: IV, Drug form: INJ, Start date: 10/16/15 12:10:00 CDT, Stop date: 13:10:00 CDT Start Date: 10/16/15 Stop Date: 10/16/15 Status: DeletedSodium Chloride 0.9% IV (ANES) (ANES) + tranexamic acid (ANES) ( ANES) Route: IV, Drug form: INJ, Start date: 10/16/15 12:10:00 CDT, Stop date: 13:10:00 CDT Start Date: 10/16/15 Stop Date: 10/16/15 Status: DeletedSodium Chloride 0.9% IV 750 mL 750 mL, Rate: 75 ml/hr, Infuse over: 10 hr, Route: IV, Dosing Weight 123.182 kg , Total Volume: 750, Start date: 10/09/15 15:04:00 CDT, Duration: 10 hr, Stop date: 10/10/15 1:03:00 CDT Start Date: 10/09/15 Stop Date: 10/10/15 Status: Completedsodium phosphate + Sodium Chloride 0.9% IV 250 mL 30 mmol, 10 mL, Route: IVPB, PRN, Dosing Weight 123.182, kg, PRN Abnormal Lab Result, For NON-ICU Patients Only., Start date: 10/11/15 11:58:00 CDT, Duration : 30 day, Stop date: 11/10/15 11:57:00 CDT Start Date: 10/11/15 Stop Date: 10/16/15 Status: Discontinuedsodium phosphate + Sodium Chloride 0.9% IV 250 mL 15 mmol, 5 mL, Route: IVPB, PRN, Dosing Weight 123.182, kg, PRN Abnormal Lab Result, For NON-ICU Patients Only., Start date: 10/11/15 11:58:00 CDT, Duration : 30 day, Stop date: 11/10/15 11:57:00 CDT Start Date: 10/11/15 Stop Date: 10/16/15 Status: Discontinuedsodium phosphate + Sodium Chloride 0.9% IV 250 mL 15 mmol, 5 mL, Route: IVPB, PRN, Dosing Weight 123.182, kg, PRN Abnormal Lab Result, For NON-ICU Patients Only., Start date: 10/17/15 16:14:00 CDT, Duration : 30 day, Stop date: 11/16/15 16:13:00 CDT Start Date: 10/17/15 Stop Date: 10/22/15 Status: Discontinuedsodium phosphate + Sodium Chloride 0.9% IV 250 mL 30 mmol, 10 mL, Route: IVPB, PRN, Dosing Weight 123.182, kg, PRN Abnormal Lab Result, For NON-ICU Patients Only., Start date: 10/17/15 16:14:00 CDT, Duration : 30 day, Stop date: 11/16/15 16:13:00 CDT Start Date: 10/17/15 Stop Date: 10/22/15 Status: Discontinuedsodium phosphate + Sodium Chloride 0.9% IV 250 mL 15 mmol, 5 mL, Route: IVPB, PRN, Dosing Weight 123.182, kg, PRN Abnormal Lab Result, Start date: 10/16/15 20:15:00 CDT, Duration: 30 day, Stop date: 20:14:00 CDT, FOR ICU USE ONLY Start Date: 10/16/15 Stop Date: 10/17/15 Status: Discontinuedsodium phosphate + Sodium Chloride 0.9% IV 250 mL 45 mmol, 15 mL, Route: IVPB, PRN, Dosing Weight 123.182, kg, PRN Abnormal Lab Result, Start date: 10/16/15 20:15:00 CDT, Duration: 30 day, Stop date: 20:14:00 CDT, FOR ICU USE ONLY Start Date: 10/16/15 Stop Date: 10/17/15 Status: Discontinuedsodium phosphate + Sodium Chloride 0.9% IV 250 mL 30 mmol, 10 mL, Route: IVPB, PRN, Dosing Weight 123.182, kg, PRN Abnormal Lab Result, Start date: 10/16/15 20:15:00 CDT, Duration: 30 day, Stop date: 20:14:00 CDT, FOR ICU USE ONLY Start Date: 10/16/15 Stop Date: 10/17/15 Status: Discontinuedtapentadol 100 mg, 2 tab, Route: PO, Drug form: TAB, Q4H, Dosing Weight 123.182, kg, PRN Pain Score 7-10, Startdate: 10/18/15 17:29:00 CDT, Duration: 30 day, Stop date: 11/17/15 17:28:00 CDT Notes: Same as: Nucynta Start Date: 10/18/15 Stop Date: 10/21/15 Status: Discontinuedtapentadol 50 mg, 1 tab, Route: PO, Drug form: TAB, Q4H, Dosing Weight 123.182, kg, PRN Pain Score 4-6, Start date: 10/18/15 17:28:00 CDT, Duration: 30 day,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 (never been on any medication) Hypertension (Propranolol) Migraine Headaches Spinal Stenosis (per his report) and chronic back pain. PTSD and Anxiety Medications: Outpatient Psychiatric Medications: none Inpatient Medications: alprazalam 0.5 mg po q8hr switched to 0.25 mg po q8hr Medications (29) Active Scheduled Meds (13): 10/17/15 aspirin (aspirin 81 mg tablet, enteric coated) 162 mg PO Daily 10/19/15 celecoxib (CeleBREX) 200 mg PO Q12H 10/18/15 clopidogrel (Plavix) 75 mg PO Daily 10/17/15 docusate 100 mg PO BID 10/21/15 gabapentin (gabapentin 300 mg oral capsule) 300 mg PO Q8H-06 10/18/15 lidocaine topical (lidocaine topical patch (5% film)) 3 patch TOP Daily 10/18/15 lisinopril 5 mg PO Daily 10/18/15 metoprolol (metoprolol tartrate) 25 mg PO Q12H 10/17/15 pantoprazole (Protonix) 40 mg PO Before Dinner 10/18/15 remove patch 3 patch TOP Bedtime 10/17/15 senna 17.2 mg PO Bedtime 10/11/15 topiramate 25 mg PO Q12H 10/21/15 tramadol 100 mg PO Q6H Unscheduled Meds: None PRN Meds (16): 10/17/15 ALPRAZolam (ALPRAZOLam) 0.25 mg PO Q8H 10/21/15 benzocaine-menthol topical (Cepacol Sore Throat 15 mg-3.6 mg mucous membrane lozenge) 1 lozenge MUCOUS MEM Q2H 10/17/15 calcium gluconate + Sodium Chloride 0.9% IV 100 mL 2 gm IVPB PRN 120 ml/hr 10/17/15 calcium gluconate + Sodium Chloride 0.9% IV 100 mL 3 gm IVPB PRN 130 ml/hr 10/17/15 magnesium oxide 800 mg PO PRN 10/17/15 magnesium sulfate 1 gm IVPB PRN 100 ml/hr 10/17/15 magnesium sulfate 2 gm IVPB PRN 25 ml/hr 10/22/15 oxyCODONE (oxyCODONE 5 mg immediate release) 5 mg PO Q4H 10/17/15 potassium chloride 20 mEq PO PRN 10/17/15 potassium chloride 20 mEq NJ PRN 10/17/15 potassium chloride 10 mEq IVPB PRN 50 ml/hr 10/17/15 potassium phosphate + Sodium Chloride 0.9% IV 250 mL 15 mmol IVPB PRN 63.75 ml/hr 10/17/15 potassium phosphate + Sodium Chloride 0.9% IV 250 mL 30 mmol IVPB PRN 65 ml/hr 10/17/15 potassium phosphate-sodium phosphate (potassium phosphate-sodium phosphate 250 mg-278 mg-164 mg oral powder) 2 pkt PO PRN 10/17/15 sodium phosphate + Sodium Chloride 0.9% IV 250 mL 15 mmol IVPB PRN 63.75 ml/hr 10/17/15 sodium phosphate + Sodium Chloride 0.9% IV 250 mL 30 mmol IVPB PRN 65 ml/hr One Time Meds: None Continuous Infusions: None Allergies (1) Active Reaction NKDA None documented Family Psychiatric History: None reported Social and Developmental History: Patient grew up in [place], currently lives in [place] with=his and 3 boys. He completed [employer] and some college; had sevred in [employer] prior to dischrage (medical) due to sleepwalking in August. denies any abuse or legal hx. 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 Cardiovascular: No chest pain, No palpitations, No syncope. Ear/Nose/Mouth/Throat: Negative, No decreased hearing. Respiratory: Negative. Gastrointestinal: Negative. Genitourinary: Negative. Musculoskeletal: no muscle pain Neurologic: Alert and oriented X4, No abnormal balance, No confusion, No numbness, No tingling. Psychiatric: PTSD. Endocrine: metabolic syndrome. Hematology/Lymphatics: Negative. All other systems are negative Mental Status Examination: General appearance and Behavior- good hygiene, cooperative wiht interview and sitting in bed; Musculoskeletal- no PMR or psycomotor agitation Speech- normal rate/rhythym/tone and volume Mood/Affect- "good"/mood congruent and euthymic Thought process- linear, logival, coherent Thought content- preoccupied wiht dischagre; no SI/HI Perceptual disturbances- no AVH or delusions Insight/Judgment- good/good Cognitive Examination: Orientation- alert, oriented x 3 Attention/concentration- 12/19 recall on world Memory- // recall Fund of knowledge- good knows preseident Abstracting ability- good interpreted proverb correctly VS/Laboratory Data: Vitals Tmp(F) Pulse BP RR SpO2 FIO2 10/21 08:11 ---- 106 122/61 -- --- --- 10/21 05:00 98.7 96 110/60 20 98 --- 10/21 00:14 98.9 --- ----- -- --- --- 10/21 00:00 ---- 92 99/59 20 98 --- 10/20 21:00 ---- 108 127/73 20 --- --- 24 Hr Tmax: 99.9F (37.72c) at 10/20 16:05 Vital Signs are the last 5 in the past 48 hours. 24hr Labs 10/21 0522 Ca Ion WB 1.16 Ca Norm WB 1.15 Glucose Lvl 120 H BUN 12 Creatinine Lvl 1.01 Sodium Lvl 136 Potassium Lvl 3.7 Chloride Lvl 105 CO2 20 L AGAP 14.7 Calcium Lvl 9.1 eGFR 99 Total Protein 7.3 Albumin Lvl 3.3 L Bili Total 0.4 Bili Direct 0.1 Bili Indirect 0.3 Alk Phos 75 AST 40 H ALT 98 H Globulin 4.0 A/G Ratio 0.8 Magnesium Lvl 1.8 Phosphorus 4.6 H WBC 18.0 H RBC 3.34 L Hgb 10.5 L Hct 30.3 L MCV 90.6 MCH 31.5 H MCHC 34.7 RDW 15.2 H Platelet 304 MPV 7.8 Segs 74.1 Monocytes 8.0 Lymphocytes 14.4 L Eosinophils 2.7 Basophils 0.8 Segs-Bands # 13.3 H Lymphocytes # 2.6 Monocytes # 1.4 H Eosinophils # 0.5 Basophils # 0.2 PT 13.8 INR 1.03 PTT 29.8 10/19 1658 C difficile DNA Negative 10/18 0440 Source BCR-ABL1 Blood BCR-ABL1 Prior Result NOT GIVEN BCR-ABL1/ABL1 % 0.000 BCR-ABL1/ABL1 % (IS) 0.000 BCR-ABL1 Interp SEE NOTE P190 BCR-ABL1 NOT DETECTED P210 BCR-ABL1 NOT DETECTED Assessment: [place] I: H/O PTSD [place] II: deferred [place] III: see above [place] IV: hx of trauma in [employer]; financial stress; poor coping [place] V: GAF 60-70 Recommendations: 1. At this time, patient's symptoms of insomnia, nightmares and hypervigilance in relation to trauma suggest diagnosis of PTSD (formally dx in 2014). Recommend Wellbutrin XL 150mg po qdaily, and patient to follow-up. Reason for Wellbutrin is patient had failed two more traditional and more serotonergic medications. 2. Patient would benefit from outpatient psychiatric follow-up at our [facility] clinic and the phone number was given 3. Encouraged smoking cessation thank you for this consukt. please call if any further questions Resident: Laura Freitas Pager: [phone] PSYCHIATRY ATTENDING ADDENDUM I have interviewed and examined the patient and discussed the case with the resident. I agree with the resident assessment and recommendations except as amended below. Mental Status Examination: General Appearance - Engageable, good eye contact, good grooming and hygiene Musculoskeletal - No gross abnormal movements Speech - Appropriate rate/tone/volume Thought Process - Goal-directed Thought Content - No delusions, no suicidal or homicidal ideations Perception - No auditory/visual hallucinations Mood/Affect - "good"/euthymic Insight/Judgment - good/good Cognitive Examination: Orientation - Alert, no gross disorientation Attention/concentration - No gross deficit Memory - No gross deficit Fund of knowledge - Appropriate Abstracting ability - Intact grossly Assessment: Posttraumatic stress disorder/anxiety disorder NOS by history Recommendations: Discussed with Dr. Freitas and agree with above. Please see above recommendations. The case and recommendations have been discussed by psychiatry with primary team. Thank you for allowing the opportunity to participate in this patient's care. Please call with any questions. Delroy Martinez M.D. [id number] Extracted from: Title: Cardiothoracic Surgery Operative Author: Racheal Potts MD Date: 10/16/15 Note PATIENT NAME Clifford Manning DATE of OPERATION: 10-15-14 PREOPERATIVE DIAGNOSIS: 1. Multivessel coronary artery disease 2. Hypertension 3. Hyperlipidemia 4. Obesity 5. Smoker PRIMARY SURGEON: Saul Potts MD 1st ASSISTANT FAMILY TEACHER: Nam Woodard MD Endoscopic Vein [place] Nam Almanzar MD Anesthesia: Iggy Moore MD; Jai Lemus MD REFERRING CARDIOLOGISTS: Nicholas Pool MD PERFUSION: Debbie Pang POSTOPERATIVE DIAGNOSIS: Same OPERATION: 1. Urgent On-Pump CABG x4: Bypass SERRANO to LAD; Bypass FLAVIA to OM; (The FLAVIA was T-Graft off the SERRANO to LAD) Bypass from the ascending aorta to the RAMUS using reversed autogenous saphenous vein Bypass from the ascending aorta to the PDA using reversed autogenous saphenous vein (the PDA was a T-Graft off the Ramus) 2. Endoscopic vein harvest LEFT LEG 3. Transesophageal echocardiography 4. Closure of the pericardium FINDINGS: 1. Good sized SERRANO 2. Short and friable aorta which made it difficult to place to proximal anastomosis, thus the PDA was taken as a T-graft off the Ramus 4. LAD, Ramus, OM, and PDA were good targets 5. Dense adhesions in the left pleural space. SPECIMENTS: None AORTIC CLAMP TIME: 87 minutes TOTAL PUMP TIME: 177 minutes LOWEST BLADDER TEMPERATURE: 35.1C LOWEST NASOPHARYNGEAL TEMP: 34.2C LOWEST MYOCARDIAL TEMP: -- C COOLING TIME: drift minutes WARMING TIME: 15 minutes BLOOD REQUIREMENTS: 0 units of packed red blood cells, 1 units of cell saver; 0 units of frozen plasma, 0 units of cryo, 0 pack of platelets INDICATION: 30 year-old man presents with chest pain and found to have 3-vessel coronary disease. Plan for CABG. The STS risk score was discussed with the patient and his family. PROCEDURE: The patient was taken to the operating room, placed in the supine position and administered satisfactory general endotracheal anesthesia. A timeout procedure was performed which confirmed the patient s name, medical record number, and procedure to be performed. The chest, abdomen and legs were prepped and draped in the usual sterile manner. Endoscopic harvest of the LEFT greater saphenous vein was performed by Nam Almanzar with ligation of venous branches. The chest was entered through a median sternotomy. The left internal mammary artery was identified. Dissection was carried out on either side of the left internal mammary by using the cautery starting from the 5th intercostal space going proximally to the first rib and distally to the 6th intercostal space after the left internal mammary artery divided into two branches. The branches were ligated wi th hemoclips and divided. Next, the pericardium was opened longitudinally. A longitudinal slit was made in the pericardium for the SERRANO. Care was taken to identify the phrenic nerve. The SERRANO was semi- skeletonized during harvest. The right internal mammary artery was taken down in the same fashion. Both were good conduits. The pericardium was opened. The patient was anti-coagulated with sodium heparin and the heart cannulated for cardiopulmonary bypass with placement of a cannula in the ascending aorta and a dual stage cannula in the right atrium. Cardiopulmonary bypass was initiated. The ascending aorta was cross-clamped. 1100 cc of [place]Nido cold cardioplegic solution was instilled into the ascending aorta with diastolic arrest. The PDA was identified. It was a good target. The saphenous vein was then fashioned end-to side to the arteriotomy made in this vessel and anastomosis completed using a running 7-0 Prolene suture. The FIRST OM was identified. It was a slightly smaller target. The OM was then opened longitudinally. A FREE right internal mammary artery was fashioned end-to side to the arteriotomy made in this vess el and the anastomosis completed using a running 8-0 Prolene suture. The mid LAD was identified. The entire LAD was diffusely diseased and heavily calcified. The LAD was then opened and the SERRANO was then fashioned end-to side to the LAD using a running 8-0 Prolene suture. We then constructed a T-Graft with the FLAVIA using an 8-0 running suture. The FLAVIA was attached as a T-Graft to the SERRANO-LAD conduit. The RAMUS was identified. It was a good target. The saphenous vein was then fashioned end-to side to the arteriotomy made in this vessel and anastomosis completed using a running 7-0 Prolene suture. The heart chambers were filled with blood. The body temperature was then warmed. Any potential air was evacuated via the antegrade aortic cardioplegia cannula. The patient was then placed in the head -down position and the aortic cross clamp removed. We then directed our attention to the proximal anastomosis. Making sure correct orientation of the SV-OM conduit, the proximal anastomosis was constructed on the left side of the aorta using a running 6-0 prolene and the 4.5 Enclose System. The aorta was particularly short and friable and it was difficult to find room on the aorta for a separate proximal anastomosis for the PDA. The decision was then made to connect the SV-PDA conduit to the aorta-Ramus conduit as a T-graft. Having demonstrated satisfactory rate, rhythm and blood pressure, the head was slowly elevated to the horizontal position. The heart regained sinus rhythm without the need for cardioversion. Rewarming continued to a nasopharyngeal and bladder temperature of 36.0C. The patient was weaned from bypass. After demonstrating satisfactory rate, rhythm and blood pressure, the sump, aortic and vena caval cannulae were removed. Protamine sulfate was administered to reverse the anti-coagulated state. One s traight #36 Ball chest tubes were placed in the mediastinum and another Anastacio drain was placed in the posterior mediastinum. A right angle argyle was placed in the left pleural space. A right angle argyle was placed in the right pleural space. The sternum was closed with interrupted #6 stainless steel surgical wires. The wound was then irrigated and the soft tissue and skin were closed in 3 layers. Needle counts revealed a missing 7-0 prolene suture. Per our institutional policy, this does not require an intraoperative chest xray. I was present for the entire procedure. Extracted from: Title: Rheumatology H&P Author: Jewell Tucker MD Date: 10/15/15 Impression and Plan Mr. Manning is a 30 yo Male with past medical history significant for metabolic syndrome (essential hypertension, morbid obesity and pre-diabetes ( per his report)), tobaco abuse (18 pack.year), a nxiety, psoriasis and PTSD presented with chest pain. Found to have extensive stenosis with thrombus in multiple coronary vessels in need of CABG. Rheumatology consulted for leukocytosis without source of infection. -there are no signs or symptoms of autoimmune etiology to explain leukocytosisis in pt's current setting -pt may be suffering from psoriatic arthritis which does not generally cuase leukocytosis. Workup for psorriatic arthritis would include xray of hands, feet and SI. Would recommend ordering theses studi es and if found to be positive; treatment can begin inpt. Otherwise workup can be done in outpt setting. Thank you for ineresting consult. We will continue to follow with you.
[2017-12-18 21:57] LABS: Absolute Lymphocytes (CBC) 2.5 K/uL (0.7-4.9); Absolute Monocytes 0.9 K/uL (0.1-1.3); Absolute Neutrophil 10.8 K/uL (1.8-8.0); Basophils % 0.9 % (0-1.3); Eosinophils % 1.3 % (0-4.4); Hematocrit 43.8 % (39.6-49.0); MCH 28.8 pg (27.0-35.0); MCV 83.6 fL (80-100); MPV 8.6 fL (7.6-11.3); Monocytes % 6.3 % (3.3-12.3); RBC Red Blood Cell Count 5.24 M/uL (4.33-5.43)
[2017-12-18 22:01] LABS: Protime INR 1.09
[2017-12-18 22:15] LABS: Bilirubin Direct 0.1 mg/dL (0-0.2); Bilirubin Total 0.4 mg/dL (0.2-1.0); CKMB Creatine Kinase MB 1.7 ng/mL (0.3-3.6); Magnesium 1.6 mg/dL (1.8-2.4); Potassium 3.7 mmol/L (3.5-5.1)
[2017-12-18] MEDS ORDERED: MORPHINE 4 MG/ML SYR ONE (23:28)
[2017-12-18] MEDS ORDERED: MAGNESIUM SULFATE 1 gm IVPB 1 GM/100 ML BAG IV ONE (23:56)
[2017-12-19] MEDS ORDERED: MORPHINE 4 MG/ML SYR ONE (01:13)
--- NOTE | 2017-12-19 01:46 | ER ---
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 Transition of care: patient was not received from another setting of care. Onset of symptoms was December 18, 2017 at 21:25. Risk Assessment: Do you want to hurt yourself or someone else? Patient reports no desire to harm self or others. Initial Sepsis Screen: Does the patient meet any 2 criteria? No. Patient's initial sepsis screen is negative. Does the patient have a suspected source of infection? No. Patient's initial sepsis screen is negative. Care prior to arrival: None. 21:25 Method Of Arrival: Wheelchair aj 21:25 Acuity: ESTUARDO 3 aj Triage Assessment: 21:27 General: Appears in no apparent distress. comfortable, Behavior is calm, cooperative, aj appropriate for age. Pain: Complains of pain in chest. Neuro: Level of Consciousness is awake, alert, obeys commands, Oriented to person, place, time, situation, Appropriate for age. Cardiovascular: Reports chest pain, diaphoresis, lightheadedness, shortness of breath, Capillary refill < 3 seconds in bilateral fingers Patient's skin is warm and dry. Respiratory: Airway is patent Trachea midline Respiratory effort is even, unlabored, Respiratory pattern is regular, symmetrical. Derm: Skin is intact, is healthy with good turgor, Skin is pink, warm \T\ dry. normal. Historical: - Allergies: 21:27 No Known Allergies; aj - Home Meds: 21:27 aspirin 81 mg Oral TbEC 1 tab once daily [Active]; atorvastatin 80 mg Oral tab 1 tab aj once daily [Active]; gabapentin 300 mg Oral cap 1 cap 3 times per day [Active]; ibuprofen 100 mg Oral tab 2 tabs every 4-6 hours [Active]; lisinopril 5 mg Oral tab once daily [Active]; metoprolol tartrate 25 mg Oral tab 2 times per day [Active]; nitroglycerin 0.4 mg SL subl 1 tab every 5 minutes for Angina [Active]; Plavix 75 mg Oral tab 1 tab once daily [Active]; prozasin [Active]; sertraline Oral [Active]; Ranexa oral oral [Active]; BRILINTA oral oral [Active]; - PMHx: 21:27 CAD; Hypertension; neuropathy; spondylosis; Diabetes - NIDDM; aj - PSHx: 21:27 Heart stents; Heart Surgery; grafts; CABG; aj - Immunization history:: Adult Immunizations up to date. - Social history:: Smoking status: Patient/guardian denies using tobacco. - Ebola Screening: : Patient negative for fever greater than or equal to 101.5 degrees Fahrenheit, and additional compatible Ebola Virus Disease symptoms Patient denies exposure to infectious person Patient denies travel to an Ebola-affected area in the 21 days before illness onset No symptoms or risks identified at this time. Screenin/07 00:35 Abuse screen: Denies threats or abuse. Nutritional screening: No deficits noted. tl2 Tuberculosis screening: No symptoms or risk factors identified. Fall Risk None identified. Assessment: 12/18 22:07 General: Appears in no apparent distress. comfortable, Behavior is calm, cooperative, tl2 appropriate for age. Pain: Complains of pain in chest Pain does not radiate. Pain began 30 min ago. Neuro: Level of Consciousness is awake, alert, obeys commands, Oriented to person, place, time, situation. Cardiovascular: Reports diaphoresis, lightheadedness, shortness of breath, Chest pain is described as mild, quality is sharp, is located in anterior began 30 minutes prior to arrival. Respiratory: Airway is patent Respiratory effort is even, unlabored, Respiratory pattern is regular, symmetrical. GI: No signs and/or symptoms were reported involving the gastrointestinal system. Derm: Skin is pink, warm \T\ dry. 23:00 Reassessment: Patient appears in no apparent distress at this time. No changes from tl2 previously documented assessment. Patient and/or family updated on plan of care and expected duration. Pain level reassessed. Patient is alert, oriented x 3, equal unlabored respirations, skin warm/dry/pink. 12/19 00:34 Reassessment: Patient appears in no apparent distress at this time. Patient and/or tl2 family updated on plan of care and expected duration. Pain level reassessed. Patient is alert, oriented x 3, equal unlabored respirations, skin warm/dry/pink. Awaiting repeat troponin. 01:13 Reassessment: pt c/o continued pain, SIX SIGMA BLACK TRAINER notified, new orders see AUG. tl2 01:45 Reassessment: Patient appears in no apparent distress at this time. Patient and/or tl2 family updated on plan of care and expected duration. Pain level reassessed. Patient is alert, oriented x 3, equal unlabored respirations, skin warm/dry/pink. SIX SIGMA BLACK TRAINER at bedside discussing plan of care. 02:05 Reassessment: Patient appears in no apparent distress at this time. Patient and/or tl2 family updated on plan of care and expected duration. Pain level reassessed. Patient is alert, oriented x 3, equal unlabored respirations, skin warm/dry/pink. Pt verbalized understanding of discharge instructions, need for follow up and prescription usage Patient states feeling better. Vital Signs: 12/18 21:27 BP 133 / 87; Pulse 78; Resp 19; Temp 97.8; Pulse Ox 99% on R/A; Weight 136.08 kg; aj Height 6 ft. 0 in. (182.88 cm); 22:07 BP 121 / 78; Pulse 81; Resp 18; Pulse Ox 99% on R/A; tl2 23:41 BP 124 / 84; Pulse 84; Resp 18; Pulse Ox 99% on R/A; tl2 0707 00:34 BP 121 / 75; Pulse 85; Resp 18; Pulse Ox 97% on R/A; tl2 01:45 BP 127 / 83; Pulse 87; Resp 18; Pulse Ox 99% on R/A; tl2 02:05 BP 114 / 75; Pulse 79; Resp 18; Pulse Ox 97% on R/A; tl2 12/18 21:27 Body Mass Index 40.69 (136.08 kg, 182.88 cm) ED Course: 12/18 21:18 Patient arrived in ED. al2 21:26 Triage completed. aj 21:27 Arm band placed on right wrist. Patient placed in an exam room. aj 21:30 Yang Oreilly NP is PHCP. pm1 21:30 Faizan Higgins MD is Attending Physician. pm1 21:40 landfill gas collection operator on. Pulse ox on. NIBP on. tl2 21:41 EKG done, by ED staff, reviewed by Faizan Higgins MD. aa1 21:49 Initial lab(s) drawn, by me, sent to lab. Inserted saline lock: 20 gauge in right cc antecubital area, using aseptic technique. Blood collected. 21:50 Patient maintains SpO2 saturation greater than 95% on room air. tl2 21:52 X-ray completed. Portable x-ray completed in exam room. Patient tolerated procedure mh1 well. 21:53 XRAY Chest (1 view) In Process Unspecified. EDMS 12/19 00:34 Drea Foster, JEANNIE is Primary Nurse. tl2 00:35 Patient has correct armband on for positive identification. Placed in gown. Bed in low tl2 position. Call light in reach. 01:45 Ari Douglas MD is Referral Physician. pm1 02:05 No provider procedures requiring assistance completed. IV discontinued, intact, tl2 bleeding controlled, No redness/swelling at site. Pressure dressing applied. Administered Medications: 12/18 23:40 Drug: morphine 4 mg Route: IVP; Site: right antecubital; tl2 12/19 00:30 Follow up: Response: Pain is unchanged, physician notified tl2 00:11 Drug: Magnesium Sulfate 1 grams Route: IVPB; Infused Over: 1 hrs; Site: right tl1 antecubital; 02:10 Follow up: IV Status: Completed infusion tl2 01:14 Drug: morphine 4 mg Route: IVP; Site: right antecubital; tl2 02:11 Follow up: Response: No adverse reaction; Pain is decreased tl2 Outcome: 01:46 Discharge ordered by MD. pm1 02:05 Discharged to home ambulatory, with family. tl2 02:05 Condition: stable 02:05 Discharge instructions given to patient, family, Instructed on discharge instructions, follow up and referral plans. medication usage, Demonstrated understanding of instructions, follow-up care, medications, Prescriptions given X 1. 02:11 Patient left the ED. tl2 Signatures: Dispatcher [employer] EDSD Janet Bueno RN RN aa1 Reanna Vitale RN RN Ailyn King 1 Denisha Taylor Tonya, RN RN tl1 Yang Oreilly, SIX SIGMA BLACK TRAINER SIX SIGMA BLACK TRAINER pm1 Drea Foster, RN RN tl2 Mary Bledsoe2
--- NOTE | 2017-12-19 01:46 | EDPHYS ---
Physician Documentation [facility] Name: Clifford Manning Age: 32 yrs Sex: Male : 1985 Arrival Date: 12/18/2017 Time: 21:18 Bed 3 Private MD: ED Physician Faizan Higgins HPI: 12/18 23:00 This 32 yrs old Male presents to ER via Wheelchair with complaints of Chest pm1 Pain. 23:00 The patient or guardian reports chest pain that is located primarily in the substernal pm1 area. The pain does not radiate. Associated signs and symptoms: Pertinent negatives: abdominal pain, cough, nausea, shortness of breath, vomiting. The chest pain is described as aching. Duration: The patient or guardian reports a single episode, that is still ongoing. Modifying factors: The symptoms are alleviated by nothing. the symptoms are aggravated by nothing. The patient has experienced similar episodes in the past, multiple times. Onset of chest pain 5 hours ago. 23:00 Cardiac cath in June with no acute findings by Dr. Douglas. pm1 Historical: - Allergies: 21: No Known Allergies; aj - Home Meds: 21:27 aspirin 81 mg Oral TbEC 1 tab once daily [Active]; atorvastatin 80 mg Oral tab 1 tab aj once daily [Active]; gabapentin 300 mg Oral cap 1 cap 3 times per day [Active]; ibuprofen 100 mg Oral tab 2 tabs every 4-6 hours [Active]; lisinopril 5 mg Oral tab once daily [Active]; metoprolol tartrate 25 mg Oral tab 2 times per day [Active]; nitroglycerin 0.4 mg SL subl 1 tab every 5 minutes for Angina [Active]; Plavix 75 mg Oral tab 1 tab once daily [Active]; prozasin [Active]; sertraline Oral [Active]; Ranexa oral oral [Active]; BRILINTA oral oral [Active]; - PMHx: 21:27 CAD; Hypertension; neuropathy; spondylosis; Diabetes - NIDDM; aj - PSHx: 21:27 Heart stents; Heart Surgery; grafts; CABG; aj - Immunization history:: Adult Immunizations up to date. - Social history:: Smoking status: Patient/guardian denies using tobacco. - Ebola Screening: : Patient negative for fever greater than or equal to 101.5 degrees Fahrenheit, and additional compatible Ebola Virus Disease symptoms Patient denies exposure to infectious person Patient denies travel to an Ebola-affected area in the 21 days before illness onset No symptoms or risks identified at this time. ROS: 23:00 Constitutional: Negative for fever, chills, and weight loss, Eyes: Negative for injury, pm1 pain, redness, and discharge, ENT: Negative for injury, pain, and discharge, Neck: Negative for injury, pain, and swelling. 23:00 Respiratory: Negative for shortness of breath, cough, wheezing, and pleuritic chest pain, Abdomen/GI: Negative for abdominal pain, nausea, vomiting, diarrhea, and constipation, Back: Negative for injury and pain, : Negative for injury, bleeding, discharge, and swelling, MS/Extremity: Negative for injury and deformity, Skin: Negative for injury, rash, and discoloration, Neuro: Negative for headache, weakness, numbness, tingling, and seizure. 23:00 Cardiovascular: Positive for chest pain, Negative for edema, palpitations. Exam: 21:49 ECG was reviewed by the Attending Physician. kdr 23:00 Constitutional: This is a well developed, well nourished patient who is awake, alert, pm1 and in no acute distress. Head/Face: Normocephalic, atraumatic. Eyes: Pupils equal round and reactive to light, extra-ocular motions intact. Lids and lashes normal. Conjunctiva and sclera are non-icteric and not injected. Cornea within normal limits. Periorbital areas with no swelling, redness, or edema. ENT: Nares patent. No nasal discharge, no septal abnormalities noted. Tympanic membranes are normal and external auditory canals are clear. Oropharynx with no redness, swelling, or masses, exudates, or evidence of obstruction, uvula midline. Mucous membranes moist. Neck: Trachea midline, no thyromegaly or masses palpated, and no cervical lymphadenopathy. Supple, full range of motion without nuchal rigidity, or vertebral point tenderness. No Meningismus. Chest/axilla: Normal chest wall appearance and motion. Nontender with no deformity. No lesions are appreciated. Cardiovascular: Regular rate and rhythm with a normal S1 and S2. No gallops, murmurs, or rubs. Normal PMI, no JVD. No pulse deficits. Respiratory: Lungs have equal breath sounds bilaterally, clear to auscultation and percussion. No rales, rhonchi or wheezes noted. No increased work of breathing, no retractions or nasal flaring. Abdomen/GI: Soft, non-tender, with normal bowel sounds. No distension or tympany. No guarding or rebound. No evidence of tenderness throughout. Back: No spinal tenderness. No costovertebral tenderness. Full range of motion. 23:00 Skin: Warm, dry with normal turgor. Normal color with no rashes, no lesions, and no evidence of cellulitis. MS/ Extremity: Pulses equal, no cyanosis. Neurovascular intact. Full, normal range of motion. 23:00 No ECG changes present from ECG performed in August 2017 23:00 Neuro: Orientation: is normal, Motor: is normal, moves all fours. Vital Signs: 21:27 BP 133 / 87; Pulse 78; Resp 19; Temp 97.8; Pulse Ox 99% on R/A; Weight 136.08 kg; aj Height 6 ft. 0 in. (182.88 cm); 22:07 BP 121 / 78; Pulse 81; Resp 18; Pulse Ox 99% on R/A; tl2 23:41 BP 124 / 84; Pulse 84; Resp 18; Pulse Ox 99% on R/A; tl2 12/19 00:34 BP 121 / 75; Pulse 85; Resp 18; Pulse Ox 97% on R/A; tl2 01:45 BP 127 / 83; Pulse 87; Resp 18; Pulse Ox 99% on R/A; tl2 02:05 BP 114 / 75; Pulse 79; Resp 18; Pulse Ox 97% on R/A; tl2 12/18 21:27 Body Mass Index 40.69 (136.08 kg, 182.88 cm) aj MDM: 12/18 21:30 Patient medically screened. pm1 12/19 01:31 Data reviewed: vital signs. Data interpreted: Pulse oximetry: on room air is 97 %. pm1 Interpretation: normal. Counseling: I had a detailed discussion with the patient and/or guardian regarding: the historical points, exam findings, and any diagnostic results supporting the discharge/admit diagnosis, lab results, radiology results, the need for outpatient follow up, to return to the emergency department if symptoms worsen or persist or if there are any questions or concerns that arise at home. 12/18 21:31 Order name: Basic Metabolic Panel; Complete Time: 22:30 pm12/18 21:31 Order name: CBC with Diff; Complete Time: 22:30 pm12/18 21:31 Order name: Ckmb; Complete Time: 22:30 pm12/18 21:31 Order name: CPK; Complete Time: 22:30 pm12/18 21:31 Order name: LFT's; Complete Time: 22:30 pm12/18 21:31 Order name: Magnesium; Complete Time: 22:30 pm12/18 21:31 Order name: NT PRO-BNP; Complete Time: 22:30 pm12/18 21:31 Order name: PT-INR; Complete Time: 22:30 pm12/18 21:31 Order name: Ptt, Activated; Complete Time: 22:30 pm12/18 21:31 Order name: Troponin (emerg Dept Use Only); Complete Time: 22:30 pm12/18 21:31 Order name: XRAY Chest (1 view) pm12/18 23:18 Order name: Troponin (emerg Dept Use Only); Complete Time: 00:39 pm12/18 21:31 Order name: EKG; Complete Time: 21:31 pm12/18 21:31 Order name: Cardiac monitoring; Complete Time: 21:49 pm12/18 21:31 Order name: EKG - Nurse/Tech; Complete Time: 21:41 pm12/18 21:31 Order name: IV Saline Lock; Complete Time: 21:49 pm12/18 21:31 Order name: Labs collected and sent; Complete Time: 21:49 pm12/18 21:31 Order name: O2 Per Protocol; Complete Time: 21:49 pm12/18 21:31 Order name: O2 Sat Monitoring; Complete Time: 21:49 pm1 EC/06 21:49 Rate is 76 beats/min. Rhythm is regular. QRS [place] is Normal. QRS interval is normal. Q kdr waves are Present in lead III. T waves are Normal. No ST changes noted. Clinical impression: NSR w/ Non-specific ST/T Changes. Administered Medications: 23:40 Drug: morphine 4 mg Route: IVP; Site: right antecubital; tl2 12/19 00:30 Follow up: Response: Pain is unchanged, physician notified tl2 00:11 Drug: Magnesium Sulfate 1 grams Route: IVPB; Infused Over: 1 hrs; Site: right tl1 antecubital; 02:10 Follow up: IV Status: Completed infusion tl2 01:14 Drug: morphine 4 mg Route: IVP; Site: right antecubital; tl2 02:11 Follow up: Response: No adverse reaction; Pain is decreased tl2 Disposition: 03:47 Co-signature as Attending Physician, Faizan Higgins MD I agree with the assessment and kdr plan of care. Disposition: 12/19/17 01:46 Discharged to Home. Impression: Chest pain, unspecified. - Condition is Stable. - Discharge Instructions: Nonspecific Chest Pain. - Prescriptions for Ultram 50 mg Oral Tablet - take 1 tablet by ORAL route every 6 hours As needed; 20 tablet. - Medication Reconciliation Form, Thank You Letter, Prescription Opioid Use form. - Follow up: Emergency Department; When: As needed; Reason: Worsening of condition. Follow up: Ari Douglas MD; When: 2 - 3 days; Reason: Recheck today's complaints, Continuance of care, Re-evaluation by your physician. - Problem is new. - Symptoms have improved. Signatures: Dispatcher [employer] EDMS Reanna Vitale RN Faizan Mooney MD MD [facility] Tracey Mac RN RN tl1 Yang Oreilly, [employer] pm1 Drea Foster RN RN tl2 Corrections: (The following items were deleted from the chart) 02:11 01:46 12/19/2017 01:46 Discharged to Home. Impression: Chest pain, unspecified. tl2 Condition is Stable. Forms are Medication Reconciliation Form, Thank You Letter, Antibiotic Education, Prescription Opioid Use. Follow up: Emergency Department; When: As needed; Reason: Worsening of condition. Follow up: Ari Douglas; When: 2 - 3 days; Reason: Recheck today's complaints, Continuance of care, Re-evaluation by your physician. Problem is new. Symptoms have improved. pm1
[2017-12-19 02:15] VITALS: TEMP 97.8
[2017-12-19 02:20] VITALS: BP 114/75; O2SAT 97
--- NOTE | 2017-12-19 07:12 | EKG ---
Test Date: 2017-12-18 Test Time: 21:37:35 Billing Customer Service Representative: GUERO MEASUREMENT RESULTS: Intervals: Rate: 76 AR: 176 QRSD: 136 QT: 424 QTc: 477 [place]: P: 7 AR: 176 QRS: 150 T: 28 INTERPRETIVE STATEMENTS: Normal sinus rhythm Right axis deviation Nonspecific intraventricular block Abnormal ECG Compared to ECG 08/19/2017 23:31:24 No significant changes Electronically Signed On 12-19-17 07:11:23 CDT by Rod Ceja
--- NOTE | 2017-12-19 08:13 | RAD REPORT ---
EXAM DESCRIPTION: [place] Single View12/18/2017 9:54 pm CLINICAL HISTORY: Chest pain COMPARISON: June 2017 FINDINGS: The lungs appear clear of acute infiltrate. The heart is mildly enlarged. Postsurgical changes involve the chest. IMPRESSION: No acute abnormalities displayed
== END 2017-12-19 02:11 | disposition home or self-care (01) ==
LOC: ER 21:16
DX: R07.9 Chest pain, unspecified (principal); I10 Essential (primary) hypertension; E11.9 Type 2 diabetes mellitus without complications; Z79.01 Long term (current) use of anticoagulants; Z79.82 Long term (current) use of aspirin; Z95.1 Presence of aortocoronary bypass graft; Z95.818 Presence of other cardiac implants and grafts
CPT/HCPCS: 36415; 71045; 80048; 80076; 82550; 82553; 83735; 83880; 84484; 85025; 85610; 85730; 93005; 96365; 96366; 96375; 99285; J3475

== ENCOUNTER 2018-02-22 21:04 | Observation (INO) | payer OTHER ==
--- OUTSIDE RECORDS SUMMARY | 2018-02-22 21:06 | XMS REPORT | Clinical Summary ---
:1985 Author Organization [facility] Address [address] [place] [address] Care Team Providers Name Role Phone Asked, [...] (Primary Dx); MD Tera Functional diarrhea after 02/21/2017 Social History Tobacco Use Types Packs/Day Years [...] procedure are in the results section. after 02/21/[address] Lumbar Spine Wo Contrast (08/28/2017 [...] No definite compromise of either L5 root. [facility]-[id number] Procedure Note Interface, Radiology Results Incoming - [...] No definite compromise of either L5 root. [facility]-[id number] Performing Organization Address [facility] Phone Number [phone] [place] [address] after 02/21/2017 Insurance Payer Benefit Plan / Group Subscriber ID Type Phone Address COMMERCIAL MISC MISC COMMERCIAL xxxxxxxxxx Commercial [employer] xxxxxxxxxx
--- OUTSIDE RECORDS SUMMARY | 2018-02-22 21:13 | XMS REPORT | Continuity of Care Document ---
:1985 Author Organization Interface Problems Problem Status Onset Classification Date Comments Source Date Reported CHEST PAIN, Active 11/12/19 DIABETES, HTN 18 [place] Left upper 08/28/19 11/25/2017 [facility] quadrant pain 18 Abdominal mass 08/20/19 11/25/2017 [facility] 18 Abdominal pain, 08/20/19 11/25/2017 [facility] acute 18 CHEST PAIN Active 08/19/19 [facility] [place],M mason Rainey CHSET PAIN R/O VT Active 07/05/[address] STEMI Active 03/29/[address] ALEXANDRA BILLING Active 03/29/[address] LFLT TRANSFER Active 10/08/19 [facility] #[id number] [address] [place] [address] Diarrhea, 11/25/2017 [facility] unspecified Intra-abdominal 11/25/2017 [facility] and pelvic swelling, mass and lump, unspecified site Essential 11/25/2017 [facility] hypertension 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 bypass graft half-way use of 11/25/2017 [facility] aspirin Personal history 11/25/2017 [facility] of nicotine dependence 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 STEMI (<span Resolved Problem 11/25/2017 ID="[id number]"> [place],M Confirmed</span>) [facility] CAD (<span Resolved Problem 11/25/2017 ID="[id number]"> [place],M Confirmed</span>) [facility] Knee pain Resolved Problem 11/25/2017 [place],M [facility] Hypertension Resolved Problem 11/25/2017 [place],M [facility] Obesity Resolved Problem 11/25/2017 [place],M [facility] Psoriasis (<span Resolved Problem 11/25/2017 ID="[id number]"> [place],M Confirmed</span>) [place] PTSD (<span Resolved Problem 11/25/2017 ID="[id number]"> [place], Confirmed</span>) H [place] CHEST PAIN, Active UNSPECIFIED [place],M H [facility] DIABETES DUE TO Active UNDERLYING [facility] CONDITION W H HYPERTENSIVE Active EMERGENCY [facility] ST ELEVATION Active [facility] (STEMI) MYOCARDIAL Medical INFARCTI Center Medications Medication Details Route Status Patient Ordering Order Source Instructions Provider Date PLease bring Pt's PLease bring No Longer Own APremilast to Pt's Own Active 2017 [facility] pharmacy for label APremilast to pharmacy for label, Reminder, Drug form: MISC, Route: MISC, Daily, 11/12/17 9:00:00 CDT, Duration: 30 day, Stop date: 12/11/17 9:00:00 CDT Sertraline 100 mg, 1 tab, No Longer Route: PO, Active 2017 [facility] Drug form: TAB, Daily, Dosing Weight 136, kg, Start date: 11/12/17 9:00:00 CDT, Duration: 30 day, Stop date: 12/11/17 9:00:00 CDTNotes: (Same as: Zoloft) Ticagrelor 90 mg, 1 tab, Inactive Route: PO, 2017 [facility] Drug form: TAB, Q12H, Dosing Weight 136, kg, Start date: 11/11/17 21:00:00 CDT, Duration: 30 day, Stop date: 12/11/17 9:00:00 CDTNotes: (Same as: Brilinta) atorvastatin 80 mg, 2 tab, Inactive Route: PO, 2017 [facility] Drug form: TAB, Bedtime, Dosing Weight 136, kg, Start date: 11/11/17 21:00:00 CDT, Duration: 30 day, Stop date: 12/10/17 21:00:00 CDTNotes: (Same as: Lipitor) Hytrin 2 mg, 1 cap, Inactive Route: PO, 2017 [facility] Drug form: CAP, Daily, Start date: 11/11/17 21:00:00 CDT, Duration: 30 day, Stop date: 12/10/17 21:00:00 CDTNotes: (Same As: Hytrin) 24 HR Metoprolol 100 mg, 1 tab, Inactive Tartrate 100 MG Route: PO, 2017 [facility] Extended Release Drug form: Tablet [Toprol] ERTAB, Daily, Start date: 11/11/17 17:00:00 CDT, Duration: 30 day, Stop date: 12/10/17 17:00:00 CDTNotes: (Same as: Toprol XL) May split tab, but do not crush. Fish Oil 1,000 mg, 1 Inactive cap, Route: 2017 [facility] PO, Drug form: CAP, BID, Dosing Weight 136, kg, Start date: 11/11/17 17:00:00 CDT, Duration: 30 day, Stop date: 12/11/17 9:00:00 CDTNotes: (Same as: MaxEPA, [place] 3 fish oil ) Non-Formulary Drug Prazosin 2 mg, Route: Inactive PO, Drug form: 2017 [facility] CAP, BID, Dosing Weight 136, kg, Start date: 11/11/17 17:00:00 CDT, Duration: 30 day, Stop date: 12/11/17 9:00:00 CDT apremilast 30 mg apremilast 30 Inactive oral tablet mg oral 2017 [facility] tablet, 30 mg, Route: PO, BID, 11/11/17 17:00:00 CDT, Duration: 30 day, Stop date: 12/11/17 9:00:00 CDT ezetimibe 10 mg, 1 tab, Inactive Route: PO, 2017 [facility] Drug form: TAB, Daily, Dosing Weight 136, kg, Start date: 11/11/17 17:00:00 CDT, Duration: 30 day, Stop date: 12/10/17 17:00:00 CDTNotes: (Same as: Zetia) Docusate Sodium 100 mg, 1 cap, Inactive 100 MG Oral Route: PO, 2017 [facility] Capsule Drug form: CAP, BID, Dosing Weight 136, kg, Start date: 11/11/17 17:00:00 CDT, Duration: 30 day, Stop date: 12/11/17 9:00:00 CDTNotes: (Same as: Colace) (Do Not Crush) morphine Sulfate 6 mg, 3 mL, Inactive Route: PO2017 [facility] Drug form: SOLN, Q6H, PRN Pain Score 7-10, Start date: 11/11/17 16:00:00 CDT, Duration: 30 day, Stop date: 12/11/17 15:59:00 CDTNotes: (Same as:MORPhine Sulfate) gabapentin 300 MG 300 mg, 1 cap, Inactive Oral Capsule Route: PO2017 [facility] Drug form: CAP, Q8H, Dosing Weight 136, kg, Start date: 11/11/17 16:00:00 CDT, Duration: 30 day, Stop date: 12/11/17 8:00:00 CDTNotes: (Same as: Neurontin) Dicyclomine 10 mg=1 cap, Active Hydrochloride 10 PO, QID-Before 2017 [place] [facility] Oral Capsule Meals, PRN [Bentyl] Abdominal Pain, # 20 cap, 0 Refill(s), Pharmacy: [facility]/pharmacy #[id number] Aspirin 81 MG 81 mg, 1 tab, Inactive Enteric Coated Route: PO2017 [facility] Tablet Drug form: ECTAB, Daily, Dosing Weight 136, kg, Start date: 11/11/17 11:00:00 CDT, Duration: 30 day, Stop date: 12/11/17 9:00:00 CDTNotes: Do not crush or chew. (Same As: Ecotrin) Isosorbide 30 mg, 1 tab, Inactive Route: PO2017 [facility] Drug form: ERTAB, QAM, Dosing Weight 136, kg, Start date: 11/11/17 11:00:00 CDT, Duration: 30 day, Stop date: 12/11/17 9:00:00 CDT Lisinopril 5 mg, 1 tab, Inactive Route: PO2017 [facility] Drug form: TAB, Daily, Dosing Weight 136, kg, Start date: 11/11/17 11:00:00 CDT, Duration: 30 day, Stop date: 12/11/17 9:00:00 CDTNotes: (Same as: Prinivil, Zestril) Morphine 2 mg, 1 mL, Inactive Route: IVP, 2017 [facility] Drug form: SOLN, Q6H, Dosing Weight 136, kg, PRN Pain Score 7-10, Start date: 11/11/17 9:48:00 CDT, Duration: 1 doses or times, Stop date: Limited # of times Acetaminophen 325 1 tab, Route: Inactive MG / Hydrocodone PO, Drug Form: 2017 [facility] Bitartrate 5 MG TAB, Dosing Oral Tablet [[place] Weight 136, 5/325] kg, Q6H, PRN Pain Score 4-6, Start date: 11/11/17 9:48:00 CDT, Duration: 30 day, Stop date: 12/11/17 9:47:00 CDTNotes: (Same as: [place] 325/5) Do not exceed 4gm/day of acetaminophen. Nitroglycerin 0.4 0.4 mg, 1 tab, Inactive MG Sublingual Route: SL, 2017 [facility] Tablet Drug form: TAB, Q5Min, Dosing Weight 136, kg, PRN Chest Pain, Start date: 11/11/17 9:44:00 CDT, Duration: 30 day, Stop date: 12/11/17 9:43:00 CDTNotes: (Same as:Nitroquick, Nitrostat) "Do Not Crush" Sublingual tablet Bisacodyl 5 mg, 1 tab, Inactive Route: PO, 2017 [facility] Drug form: ECTAB, Q6H, Dosing Weight 136, kg, PRN Constipation, Start date: 11/11/17 9:44:00 CDT, Duration: 30 day, Stop date: 12/11/17 9:43:00 CDTNotes: (Same As: Dulcolax, Correctol) (Do Not Crush) "Do Not Crush" Saline Flush 0.9% 10 ml, Route: Inactive IVP, Drug 2017 [facility] Form: INJ, Dosing Weight 136, kg, Q12H, Start date: 11/11/17 9:00:00 CDT, Duration: 30 day, Stop date: 12/10/17 21:00:00 CDTNotes: (Same as: BD Posiflush) Saline Flush 0.9% 10 ml, Route: Inactive IVP, Drug 2017 [facility] Form: INJ, Dosing Weight 136, kg, PRN, PRN Line Flush, Start date: 11/11/17 6:03:00 CDT, Duration: 30 day, Stop date: 12/11/17 6:02:00 CDTNotes: (Same as: BD Posiflush) Nitroglycerin 0.4 mg, 1 tab, Inactive Route: SL, 2017 [facility] Drug form: TAB, Q5Min, Dosing Weight 136, kg, PRN Chest Pain, Start date: 11/11/17 6:03:00 CDT, Duration: 3 doses or times, Stop date: Limited # of timesNotes: (Same as:Nitroquick, Nitrostat) "Do Not Crush" Sublingual tablet pneumococcal 0.5 mL, Route: Inactive capsular IM, Drug Form: 2017 [facility] polysaccharide INJ, ONCALL, type 1 vaccine / [...] 0.5 mg, PO, Active TID, PRN 2017 [facility] Anxiety, 0 Refill(s) Acetaminophen 300 1 tab, PO, Active MG / Codeine Q4H, PRN Pain, 2017 [place] Phosphate 30 MG # 24 tab, 0 Oral Tablet Refill(s) [Tylenol with Codeine #3] Morphine 4 mg, 1 mL, Inactive Route: IVP, 2017 [place] Drug form: SOLN, ONCE, Dosing Weight 127.273, kg, Priority: STAT, Start date: 08/19/17 3:21:00 RN PATIENT SERVICES, Stop date: 08/19/17 3:21:00 CSTNotes: (Same as:MORPhine Sulfate) Ondansetron 4 mg, 2 mL, Inactive Route: IVP, 2017 [place] Drug form: INJ, ONCE, Dosing Weight 127.273, kg, Priority: STAT, Start date: 08/19/17 3:21:00 RN PATIENT SERVICES, Stop date: 08/19/17 3:21:00 CSTNotes: (Same as: Princess) MEDICATION WASTE Product Size: 4 mg Product Wasted: ___ mg Sodium Chloride 1,000 mL, 1000 Inactive 0.9% (Bolus) IV ml/hr, Infuse 2017 [place] Over: 1 hr, Route: IV, 1,000, Drug form: INJ, ONCE, Priority: STAT, Dosing Weight 127.273 kg, Start date: 08/19/17 3:21:00 RN PATIENT SERVICES, Stop date: 08/19/17 3:21:00 RN PATIENT SERVICES indomethacin 25 mg 25 mg=1 cap, Active [...] atorvastatin 80 mg 80 mg=1 tab, Active [place] oral tablet PO, Bedtime, # 2016 [facility] 90 tab, 1 Center Refill(s) Acetaminophen 325 1 tab, PO, Inactive [place] MG / Hydrocodone Q4H, PRN Pain 2016 [facility] Bitartrate 5 MG Score 1-3, 0 Center Oral Tablet [[place] Refill(s) 5/325] metoprolol 50 mg 50 mg=1 tab, Active [place] oral tablet, PO, Daily, # 2016 [facility] extended release 90 tab, 1 Center Refill(s) Aspirin 81 MG 81 mg=1 tab, Active [place] Enteric Coated PO, Daily, # 2016 [facility] Tablet 90 tab, 1 Center Refill(s) Bupropion 150 mg, 1 tab, Inactive [place] Route: PO, 2016 [facility] Drug form: [place] ERTAB, Before Breakfast, Dosing Weight 134.347, kg, Start date: 03/31/16 11:30:00 CDT, Duration: 30 day, Stop date: 04/30/16 7:30:00 CSTNotes: (Do not crush) (Same As: Wellbutrin SR) Bupropion 100 mg, Route: No Longer [place] PO, Before Active 2015 [facility] Breakfast, Center Dosing Weight 134.347, kg, Start date: 03/31/16 7:30:00 CDT, Duration: 30 day, Stop date: 04/29/16 7:30:00 RN PATIENT SERVICES Sertraline 50 mg, 1 tab, No Longer [place] Route: PO, Active 2015 [facility] Drug form: [place] TAB, Daily, Dosing Weight 131.818, kg, Start date: 03/30/16 21:00:00 CDT, Duration: 30 day, Stop date: 04/29/16 9:00:00 CSTNotes: (Same as: Zoloft) heparin sodium, 5,000 unit, 1 No Longer [place] porcine 2500 mL, Route: Active 2015 [facility] UNT/ML Injectable SUB-Q, Drug Center Solution form: INJ, Q8H, Dosing Weight 134.347, kg, Start date: 03/30/16 21:00:00 CDT, Duration: 30 day, Stop date: 04/29/16 16:00:00 CSTNotes: porcine heparin atorvastatin 80 mg, 1 tab, No Longer [place] Route: PO, Active 2015 [facility] Drug form: [place] TAB, Bedtime, Dosing Weight 134.347, kg, Start date: 03/30/16 21:00:00 CDT, Stop date: 04/28/16 21:00:00 CSTNotes: Same as Lipitor Dulcolax Laxative 5 mg, 1 tab, No Longer [place] Route: PO, Active 2015 [facility] Drug form: Center ECTAB, Q6H, Dosing Weight 134.347, kg, PRN Constipation, Start date: 03/30/16 17:50:00 CDT, Duration: 30 day, Stop date: 04/29/16 17:49:00 CSTNotes: (Same As: Dulcolax, Correctol) (Do Not Crush) "Do Not Crush" Motrin 200 mg, 1 tab, No Longer [place] Route: PO, Active 2015 [facility] Drug form: [place] TAB, Q6H, Dosing Weight 134.347, kg, PRN For Temp > 100.4 F, Start date: 03/30/16 17:50:00 CDT, Duration: 30 day, Stop date: 04/29/16 17:49:00 CSTNotes: (Same as: Advil) Give with food. Bupropion 150 mg, Route: Inactive [place] PO, BID, 2015 [facility] Dosing Weight Center 134.347, kg, Start date: 03/30/16 17:00:00 CDT, Duration: 30 day, Stop date: 04/29/16 9:00:00 RN PATIENT SERVICES Sodium Chloride 250 mL, 250 Inactive [place] 0.154 MEQ/ML ml/hr, Infuse 2015 [facility] Injectable Over: 1 hr, [place] Solution Route: IV, 250, Drug form: INJ, [...] CDT Iohexol 110 mL, Route: No Longer [place] IVP, Drug Active 2015 [facility] Form: BALDOMERO, [place] Dosing Weight 134.347, kg, ONCALL, STAT, Start date: 03/30/16 14:11:00 CDT, Stop date: 03/31/16 0:00:00 CDT, Dose=2.2ml/kg, Max [id number] -- "To be infused by Radiology Staff ONLY"Notes: (Same as:Omnipaque 350). WASTE: F/P - Black; E - Municipal Trash Bin Lisinopril 5 mg, 1 tab, No Longer [place] Route: PO, Active 2015 [facility] Drug form: [place] TAB, Daily, Dosing Weight 131.818, kg, Start date: 03/30/16 9:00:00 CDT, Duration: 30 day, Stop date: 04/28/16 9:00:00 CSTNotes: (Same as: Prinivil, Zestril) metoprolol 12.5 mg, 1 No Longer [place] tartrate tab, Route: Active 2015 [facility] PO, Drug form: [place] TAB, Q12H, Dosing Weight 131.818, kg, Start date: 03/30/16 9:00:00 CDT, Duration: 30 day, Stop date: 04/28/16 21:00:00 CSTNotes: (Same as: Lopressor) 12.5mg=1/4 X 50 mg tab. Plavix 75 mg, 1 tab, No Longer [place] Route: PO, Active 2015 [facility] Drug form: [place] TAB, Daily, Dosing Weight 131.818, kg, Start date: 03/30/16 9:00:00 CDT, Duration: 30 day, Stop date: 04/28/16 9:00:00 CSTNotes: (Same As: Plavix) Aspirin 81 mg, 1 tab, No Longer [place] Route: PO, Active 2015 [facility] Drug form: [place] ECTAB, Daily, Dosing Weight 131.818, kg, Start date: 03/30/16 9:00:00 CDT, Duration: 30 day, Stop date: 04/28/16 9:00:00 CSTNotes: Do not crush or chew. (Same As: Ecotrin) Acetaminophen 325 1 tab, Route: No Longer [place] MG / Hydrocodone PO, Drug Form: Active 2016 [facility] Bitartrate 5 MG TAB, Dosing Center Oral Tablet [[place] Weight 5/325] 134.347, kg, Q4H, PRN Pain Score 1-3, Start date: 03/30/16 8:38:00 CDT, Duration: 30 day, Stop date: 04/29/16 8:37:00 CSTNotes: (Same as: [place] 325/5) Do not exceed 4gm/day of acetaminophen. gabapentin 300 mg, 1 cap, No Longer [place] Route: PO, Active 2015 [facility] Drug form: Center CAP, Q8H, Dosing Weight 131.818, kg, (CrCl > 60 ml/min), Start date: 03/30/16 8:00:00 CDT, Duration: 30 day, Stop date: 04/29/16 0:00:00 CSTNotes: (Same as: Neurontin) sodium phosphate + 15 mmol, 5 mL, No Longer [place] sodium chloride Route: IVPB, Active 2015 [facility] 0.9% INJ 250 mL Drug form: Center INJ, PRN, Dosing Weight 134.347, kg, PRN Abnormal Lab Result, For NON-ICU Patients Only., Start date: 03/30/16 6:07:00 CDT, Duration: 30 day, Stop date: 04/29/16 5:06:00 RN PATIENT SERVICES potassium 30 mmol, 10 No Longer [place] phosphate + sodium mL, Route: Active 2015 [...] hours potassium 2 pkt, Route: No Longer [place] phosphate-sodium PO, Drug Form: Active 2015 [facility] [...] chloride 10 mEq, 50 mL, No Longer [place] Route: IVPB, Active 2015 [facility] Drug form: Center INJ, PRN, Dosing Weight 134.347, kg, PRN Abnormal Lab Result, For NON-ICU Patients Only, Start date: 03/30/16 6:07:00 CDT, Duration: 30 day, Stop date: 04/29/16 5:06:00 CSTNotes: (Same as: KCL) Infuse over 2 hours. Magnesium Sulfate 2 gm, 50 mL, No Longer [place] Route: IVPB, Active 2015 [facility] Drug form: Center INJ, PRN, Dosing Weight 134.347, kg, PRN Abnormal Lab Result, For NON-ICU Patients Only., Start date: 03/30/16 6:07:00 CDT, Duration: 30 day, Stop date: 04/29/16 5:06:00 CSTNotes: WASTE: F/P - Sink; E - [place] Trash Bin Calcium Gluconate 3 gm, 30 mL, No Longer [place] Route: IVPB, 2015 [facility] Drug form: Center INJ, PRN, Dosing Weight 134.347, kg, PRN Abnormal Lab Result, For NON-ICU Patients Only., Start date: 03/30/16 6:07:00 CDT, Duration: 30 day, Stop date: 04/29/16 5:06:00 CSTNotes: WASTE: F/P - Sink; E - [place] Trash Bin Magnesium Oxide 800 mg, 2 tab, No Longer [place] Route: PO, Active 2015 [facility] Drug form: Center TAB, PRN, Dosing Weight 134.347, kg, PRN Abnormal Lab Result, For NON-ICU Patients Only., Start date: 03/30/16 6:07:00 CDT, Duration: 30 day, Stop date: 04/29/16 5:06:00 CSTNotes: (Same as: Mag-Ox 400) Magnesium oxide [id number] elemental magnesium Dose=____mg magnesium oxide (___mg elemental magnesium) Ketorolac 15 mg, 1 mL, Inactive [place] Route: IV, 2015 [facility] Drug form: [place] INJ, ONCE, Dosing Weight 134.347, kg, Start date: 03/30/16 3:38:00 CDT, Stop date: 03/30/16 3:38:00 CDTNotes: (Same as:Toradol) IV bolus must be given >15 seconds. Give IM administration slowly and deeply into the muscle. Not for use > 4 days. Morphine 4 mg, Route: Inactive [facility] IVP, ONCE, 2015 [facility] Dosing Weight Center 134.347, kg, Priority: STAT, Start date: 03/30/16 3:27:00 CDT, Stop date: 03/30/16 3:27:00 CDT sertraline 50 mg 50 mg=1 tab, Active [facility] oral tablet PO, Daily, 0 2015 [facility] Refill(s) [place] Tramadol 100 mg, 2 tab, No Longer [facility] Route: PO, Active 2015 [facility] Drug form: Center TAB, Q6H, Dosing Weight 131.818, kg, PRN Pain Score 4-6, Start date: 03/30/16 1:15:00 CDT, Duration: 30 day, Stop date: 04/29/16 1:14:00 CSTNotes: Not to exceed 400mg/day. (Same As: Ultram) Saline Flush 0.9% 10 mL, Route: No Longer [facility] IVP, Drug Active 2015 Medical Form: INJ, Center Dosing Weight 131.818, kg, PRN, PRN Line Flush, Start date: 03/29/16 22:26:00 CDT, Duration: 30 day, Stop date: 04/28/16 21:25:00 CSTNotes: (Same as: BD Posiflush) Lipitor 20 mg, 1 tab, Inactive [place] Route: PO, 2015 [facility] Drug form: Center TAB, Bedtime, Dosing [...] 100 mg oral PO, BID, # 30 2016 [facility] capsule cap, 0 Center Refill(s) gabapentin [...] [place] hydrochloride 50 PO, Q6H, # 50 2015 [facility] MG Oral Tablet tab, 0 Center Refill(s) topiramate 25 mg 25 mg=1 cap, Inactive [place] oral capsule PO, Q12H, # 30 2016 [facility] cap, 0 Center Refill(s) Oxycodone 5 mg, 1 tab, Inactive [facility] [place] Hydrochloride 5 MG Route: PO, 2016 [facility] Oral Tablet Drug form: Center TAB, Q4H, Dosing Weight 123.182, kg, PRN Pain Score 4-6, Start date: 10/22/15 8:35:00 CDT, Duration: 30 day, Stop date: 11/21/15 8:34:00 CDTNotes: (Same as: Roxicodone) gabapentin 300 MG 300 mg, 1 cap, No Longer [facility] Oral Capsule Route: PO, Active 2015 [facility] Drug form: Center CAP, Q8H-06, Dosing Weight 123.182, kg, (CrCl > 60 ml/min), Start date: 10/21/15 22:00:00 CDT, Duration: 30 day, Stop date: 11/20/15 14:00:00 CDTNotes: (Same as: Neurontin) Tramadol 100 mg, 2 tab, No Longer [facility] Route: PO, Active 2015 Medical Drug form: Center TAB, Q6H, Dosing Weight 123.182, kg, Start date: 10/21/15 17:55:00 CDT, Duration: 30 day, Stop date: 11/20/15 12:00:00 CDTNotes: Not to exceed 400mg/day. (Same As: Ultram) Acetaminophen 325 1 tab, Route: No Longer [facility] MG / Hydrocodone PO, Drug Form: Active 2015 [facility] Bitartrate 5 MG TAB, Dosing Center Oral Tablet [[place] Weight 5/325] 123.182, kg, Q4H, PRN Pain Score 1-3, Start date: 10/21/15 17:54:00 CDT, Duration: 30 day, Stop date: 11/20/15 17:53:00 CDTNotes: (Same as: [place] 325/5) Do not exceed 4gm/day of acetaminophen. Benzocaine 15 MG / 1 lozenge, No Longer [facility] Menthol 3.6 MG Route: MUCOUS Active 2015 Medical Lozenge [Cepacol MEM, Drug Center Sore Throat Pain Form: ANISHA, Relief 15/3.6] Dosing Weight 123.182, kg, Q2H, PRN Sore Throat, Start date: 10/21/15 0:30:00 CDT, Duration: 30 day, Stop date: 11/20/15 0:29:00 CDTNotes: Cepacol lozenges Dispense 1 box=16 lozenges (Same As: Cepacol Lozenges) Morphine 2 mg, 1 mL, Inactive [facility] Route: IVP2015 Medical Drug form: [place] INJ, ONCALL, Dosing Weight 123.182, kg, Start date: 10/20/15 13:00:00 CDT, Duration: 1 doses or times, Stop date: 10/21/15 0:00:00 CDTNotes: (Same as:MORPhine Sulfate) Tylenol 1,000 mg, 2 No Longer [place] tab, Route: Active 2015 Medical PO, Drug form: [place] TAB, Q6H, Dosing Weight 123.182, kg, Start date: 10/19/15 12:00:00 CDT, Duration: 30 day, Stop date: 11/18/15 6:00:00 CDTNotes: Max acetaminophen 4000 mg/day (4 gm/day). (Same as: Tylenol Extra Strength) Morphine 2 mg, 1 mL, Inactive [facility] Route: IVP2015 Medical Drug form: [place] INJ, ONCE, Dosing Weight 123.182, kg, Start date: 10/19/15 10:22:00 CDT, Stop date: 10/19/15 10:22:00 CDTNotes: (Same as:MORPhine Sulfate) Celebrex 200 mg, 1 cap, No Longer [place] Route: PO, Active 2015 Medical Drug form: [place] CAP, Q12H, Dosing Weight 123.182, kg, Start date: 10/19/15 8:00:00 CDT, Duration: 30 day, Stop date: 11/17/15 21:00:00 CDTNotes: NSAID. Please check indication. Not for seizure. (Same As: CeleBREX) remove patch 3 patch, No Longer [facility] Route: TOP, Active 2015 Medical Bedtime, Drug Center form: ERFILM, Start date: 10/18/15 21:00:00 CDT, Duration: 30 day, Stop date: 11/16/15 21:00:00 CDTNotes: Remove patch 12 hours after application each day. metoprolol 25 mg, 1 tab, No Longer [place] tartrate Route: PO, Active 2015 Medical Drug form: Center TAB, Q12H, Dosing Weight 123.182, kg, Start date: 10/18/15 21:00:00 CDT, Duration: 30 day, Stop date: 11/17/15 9:00:00 CDTNotes: (Same as: Lopressor) Celebrex 400 mg, 2 cap, Inactive [facility] Route: PO, 2015 Medical Drug form: [place] CAP, ONCE, Dosing Weight 123.182, kg, Priority: NOW, Start date: 10/18/15 17:30:00 CDT, Stop date: 10/18/15 17:30:00 CDTNotes: NSAID. Please check indication. Not for seizure. (Same As: CeleBREX) tapentadol 100 mg, 2 tab, No Longer [place] Route: PO, Active 2015 Medical Drug form: Center TAB, Q4H, Dosing Weight 123.182, kg, PRN Pain Score 7-10, Start date: 10/18/15 17:29:00 CDT, Duration: 30 day, Stop date: 11/17/15 17:28:00 CDTNotes: Same as: Nucynta tapentadol 50 mg, 1 tab, No Longer [place] Route: PO, Active 2015 Medical Drug form: Center TAB, Q4H, Dosing Weight 123.182, kg, PRN Pain Score 4-6, Start date: 10/18/15 17:28:00 CDT, Duration: 30 day, Stop date: 11/17/15 17:27:00 CDTNotes: Same as: Nu[place] Lisinopril 5 mg, 1 tab, No Longer [facility] Route: PO, Active 2015 Medical Drug form: Center TAB, Daily, Dosing Weight 123.182, kg, Start date: 10/18/15 17:00:00 CDT, Duration: 30 day, Stop date: 11/17/15 9:00:00 CDTNotes: (Same as: Prinivil, Zestril) Lidocaine 3 patch, No Longer [place] Hydrochloride 0.05 Route: TOP, Active 2015 Medical [...] Plavix 75 mg, 1 tab, No Longer [facility] Route: PO, Active 2015 Medical Drug form: Center TAB, Daily, Dosing Weight 123.182, kg, Start date: 10/18/15 9:00:00 CDT, Duration: 30 day, Stop date: 11/16/15 9:00:00 CDTNotes: (Same As: Plavix) metoprolol 12.5 mg, 1 No Longer [facility] tartrate tab, Route: Active 2015 Medical PO, Drug form: Center TAB, Q12H, Dosing Weight 123.182, kg, Start date: 10/17/15 21:00:00 CDT, Duration: 30 day, Stop date: 11/16/15 9:00:00 CDTNotes: (Same as: Lopressor) 12.5mg=1/4 X 50 mg tab. sennosides, CARE HOME 17.2 mg, 2 No Longer [facility] tab, Route: Active 2015 Medical PO, Drug Form: Center TAB, Dosing Weight 123.182, kg, Bedtime, Start date: 10/17/15 21:00:00 CDT, Duration: 30 day, Stop date: 11/15/15 21:00:00 CDTNotes: (Same as: Senokot) Tetrahydrocannabin 5 mg, 1 cap, No Longer [facility] ol Route: PO, Active 2015 Medical Drug form: Center CAP, Q12H, Dosing Weight 123.182, kg, Start date: 10/17/15 21:00:00 CDT, Duration: 30 day, Stop date: 11/16/15 9:00:00 CDTNotes: (Same as: Marinol) Non-Formulary Drug. Insulin Glargine 5 unit, 0.05 No Longer [facility] mL, Route: Active 2015 Medical SUB-Q, Drug Center form: INJ, Daily, Dosing Weight 123.182, kg, Priority: NOW, Start date: 10/17/15 17:31:00 CDT, Duration: 30 day, Stop date: 11/16/15 9:00:00 CDTNotes: Same as Ayo Usar PEN Do not hold insulin without contacting prescriber "single patient use only" WASTE: F/P - Black; E - Municipal Trash Bin Stable for 28 days at room temperature. Expires in days from Date Protonix 40 mg, 1 tab, No Longer [facility] Route: PO, Active 2015 Medical Drug form: Center ECTAB, Before Dinner, Dosing Weight 123.182, kg, Start date: 10/17/15 16:30:00 CDT, Duration: 30 day, Stop date: 11/15/15 16:30:00 CDTNotes: Tablet should not be chewed or crushed. (Same as: Protonix) potassium 2 pkt, Route: No Longer [facility] phosphate-sodium PO, Drug Form: Active 2015 Medical [...] + 15 mmol, 5 mL, No Longer [facility] Sodium Chloride Route: IVPB, Active 2015 Medical 0.9% IV 250 mL PRN, Dosing Center Weight 123.182, kg, PRN Abnormal Lab Result, For NON-ICU Patients Only., Start date: 10/17/15 16:14:00 CDT, Duration: 30 day, Stop date: 11/16/15 16:13:00 CDT potassium 30 mmol, 10 No Longer [facility] phosphate + Sodium mL, Route: Active [...] Sulfate 1 gm, 100 mL, No Longer [place] Route: IVPB, Active 2015 Medical Drug form: Center INJ, PRN, Dosing Weight 123.182, kg, PRN Abnormal Lab Result, For NON-ICU Patients Only., Start date: 10/17/15 16:14:00 CDT, Duration: 30 day, Stop date: 11/16/15 16:13:00 CDTNotes: WASTE: F/P - Sink; E - Municipal Trash Bin Calcium Gluconate 3 gm, 30 mL, No Longer [place] Route: IVPB, Active 2015 Medical PRN, Dosing Center Weight 123.182, kg, PRN Abnormal Lab Result, For NON-ICU Patients Only., Start date: 10/17/15 16:14:00 CDT, Duration: 30 day, Stop date: 11/16/15 16:13:00 CDTNotes: WASTE: F/P - Sink; E - Municipal Trash Bin Magnesium Oxide 800 mg, 2 tab, No Longer [place] Route: PO, Active 2015 Medical Drug form: Center TAB, PRN, Dosing Weight 123.182, kg, PRN Abnormal Lab Result, For NON-ICU Patients Only., Start date: 10/17/15 16:14:00 CDT, Duration: 30 day, Stop date: 11/16/15 16:13:00 CDTNotes: (Same as: Mag-Ox 400) Magnesium oxide [id number] elemental magnesium Dose=____mg magnesium oxide (___mg elemental magnesium) potassium chloride 10 mEq, 50 mL, No Longer [place] Route: IVPB, Active 2015 Medical Drug form: [...] 50% 25 gm, 50 mL, No Longer [place] Syringe Route: IVP, Active 2015 Medical Drug Form: Center INJ, Dosing Weight 123.182, kg, PRN, PRN Blood Glucose Results, Start date: 10/17/15 16:10:00 CDT, Duration: 30 day, Stop date: 11/16/15 16:09:00 CDT Insulin, Aspart, 6 unit, 0.06 No Longer [place] Human mL, Route: Active 2015 Medical SUB-Q, [...] Route: PO, Active 2015 Medical Drug form: [place] CAP, Q8Hnow, Dosing Weight 123.182, kg, Start date: 10/17/15 14:00:00 CDT, Duration: 30 day, Stop date: 11/16/15 6:00:00 CDTNotes: (Same as: Lyrica) Acetaminophen 1,000 mg, 2 No Longer [facility] tab, Route: Active 2015 Medical PO, Drug form: [place] TAB, Q6Hnow, Dosing Weight 123.182, kg, Start date: 10/17/15 14:00:00 CDT, Duration: 30 day, Stop date: 11/16/15 8:00:00 CDTNotes: Max acetaminophen 4000 mg/day (4 gm/day). (Same as: Tylenol Extra Strength) Docusate 100 mg, 1 cap, No Longer [facility] Route: PO, Active 2015 Medical Drug form: [place] CAP, BID, Dosing Weight 123.182, kg, Start date: 10/17/15 9:00:00 CDT, Duration: 30 day, Stop date: 11/15/15 17:00:00 CDTNotes: (Same as: Colace) (Do Not Crush) Aspirin 81 MG 162 mg, 2 tab, No Longer [facility] Enteric Coated Route: PO, Active 2015 Medical Tablet Drug form: [place] ECTAB, Daily, Dosing Weight 123.182, kg, Start date: 10/17/15 9:00:00 CDT, Duration: 30 day, Stop date: 11/15/15 9:00:00 CDTNotes: Do not crush or chew. (Same As: Ecotrin) gabapentin 100 mg, 1 cap, Inactive [facility] Route: PO, 2016 Medical Drug form: [place] CAP, Q8Hnow, Dosing Weight 123.182, kg, Start date: 10/17/15 8:00:00 CDT, Duration: 30 day, Stop date: 11/16/15 0:00:00 CDTNotes: (Same as: Neurontin) Tramadol 100 mg, 2 tab, No Longer [facility] Route: PO, Active 2015 Medical Drug form: [place] TAB, Q6Hnow, Dosing Weight 123.182, kg, Start date: 10/17/15 8:00:00 CDT, Duration: 30 day, Stop date: 11/16/15 2:00:00 CDTNotes: Not to exceed 400mg/day. (Same As: Ultram) Alprazolam 0.25 mg, 1 No Longer [facility] tab, Route: Active 2015 Medical PO, Drug form: [place] TAB, Q8H, Dosing Weight 123.182, kg, PRN Anxiety, Start date: 10/17/15 7:45:00 CDT, Duration: 30 day, Stop date: 11/16/15 7:44:00 CDTNotes: With food or milk (Same as: Xanax) Oxycodone 10 mg, 2 tab, No Longer [facility] Hydrochloride 5 MG Route: PO, Active 2015 Medical Oral Tablet Drug form: [place] TAB, Q4H, Dosing Weight 123.182, kg, PRN Pain Score 7-10, Start date: 10/17/15 7:45:00 CDT, Duration: 30 day, Stop date: 11/16/15 7:44:00 CDTNotes: (Same as: Roxicodone) ketOROLAC 15 mg/mL 15 mg, 1 mL, Inactive [facility] injectable Route: IV, 2015 Medical solution Drug form: [place] INJ, ONCE, Dosing Weight 123.182, kg, Start date: 10/17/15 6:05:00 CDT, Stop date: 10/17/15 6:05:00 CDTNotes: (Same as:Toradol) IV bolus must be given >15 seconds. Give IM administration slowly and deeply into the muscle. Not for use > 4 days. Acetaminophen 1,000 mg, 100 Inactive [facility] mL, Route: IV, 2015 Medical Drug form: [place] INJ, Q6H, Dosing Weight 123.182, kg, Start date: 10/17/15 6:00:00 CDT, Duration: 30 day, Stop date: 11/16/15 0:00:00 CDT, > 67 kg; Pediatric DosingNotes: Infuse over 15 minutes Do not exceed 4gm/day of acetaminophen MEDICATION WASTE Product Size: 1000 mg Product Wasted: _0__ mg Hydromorphone 15 mg, 30 mL, Inactive [facility] Route: IV, 2015 [facility] Loading Dose: 0.4mg, [employer] Dose: 0.2 mg, [employer] Lockout: 10 minutes, Continuous Basal Rate: 0 mg, 4 Hour Limit (In MG): 6, Drug Form: INJ, Continuous, Start date: 10/17/15 2:30:00 CDT, Duration: 30 day, Stop date: 11/16/15...Not es: (Same as: Dilaudid) conc=0.5 mg/ml Hydromorphone [employer] Dose: ;Delay: ;Basal: Naloxone 0.04 mg, 0.1 Inactive [facility] mL, Route: 2016 Medical IVP, Drug Center form: INJ, Q2MIN, Dosing Weight 123.182, kg, PRN Narcotic Reversal, Start date: 10/17/15 2:20:00 CDT, Duration: 30 day, Stop date: 11/16/15 2:19:00 CDTNotes: Same as Narcan Calcium Chloride 500 mL, 500 Inactive [facility] 0.0014 MEQ/ML / ml/hr, Infuse 2015 Medical Potassium Chloride Over: 1 hr, Center 0.004 MEQ/ML / Route: IV, Sodium Chloride 500, Drug 0.103 MEQ/ML / form: INJ, Sodium Lactate ONCE, 0.028 MEQ/ML Priority: Injectable STAT, Dosing Solution Weight 123.182 kg, Start date: 10/17/15 2:07:00 CDT, Duration: 1 doses or times, Stop date: 10/17/15 2:07:00 CDT ceFAZolin (SCIP) 2 gm, 100 mL, Inactive [facility] Route: IVPB, 2015 [facility] Drug form: Center INJ, ABXQ8H, Dosing Weight 123.182, kg, Start date: 10/17/15 2:00:00 CDT, Duration: 2 day, Stop date: 10/18/15 18:00:00 CDTNotes: Same as: Ancef Calcium Chloride 500 mL, 500 Inactive [facility] 0.0014 MEQ/ML / ml/hr, Infuse 2015 Medical Potassium Chloride Over: 1 hr, Center 0.004 MEQ/ML / Route: IV, Sodium Chloride 500, Drug 0.103 MEQ/ML / form: INJ, Sodium Lactate ONCE, 0.028 MEQ/ML Priority: Injectable STAT, Dosing Solution Weight 123.182 kg, Start date: 10/17/15 0:19:00 CDT, Duration: 1 doses or times, Stop date: 10/17/15 0:19:00 CDT Vancomycin 6.67 1,750 mg, Inactive [facility] MG/ML Injectable Route: IVPB, 2015 Medical Solution [...] [facility] 0.0014 MEQ/ML / ml/hr, Infuse 2015 [facility] Potassium Chloride Over: 1 hr, [place] 0.004 MEQ/ML / Route: IV, Sodium Chloride [...] 5 MG TAB, Dosing Center Oral Tablet [[place] Weight 5/325] 123.182, kg, ONCE, Start date: 10/16/15 21:30:00 CDT, Stop date: 10/16/15 21:30:00 CDTNotes: (Same as: [place] 325/5) Do not exceed 4gm/day of acetaminophen. [...] Calcium Carbonate 1,000 mg, 2 No Longer [place] 500 MG Chewable tab, Route: Active 2015 Medical Tablet PO, Drug form: [place] CHEWTAB, PRN, Dosing Weight 123.182, kg, PRN Abnormal Lab Result, FOR ICU USE ONLY, Start date: 10/16/15 20:15:00 CDT, Duration: 30 day, Stop date: 11/15/15 20:14:00 CDTNotes: (Same As: Tums) Calcium Carbonate 500 wa=353 mg elemental calcium Dose= mg calcium carbonate ( mg elemental calcium) Magnesium Oxide 800 mg, 2 tab, No Longer [place] Route: PO, Active 2015 Medical Drug form: [place] TAB, PRN, Dosing Weight 123.182, kg, PRN Abnormal Lab Result, FOR ICU USE ONLY, Start date: 10/16/15 20:15:00 CDT, Duration: 30 day, Stop date: 11/15/15 20:14:00 CDTNotes: (Same as: Mag-Ox 400) Magnesium oxide [id number] elemental magnesium Dose=____mg magnesium oxide (___mg elemental magnesium) Magnesium Sulfate 2 gm, 50 mL, No Longer [place] Route: IVPB, Active 2015 Medical Drug form: [place] INJ, PRN, Dosing Weight 123.182, kg, PRN Abnormal Lab Result, Start date: 10/16/15 20:15:00 CDT, Duration: 30 day, Stop date: 11/15/15 20:14:00 CDT, FOR ICU USE ONLYNotes: WASTE: F/P - Sink; E - Municipal Trash Bin Neutra-Phos 2 pkt, Route: No Longer [place] PO, Drug Form: Active 2015 Medical PDR/REC, Center Dosing Weight 123.182, kg, PRN, PRN Abnormal Lab Result, FOR ICU USE ONLY, Start date: 10/16/15 20:15:00 CDT, Duration: 30 day, Stop date: 11/15/15 20:14:00 CDTNotes: (Same as: Neutra-Phos) Each 1.25 gm pkt has 250mg phosphorous. Mix w/2.5oz water and stir. Calcium Gluconate 1 gm, 10 mL, No Longer [facility] Route: IVPB, Active 2015 Medical PRN, Dosing Center Weight 123.182, kg, PRN Abnormal Lab Result, Start date: 10/16/15 20:15:00 CDT, Duration: 30 day, Stop date: 11/15/15 20:14:00 CDT, FOR ICU USE ONLYNotes: WASTE: F/P - Sink; E - Municipal Trash Bin potassium chloride 20 mEq, 100 No Longer [place] mL, Route: Active 2015 Medical IVPB, Drug Center form: INJ, PRN, Dosing Weight 123.182, kg, PRN Abnormal Lab Result, Via central line, Start date: 10/16/15 20:15:00 CDT, Duration: 30 day, Stop date: 11/15/15 20:14:00 CDT, FOR ICU USE ONLYNotes: (Same as: KCL) Infuse no faster than 10 mEq/hr if given peripherally. sodium phosphate + 15 mmol, 5 mL, No Longer [facility] Sodium Chloride Route: IVPB, Active 2015 Medical 0.9% IV 250 mL PRN, Dosing Center Weight 123.182, kg, PRN Abnormal Lab Result, Start date: 10/16/15 20:15:00 CDT, Duration: 30 day, Stop date: 11/15/15 20:14:00 CDT, FOR ICU USE ONLY potassium 30 mmol, 10 No Longer [facility] phosphate + Sodium mL, Route: Active [...] Norepinephrine 8 mg, 8 mL, No Longer [facility] Rate: Titrate, Active 2015 Medical Start Dose: [...] Insulin regular 99 mL, Rate: No Longer [place] 100 unit + Sodium Start Insulin Active [...] Dextrose 50% 12.5 gm, 25 No Longer [place] Syringe mL, Route: Active 2015 Medical IVP, Drug Center Form: INJ, Dosing Weight 123.182, kg, PRN, PRN Blood Glucose Results, Start date: 10/16/15 20:15:00 CDT, Duration: 30 day, Stop date: 11/15/15 20:14:00 CDT norepinephrine Route: IV, Inactive [facility] (ANES) Drug form: 2015 Medical INJ, ONCE, Center Stop date: 10/16/15 19:45:00 CDT calcium gluconate Route: IV, Inactive [facility] (ANES) Drug form: 2016 Medical INJ, ONCE, Center Stop date: 10/16/15 19:20:00 CDT Sodium Chloride Route: IV, Inactive [facility] 0.9% IV (ANES) Total Volume: 2016 Medical (ANES) 500, Start Center date: 10/16/15 19:15:00 CDT, Stop date: 10/16/15 20:15:00 CDT protamine (ANES) Route: IV, Inactive [facility] (ANES) Drug form: 2016 Medical INJ, Start Center date: 10/16/15 18:42:00 CDT, Stop date: 10/16/15 19:42:00 CDT magnesium sulfate Route: IV, Inactive [facility] (ANES) Drug form: 2016 Medical INJ, ONCE, Center Stop date: 10/16/15 18:20:00 CDT lidocaine (ANES) Route: IV, Inactive [facility] Drug form: 2016 Medical INJ, ONCE, Center Stop date: 10/16/15 18:20:00 CDT Insulin regular Route: IV, Inactive [facility] (ANES) Drug form: 2015 Medical INJ, ONCE, Center Stop date: 10/16/15 18:15:00 CDT midazolam (ANES) Route: IV, Inactive [facility] Drug form: 2015 Medical SOLN, ONCE, Center Stop date: 10/16/15 17:40:00 CDT Thrombate III 560 unit, Inactive [facility] Route: IV, 2015 Medical Drug form: Center INJ, ONCE, Start date: 10/16/15 16:49:00 CDT, Stop date: 10/16/15 16:49:00 CDTNotes: WASTE: F/P - Red; E -Red Call 2 hours ahead for the next dose; "blood product derivative" EPINEPHrine (ANES) Route: IV, Inactive [facility] Drug form: 2015 Medical INJ, ONCE, Center Stop date: 10/16/15 16:45:00 CDT vecuronium (ANES) Route: IV, Inactive [facility] Drug form: 2015 Medical INJ, ONCE, Center Stop date: 10/16/15 16:45:00 CDT vasopressin (ANES) Route: IV, Inactive [facility] Drug form: 2016 Medical INJ, ONCE, [...] 16:00:00 CDT ceFAZolin (ANES) Route: IV, Inactive [facility] Drug form: 2015 Medical INJ, ONCE, Center Stop date: 10/16/15 16:00:00 CDT heparin (ANES) Route: IV, Inactive [facility] Drug form: 2015 Medical INJ, ONCE, Center Stop date: 10/16/15 15:50:00 CDT Thrombate III 560 unit, Inactive [facility] Route: IV, 2015 Medical Drug form: Center INJ, ONCE, Start date: 10/16/15 15:14:00 CDT, Stop date: 10/16/15 15:14:00 CDTNotes: WASTE: F/P - Red; E -Red Call 2 hours ahead for the next dose; "blood product derivative" rocuronium (ANES) Route: IV, Inactive [facility] Drug form: 2015 Medical INJ, ONCE, Center Stop date: 10/16/15 15:10:00 CDT Antithrombin III 573 unit, Inactive [facility] Route: IVP, 2015 Medical Drug form: Center INJ, ONCE, Dosing Weight 123.182, kg, Start date: 10/16/15 15:08:00 CDT, Duration: 1 doses or times, Stop date: 10/16/15 15:08:00 CDT metoprolol (ANES) Route: IV, Inactive 10/15[facility] Drug form: 2015 Medical INJ, ONCE, Center Stop date: 10/16/15 14:45:00 CDT fentaNYL (ANES) Route: IV, Inactive 10/15[facility] Drug form: 2015 Medical INJ, ONCE, Center Stop date: 10/16/15 14:45:00 CDT ceFAZolin (ANES) Route: IV, Inactive 10/15[facility] Drug form: 2015 Medical INJ, ONCE, Center Stop date: 10/16/15 12:54:00 CDT propofol (ANES) Route: IV, Inactive [facility] Drug form: 2016 Medical INJ, ONCE, Center Stop date: 10/16/15 12:49:00 CDT lidocaine (ANES) Route: IV, Inactive [facility] Drug form: 2016 Medical INJ, ONCE, Center Stop date: 10/16/15 12:49:00 CDT fentaNYL (ANES) Route: IV, Inactive [facility] Drug form: 2016 Medical INJ, ONCE, Center Stop date: 10/16/15 12:49:00 CDT midazolam (ANES) Route: IV, Inactive [facility] Drug form: 2015 Medical SOLN, ONCE, Center Stop date: 10/16/15 12:49:00 CDT rocuronium (ANES) Route: IV, Inactive [facility] Drug form: 2015 Medical INJ, ONCE, Center Stop date: 10/16/15 12:49:00 CDT vancomycin (ANES) Route: IV, Inactive [facility] (ANES) Drug form: 2015 Medical INJ, Start Center date: 10/16/15 12:20:00 CDT, Stop date: 10/16/15 13:20:00 CDT Isolyte S PH 7.4 Route: IV, Inactive [facility] (ANES) (ANES) Total Volume: 2015 Medical 1,000, Start Center date: 10/16/15 12:13:00 CDT, Stop date: 10/16/15 13:13:00 CDT Sodium Chloride Route: IV, Inactive [facility] 0.9% IV (ANES) Drug form: 2015 Medical (ANES) + INJ, Start Center tranexamic acid date: 10/16/15 (ANES) (ANES) 12:10:00 CDT, Stop date: 10/16/15 13:10:00 CDT Lactated Ringers Route: IV, Inactive [facility] Injection IV Drug form: 2015 Medical (ANES) (ANES) + INJ, Start Center tranexamic acid date: 10/16/15 (ANES) (ANES) 12:10:00 CDT, Stop date: 10/16/15 13:10:00 CDT Sodium Chloride Route: IV, Inactive [place] 0.9% IV (ANES) Total Volume: 2016 Medical (ANES) 1,000, Start Center date: 10/16/15 11:46:00 CDT, Stop date: 10/16/15 12:46:00 CDT NS 1,000 mL 1,000 mL, No Longer [facility] Rate: 75 Active 2015 Medical ml/hr, Infuse Center over: 13.3 hr, Route: IV, Dosing Weight 123.182 kg, Total Volume: 1,000, Start date: 10/16/15 0:01:00 CDT, Duration: 30 day, Stop date: 11/15/15 0:00:00 CDT Iohexol 99 mL, Route: Inactive [facility] IVP, Drug 2015 Medical Form: [facility] Dosing Weight 123.182, kg, ONCTRIPP, STAT, Start date: 10/15/15 18:24:00 CDT, Duration: 1 doses or times, Dose=2.2ml/kg, Max [id number] -- "To be infused by Radiology Staff ONLY" Lisinopril 2.5 mg, 1 tab, No Longer [place] Route: PO, Active 2015 Medical Drug form: Center TAB, Daily, Dosing Weight 123.182, kg, Start date: 10/15/15 15:05:00 CDT, Duration: 30 day, Stop date: 11/14/15 9:00:00 CDTNotes: (Same as: Prinivil) PlasmaLyte A 1,000 mL, Inactive [facility] PH-7.4 1,000 mL Rate: 75 2016 Medical ml/hr, Infuse Center over: 13.3 hr, Route: IV, Dosing Weight 123.182 kg, Total Volume: 1,000, Start date: 10/15/15 0:01:00 CDT, Duration: 30 day, Stop date: 11/14/15 0:00:00 CDTNotes: WASTE: F/P - Sink; E - Municipal Trash Bin Iohexol 100 mL, Route: Inactive [facility] IVP, Drug 2015 Medical Form: [facility] Dosing Weight 123.182, kg, ONCALL, STAT, Start date: 10/14/15 14:26:00 CDT, Duration: 1 doses or times, Dose=2.2ml/kg, Max [id number] -- "To be infused by Radiology Staff ONLY"Notes: (Same as:Omnipaque 350). WASTE: F/P - Black; E - Municipal Trash Bin heparin 5,000 unit, 1 Inactive [facility] mL, Route: 2016 Medical SUB-Q, Drug Center form: INJ, Q8H, [...] Active 2015 Medical unit/kg/hr] + Infuse over: [place] Premix Diluent 18.4 hr, Dextrose 5% 500 [...] Topamax) rizatriptan 10 mg, 1 tab, Inactive [facility] Route: PO, 2016 Medical Drug form: [place] TAB, ONCE, Dosing Weight 123.182, kg, PRN Headache 1-5, Start date: 10/11/15 11:59:00 CDTNotes: (Same as: Maxalt-[employer] FORMER) Magnesium Sulfate 2 gm, 50 mL, No Longer [place] Route: IVPB, Active 2015 Medical Drug form: [place] INJ, PRN, Dosing Weight 123.182, kg, PRN Abnormal Lab Result, For NON-ICU Patients Only., Start date: 10/11/15 11:58:00 CDT, Duration: 30 day, Stop date: 11/10/15 11:57:00 CDTNotes: WASTE: F/P - Sink; E - Municipal Trash Bin Magnesium Oxide 800 mg, 2 tab, No Longer [facility] Route: PO, Active 2015 Medical Drug form: [place] TAB, PRN, Dosing Weight 123.182, kg, PRN Abnormal Lab Result, For NON-ICU Patients Only., Start date: 10/11/15 11:58:00 CDT, Duration: 30 day, Stop date: 11/10/15 11:57:00 CDTNotes: (Same as: Mag-Ox 400) Magnesium oxide [id number] elemental magnesium Dose=____mg magnesium oxide (___mg elemental magnesium) sodium phosphate + 30 mmol, 10 No Longer [place] Sodium Chloride mL, Route: Active 2015 Medical 0.9% IV 250 mL IVPB, PRN, Center Dosing Weight 123.182, kg, PRN Abnormal Lab Result, For NON-ICU Patients Only., Start date: 10/11/15 11:58:00 CDT, Duration: 30 day, Stop date: 11/10/15 11:57:00 CDT Calcium Gluconate 2 gm, 20 mL, No Longer [place] Route: IVPB, Active 2015 Medical PRN, Dosing Center Weight 123.182, kg, PRN Abnormal Lab Result, For NON-ICU Patients Only., Start date: 10/11/15 11:58:00 CDT, Duration: 30 day, Stop date: 11/10/15 11:57:00 CDTNotes: WASTE: F/P - Sink; E - Municipal Trash Bin potassium chloride 20 mEq, 1 tab, No Longer [place] Route: PO, Active 2015 Medical Drug form: Center ERTAB, PRN, Dosing Weight 123.182, kg, PRN Abnormal Lab Result, For NON-ICU Patients Only, Start date: 10/11/15 11:58:00 CDT, Duration: 30 day, Stop date: 11/10/15 11:57:00 CDTNotes: (Same as: K-Dur 20) "Do Not Crush" With food and full glass of water potassium 2 pkt, Route: No Longer [place] phosphate-sodium PO, Drug Form: Active 2015 Medical [...] potassium 15 mmol, 5 mL, No Longer [place] phosphate + Sodium Route: IVPB, Active 2015 Medical Chloride 0.9% IV PRN, Dosing Center 250 mL Weight 123.182, kg, PRN Abnormal Lab Result, For NON-ICU Patients Only., Start date: 10/11/15 11:58:00 CDT, Duration: 30 day, Stop date: 11/10/15 11:57:00 CDTNotes: (Same as: K Phosphate.) 1 mMol phoshate has 1.47 mEq potassium Infuse over 4 hours Tylenol 650 mg, 2 tab, No Longer [place] Route: PO, Active 2015 Medical Drug form: [place] TAB, Q6H, Dosing Weight 123.182, kg, PRN Headache 1-3, Start date: 10/11/15 11:12:00 CDT, Stop date: 11/10/15 11:11:00 CDTNotes: Do not exceed 4 gm/day. (Same as: Tylenol) potassium chloride 10 mEq, 50 mL, Inactive [place] Route: IVPB, 2015 Medical Drug form: [place] INJ, Q1H, Dosing Weight 123.182, kg, Total Dose=40 meq, Start date: 10/11/15 7:00:00 CDT, Duration: 4 doses or times, Stop date: 10/11/15 10:00:00 CDT, Peripheral LineNotes: (Same as: KCL) Infuse over 2 hours. Magnesium Sulfate 2 gm, 50 mL, Inactive [facility] Route: IVPB, 2016 Medical Drug form: Center INJ, ONCE, Dosing Weight 123.182, kg, Total dose=2 gm, Start date: 10/11/15 6:22:00 CDT, Duration: 1 doses or times, Stop date: 10/11/15 6:22:00 CDTNotes: WASTE: F/P - Sink; E - Municipal Trash Bin Isolyte S PH 7.4 1,000 mL, No Longer [place] 1,000 mL Rate: 75 Active 2015 Medical ml/hr, Infuse Center over: 13.3 hr, Route: IV, Dosing Weight 123.182 kg, Total Volume: 1,000, Start date: 10/11/15 0:01:00 CDT, Duration: 30 day, Stop date: 11/10/15 0:00:00 CDTNotes: (Same as: Isolyte S PH 7.4) heparin additive 500 mL, Rate: No Longer [place] 25,000 unit [14 27.22 ml/hr, Active 2015 [...] 5 MG TAB, Dosing Center Oral Tablet [[place] Weight 5/325] 123.182, kg, Q4H, PRN Pain Score 1-3, Start date: 10/10/15 13:43:00 CDT, Duration: 30 day, Stop date: 11/09/15 13:42:00 CDTNotes: (Same as: [place] 325/5) Do not exceed 4gm/day of acetaminophen. Alprazolam 0.5 MG 0.5 mg, 1 tab, No Longer [facility] Oral Tablet Route: PO, Active 2015 Medical [Xanax] Drug form: [place] TAB, TID, Dosing Weight 123.182, kg, PRN Anxiety, Start date: 10/10/15 13:42:00 CDT, Duration: 30 day, Stop date: 11/09/15 13:41:00 CDTNotes: With food or milk (Same as: Xanax) Melatonin 3 MG 3 mg, 1 tab, No Longer [facility] Extended Release Route: PO, Active 2015 Medical Tablet Drug Form: [place] TAB, Dosing Weight 123.182, kg, Bedtime, PRN Insomnia, Start date: 10/09/15 21:42:00 CDT, Duration: 30 day, Stop date: 11/08/15 21:41:00 CDTNotes: (Same as: Melatonin) Tylenol 650 mg, 20.3 Inactive [facility] mL, Route: PO, 2015 Medical Drug form: [place] LIQ, ONCE, Dosing Weight 123.182, kg, Priority: STAT, Start date: 10/09/15 17:39:00 CDT, Stop date: 10/09/15 17:39:00 CDTNotes: Max acetaminophen= 4000mg/day (4 gm/day). (Same as: Tylenol) heparin additive 500 mL, Rate: No Longer [facility] 25,000 unit [12 23.33 ml/hr, Active 2015 Medical unit/kg/hr] + Infuse over: [place] Premix Diluent 21.4 hr, Dextrose 5% 500 mL Route: IV, Dosing Weight 97.21 kg, Total Volume: 500 mL, Start date: 10/09/15 17:39:00 CDT, Duration: 30 day, Stop date: 11/08/15 17:38:00 CDT Sodium Chloride 750 mL, Rate: No Longer [facility] 0.154 MEQ/ML 75 ml/hr, Active 2015 Medical Injectable Infuse over: [place] Solution 10 hr, Route: IV, Dosing Weight 123.182 kg, Total Volume: 750, Start date: 10/09/15 15:04:00 CDT, Duration: 10 hr, Stop date: 10/10/15 1:03:00 CDT Nitroglycerin 100 mg, 250 No Longer [facility] mL, Rate: Active 2015 Medical Titrate, Start Center Dose: 0.25 microgram/kg/m in, Titration: 0.2 microgram/kg/m in every 5 minutes, Goal(s): Chest pain and SBP between 100 - 150 mmHg, Max Dose: 3 microgram/kg/m in, Route: IV, Dosing Weight 123.182 kg, Total Volume: 250...Notes: (Same as:Tridil) Final conc=0.4 mg/ml. Premix bottle. Nitroglycerin 0.4 mg, 1 tab, Inactive [facility] Route: SL, 2015 Medical Drug form: Center TAB, ONCE, Dosing Weight 123.182, kg, Start date: 10/09/15 10:41:00 CDT, Stop date: 10/09/15 10:41:00 CDTNotes: (Same as:Nitroquick, Nitrostat) "Do Not Crush" Sublingual tablet Ticagrelor 90 mg, 1 tab, Inactive [facility] Route: PO, 2015 Medical Drug form: [place] TAB, Q12H, Dosing Weight 123.182, kg, Start date: 10/09/15 9:00:00 CDT, Duration: 30 day, Stop date: 11/07/15 21:00:00 CDTNotes: (Same as: Brilinta) metoprolol 12.5 mg, 1 No Longer [facility] tartrate tab, Route: Active 2015 Medical PO, Drug form: [place] TAB, BID, Dosing Weight 123.182, kg, Start date: 10/09/15 9:00:00 CDT, Duration: 30 day, Stop date: 11/07/15 17:00:00 CDTNotes: (Same as: Lopressor) 12.5mg=1/4 X 50 mg tab. Acetaminophen 325 1 tab, Route: Inactive [facility] MG / Hydrocodone PO, Drug Form: 2015 Medical Bitartrate 5 MG TAB, Dosing Center Oral Tablet Weight 123.182, kg, ONCE, STAT, Start date: 10/09/15 5:06:00 CDT, Stop date: 10/09/15 5:06:00 CDT Aspirin 81 mg, 1 tab, No Longer [facility] Route: PO, Active 2015 Medical Drug form: [place] ECTAB, Daily, Dosing Weight 123.182, kg, Start date: 10/09/15 2:12:00 CDT, Duration: 30 day, Stop date: 11/07/15 9:00:00 CDTNotes: Do not crush or chew. (Same As: Ecotrin) atorvastatin 80 mg, 1 tab, No Longer [facility] Route: PO, Active 2015 Medical Drug form: [place] TAB, Bedtime, Dosing Weight 123.182, kg, Start date: 10/09/15 2:09:00 CDT, Stop date: 11/05/15 21:00:00 CDTNotes: Same as Lipitor Ondansetron 4 mg, Route: Inactive [facility] IVP, Drug 2015 Medical form: INJ, [place] ONCE, Dosing Weight 123.182, kg, Priority: STAT, Start date: 10/08/15 20:51:00 CDT, Stop date: 10/08/15 20:51:00 CDT Morphine 4 mg, Route: Inactive [facility] IVP, ONCE, 2015 Medical Dosing Weight Center 123.182, kg, Priority: STAT, Start date: 10/08/15 20:51:00 CDT, Stop date: 10/08/15 20:51:00 CDT heparin additive 500 mL, Rate: No Longer [facility] 25,000 unit [12 23.33 ml/hr, Active 2015 Medical unit/kg/hr] + Infuse over: [place] Premix Diluent 21.4 hr, Dextrose 5% 500 mL Route: IV, Dosing Weight 97.21 kg, Total Volume: 500 mL, Start date: 10/08/15 18:16:00 CDT, Duration: 30 day, Stop date: 11/07/15 18:15:00 CDT Heparin - one time 4,000 unit, Inactive [facility] bolus for ACS Route: IV, 2015 Medical Drug form: [place] INJ, ONCE, Dosing Weight 123.182, kg, Priority: STAT, Start date: 10/08/15 18:16:00 CDT, Stop date: 10/08/15 18:16:00 CDT Heparin 60 unit/kg Route: IVP, No Longer [facility] Bolus (Heparin PRN, 5,800 Active 2015 Medical Dosing Weight) unit, 5.8 mL, Center Drug form: INJ, PRN, Heparin Protocol, Start date: 10/08/15 18:16:00 CDT Stop date: 11/07/15 18:15:00 CDT, 30 day Heparin 30 unit/kg Route: IVP, No Longer [facility] Bolus (Heparin PRN, 2,900 Active 2015 Medical Dosing Weight) unit, 2.9 mL, Center Drug form: INJ, PRN, Heparin Protocol, Start date: 10/08/15 18:16:00 CDT Stop date: 11/07/15 18:15:00 CDT, 30 day Ticagrelor 180 mg, 2 tab, Inactive [facility] Route: PO, 2015 Medical Drug form: Center TAB, ONCE, kg, Start date: 10/08/15 17:42:00 CDT, Stop date: 10/08/15 17:42:00 CDTNotes: (Same as: Brilinta) Plavix 300 mg, Route: Inactive [facility] PO, Drug form: 2015 Medical TAB, ONCE, kg, Center Priority: STAT, Start date: 10/08/15 17:36:00 CDT, Stop date: 10/08/15 17:36:00 CDT Allergies, Adverse Reactions, Alerts Substance Category Reaction Severity Reaction Status Date Comments Source type Reported NKDA Assertion Drug Active allergy [place] Immunizations Immunization Date Given Site Status Last Updated Comments Source Results Order Name Results Value Reference Date Interpretation Comments Source Range CARDIAC Troponin-I null 0.00 - 11/11 [facility] 0.40 [facility] CARDIAC Total CK 169 unit/L 12 - 191 11/11 [facility] /2017 [facility] CARDIAC Troponin-I null 0.00 - 11/11 [facility] 0.40 [facility] CARDIAC CK MB Index 0.7 0.0 - 2.5 30 MH [facility] /2017 [facility] CARDIAC CK MB 1.2 ng/mL 0.5 - 3.6 11/11 [facility] /2017 [facility] CARDIAC Troponin-I null 0.00 - 30 [facility] 0.40 [place] CARDIAC Total CK 207 unit/L 12 - 191 11/11 [facility] /2017 [facility] CARDIAC CK MB Index 0.6 0.0 - 2.5 30 [facility] /2017 [facility] CARDIAC CK MB 1.2 ng/mL 0.5 - 3.6 11/11 [facility] /2017 [facility] ELECTROLYT AGAP 19.1 meq/L 10.0 - 11/11 MH ES 20.0 /2017 [facility] ELECTROLYT eGFR 74 11/11 Result Comment: The eGFR is calculated using the CKD-EPI formula. In most young, healthy individuals the eGFR will be >90 mL/ min/1.73m2. The eGFR declines with age. An eGFR of 60-89 may be normal in [place] mL/min/1.7 some populations, particularly the elderly, for whom the CKD-EPI formula has not been extensively validated. Use of the eGFR is not recommended in the following populations: [facility] 3m2 Individuals with unstable creatinine concentrations, including [...] mg/dL 8.5 - 10.5 11/11 MH ES [facility] ELECTROLYT Chloride Lvl 95 meq/L 95 - 109 11/11 MH ES /2017 [facility] ELECTROLYT CO2 25 meq/L 24 - 32 11/11 ES /2017 [facility] ELECTROLYT Sodium Lvl 134 meq/L 135 - 145 11/11 ES /2017 [facility] ELECTROLYT Potassium 5.1 meq/L 3.5 - 5.1 11/11 MH ES Lvl /2017 [facility] ELECTROLYT Creatinine 1.27 mg/dL 0.50 - 11/11 MH ES Lvl 1.40 /2017 [facility] ELECTROLYT Glucose Lvl 272 mg/dL 70 - 99 / MH ES /2018 [facility] ELECTROLYT BUN 12 mg/dL 7 - 22 11/11 MH ES /2017 [facility] HEMATOLOGY Basophils # 0.2 K/CMM 0.0 - 0.2 11/11 [facility] HEMATOLOGY Eosinophils 0.3 K/CMM 0.0 - 0.5 /30 MH # /2018 [facility] HEMATOLOGY Monocytes # 1.2 K/CMM 0.0 - 0.8 11/11 [facility] HEMATOLOGY Lymphocytes 2.7 K/CMM 1.0 - 5.5 11/11 MH # /2018 [facility] HEMATOLOGY Segs-Bands # 11.0 K/CMM 1.5 - 8.1 11/11 [facility] HEMATOLOGY Basophils 1.1 % 0.0 - 1.0 11/11 [facility] HEMATOLOGY Eosinophils 1.7 % 0.0 - 4.0 11/11 [facility] HEMATOLOGY Monocytes 7.7 % 2.0 - 12.0 11/11 [facility] HEMATOLOGY Lymphocytes 17.5 % 20.0 - 11/11 MH 40.0 [facility] HEMATOLOGY Segs 72.0 % 45.0 - 11/11 MH 75.0 [facility] HEMATOLOGY MCV 84.9 fL 80.0 - 11/11 94.0 [facility] HEMATOLOGY MPV 9.3 fL 7.4 - 10.4 11/11 [facility] HEMATOLOGY Platelet 310 K/CMM 133 - 450 11/11 [facility] HEMATOLOGY RDW 13.6 % 11.5 - 11/11 14.5 [facility] HEMATOLOGY MCHC 33.8 g/dL 32.0 - 11/11 36.0 /2017 [facility] HEMATOLOGY MCH 28.7 pg 27.0 - 11/11 MH 31.0 [facility] HEMATOLOGY Hct 45.8 % 42.0 - 11/11 54.0 [facility] HEMATOLOGY Hgb 15.5 g/dL 14.0 - 11/11 18.0 [facility] HEMATOLOGY RBC 5.39 M/CMM 4.70 - 11/11 MH 6.10 [facility] HEMATOLOGY WBC 15.3 K/CMM 3.7 - 10.4 11/11 [facility] URINE AND UA Color Yellow Yellow 08/19 STOOL [place] *NA* (08/19/17 2:08 AM) URINE AND UA Turbidity Clear Clear 08/19 STOOL [place] (08/19/17 2:08 AM) URINE AND UA Protein Negative Negative 08/19 [facility]OL mg/dL mg/dL [place] URINE AND UA Spec Grav 1.017 <=1.030 08/19 STOOL [place] URINE AND UA pH 5.0 5.0 - 8.0 08/19 STOOL [place] URINE AND UA Bili Negative Negative 08/19 STOOL [place] *NA* (08/19/17 2:08 AM) URINE AND UA Blood Negative Negative 08/19 STOOL [place] (08/19/17 2:08 AM) URINE AND UA Ketones Negative Negative 08/19 [facility]OOL mg/dL mg/dL [place] URINE AND UA Nitrite Negative Negative 08/19 STOOL [place] (08/19/17 2:08 AM) URINE AND UA RBC null 0 - 2 08/19 STOOL [place] URINE AND UA Mucus Few /LPF None Seen 08/19 [facility]OL /LPF [place] URINE AND UA Sq Epi Occasional Few /LPF 08/19 [facility]OL /LPF /2017 [place] URINE AND UA WBC 1 /HPF 0 - 5 08/19 STOOL [place] URINE AND UA Leuk Est Negative Negative 08/19 STOOL [place] (08/19/17 2:08 AM) URINE AND UA Glucose 50 mg/dL 08/19 STOOL [place] URINE AND UA <=1.0 0.1 - 1.0 08/19 [facility]OOL Urobilinogen mg/dL /2017 [place] CARDIAC CK MB Index 2.6 0.0 - 2.5 08/19 [facility] [place] CARDIAC CK MB 2.4 ng/mL 0.5 - 3.6 08/19 [facility] [place] CARDIAC Total CK 91 unit/L 12 - 191 08/19 [facility] [place] CARDIAC Troponin-I null 0.00 - 08/19 [facility] 0.40 [place] CHEM PANEL Lipase Lvl 233 unit/L 73 - 393 08/19 [place] CHEM PANEL eGFR 116 08/19 Result Comment: [...] is not recommended in the following populations: [place] 3m2 Individuals with unstable creatinine concentrations, including [...] A/G Ratio 0.8 0.7 - 1.6 08/19 [place] CHEM PANEL Globulin 4.0 g/dL 2.7 - 4.2 08/19 [place] CHEM PANEL B/C Ratio 9 6 - 25 08/19 [place] CHEM PANEL AGAP 8.8 meq/L 10.0 - 08/19 MH 20.0 [place] CHEM PANEL Total 7.3 g/dL 6.4 - 8.4 08/19 [place] CHEM PANEL Calcium Lvl 8.6 mg/dL 8.5 - 10.5 08/19 [place] CHEM PANEL Potassium 3.8 meq/L 3.5 - 5.1 08/19 MH Lvl [place] CHEM PANEL CO2 27 meq/L 24 - 32 08/19 [place] CHEM PANEL Chloride Lvl 102 meq/L 95 - 109 08/19 [place] CHEM PANEL AST 48 unit/L 0 - 37 08/19 [place] CHEM PANEL ALT 64 unit/L 0 - 65 08/19 [place] CHEM PANEL Bili Total 0.4 mg/dL 0.2 - 1.3 08/19 [place] CHEM PANEL Alk Phos 73 unit/L 39 - 136 08/19 [place] CHEM PANEL Albumin Lvl 3.3 g/dL 3.5 - 5.0 08/19 [place] CHEM PANEL Glucose Lvl 236 mg/dL 70 - 99 08/19 [place] CHEM PANEL Creatinine 0.86 mg/dL 0.50 - 03 MH Lvl 1.40 /2017 [place] CHEM PANEL BUN 8 mg/dL 7 - 22 08/19 [place] CHEM PANEL Sodium Lvl 134 meq/L 135 - 145 08/19 [place] HEMATOLOGY Segs 66.5 % 45.0 - 03/ MH 75.0 [place] HEMATOLOGY Lymphocytes 18.0 % 20.0 - 03/ MH 40.0 [place] HEMATOLOGY Monocytes 7.7 % 2.0 - 12.0 08/19 [place] HEMATOLOGY Eosinophils 6.9 % 0.0 - 4.0 08/19 [facility] Basophils 0.9 % 0.0 - 1.0 08/19 [place] HEMATOLOGY Segs-Bands # 10.3 K/CMM 1.5 - 8.1 08/19 [facility] Lymphocytes 2.8 K/CMM 1.0 - 5.5 08/19 MH # [place] HEMATOLOGY Monocytes # 1.2 K/CMM 0.0 - 0.8 08/19 [place] HEMATOLOGY Eosinophils 1.1 K/CMM 0.0 - 0.5 08/19 # [place] HEMATOLOGY Basophils # 0.1 K/CMM 0.0 - 0.2 08/19 [facility] WBC 15.4 K/CMM 3.7 - 10.4 08/19 [facility] RBC 4.90 M/CMM 4.70 - 08/19 MH 6.10 [place] HEMATOLOGY Hgb 14.8 g/dL 14.0 - 08/19 MH 18.0 [place] HEMATOLOGY MCH 30.2 pg 27.0 - 08/19 31.0 [place] HEMATOLOGY Hct 43.4 % 42.0 - 08/19 54.0 [place] HEMATOLOGY MCV 88.6 fL 80.0 - 08/19 94.0 [place] HEMATOLOGY MPV 9.2 fL 7.4 - 10.4 08/19 [facility] Platelet 261 K/CMM 133 - 450 08/19 [facility] RDW 13.4 % 11.5 - 08/19 14.5 [facility] MCHC 34.1 g/dL 32.0 - 08/19 36.0 [place] Chest Chest 1view Clinical Indication: - chest pain 08/19 - [facility] 1view DX DX /2017 - [place] Comparison: 07/08/2017 Read by: Loco Parr DO [...] 1view EXAM: XR CHEST 1 VIEW 07/08 [facility] [place] 1view DX DX /2017 [facility] DATE: 07/08/2017 Read by: Mariam Larry MD [...] 1view EXAM: XR CHEST 1 VIEW 07/07 [facility] [place] 1view DX DX [facility] DATE: 07/07/2017 3:00 AM RN PATIENT SERVICES Read by: Anne Rao MD Dictated Date/time: [...] VIEW 07/05 - [place] 1view DX DX [facility] DATE: 07/05/2017 9:05 PM RN PATIENT SERVICES Read by: Dewey Thomas MD Dictated Date/time: [...] Phosphorus 3.8 mg/dL 2.5 - 4.5 03/31 [facility] CHEM PANEL Magnesium 2.3 mg/dL 1.8 - 2.4 03/31 [facility] ELECTROLYT AGAP 13.4 meq/L 10.0 - 03/31 [facility] ES 20.0 [facility] ELECTROLYT eGFR 81 03/31 Result Comment: The eGFR is calculated using the CKD-EPI formula. In most young, healthy individuals the eGFR will be >90 mL/ min/1.73m2. The eGFR declines with age. An eGFR of 60-89 may be normal in [facility] mL/min/1.7 /2015 some populations, particularly the elderly, for whom the CKD-EPI formula has not been extensively validated. Use of the eGFR is not recommended in the following populations: [address] Individuals with unstable creatinine concentrations, including [...] Lvl 104 meq/L 95 - 109 03/31 [place] ES [facility] ELECTROLYT CO2 26 meq/L 24 - 32 03/31 [facility] ES [facility] ELECTROLYT Calcium Lvl 8.8 mg/dL 8.5 - 10.5 03/31 [facility] ES [facility] ELECTROLYT Potassium 4.4 meq/L 3.5 - 5.1 03/31 [facility] Lv [facility] ELECTROLYT Creatinine 1.20 mg/dL 0.50 - 03/31 [facility] Lvl 1.40 [facility] ELECTROLYT Sodium Lvl 139 meq/L 135 - 145 03/31 MH [facility] ELECTROLYT BUN 11 mg/dL 7 - 22 03/31 [facility] ELECTROLYT Glucose Lvl 98 mg/dL 70 - 99 03/31 [facility] HEMATOLOGY Basophils # 0.1 K/CMM 0.0 - 0.2 03/31 [facility] HEMATOLOGY Segs-Bands # 8.3 K/CMM 1.5 - 8.1 03/31 [facility] HEMATOLOGY Monocytes # 1.4 K/CMM 0.0 - 0.8 03/31 [facility] HEMATOLOGY Lymphocytes 1.9 K/CMM 1.0 - 5.5 03/31 [facility] HEMATOLOGY Segs 70.7 % 45.0 - 03/31 [place] 75.0 [facility] HEMATOLOGY Eosinophils 0.1 K/CMM 0.0 - 0.5 03/31 [facility] HEMATOLOGY Lymphocytes 15.7 % 20.0 - 03/31 [place] 40.0 [facility] HEMATOLOGY Basophils 0.4 % 0.0 - 1.0 03/31 [facility] HEMATOLOGY Eosinophils 0.9 % 0.0 - 4.0 03/31 [facility] HEMATOLOGY Monocytes 12.3 % 2.0 - 12.0 03/31 [facility] HEMATOLOGY Hgb 12.8 g/dL 14.0 - 03/31 [place] 18.0 [facility] HEMATOLOGY RBC 4.12 M/CMM 4.70 - 03/31 [place] 6. [facility] HEMATOLOGY MCHC 33.9 g/dL 32.0 - 03/31 [place] 36.0 [facility] HEMATOLOGY MCV 91.4 fL 80.0 - 03/31 [place] 94.0 [facility] HEMATOLOGY MCH 31.0 pg 27.0 - 03/31 [place] 31.0 [facility] HEMATOLOGY Hct 37.7 % 42.0 - 03/31 [place] 54.0 [facility] HEMATOLOGY RDW 15.8 % 11.5 - 03/31 [place] 14. [facility] HEMATOLOGY Platelet 181 K/CMM 133 - 450 03/31 [facility] HEMATOLOGY MPV 9.3 fL 7.4 - 10.4 03/31 [facility] HEMATOLOGY WBC 11.8 K/CMM 3.7 - 10.4 03/31 [place] [facility] PARATHYROI Ca Norm WB 1.12 1.05 - 03/31 [place] D PROFILE mMol/L 1. [facility] PARATHYROI Ca Ion WB 1.19 1.05 - 03/31 [place] D PROFILE mMol/L 1. [facility] DRUG U Cocaine Negative Negative 03/30 [place] SCREEN Medical *NA* Center (03/30/16 2:22 PM) DRUG U Propoxyph Negative Negative 03/[address] [place] [address] [facility] *NA* Center (03/30/16 2:22 PM) DRUG U Methadone Negative Negative 03/30 [place] SCREEN Medical *NA* [place] (03/30/16 2:22 PM) DRUG U Cannab Scr Negative Negative 03/[address] [place] [facility] *NA* [place] (03/30/16 2:22 PM) DRUG U Phencyc Negative Negative 03/30 [place] [facility]EN [facility] *NA* Center (03/30/16 2:22 PM) DRUG U Opiate [facility] Positive Negative [facility]30 [place] [facility]16 2:22 PM[facility] DRUG UDS Note See Note 03/[address] [place] [address] [facility] (03/30/16 2:22 PM) [place] DRUG U Benzodia Negative Negative 03/[address] [place] [address] [facility] *NA* [place] (03/30/16 2:22 PM) DRUG U Venita Scr Negative Negative 03/[address] [place] [facility] *NA* Center (03/30/16 2:22 PM) DRUG U Amph Scr Negative Negative 03/[address] [place] [facility] *NA* Center (03/30/16 2:22 PM) URINE AND UA Nitrite Negative Negative 03/[address] [place] [address] [facility] (03/30/16 2:22 PM) Center URINE AND UA 2.0 mg/dL 0.1 - 1.0 03/30 [facility] STOOL Urobilinogen [facility] URINE AND UA WBC 2 /HPF 0 - 5 03/30 [place] ST[facility] URINE AND UA Leuk Est Negative Negative 03/[address] [place] [address] [facility] (03/30/16 2:22 PM) Center URINE AND UA Blood Negative Negative 03/[address] [facility] (03/30/16 2:22 PM) [place] URINE AND UA Bacteria Occasional None Seen 03/30 [facility] /HPF /HPF /2015 [facility] URINE AND UA RBC null 0 - 2 03/30 [facility] URINE AND UA Ketones Negative Negative 03/30 [facility] mg/dL mg/dL [facility] URINE AND UA Glucose Negative Negative 03/30 [facility] mg/dL mg/dL [facility] URINE AND UA Protein 30 mg/dL Negative 03/30 [facility] mg/dL [facility] URINE AND UA Bili Negative Negative 03/30 [facility] [place] (03/30/16 2:22 PM) URINE AND UA Mucus Many /LPF None Seen 03/30 [facility] /LPF [facility] URINE AND UA Sq Epi None Seen 03/30 [facility] URINE AND UA Color Yellow Yellow 03/30 [facility]* [place] (03/30/16 2:22 PM) URINE AND UA Spec Grav 1.021 <=1.030 03/30 [facility] URINE AND UA Turbidity Clear Clear 03/[address] [facility] (03/30/16 2:22 PM) [place] URINE AND UA pH 6.0 5.0 - 8.0 03/30 [facility] Chest Chest EXAM: CTA CHEST WITH CONTRAST 03/30 - [facility] Pulmonary Pulmonary - Medical Embolism Embolism CTA This report was dictated by a [employer] Events Fundraiser/Fellow. I have personally reviewed the images as [...] None. CARDIAC Troponin-T <0.010 0.000 - 03/30 [facility] ENZYMES ng/mL 0. [facility] CARDIAC Total CK 91 unit/L - 03/30 [place] [facility] /2016 [facility] CARDIAC Troponin-I 0.05 ng/mL 0.00 - 03/30 [facility] ENZYMES 0. [facility] CARDIAC CK MB Index 1.1 0.0 - 2.5 03/30 [place] [facility] /2015 [facility] CARDIAC CK MB 1.0 ng/mL 0.5 - 3.6 03/30 [place] [facility] /2016 [facility] CARDIAC CK MB 0.8 ng/mL 0.5 - 3.6 03/30 [place] [facility] /2016 [facility] CARDIAC CK MB Index 0.8 0.0 - 2.5 03/30 [place] [facility] /2016 [facility] CARDIAC Troponin-T <0.010 0.000 - 03/30 [place] [facility] ng/mL 0.100 [facility] CARDIAC Total CK 106 unit/L 12 - 191 03/30 [place] [facility] /2016 [facility] CARDIAC Troponin-I 0.06 ng/mL 0.00 - 03/30 [facility] ENZYMES 0.40 [facility] LIPIDS VLDL 19 03/30 [place] /2015 [facility] LIPIDS Chol 149 mg/dL <=199 03/30 [place] mg/dL /2015 Medical [place] LIPIDS Trig 96 mg/dL <=149 03/30 [place] mg/dL /2015 [facility] LIPIDS HDL 45 mg/dL >=61 mg/dL 03/30 [facility] LIPIDS LDL 85 mg/dL <=99 mg/dL 03/30 [facility] (Calculated) Medical [place] LIPIDS CHD Risk 3.31 4.00 - 03/30 [place] 7.30 /2015 [facility] SPECIAL Hgb A1C 4.8 % <=5.6 % 03/30 [facility] CHEMISTRY /2015 [facility] HEMATOLOGY PTT 26.9 s 22.9 - 03/30 [place] 35.8 /2015 [facility] HEMATOLOGY PT 13.3 s 12.0 - 03/30 [place] 14.7 [facility] HEMATOLOGY INR 0.99 0.85 - 03/30 [place] 1.17 /2015 [facility] HEMATOLOGY MCHC 34.2 g/dL 32.0 - 03/30 [place] 36.0 [facility] HEMATOLOGY Hgb 13.1 g/dL 14.0 - 03/30 [place] 18.0 /2016 [facility] HEMATOLOGY RBC 4.27 M/CMM 4.70 - 03/30 [place] 6.10 [facility] HEMATOLOGY MPV 8.9 fL 7.4 - 10.4 03/30 [facility] HEMATOLOGY Platelet 205 K/CMM 133 - 450 03/30 [facility] HEMATOLOGY MCH 30.8 pg 27.0 - 03/30 [place] 31.0 /2016 [facility] HEMATOLOGY RDW 15.9 % 11.5 - 03/30 [place] 14.5 2016 [facility] HEMATOLOGY Hct 38.4 % 42.0 - 03/30 [place] 54.0 /2016 [facility] HEMATOLOGY WBC 15.2 K/CMM 3.7 - 10.4 03/30 [facility] HEMATOLOGY MCV 90.0 fL 80.0 - 03/30 [place] 94.0 /2016 [facility] HEMATOLOGY Lymphocytes 16.1 % 20.0 - 03/30 [place] 40.0 /2016 [facility] HEMATOLOGY Monocytes # 2.0 K/CMM 0.0 - 0.8 03/30 [facility] HEMATOLOGY Eosinophils 0.2 K/CMM 0.0 - 0.5 03/30 [place] # /2015 [facility] HEMATOLOGY Segs 69.4 % 45.0 - 03/30 [place] 75.0 [facility] HEMATOLOGY Eosinophils 1.1 % 0.0 - 4.0 03/30 [facility] HEMATOLOGY Monocytes 13.1 % 2.0 - 12.0 03/30 [facility] HEMATOLOGY Segs-Bands # 10.5 K/CMM 1.5 - 8.1 03/30 [facility] HEMATOLOGY Basophils 0.3 % 0.0 - 1.0 03/30 [facility] HEMATOLOGY Lymphocytes 2.4 K/CMM 1.0 - 5.5 03/30 [facility] # [facility] CHEM PANEL Magnesium 1.8 mg/dL 1.8 - 2.4 03/30 [facility] Lvl [facility] CHEM PANEL Phosphorus 4.3 mg/dL 2.5 - 4.5 03/30 2015 [facility] CHEM PANEL Globulin 3.5 g/dL 2.7 - 4.2 03/30 [facility] CHEM PANEL A/G Ratio 1.0 0.7 - 1.6 03/30 [facility] CHEM PANEL Bili Total 0.9 mg/dL 0.2 - 1.3 03/30 [facility] CHEM PANEL AGAP 15.9 meq/L 10.0 - 03/30 [facility] 20.0 [facility] CHEM PANEL B/C Ratio 8 6 - 25 03/[address] CHEM PANEL eGFR 80 03/30 Result Comment: The eGFR is calculated using the CKD-EPI formula. In most young, healthy individuals the eGFR will be >90 mL/ min/1.73m2. The eGFR declines with age. An eGFR of 60-89 may be normal in [facility] mL/min/1.7 some populations, particularly the elderly, for whom the CKD-EPI formula has not been extensively validated. Use of the eGFR is not recommended in the following populations: [address] Individuals with unstable creatinine concentrations, including [...] meq/L 24 - 32 03/30 [place] /2016 [facility] CHEM PANEL Calcium Lvl 8.3 mg/dL 8.5 - 10.5 03/30 [place] /2016 [facility] CHEM PANEL Total 7.0 g/dL 6.4 - 8.4 03/30 [facility] Protein /2016 [facility] CHEM PANEL AST 23 unit/L 0 - 37 03/30 [place] /2015 [facility] CHEM PANEL Alk Phos 67 unit/L 39 - 136 03/30 [place] /2015 [facility] CHEM PANEL Albumin Lvl 3.5 g/dL 3.5 - 5.0 03/30 [place] /2015 [facility] CHEM PANEL ALT 45 unit/L 0 - 65 03/30 [place] /2015 [facility] CHEM PANEL BUN 10 mg/dL 7 - 22 03/30 /2015 [facility] CHEM PANEL Creatinine 1.21 mg/dL 0.50 - 03/30 [place] Lvl 1.40 [facility] CHEM PANEL Glucose Lvl 90 mg/dL 70 - 99 03/30 [place] /2015 [facility] CHEM PANEL Chloride Lvl 103 meq/L 95 - 109 03/30 [place] /2016 [facility] CHEM PANEL Sodium Lvl 138 meq/L 135 - 145 03/30 [place] /2016 [facility] CHEM PANEL Potassium 3.9 meq/L 3.5 - 5.1 03/30 [place] Lvl /2015 [facility] CARDIAC CK MB Index 0.5 0.0 - 2.5 03/30 [place] ENZYMES /2016 [facility] CARDIAC Troponin-I 0.07 ng/mL 0.00 - 03/30 [facility] ENZYMES 0.40 [facility] CARDIAC CK MB 0.7 ng/mL 0.5 - 3.6 03/30 [place] ENZYMES /2016 [facility] CARDIAC Total CK 135 unit/L 12 - 191 03/30 [facility] ENZYMES /2016 [facility] CHEM PANEL Albumin Lvl 4.0 g/dL 3.5 - 5.0 03/30 [place] /2016 [facility] CHEM PANEL Total 7.7 g/dL 6.4 - 8.4 03/30 [facility] Protein /2016 [facility] CHEM PANEL ALT 52 unit/L 0 - 65 03/30 [place] /2016 [facility] CHEM PANEL AST 28 unit/L 0 - 37 03/30 [place] /2016 [facility] CHEM PANEL Alk Phos 72 unit/L 39 - 136 03/30 [facility] CHEM PANEL Bili Total 1.0 mg/dL 0.2 - 1.3 03/30 [facility] CHEM PANEL A/G Ratio 1.1 0.7 - 1.6 03/30 [facility] CHEM PANEL Globulin 3.7 g/dL 2.7 - 4.2 03/30 [facility] CHEM PANEL eGFR 92 03/30 Result Comment: The eGFR is calculated using the CKD-EPI formula. In most young, healthy individuals the eGFR will be >90 mL/ min/1.73m2. The eGFR declines with age. An eGFR of 60-89 may be normal in [facility] mL/min/1.7 /2015 some populations, particularly the elderly, for whom the CKD-EPI formula has not been extensively validated. Use of the eGFR is not recommended in the following populations: [address] Individuals with unstable creatinine concentrations, including [...] PANEL AGAP 14.0 meq/L 10.0 - 03/30 [facility] 20.0 [facility] CHEM PANEL Calcium Lvl 8.7 mg/dL 8.5 - 10.5 03/30 [facility] CHEM PANEL CO2 24 meq/L 24 - 32 03/30 [facility] CHEM PANEL Potassium 4.0 meq/L 3.5 - 5.1 03/30 [facility] l [facility] CHEM PANEL Chloride Lvl 101 meq/L 95 - 109 03/30 [facility] CHEM PANEL Sodium Lvl 135 meq/L 135 - 145 03/30 [facility] CHEM PANEL Glucose Lvl 96 mg/dL 70 - 99 03/30 [facility] CHEM PANEL BUN 9 mg/dL 7 - 22 03/30 [facility] [facility] CHEM PANEL Creatinine 1.08 mg/dL 0.50 - 03/30 [facility] Lvl 1.40 [facility] CHEM PANEL B/C Ratio 8 6 - 25 03/30 [facility] HEMATOLOGY Segs-Bands # 12.0 K/CMM 1.5 - 8.1 03/30 /2015 [facility] HEMATOLOGY Basophils 0.5 % 0.0 - 1.0 03/30 [facility] HEMATOLOGY Monocytes # 2.4 K/CMM 0.0 - 0.8 03/30 [facility] HEMATOLOGY Lymphocytes 2.3 K/CMM 1.0 - 5.5 03/30 [place] # /2015 [facility] HEMATOLOGY Basophils # 0.1 K/CMM 0.0 - 0.2 03/30 [facility] HEMATOLOGY Eosinophils 0.1 K/CMM 0.0 - 0.5 03/30 [place] # /2015 [facility] HEMATOLOGY Lymphocytes 13.6 % 20.0 - 03/30 [place] 40.0 [facility] HEMATOLOGY Eosinophils 0.8 % 0.0 - 4.0 03/30 /2015 [facility] HEMATOLOGY Monocytes 14.0 % 2.0 - 12.0 03/30 /2015 [facility] HEMATOLOGY Segs 71.1 % 45.0 - 03/30 [place] 75.0 [facility] HEMATOLOGY RDW 15.6 % 11.5 - 03/30 [place] 14.5 [facility] HEMATOLOGY Platelet 232 K/CMM 133 - 450 03/30 /2015 [facility] HEMATOLOGY MPV 8.9 fL 7.4 - 10.4 03/30 [facility] HEMATOLOGY MCH 30.8 pg 27.0 - 03/30 [place] 31.0 [facility] HEMATOLOGY MCHC 34.3 g/dL 32.0 - 03/30 [place] 36.0 [facility] HEMATOLOGY Hgb 14.2 g/dL 14.0 - 03/30 [place] 18.0 2016 [facility] HEMATOLOGY Hct 41.3 % 42.0 - 03/30 [place] 54.0 2016 [facility] HEMATOLOGY MCV 89.8 fL 80.0 - 03/30 [place] 94.0 2016 [facility] HEMATOLOGY WBC 16.9 K/CMM 3.7 - 10.4 03/30 /2015 [facility] HEMATOLOGY RBC 4.60 M/CMM 4.70 - 03/30 [place] 6.10 [facility] Chest Chest 1view EXAM: XR CHEST 1 VIEW 03/29 - [facility] 1view DX - [facility] This report was dictated by a Special Events Fundraiser/Fellow. I have personally reviewed the images as [...] Phosphorus 4.6 mg/dL 2.5 - 4.5 10/[address] CHEM PANEL Magnesium 1.8 mg/dL 1.8 - 2.4 10/21 [facility] 2015 [facility] CHEM PANEL Bili Direct 0.1 mg/dL 0.0 - 0.3 10/[address] CHEM PANEL Albumin Lvl 3.3 g/dL 3.5 - 5.0 10/[address] CHEM PANEL ALT 98 unit/L 0 - 65 10/[address] CHEM PANEL Bili Total 0.4 mg/dL 0.2 - 1.3 10/[address] CHEM PANEL AST 40 unit/L 0 - 37 10/[address] CHEM PANEL Alk Phos 75 unit/L 39 - 136 10/[address] CHEM PANEL Total 7.3 g/dL 6.4 - 8.4 10/21 [facility] Protein [facility] CHEM PANEL Globulin 4.0 g/dL 2.0 - 4.0 10/[address] CHEM PANEL A/G Ratio 0.8 0.7 - 1.6 10/[address] CHEM PANEL Bili 0.3 mg/dL 0.0 - 1.0 10/21 [facility]2015 [facility] CHEM PANEL eGFR 99 10/21 Result Comment: The eGFR is calculated using the CKD-EPI formula. In most young, healthy individuals the eGFR will be >90 mL/ min/1.73m2. The eGFR declines with age. An eGFR of 60-89 may be normal in [facility] mL/min/1.7 /2015 some populations, particularly the elderly, for whom the CKD-EPI formula has not been extensively validated. Use of the eGFR is not recommended in the following populations: [address] Individuals with unstable creatinine concentrations, including [...] BUN 12 mg/dL 7 - 22 10/21 [facility] CHEM PANEL Creatinine 1.01 mg/dL 0.50 - 10/21 [facility] Lvl 1.40 [facility] CHEM PANEL Sodium Lvl 136 meq/L 135 - 145 10/21 [facility] CHEM PANEL Potassium 3.7 meq/L 3.5 - 5.1 10/21 [facility] Lvl [facility] CHEM PANEL Chloride Lvl 105 meq/L 95 - 109 05/ [facility] CHEM PANEL Glucose Lvl 120 mg/dL 70 - 99 10/21 [facility] CHEM PANEL CO2 20 meq/L 24 - 32 10/21 2015 [facility] CHEM PANEL Calcium Lvl 9.1 mg/dL 8.5 - 10.5 10/21 [facility] CHEM PANEL AGAP 14.7 meq/L 10.0 - 05 20.0 [facility] HEMATOLOGY Lymphocytes 2.6 K/CMM 1.0 - 5.5 05/ [facility] # 2016 [facility] HEMATOLOGY Basophils # 0.2 K/CMM 0.0 - 0.2 05/ [facility] HEMATOLOGY Eosinophils 0.5 K/CMM 0.0 - 0.5 05 [facility] HEMATOLOGY Lymphocytes 14.4 % 20.0 - 05 [place] 40.0 [facility] HEMATOLOGY Monocytes # 1.4 K/CMM 0.0 - 0.8 / /2015 [facility] HEMATOLOGY Segs 74.1 % 45.0 - 05/ [place] 75.0 [facility] HEMATOLOGY Basophils 0.8 % 0.0 - 1.0 10/21 [facility] HEMATOLOGY Segs-Bands # 13.3 K/CMM 1.5 - 8.1 10/21 [facility] HEMATOLOGY Monocytes 8.0 % 2.0 - 12.0 10/21 [facility] HEMATOLOGY Eosinophils 2.7 % 0.0 - 4.0 10/21 [facility] HEMATOLOGY Hct 30.3 % 42.0 - 10/21 [place] 54.0 [facility] HEMATOLOGY Hgb 10.5 g/dL 14.0 - 10/21 [place] 18.0 [facility] HEMATOLOGY WBC 18.0 K/CMM 3.7 - 10.4 10/21 [facility] HEMATOLOGY RBC 3.34 M/CMM 4.70 - 10/21 6.10 [facility] HEMATOLOGY MCV 90.6 fL 80.0 - 10/21 [facility] 94.0 /2015 [facility] HEMATOLOGY RDW 15.2 % 11.5 - 10/21 14.5 [facility] HEMATOLOGY MCH 31.5 pg 27.0 - 10/21 31.0 [facility] HEMATOLOGY MCHC 34.7 g/dL 32.0 - 10/21 36.0 [facility] HEMATOLOGY Platelet 304 K/CMM 133 - 450 10/21 [facility] HEMATOLOGY MPV 7.8 fL 7.4 - 10.4 10/21 [facility] HEMATOLOGY PTT 29.8 s 22.9 - 10/21 [place] 35.8 /2015 [facility] HEMATOLOGY PT 13.8 s 12.0 - 10/21 14.7 [facility] HEMATOLOGY INR 1.03 0.85 - 10/21 [place] 1.17 [facility] PARATHYROI Ca Norm WB 1.15 1.05 - 10/21 [facility] D PROFILE mMol/L 1. [facility] PARATHYROI Ca Ion WB 1.16 1. - 10/21 [facility] D PROFILE mMol/L 1. [facility] Chest Chest 1view EXAM: XR CHEST 1 VIEW 10/21 - [facility] 1view DX DX /2015 [facility] DATE: 10/22/2015 3:00 AM CDT Read by: [...] Lvl 101 mg/dL 70 - 99 10/20 [facility] CHEM PANEL eGFR 122 10/20 Result Comment: The eGFR is calculated using the CKD-EPI formula. In most young, healthy individuals the eGFR will be >90 mL/ min/1.73m2. The eGFR declines with age. An eGFR of 60-89 may be normal in [facility] mL/min/1. some populations, particularly the elderly, for whom the CKD-EPI formula has not been extensively validated. Use of the eGFR is not recommended in the following populations: [address] Individuals with unstable creatinine concentrations, including [...] Lvl 9.0 mg/dL 8.5 - 10.5 10/20 [facility] CHEM PANEL AGAP 10.8 meq/L 10.0 - 10/20 [facility] 20.0 [facility] CHEM PANEL Chloride Lvl 105 meq/L 95 - 109 10/20 [facility] CHEM PANEL Sodium Lvl 137 meq/L 135 - 145 10/20 [facility] CHEM PANEL CO2 25 meq/L 24 - 32 10/20 [facility]2015 [facility] CHEM PANEL Potassium 3.8 meq/L 3.5 - 5.1 10/20 [facility] CHEM PANEL Creatinine 0.76 mg/dL 0.50 - 10/20 [facility] 1.40 [facility] CHEM PANEL BUN 11 mg/dL 7 - 22 10/20 [facility] CHEM PANEL Phosphorus 4.2 mg/dL 2.5 - 4.5 / /2015 [facility] CHEM PANEL Magnesium 2.0 mg/dL 1.8 - 2.4 10/20 [facility] Lvl /2015 [facility] CHEM PANEL Globulin 4.0 g/dL 2.0 - 4.0 / [facility] CHEM PANEL AST 45 unit/L 0 - 37 05/ [facility] CHEM PANEL A/G Ratio 0.8 0.7 - 1.6 / [facility] CHEM PANEL Albumin Lvl 3.2 g/dL 3.5 - 5.0 / [facility] CHEM PANEL Alk Phos 72 unit/L 39 - 136 10/20 [facility] CHEM PANEL ALT 82 unit/L 0 - 65 10/20 [facility] CHEM PANEL Total 7.2 g/dL 6.4 - 8.4 10/20 [facility] Protein [facility] CHEM PANEL Bili Total 0.4 mg/dL 0.2 - 1.3 10/20 [facility] CHEM PANEL Bili Direct 0.1 mg/dL 0.0 - 0.3 10/20 [facility] CHEM PANEL Bili 0.3 mg/dL 0.0 - 1.0 10/20 [facility] Indirect [facility] HEMATOLOGY Hgb 9.8 g/dL 14.0 - 10/20 18.0 [facility] HEMATOLOGY Hct 28.2 % 42.0 - 10/20 [place] 54.0 2016 [facility] HEMATOLOGY RBC 3.09 M/CMM 4.70 - 10/20 [place] 6.10 2016 [facility] HEMATOLOGY MCV 91.1 fL 80.0 - 10/20 [place] 94.0 /2015 [facility] HEMATOLOGY MCHC 34.6 g/dL 32.0 - 05 [place] 36.0 /2016 [facility] HEMATOLOGY MCH 31.5 pg 27.0 - 10/20 [place] 31.0 2016 [facility] HEMATOLOGY Platelet 265 K/CMM 133 - 450 10/20 /2015 [facility] HEMATOLOGY RDW 15.6 % 11.5 - 05 [place] 14.5 /2015 [facility] HEMATOLOGY MPV 8.1 fL 7.4 - 10.4 10/20 [facility] HEMATOLOGY WBC 15.2 K/CMM 3.7 - 10.4 05 [facility] HEMATOLOGY INR 1.03 0.85 - 10/20 [place] 1.17 [facility] HEMATOLOGY PTT 30.3 s 22.9 - 10/20 [place] 35.8 /2015 [facility] HEMATOLOGY PT 13.8 s 12.0 - 10/20 [place] 14.7 /2015 [facility] HEMATOLOGY Eosinophils 0.4 K/CMM 0.0 - 0.5 10/20 [facility] /2015 [facility] HEMATOLOGY Basophils # 0.1 K/CMM 0.0 - 0.2 05 [facility] HEMATOLOGY Segs-Bands # 10.7 K/CMM 1.5 - 8.1 10/20 [facility] HEMATOLOGY Lymphocytes 2.2 K/CMM 1.0 - 5.5 10/20 [facility] /2015 [facility] HEMATOLOGY Monocytes # 1.9 K/CMM 0.0 - 0.8 10/20 [facility] HEMATOLOGY Lymphocytes 14.3 % 20.0 - 10/20 [facility] 40.0 [facility] HEMATOLOGY Monocytes 12.5 % 2.0 - 12.0 10/20 [facility] HEMATOLOGY Segs 70.0 % 45.0 - 10/20 [facility] 75.0 [facility] HEMATOLOGY Basophils 0.5 % 0.0 - 1.0 10/20 [facility] HEMATOLOGY Eosinophils 2.7 % 0.0 - 4.0 10/[address] PARATHYROI Ca Norm WB 1.16 1.05 - 10/20 [facility] D PROFILE mMol/L 1. [facility] PARATHYROI Ca Ion WB 1.16 1.05 - 10/20 [facility] D PROFILE mMol/L 1. [facility] Chest Chest 1view EXAM: XR CHEST 1 VIEW 10/20 - [facility] 1view DX [facility] DATE: 10/21/2015 3:00 AM CDT Read by: Anne Rao MD Dictated Date/time: 10/21/15 15:40 Electronically Signed by: Anne Rao MD 10/21/15 16:09 FINAL REPORT INDICATION: Abnormal chest sounds. FINDINGS: Comparison is made to October 19. The cardiomediastinal silhouette and postoperative changes are stable. Subsegmental atelectasis is seen in the bilateral lower lobes, greater on the right. No definite pleural effusions are identified. IMPRESSION: No change. MOLECULAR C difficile Negative Negative 10/19 [facility] DIAGNOSTIC [facility] (10/20/15 4:58 PM) [place] URINE AND UA <=1.0 0.1 - 1.0 10/19 [facility] Urobilinogen mg/dL /2015 [facility] URINE AND UA Sq Epi None Seen 10/19 [facility] STOOL /2015 [facility] URINE AND UA RBC 1 /HPF 0 - 2 10/19 [facility] /2015 [facility] URINE AND UA WBC null 0 - 5 10/19 [facility]2015 [facility] URINE AND UA Mucus Few /LPF None Seen 10/19 [facility] /LPF /2015 [facility] URINE AND UA Turbidity Clear Clear 10/[address] [facility] (10/20/15 1:35 PM) [place] URINE AND UA Color Yellow Yellow 10/[address] [facility] *NA* [place] (10/20/15 1:35 PM) URINE AND UA Leuk Est Negative Negative 10/[address] [facility] (10/20/15 1:35 PM) [place] URINE AND UA Blood Negative Negative 10/[address] [facility] (10/20/15 1:35 PM) [place] URINE AND UA Bili Negative Negative 10/[address] [facility] *NA* [place] (10/20/15 1:35 PM) URINE AND UA Nitrite Negative Negative 10/[address] [facility] (10/20/15 1:35 PM) [place] URINE AND UA Protein Negative Negative 10/19 [facility] mg/dL mg/dL /2015 [facility] URINE AND UA Glucose Negative Negative 10/19 [facility] mg/dL mg/dL /2015 [facility] URINE AND UA Ketones Negative Negative 10/19 [facility] mg/dL mg/dL /2015 [facility] URINE AND UA Spec Grav 1.012 <=1.030 10/19 [facility]2015 [facility] URINE AND UA pH 7.5 5.0 - 8.0 10/19 [facility]2015 [facility] Chest Chest 1view EXAM: XR CHEST 1 VIEW 10/19 - [facility] 1view DX DX /2015 - [facility] DATE: 10/20/2015 5:44 PM CDT Read by: [...] EXAM: XR CHEST 1 VIEW 10/19 - [facility] 1view DX /2015 - [facility] DATE: 10/20/2015 5:30 PM CDT Read by: [...] A/G Ratio 0.7 0.7 - 1.6 10/[address] CHEM PANEL Bili 0.6 mg/dL 0.0 - 1.0 10/19 [facility] CHEM PANEL Globulin 4.5 g/dL 2.0 - 4.0 10/[address] CHEM PANEL AST 52 unit/L 0 - 37 10/[address] CHEM PANEL ALT 66 unit/L 0 - 65 10/[address] CHEM PANEL Albumin Lvl 3.1 g/dL 3.5 - 5.0 10/[address] CHEM PANEL Total 7.6 g/dL 6.4 - 8.4 10/19 [facility] 2015 [facility] CHEM PANEL Bili Direct 0.2 mg/dL 0.0 - 0.3 10/[address] CHEM PANEL Bili Total 0.8 mg/dL 0.2 - 1.3 10/19 [facility] CHEM PANEL Alk Phos 87 unit/L 39 - 136 10/19 [facility] CHEM PANEL Phosphorus 3.5 mg/dL 2.5 - 4.5 10/19 [facility] CHEM PANEL Magnesium 1.5 mg/dL 1.8 - 2.4 10/19 [facility] ELECTROLYT Potassium 3.8 meq/L 3.5 - 5.1 10/19 [facility] ELECTROLYT AGAP 16.9 meq/L 10.0 - 10/19 [facility] . [facility] ELECTROLYT eGFR 121 10/19 Result Comment: The eGFR is calculated using the CKD-EPI formula. In most young, healthy individuals the eGFR will be >90 mL/ min/1.73m2. The eGFR declines with age. An eGFR of 60-89 may be normal in [facility] mL/min/1. some populations, particularly the elderly, for whom the CKD-EPI formula has not been extensively validated. Use of the eGFR is not recommended in the following populations: [address] Individuals with unstable creatinine concentrations, including [...] CO2 21 meq/L 24 - 32 10/19 [facility] ELECTROLYT Calcium Lvl 8.7 mg/dL 8.5 - 10.5 10/19 [facility] ELECTROLYT Creatinine 0.78 mg/dL 0.50 - 10/19 [facility] Lvl 1.40 [facility] ELECTROLYT Glucose Lvl 61 mg/dL 70 - 99 10/19 [facility] ELECTROLYT BUN 11 mg/dL 7 - 22 10/19 [facility] ELECTROLYT Chloride Lvl 101 meq/L 95 - 109 10/19 [facility] ELECTROLYT Potassium 3.9 meq/L 3.5 - 5.1 10/19 [facility] ELECTROLYT Sodium Lvl 135 meq/L 135 - 145 10/19 [facility] /2015 [facility] [place] HEMATOLOGY Basophils # 0.1 K/CMM 0.0 - 0.2 10/19 [facility] HEMATOLOGY Monocytes 9.8 % 2.0 - 12.0 10/19 [facility] HEMATOLOGY Lymphocytes 1.7 K/CMM 1.0 - 5.5 05 # [facility] HEMATOLOGY Segs-Bands # 13.2 K/CMM 1.5 - 8.1 10/19 [facility] HEMATOLOGY Eosinophils 1.9 % 0.0 - 4.0 05 [facility] HEMATOLOGY Lymphocytes 10.1 % 20.0 - 05 [place] 40.0 [facility] HEMATOLOGY Basophils 0.4 % 0.0 - 1.0 10/19 [facility] HEMATOLOGY Monocytes # 1.6 K/CMM 0.0 - 0.8 10/19 [facility] HEMATOLOGY Eosinophils 0.3 K/CMM 0.0 - 0.5 10/19 [facility] HEMATOLOGY Segs 77.8 % 45.0 - 05 75.0 /2015 [facility] HEMATOLOGY INR 1.02 0.85 - 10/19 [place] 1.17 /2015 [facility] HEMATOLOGY PTT 29.6 s 22.9 - 05 [place] 35.8 /2015 [facility] HEMATOLOGY PT 13.7 s 12.0 - 05 [place] 14.7 [facility] HEMATOLOGY RBC 3.30 M/CMM 4.70 - 05 [place] 6.10 [facility] HEMATOLOGY WBC 16.9 K/CMM 3.7 - 10.4 10/19 [facility] HEMATOLOGY MPV 8.6 fL 7.4 - 10.4 10/19 [facility] HEMATOLOGY Hgb 10.4 g/dL 14.0 - 05 [place] 18.0 [facility] HEMATOLOGY Hct 30.1 % 42.0 - 10/19 [place] 54.0 /2016 [facility] HEMATOLOGY MCH 31.6 pg 27.0 - 05 31.0 [facility] HEMATOLOGY MCHC 34.6 g/dL 32.0 - 10/19 [place] 36.0 [facility] HEMATOLOGY MCV 91.3 fL 80.0 - 10/19 [facility] 94.0 /2015 [facility] HEMATOLOGY RDW 15.2 % 11.5 - 10/19 [facility] 14.5 [facility] HEMATOLOGY Platelet 227 K/CMM 133 - 450 10/19 [facility] PARATHYROI Ca Ion WB 1.16 1.05 - 10/19 [facility] D PROFILE mMol/L 1. [facility] PARATHYROI Ca Norm WB 1.16 1.05 - 10/19 [facility] D PROFILE mMol/L 1. [facility] Chest Chest 1view EXAM: XR CHEST 1 VIEW 10/19 - [facility] 1view DX DX /2015 [facility] DATE: 10/20/2015 3:00 AM CDT Read by: [...] significant change. MOLECULAR BCR-ABL1/ABL 0.000 0.000 10/18 [facility] DIAGNOSTIC 1 % (IS) [facility] MOLECULAR BCR-ABL1 SEE NOTE 10/18 Result Comment: The P190 and P210 BCR -ABL1 fusion transcripts are [facility] DIAGNOSTIC Interp NOT detected. [facility] Reverse mails supervisor real-time PCR is performed for the P190 [...] analytical performance characteristics have been determined by [facility] [[email or web address] [facility]. It has not been cleared or approved by FDA. This assay has been validated pursuant to the CLIA regulations and is used for clinical purposes. Test Performed at: [address] [id number] Lv Herrera MD, PhD MOLECULAR BCR-ABL1/ABL 0.000 0.000 10/18 [facility] DIAGNOSTIC 1 % /2015 [facility] MOLECULAR Source Blood 10/18 [facility] BCR-ABL1 [facility] MOLECULAR BCR-ABL1 NOT GIVEN 10/18 [facility] DIAGNOSTIC Prior Result [facility] MOLECULAR P190 NOT 10/18 Result Comment: Test Performed at: [facility] BCR-ABL1 DETECTED /[address] [id number] Lv Herrera MD, PhD MOLECULAR P210 NOT 10/18 Result Comment: Test Performed at: [facility] BCR-ABL1 DETECTED /[address] [id number] Lv Herrera MD, PhD Chest Chest 1view EXAM: XR CHEST 1 VIEW 10/18 - [facility] 1view DX DX - [facility] DATE: 10/19/2015 3:00 AM CDT Read [...] Acid 1.2 mMol/L 0.5 - 2.2 10/17 [facility] Chest Chest 1view EXAM: XR CHEST 1 VIEW 10/17 - [place] [address] DX DX - [facility] DATE: 10/18/2015 3:00 AM CDT Read by: Gautam Cr MD Dictated Date/time: 10/18/15 12:13 Electronically Signed by: Gautam Cr MD 10/18/15 12:15 FINAL REPORT INDICATION: Abnormal chest sounds COMPARISON: Yesterday. TECHNIQUE: AP chest FINDINGS: Lines and tubes: Stable bilateral chest tubes. A single mediastinal drain remains in place. The [place]-Deidre catheter and a 2nd mediastinal drain was removed. Lungs and pleura: There are bilateral pleural effusions and scattered subsegmental atelectasis in both lungs. No pneumothorax given the limitation of a semiupright exam. Heart and mediastinum: Stable prominent cardiomediastinal silhouette. Bones and Soft Tissues: No significant changes. IMPRESSION: 1. No significant changes. HEMATOLOGY RBC Morph Normal 10/16 [facility]2015 [facility] (10/17/15 1:47 AM) [place] HEMATOLOGY Plt Morph Normal 10/16 [facility]2015 [facility] (10/17/15 1:47 AM) [place] Chest Chest 1view EXAM: XR CHEST 1 VIEW 10/[address] DX [facility] DATE: 10/17/2015 6:34 AM CDT Read by: [...] change. BACTERIAL MRSA by PCR Negative 10/16 [facility] (10/16/15 8:52 PM) Center CHEM PANEL B/C Ratio 9 6 - 25 05/ [place] /2015 [facility] CHEM PANEL Lactic Acid 4.4 mMol/L 0.5 - 2.2 10/16 Result [facility] Lvl /2015 Comment: [facility] Result(s) called to Nell Huffman at 10/16/2015 21:22 by KW. Read back OK. Chest Chest 1view EXAM: XR CHEST 1 VIEW 10/15 - [facility] 1view DX DX - [facility] DATE: 10/16/2015 8:15 PM CDT Read [...] be advanced further. Right internal jugular axis [place]-Deidre catheter has its tip in the main [...] Endotracheal tube in satisfactory position 2. Right-sided [place]-Deidre catheter has its tip in the main pulmonary trunk. 3. Mediastinal drains and bilateral chest drains are present. 4. Recommend further advancement of the nasogastric tube for optimal position. 5. Lungs are clear BLOOD BANK RBC product Product available 10/15 [facility] RESULTS /2015 [facility] (10/16/15 6:00 AM) [place] BLOOD BANK FFP product Product available 10/15 [facility] RESULTS /2015 [facility] (10/16/15 4:00 AM) [place] BLOOD BANK Platelet Product available 10/15 [facility] RESULTS product /2015 [facility] (10/16/15 4:00 AM) [place] Sinus w Sinus w EXAM: CT SINUS WITH CONTRAST 10/14 - [facility] contrast contrast CT /2015 - [facility] CT Center DATE: 10/15/2015 4:03 PM CDT [...] are normal. No inflammatory changes in the shoe stitcher odd spaces or facial subcutaneous soft tissues. Imaged portions of the tympanomastoid cavities are clear. Temporomandibular joints are normally aligned. Nasopharynx is unremarkable. IMPRESSION: No acute abnormality. Paranasal sinuses are clear except for minimal right maxillary sinus mucosal disease. Leftward nasal septal deviation. BLOOD BANK ABO/Rh A POS 10/13 [facility] RESULTS /2015 [facility] BLOOD BANK Antibody Negative 10/13 [facility] RESULTS Scrn [facility] (10/14/15 4:36 PM) [place] BLOOD BANK FFP product Product available 10/13 [facility] RESULTS [facility] (10/14/15 10:44 AM) [place] BLOOD BANK RBC product Product available 10/13 [facility] RESULTS [facility] (10/14/15 10:44 AM) [place] Chest w Chest w EXAM: CT CHEST WITH CONTRAST 10/13 - [facility] contrast contrast CT /2016 - [facility] CT Center DATE: 10/14/2015 11:53 AM CDT [...] Upper EXAM: US EXTREMITY NONVASCULAR 10/11 - [facility] non non vascular /2015 - [facility] [place] DATE: 10/12/2015 at 2039 [...] Troponin-I 1.18 ng/mL 0.00 - 10/11 Result [facility] ENZYMES 0.40 /2015 Comment: [facility] Result(s) called to Navneet villela 10/12/2015 14:15 by niall. Read back OK. HEMATOLOGY Sed Rate 22 mm/h 0 - 15 10/11 [place] /2015 [facility] IMMUNOLOGY JOSEP Negative Negative 10/11 [facility] (10/12/15 11:36 AM) Center CHEM PANEL Procalcitoni 0.06 ng/mL 0.00 - 10/10 [facility] n Lvl 0.10 [facility] CHEM PANEL Lactic Acid 1.1 mMol/L 0.5 - 2.2 10/10 [facility] Lvl /2015 [facility] Chest Chest 1view EXAM: XR CHEST 1 VIEW 10/10 - [facility] 1view DX DX /2015 - [facility] DATE: 10/11/2015 1506 PM CDT Read by: Wilfrid Michaels MD Dictated Date/time: 10/11/15 15:42 Electronically Signed by: Wilfrid Michaels 10/11/15 15:44 FINAL REPORT INDICATION: Dyspnea COMPARISON: 10/08/2015 TECHNIQUE: AP chest FINDINGS: Stable cardiomediastinal silhouette. Low lung volumes with subsegmental atelectasis. No pleural effusion or pneumothorax. IMPRESSION: No significant change. URINE AND UA Sq Epi None Seen 10/10 [facility] URINE AND UA <=1.0 0.1 - 1.0 10/10 [facility] Urobilinogen mg/dL [facility] URINE AND UA Glucose Negative Negative 10/10 [facility] mg/dL mg/dL [facility] URINE AND UA Ketones Negative Negative 10/10 [facility] mg/dL mg/dL [facility] URINE AND UA Protein Negative Negative 10/10 [facility] mg/dL mg/dL [facility] URINE AND UA Color Yellow Yellow 10/[address] [facility] *NA* [place] (10/11/15 9:14 AM) URINE AND UA pH 5.0 5.0 - 8.0 10/10 [facility] URINE AND UA Turbidity Clear Clear 10/[address] [facility] (10/11/15 9:14 AM) [place] URINE AND UA Spec Grav 1.008 <=1.030 10/10 [facility]2015 [facility] URINE AND UA Nitrite Negative Negative 10/[address] [facility] (10/11/15 9:14 AM) [place] URINE AND UA Leuk Est Negative Negative 10/[address] [facility] (10/11/15 9:14 AM) [place] URINE AND UA Mucus Few /LPF None Seen 10/10 [facility] STOOL /LPF /2015 [facility] URINE AND UA Bili Negative Negative 10/[address] [facility] *NA* [place] (10/11/15 9:14 AM) URINE AND UA Blood Negative Negative 10/[address] [facility] (10/11/15 9:14 AM) [place] HEMATOLOGY RBC Morph Normal 10/10 [facility] (10/11/15 3:15 AM) [place] HEMATOLOGY Plt Morph Normal 10/10 [facility] (10/11/15 3:15 AM) [place] BLOOD BANK Antibody Negative 10/09 [facility] RESULTS Scr Medical (10/10/15 1:00 PM) [place] BLOOD BANK ABO/Rh A POS 10/09 [place] [facility] BLOOD BANK RBC product Product available 10/09 [place] [facility] (10/10/15 8:06 AM) [place] BLOOD BANK FFP product Product available 10/09 [facility] RESULTS Medical (10/10/15 8:06 AM) [place] HVI VAS HVI VAS INDICATION: Pre-operative lower extremity vein mapping. - [facility] Venous Venous Lower /2015 - Medical Lower Ext Ext Bilat This report was dictated by a Special Events Fundraiser/Fellow. I have personally reviewed the images as Center Bil Doppler well as the Resident's interpretation [...] prior to high risk surgery. 10/08 - [facility] Arterial Arterial /2015 - Medical Extracrani Extracranial This report was dictated by a Special Events Fundraiser/Fellow. I have personally reviewed the images as [...] Troponin-I 4.01 ng/mL 0.00 - 10/08 Result [facility] ENZYMES 0.40 /2016 Comment: Medical Critical Center Result(s) called to Romain Gillette at 10/09/2015 11:58 by DH. Read back OK. CARDIAC Troponin-I 4.59 ng/mL 0.00 - 10/08 Result [facility] ENZYMES 0.40 Comment: Medical Critical Center Result(s) called to liset tanner at 10/09/2015 05:31 byCF. Read back OK. CARDIAC Troponin-T 0.688 0.000 - 10/08 Result [place] ENZYMES ng/mL 0.100 Comment: Medical Critical Center Result(s) called to Peter De Luna at 10/09/2015 06:13 byJw. Read back OK. CARDIAC BNP 53 pg/mL <=100 10/08 [place] ENZYMES pg/mL [facility] LIPIDS Trig 362 mg/dL <=149 10/08 [place] mg/dL [facility] LIPIDS VLDL 72 10/[address] [place] [facility] LIPIDS HDL 26 mg/dL >=61 mg/dL 10/08 [place] [facility] LIPIDS Chol 257 mg/dL <=199 10/08 [place] mg/dL [facility] LIPIDS LDL 159 mg/dL <=99 mg/dL 10/08 [place] (Calculated) [facility] LIPIDS CHD Risk 9.88 4.00 - 10/[address] [place] [address] [facility] SPECIAL Hgb A1C 5.1 % <=5.6 % 10/08 [facility] CHE[address]Y [facility] DRUG U Opiate Scr Positive Negative 10/08 [place] SCREEN Medical *ABN* Center (10/09/15 1:41 AM) DRUG U Cannab Scr Negative Negative 10/08 [place] [facility] *NA* Center (10/09/15 1:41 AM) DRUG U Venita Scr Negative Negative 10/[address] [place] [address] [facility] *NA* Center (10/09/15 1:41 AM) DRUG U Cocaine Negative Negative 10/08 [place] SCRE[facility] *NA* Center (10/09/15 1:41 AM) DRUG U Benzodia Negative Negative 10/[address] [place] [address] [facility] *NA* Center (10/09/15 1:41 AM) DRUG UDS Note See Note 10/08 [place] [facility] (10/09/15 1:41 AM) Center DRUG U Phencyc Negative Negative 10/08 [place] SCRE[facility] *NA* Center (10/09/15 1:41 AM) DRUG U Amph Scr Negative Negative 10/08 [place] [facility] *NA* [place] (10/09/15 1:41 AM) URINE AND UA Amorph Many /HPF None Seen 10/08 [facility] Janet /HPF [facility] URINE AND Micro? Performed 10/[address] [facility] (10/09/15 1:41 AM) [place] URINE AND UA Bacteria Few /HPF None Seen 10/08 [place] STOOL /HPF [facility] URINE AND UA Mucus Rare /LPF None Seen 10/08 [place] STOOL /LPF /2015 [facility] URINE AND UA RBC 0-2 /HPF 0 - 2 10/08 [facility] URINE AND UA Sq Epi Rare /LPF Few /LPF 10/08 [facility] URINE AND UA WBC 0-2 /HPF None Seen 10/08 [facility] STOOL /HPF [facility] URINE AND UA Nitrite Negative Negative 10/[address] [facility] (10/09/15 1:41 AM) [place] URINE AND UA Bili Negative Negative 10/08 Medical *NA* [place] (10/09/15 1:41 AM) URINE AND UA 0.2 EU/dL 0.1 - 1.0 10/08 [facility] Urobilinogen /2015 [facility] URINE AND UA Blood Negative Negative 10/[address] [place] [facility] (10/09/15 1:41 AM) [place] URINE AND UA Leuk Est Negative Negative 10/[address] [facility] (10/09/15 1:41 AM) [place] URINE AND UA Ketones Negative Negative 10/08 [facility] STOOL mg/dL mg/dL /2015 [facility] URINE AND UA pH 7.0 5.0 - 8.0 10/08 [facility] STOOL [facility] URINE AND UA Glucose Negative Negative 10/08 [facility] STOOL mg/dL mg/dL /2015 [facility] URINE AND UA Protein Negative Negative 10/08 [facility] mg/dL mg/dL [facility] URINE AND UA Color Yellow Yellow 10/[address] [facility] *NA* [place] (10/09/15 1:41 AM) URINE AND UA Spec Grav 1.020 <=1.030 10/08 [place] STOOL [facility] URINE AND UA Turbidity Slight Cloudy Clear 10/08 [facility] Medical (10/09/15 1:41 AM) Center CARDIAC Troponin-T 0.582 0.000 - 10/08 Result [facility] ENZYMES ng/mL 0.100 Comment: Medical Critical Center Result(s) called to Sonny Chaidez at 10/09/2015 00:36 byJw. Read back OK. Chest Chest 1view EXAM: XR CHEST 1 VIEW 10/07 - [facility] 1view DX - Medical This report was dictated by a Special Events Fundraiser/Fellow. I have personally reviewed the images as [...] Vital Signs Vital Sign Value Date Comments [facility] Systolic (mm Hg) 126 11/11/2017 [facility] Diastolic (mm Hg) 71 11/11/2017 [facility] Respitory Rate 18 11/11/2017 [facility] Heart Rate 111 11/11/2017 [facility] Temperature Oral (F) 98.3 F 11/11/2017 [facility] Systolic (mm Hg) 149 11/11/2017 [facility] Diastolic (mm Hg) 78 11/11/2017 [facility] Temperature Oral (F) 98.4 F 11/11/2017 [facility] Heart Rate 99 11/11/2017 [facility] Respitory Rate 17 11/11/2017 [facility] Systolic (mm Hg) 148 11/11/2017 [facility] Diastolic (mm Hg) 88 11/11/2017 [facility] Heart Rate 101 11/11/2017 [facility] Respitory Rate 17 11/11/2017 [facility] Temperature Oral (F) 98.6 F 11/11/2017 [facility] Weight 136 11/11/2017 [facility] BMI Calculated 40.66 11/11/2017 [facility] Height 182.88 cm 11/11/2017 [facility] Systolic (mm Hg) 121 08/19/2017 [facility] Diastolic (mm Hg) 72 08/19/2017 [facility] Respitory Rate 19 08/19/2017 [facility] Heart Rate 81 08/19/2017 [facility] Weight 127.273 08/19/2017 [facility] Heart Rate 89 08/19/2017 [facility] Respitory Rate 18 08/19/2017 [facility] Systolic (mm Hg) 128 08/19/2017 [facility] Diastolic (mm Hg) 79 08/19/2017 [facility] Temperature Oral (F) 98.8 F 08/19/2017 [facility] Height 185.42 cm 08/19/2017 [facility] BMI Calculated 37.02 08/19/2017 [facility] Temperature Oral (F) 100.1 F 03/31/2016 [facility] Systolic (mm Hg) 121 03/31/2016 [facility] Diastolic (mm Hg) 61 03/31/2016 [facility] Temperature Oral (F) 99.2 F 03/31/2016 [facility] Systolic (mm Hg) 123 03/31/2016 [facility] Center Diastolic (mm Hg) 63 03/31/2016 [facility] Center Systolic (mm Hg) 117 03/31/2016 [facility] Center Diastolic (mm Hg) 66 03/31/2016 [facility] Temperature Oral (F) 99.3 F 03/31/2016 [facility] Respitory Rate 19 03/31/2016 [facility] Respitory Rate 18 03/31/2016 [facility] Respitory Rate 14 03/31/2016 [facility] Weight 134.347 03/30/2016 [facility] Height 185.42 cm 03/30/2016 [facility] BMI Calculated 39.08 03/30/2016 [facility] Weight 131.818 03/30/2016 [facility] BMI Calculated 38.34 03/30/2016 [facility] Height 185.42 cm 03/30/2016 [facility] Heart Rate 107 03/30/2016 [facility] Center Systolic (mm Hg) 122 10/22/2015 [facility] Center Diastolic (mm Hg) 61 10/22/2015 [facility] Center Systolic (mm Hg) 110 10/22/2015 [facility] Center Diastolic (mm Hg) 60 10/22/2015 [facility] Temperature Oral (F) 98.7 F 10/22/2015 [facility] Respitory Rate 20 10/22/2015 [facility] Temperature Oral (F) 98.9 F 10/22/2015 [facility] Respitory Rate 20 10/22/2015 [facility] Systolic (mm Hg) 99 10/22/2015 [facility] Diastolic (mm Hg) 59 10/22/2015 [facility] Respitory Rate 20 10/22/2015 [facility] Temperature Oral (F) 98.2 F 10/22/2015 [facility] Height 185.42 cm 10/17/2015 [facility] Height 185.42 cm 10/17/2015 [facility] Height 185.42 cm 10/08/2015 [facility] Heart Rate 89 10/08/2015 [facility] Weight 123.182 10/08/2015 [facility] BMI Calculated 35.83 10/08/2015 [facility] Encounters Location Location Encounter Encounter Reason Attending ADM DC Status Source Details Type Number For Provider Date Date Visit [facility] [id number] [facility] 10/07 10/21 [facility] Redd Potts /2015 [facility] Observation [id number] [facility] 03/30 04/01 [facility] Redd Pool /2015 [facility] [id number] Gagan 08/19 08/19 Redd Nowak /2017 [facility] Observation [id number] [facility] 11/11 11/11 Redd Correa /2017 [facility] Procedures Procedure Code Date Perfomer Comments Source CABG - Coronary [id number] [facility] artery bypass graft CABG - Coronary [id number] [facility] artery bypass graft CABG - Coronary [id number] [facility] graft
--- NOTE | 2018-02-22 21:42 | EDPHYS ---
Physician Documentation [facility] Name: Clifford Manning Age: 32 yrs Sex: Male : 1985 Arrival Date: 02/22/2018 Time: 21:05 Bed 17 Private MD: ED Physician Jesus Mark HPI: 02/22 21:22 This 32 yrs old Male presents to ER via Unassigned with complaints of Chest cele Pain > 30 y/o. 21:22 The patient or guardian reports chest pain that is located primarily in the anterior cele chest wall, left. The pain radiates to the left arm. Associated signs and symptoms: The patient has no apparent associated signs or symptoms. The chest pain is described as sharp, stabbing. Modifying factors: The symptoms are alleviated by remaining still, the symptoms are aggravated by movement, twisting torso. Severity of pain: At its worst the pain was mild moderate in the emergency department the pain is unchanged. The patient has experienced similar episodes in the past, multiple times. Historical: - Allergies: 21:32 No Known Allergies; fc - Home Meds: 21:32 aspirin 81 mg Oral TbEC 1 tab once daily [Active]; atorvastatin 80 mg Oral tab 1 tab fc once daily [Active]; BRILINTA Oral 1 tab 2 times per day [Active]; gabapentin 300 mg Oral cap 1 cap 3 times per day [Active]; lisinopril 5 mg Oral tab once daily [Active]; metoprolol tartrate 25 mg Oral tab 2 times per day [Active]; nitroglycerin 0.4 mg SL subl 1 tab every 5 minutes for Angina [Active]; sertraline Oral [Active]; Ranexa Oral [Active]; - PMHx: 21:32 CAD; Diabetes - NIDDM; Hypertension; neuropathy; spondylosis; fc - PSHx: 21:32 Heart stents; Heart Surgery; grafts; CABG; fc - Immunization history:: Last tetanus immunization: up to date. - Social history:: Smoking status: Patient/guardian denies using tobacco, Patient uses street drugs, marijuana, Patient/guardian denies using alcohol. - Family history:: not pertinent. - Ebola Screening: : Patient negative for fever greater than or equal to 101.5 degrees Fahrenheit, and additional compatible Ebola Virus Disease symptoms Patient denies exposure to infectious person Patient denies travel to an Ebola-affected area in the 21 days before illness onset. ROS: 21:22 Constitutional: Negative for fever, chills, and weight loss, Eyes: Negative for injury, cele pain, redness, and discharge, ENT: Negative for injury, pain, and discharge, Neck: Negative for injury, pain, and swelling, Respiratory: Negative for shortness of breath, cough, wheezing, and pleuritic chest pain, Abdomen/GI: Negative for abdominal pain, nausea, vomiting, diarrhea, and constipation, Back: Negative for injury and pain, : Negative for injury, bleeding, discharge, and swelling, MS/Extremity: Negative for injury and deformity, Skin: Negative for injury, rash, and discoloration, Neuro: Negative for headache, weakness, numbness, tingling, and seizure, Psych: Negative for depression, anxiety, suicide ideation, homicidal ideation, and hallucinations, Allergy/Immunology: Negative for hives, rash, and allergies, Endocrine: Negative for neck swelling, polydipsia, polyuria, polyphagia, and marked weight changes, Hematologic/Lymphatic: Negative for swollen nodes, abnormal bleeding, and unusual bruising. 21:22 Cardiovascular: Positive for chest pain, of the chest. Exam: 21:22 Constitutional: This is a well developed, well nourished patient who is awake, alert, cele and in no acute distress. Head/Face: Normocephalic, atraumatic. Eyes: Pupils equal round and reactive to light, extra-ocular motions intact. Lids and lashes normal. Conjunctiva and sclera are non-icteric and not injected. Cornea within normal limits. Periorbital areas with no swelling, redness, or edema. ENT: Nares patent. No nasal discharge, no septal abnormalities noted. Tympanic membranes are normal and external auditory canals are clear. Oropharynx with no redness, swelling, or masses, exudates, or evidence of obstruction, uvula midline. Mucous membranes moist. Neck: Trachea midline, no thyromegaly or masses palpated, and no cervical lymphadenopathy. Supple, full range of motion without nuchal rigidity, or vertebral point tenderness. No Meningismus. Chest/axilla: Normal chest wall appearance and motion. Nontender with no deformity. No lesions are appreciated. Cardiovascular: Regular rate and rhythm with a normal S1 and S2. No gallops, murmurs, or rubs. Normal PMI, no JVD. No pulse deficits. Respiratory: Lungs have equal breath sounds bilaterally, clear to auscultation and percussion. No rales, rhonchi or wheezes noted. No increased work of breathing, no retractions or nasal flaring. Abdomen/GI: Soft, non-tender, with normal bowel sounds. No distension or tympany. No guarding or rebound. No evidence of tenderness throughout. Back: No spinal tenderness. No costovertebral tenderness. Full range of motion. Male : Normal genitalia with no discharge or lesions. Skin: Warm, dry with normal turgor. Normal color with no rashes, no lesions, and no evidence of cellulitis. MS/ Extremity: Pulses equal, no cyanosis. Neurovascular intact. Full, normal range of motion. Psych: Awake, alert, with orientation to person, place and time. Behavior, mood, and affect are within normal limits. 21:22 Neuro: Orientation: is normal, appropriate for stated age, no acute changes, Mentation: is normal, appropriate for stated age, no acute changes, Memory: is normal, appropriate for stated age, no acute changes, Cranial nerves: grossly normal, is grossly normal based on the patient's age, no acute changes, Cerebellar function: is grossly normal, is grossly normal based on the patient's age, no acute changes, Motor: is normal, is grossly normal based on the patient's age, no acute changes, moves all fours, Sensation: numbness, that is mild, of the palmar aspect of distal phalanx of left ring finger, palmar aspect of middle phalanx of left ring finger, palmar aspect of proximal phalanx of left ring finger, palmar aspect of distal phalanx of left middle finger, palmar aspect of middle phalanx of left middle finger, palmar aspect of proximal phalanx of left middle finger, palmar aspect of distal phalanx of left index finger, palmar aspect of middle phalanx of left index finger, palmar aspect of proximal phalanx of left index finger, palmar aspect of distal phalanx of left thumb and palmar aspect of proximal phalanx of left thumb. 21:29 Musculoskeletal/extremity: DVT Exam: No signs of deep vein thrombosis. no pain, no cele swelling, no tenderness, negative Homans' sign noted on exam, no appreciated bluish discoloration, no erythema, no increased warmth. Vital Signs: 21:10 BP 116 / 89; Pulse 74; Resp 18; Temp 98.4(O); Pulse Ox 99% on R/A; Weight 131.54 kg fc (R); Height 6 ft. 1 in. (185.42 cm) (R); Pain 8/10; 22:32 BP 113 / 83; Pulse 70; Resp 19 S; Pulse Ox 98% on R/A; Pain 8/10; jd3 21:10 Body Mass Index 38.26 (131.54 kg, 185.42 cm) MDM: 21:16 Patient medically screened. [facility] 21:22 Data reviewed: vital signs, nurses notes, lab test result(s), EKG, radiologic studies, cele plain films. 02/22 21:22 Order name: Basic Metabolic Panel; Complete Time: 22:09 [facility] 02/22 21:22 Order name: CBC with Diff; Complete Time: 22: [facility] 02/22 21:22 Order name: Ckmb; Complete Time: 22: [facility] 02/22 21:22 Order name: CPK; Complete Time: 22: [facility] 02/22 21:22 Order name: LFT's; Complete Time: 22: [facility] 02/22 21:22 Order name: Magnesium; Complete Time: 22: [facility] 02/22 21:22 Order name: NT PRO-BNP; Complete Time: 22: [facility] 02/22 21:22 Order name: PT-INR; Complete Time: 22: [facility] 02/22 21:22 Order name: Ptt, Activated; Complete Time: 22: [facility] 02/22 21:22 Order name: Troponin (emerg Dept Use Only); Complete Time: 22: [facility] 02/22 21:22 Order name: XRAY Chest (1 view); Complete Time: 22: [facility] 02/22 21:22 Order name: Lipase; Complete Time: 22: [facility] 02/22 21:22 Order name: EKG; Complete Time: 21: [facility] 02/22 21:22 Order name: Cardiac monitoring; Complete Time: 21: [facility] 02/22 21:22 Order name: EKG - Nurse/Tech; Complete Time: 21: [facility] 02/22 21:22 Order name: IV Saline Lock; Complete Time: 21: [facility] 02/22 21:22 Order name: Labs collected and sent; Complete Time: : [facility] 02/22 21:22 Order name: O2 Per Protocol; Complete Time: : [facility] 02/22 21:22 Order name: O2 Sat Monitoring; Complete Time: : [facility] 02/22 21:45 Order name: CONS Physician Consult EDMS Administered Medications: 22:21 Drug: morphine 4 mg Route: IVP; Site: right antecubital; jd3 22:55 Follow up: Response: No adverse reaction jd3 22:21 Drug: Zofran 4 mg Route: IVP; Site: right antecubital; jd3 22:55 Follow up: Response: No adverse reaction jd3 22:22 Drug: Lovenox 100 mg Route: Sub-Q; Site: abdomen; jd3 22:56 Follow up: Response: No adverse reaction jd3 22:22 Drug: Aspirin 81 mg Route: PO; jd3 22:56 Follow up: Response: No adverse reaction jd3 Disposition: 02/22/18 21:41 Hospitalization ordered by Mitchell Correa for Observation. Preliminary diagnosis are Chest pain, unspecified, Obesity, unspecified, Type 2 diabetes mellitus. - Bed requested for Telemetry/MedSurg (observation). - Status is Observation. jd3 - Condition is Stable. - Problem is new. - Symptoms have improved. UTI on Admission? No Signatures: Dispatcher [employer] EDAL Alicia Stone rg2 Jesus Mark MD MD cha Chretien, Felicia, RN Meet Brooks RN RN jd3 Corrections: (The following items were deleted from the chart) 22:42 21:41 Hospitalization Ordered by Mitchell Correa MD for Observation. Preliminary rg2 diagnosis is Chest pain, unspecified; Obesity, unspecified; Type 2 diabetes mellitus. Bed requested for Telemetry/MedSurg (observation). Status is Observation. Condition is Stable. Problem is new. Symptoms have improved. UTI on Admission? No. [facility] 23:06 22:42 02/22/2018 21:41 Hospitalization Ordered by Mitchell Correa MD for Observation. jd3 Preliminary diagnosis is Chest pain, unspecified; Obesity, unspecified; Type 2 diabetes mellitus. Bed requested for Telemetry/MedSurg (observation). Status is Observation. Condition is Stable. Problem is new. Symptoms have improved. UTI on Admission? No. rg2
--- NOTE | 2018-02-22 21:42 | ER ---
Nurse's Notes [facility] Name: Clifford Manning Age: 32 yrs Sex: Male : 1985 Arrival Date: 02/22/2018 Time: 21:05 Bed 17 Private MD: Diagnosis: Chest pain, unspecified;Obesity, unspecified;Type 2 diabetes mellitus Presentation: 02/22 21:10 Presenting complaint: Patient states: that he is having chest pain that radiates to left arm, back and jaw. Positive for nausea and shortness of breath. Transition of care: patient was not received from another setting of care. Onset of symptoms was February 22, 2018 at 19:00. Risk Assessment: Do you want to hurt yourself or someone else? Patient reports no desire to harm self or others. Initial Sepsis Screen: Does the patient meet any 2 criteria? Yes Does the patient have a suspected source of infection? No. Patient's initial sepsis screen is negative. Care prior to arrival: None. 21:10 Method Of Arrival: Ambulatory 21:10 Acuity: ESTUARDO 3 fc Historical: - Allergies: 21:32 No Known Allergies; fc - Home Meds: 21:32 aspirin 81 mg Oral TbEC 1 tab once daily [Active]; atorvastatin 80 mg Oral tab 1 tab fc once daily [Active]; BRILINTA Oral 1 tab 2 times per day [Active]; gabapentin 300 mg Oral cap 1 cap 3 times per day [Active]; lisinopril 5 mg Oral tab once daily [Active]; metoprolol tartrate 25 mg Oral tab 2 times per day [Active]; nitroglycerin 0.4 mg SL subl 1 tab every 5 minutes for Angina [Active]; sertraline Oral [Active]; Ranexa Oral [Active]; - PMHx: 21:32 CAD; Diabetes - NIDDM; Hypertension; neuropathy; spondylosis; fc - PSHx: 21:32 Heart stents; Heart Surgery; grafts; CABG; fc - Immunization history:: Last tetanus immunization: up to date. - Social history:: Smoking status: Patient/guardian denies using tobacco, Patient uses street drugs, marijuana, Patient/guardian denies using alcohol. - Family history:: not pertinent. - Ebola Screening: : Patient negative for fever greater than or equal to 101.5 degrees Fahrenheit, and additional compatible Ebola Virus Disease symptoms Patient denies exposure to infectious person Patient denies travel to an Ebola-affected area in the 21 days before illness onset. Screenin:29 Abuse screen: Denies threats or abuse. Nutritional screening: No deficits noted. Tuberculosis screening: No symptoms or risk factors identified. Fall Risk None identified. Assessment: 21:37 General: Appears uncomfortable, Behavior is calm, cooperative, appropriate for age, jd3 anxious. Pain: Complains of pain in chest Pain radiates to left shoulder Quality of pain is described as sharp, Pain began gradually, Is continuous. Neuro: Level of Consciousness is awake, alert, obeys commands, Oriented to person, place, time, situation. Cardiovascular: Heart tones S1 S2 present Capillary refill < 3 seconds Patient's skin is warm and dry. Rhythm is regular. Respiratory: Airway is patent Respiratory effort is even, unlabored, Respiratory pattern is regular, symmetrical, Breath sounds are clear bilaterally. GI: No signs and/or symptoms were reported involving the gastrointestinal system. : No signs and/or symptoms were reported regarding the genitourinary system. EENT: No signs and/or symptoms were reported regarding the EENT system. Derm: Skin is intact, Skin is dry, Skin is normal, Skin temperature is warm. Musculoskeletal: Circulation, motion, and sensation intact. Range of motion:. 22:32 Reassessment: Patient appears in no apparent distress at this time. No changes from jd3 previously documented assessment. Patient and/or family updated on plan of care and expected duration. Pain level reassessed. Patient is alert, oriented x 3, equal unlabored respirations, skin warm/dry/pink. Vital Signs: 21:10 BP 116 / 89; Pulse 74; Resp 18; Temp 98.4(O); Pulse Ox 99% on R/A; Weight 131.54 kg fc (R); Height 6 ft. 1 in. (185.42 cm) (R); Pain 8/10; 22:32 BP 113 / 83; Pulse 70; Resp 19 S; Pulse Ox 98% on R/A; Pain 8/10; jd3 21:10 Body Mass Index 38.26 (131.54 kg, 185.42 cm) ED Course: 21:05 Patient arrived in ED. am2 21:10 Arm band placed on Patient placed in an exam room, on a stretcher. fc 21:10 Patient has correct armband on for positive identification. Placed in gown. Bed in low fc position. Call light in reach. conveyor monitor on. Pulse ox on. NIBP on. 21:10 Inserted saline lock: 20 gauge in right antecubital area, using aseptic technique. fc ,using aseptic technique. Per Carole DENNIS Blood collected. 21:16 Jesus Mark MD is Attending Physician. [facility] 21:21 EKG done, by ED staff, reviewed by Jesus Mark MD. 21:28 Triage completed. 21:30 Meet Solis, RN is Primary Nurse. jd3 21:38 Mitchell Correa MD is Hospitalizing Provider. [facility] 21:41 X-ray completed. Portable x-ray completed in exam room. Patient tolerated procedure az well. 21:45 XRAY Chest (1 view) In Process Unspecified. EDMS 22:33 Patient maintains SpO2 saturation greater than 95% on room air. jd3 23:03 No provider procedures requiring assistance completed. Patient admitted, IV remains in jd3 place. Administered Medications: 22:21 Drug: morphine 4 mg Route: IVP; Site: right antecubital; jd3 22:55 Follow up: Response: No adverse reaction jd3 22:21 Drug: Zofran 4 mg Route: IVP; Site: right antecubital; jd3 22:55 Follow up: Response: No adverse reaction jd3 22:22 Drug: Lovenox 100 mg Route: Sub-Q; Site: abdomen; jd3 22:56 Follow up: Response: No adverse reaction jd3 22:22 Drug: Aspirin 81 mg Route: PO; jd3 22:56 Follow up: Response: No adverse reaction jd3 Outcome: 21:41 Decision to Hospitalize by Provider. [facility] 23:03 Admitted to Tele accompanied by tech, via wheelchair, room 219, with chart, Report jd3 called to Stacy DENNIS 23:03 Condition: stable 23:06 Patient left the ED. jd3 Signatures: Dispatcher [employer] EDID Jesus Mark MD MD cha Chretien, Felicia, RN RN Reanna Fitzpatrick Jonathon, RN RN j Claritza Umanzor
[2018-02-22 21:48] LABS: Absolute Lymphocytes (CBC) 2.6 K/uL (0.7-4.9); Absolute Neutrophil 10.1 K/uL (1.8-8.0); Basophils % 0.5 % (0-1.3); Eosinophils % 1.2 % (0-4.4); Hematocrit 40.4 % (39.6-49.0); Lymphocytes % 18.6 % (15.3-44.8); MCH 29.2 pg (27.0-35.0); MCV 85.6 fL (80-100); MPV 9.1 fL (7.6-11.3); Monocytes % 7.5 % (3.3-12.3); RBC Red Blood Cell Count 4.72 M/uL (4.33-5.43)
--- NOTE | 2018-02-22 21:51 | RAD REPORT ---
EXAM DESCRIPTION: RAD - Chest Single View - 02/22/2018 9:44 pm CLINICAL HISTORY: CHEST PAIN Chest pain. COMPARISON: Chest Single View dated 12/18/2017; Chest Single View dated 06/29/2017; Chest Single View d ated 06/23/2017; Chest Single View dated 03/22/2017 FINDINGS: Portable technique limits examination quality. The lungs are grossly clear. The heart is mildly prominent size with sternotomy wires present. No dis placed fractures. IMPRESSION: No acute intrathoracic process suspected.
[2018-02-22 22:00] LABS: Protime INR 1.04
[2018-02-22 22:06] LABS: ALT/SGPT 48 U/L (12-78); AST/SGOT 29 U/L (15-37); Albumin 3.7 g/dL (3.4-5.0); Alkaline Phosphatase 67 U/L (45-117); BUN Blood Urea Nitrogen 8 mg/dL (7-18); Bicarbonate 26 mmol/L (21-32); Bilirubin Direct 0.1 mg/dL (0-0.2); Bilirubin Total 0.5 mg/dL (0.2-1.0); CKMB Creatine Kinase MB 4.1 ng/mL (0.3-3.6); Creatine Phosphokinase 152 U/L (39-308); Glucose Level 150 mg/dL (74-106); Lipase 138 U/L (73-393); Magnesium 1.9 mg/dL (1.8-2.4); NT PRO-BNP 92 pg/mL (<125); Potassium 3.9 mmol/L (3.5-5.1); Protein, Total 7.7 g/dL (6.4-8.2); Sodium Level 137 mmol/L (136-145); Troponin (Emerg Dept Use Only) < 0.02 ng/mL (0.0-0.045)
[2018-02-22] MEDS ORDERED: ASPIRIN 81 MG CHEWABLE TABLET ONE (22:20)
[2018-02-22] MEDS ORDERED: MORPHINE 4 MG/ML SYR ONE (22:20)
[2018-02-22] MEDS ORDERED: ONDANSETRON 4 MG/2 ML VIAL ONE (22:20)
[2018-02-22] MEDS ORDERED: ENOXAPARIN 100 MG/ML SYR SQ ONE (22:21)
[2018-02-22] MEDS ORDERED: MORPHINE 4 MG/ML SYR IV PRN (22:32)
[2018-02-22] MEDS ORDERED: ACETAMINOPHEN 500 MG TAB PO PRN (22:32)
[2018-02-22 23:35] VITALS: BMI 38.9
[2018-02-23] MEDS: MORPHINE 4 MG/ML SYR IV PRN ×2 (01:06→07:51)
[2018-02-23] MEDS ORDERED: TEMAZEPAM 15 MG CAP PO PRN (01:43)
[2018-02-23 05:03] LABS: Absolute Lymphocytes (CBC) 3.1 K/uL (0.7-4.9); Absolute Neutrophil 8.7 K/uL (1.8-8.0); Basophils % 0.6 % (0-1.3); Eosinophils % 1.7 % (0-4.4); Hematocrit 39.2 % (39.6-49.0); Lymphocytes % 23.5 % (15.3-44.8); MCH 29.1 pg (27.0-35.0); MCV 86.1 fL (80-100); MPV 8.9 fL (7.6-11.3); Monocytes % 7.5 % (3.3-12.3); RBC Red Blood Cell Count 4.55 M/uL (4.33-5.43)
--- NOTE | 2018-02-23 07:03 | P.HP ---
Certification for Inpatient Patient admitted to: Observation With expected LOS: <2 Midnights Patient will require the following post-hospital care: None Practitioner: I am a practitioner with admitting privileges, knowledge of patient current condition, hospital course, and medical plan of care. Services: Services provided to patient in accordance with Admission requirements found in Title 42 Section 412.3 of the Code of Federal Regulations Patient History Date of Service: 02/22/18 Reason for admission: Chest pain rule out acute coronary syndrome History of Present Illness: Patient is a 32-year-old gentleman with a history of Coronary artery disease he has had a coronary artery bypass are ready. He had a cardiac catheterization about a year ago which revealed diffuse atherosclerotic disease in his coronary arteries. He required stands of his left circumflex in March of 2017. He has been managed medically however his atherosclerotic disease progresses. He continues to have chest pain and this time is pain will radiated to the left side. He came into the emergency room for further evaluation. He states morphine is only thing the really alleviates his pain. Nitro or Ranexa really does not work as effectively as morphine per the patient for his Coronary artery disease. Patient will have serial troponins and EKGs. Will get Cardiology consultation. Further workup per Cardiology recommendations. Allergies No Known Allergies Allergy (Verified 02/22/18 23:16) Home Medications: Aspirin [Aspirin EC 81 MG] 81 mg PO DAILY 01/02/16 Lisinopril 5 mg PO DAILY 01/02/16 Metoprolol Tartrate 100 mg PO DAILY 01/02/16 Nitroglycerin [Nitrostat*] 1 tab SL PRN PRN 06/24/17 Atorvastatin Calcium [Lipitor] 80 mg PO DAILY 06/30/17 Clopidogrel Bisulfate [Plavix] 75 mg PO DAILY 06/30/17 Prazosin HCl 5 mg PO DAILY 06/30/17 Ranolazine [Ranexa] 500 mg PO BID #30 tab.er.12h 06/30/17 Sertraline [Zoloft*] 75 mg PO DAILY 06/30/17 Metformin HCl [Metformin HCl ER] 1 tab PO BID 02/22/18 - Past Medical/Surgical History Has patient received pneumonia vaccine in the past: No Diabetic: No -: Coronary artery disease -: obesity -: HTN -: neuropathy -: spondylosis -: Coronary artery bypass grafting -: CARDIAC STENTS - Family History Father Medical History: Heart disease, Hypertension Mother Medical History: Diabetes - Social History Smoking Status: Former smoker Alcohol use: No CD- Drugs: No Caffeine use: No Place of Residence: Home Review of Systems 10-point ROS is otherwise unremarkable Physical Examination - Vital Signs Temperature: 98.2 F Blood Pressure: 120/57 Pulse: 69 Respirations: 20 Pulse Ox (%): 97 - Physical Exam General: Alert, In no apparent distress, Oriented x3 HEENT: Atraumatic, PERRLA, Mucous membr. moist/pink, EOMI, Sclerae nonicteric Neck: Supple, 2+ carotid pulse no bruit, No LAD, Without JVD or thyroid abnormality Respiratory: Clear to auscultation bilaterally, Normal air movement Cardiovascular: Regular rate/rhythm, Normal S1 S2, No murmurs Gastrointestinal: Normal bowel sounds, Soft and benign, Non-distended, No tenderness Musculoskeletal: No clubbing, No swelling, No tenderness Integumentary: No rashes Neurological: Normal gait, Normal speech, Normal strength at 5/5 x4 extr, Normal tone, Sensation intact, Cranial nerves 3-12 intact, Normal affect Lymphatics: No axilla or inguinal lymphadenopathy - Studies Laboratory Data (last 24 hrs) 02/22/18 21:30: PT 12.3, INR 1.04, APTT 32.8 02/22/18 21:30: WBC 14.0 H, Hgb 13.8, Hct 40.4, Plt Count 246 02/22/18 21:30: Sodium 137, Potassium 3.9, BUN 8, Creatinine 0.90, Glucose 150 H , Magnesium 1.9, Total Bilirubin 0.5, AST 29, ALT 48, Alkaline Phosphatase 67, Lipase 138 Assessment & Plan - Plan Assessment: 1. Chest pain rule out acute coronary syndrome 2. Unstable angina 3. History of CAD status post Coronary artery bypass grafting and stent placement 4. History of prior tobacco use Plan: 1. Serial troponins and EKG 2. Cardiology consultation 3. Further intervention per Cardiology recommendation pending labs and diagnostic studies 4. Anti-platelet therapy, anti coagulation, beta-adonay, statin, and O2 as needed 5. IV morphine for pain 6. Continue Ranexa twice a day 7. Strict blood pressure control 8. Hold metformin 9. Continue aspirin and Plavix 10. GI and DVT prophylaxis - Advance Directives Does patient have a Living Will: No Does patient have a Durable POA for Healthcare: No - Code Status/Comfort Care Code Status Assessed: Yes Code Status: Full Code Critical Care: No Time Spent Managing PTS Care (In Minutes): 50
[2018-02-23 08:38] VITALS: O2SAT 97
[2018-02-23] MEDS ORDERED: METOPROLOL TAR 50 MG TAB PO SCH (09:00)
[2018-02-23] MEDS ORDERED: ENOXAPARIN 40 MG/0.4 ML SQ SCH (09:00)
[2018-02-23] MEDS ORDERED: CLOPIDOGREL 75 MG TABLET PO SCH (09:00)
[2018-02-23] MEDS ORDERED: LISINOPRIL 5 MG TAB PO SCH (09:00)
[2018-02-23] MEDS ORDERED: ASPIRIN EC 81 MG TAB PO SCH (09:00)
[2018-02-23] MEDS ORDERED: SERTRALINE HCL 50 MG TAB PO SCH (09:00)
[2018-02-23] MEDS ORDERED: ROSUVASTATIN 10 MG TAB PO SCH (09:00)
--- NOTE | 2018-02-23 11:01 | EKG ---
Test Date: 2018-02-23 Test Time: 08:51:35 Pre Algebra Teacher: JIMENA MEASUREMENT RESULTS: Intervals: Rate: 66 LA: 180 QRSD: 134 QT: 460 QTc: 482 [place]: P: 54 LA: 180 QRS: 182 T: 49 INTERPRETIVE STATEMENTS: Normal sinus rhythm Right superior axis deviation Nonspecific intraventricular block Abnormal ECG Compared to ECG 02/22/2018 21:21:48 Right superior axis now present Right-axis deviation no longer present Electronically Signed On 02-23-18 10:59:59 CDT by Ari Douglas
--- NOTE | 2018-02-23 11:03 | EKG ---
Test Date: 2018-02-22 Test Time: 21:21:48 Project Management Consultant: AMANDEEP MEASUREMENT RESULTS: Intervals: Rate: 73 RI: 180 QRSD: 140 QT: 444 QTc: 489 [place]: P: 51 RI: 180 QRS: 165 T: 33 INTERPRETIVE STATEMENTS: Normal sinus rhythm Right axis deviation Nonspecific intraventricular block Abnormal ECG Compared to ECG 12/18/2017 21:37:35 No significant changes Electronically Signed On 02-23-18 11:00:45 CDT by Ari Douglas
[2018-02-23 11:14] VITALS: BP 110/71; TEMP 97.2
--- NOTE | 2018-02-23 11:27 | ECHO ---
HEIGHT: 6 ft 1 in WEIGHT: 295 lb 0 oz DATE OF STUDY: 02/23/[address]: Mitchell Correa MD 2-DIMENSIONAL: YES M.MODE: YES DOPPLER: YES COLOR FLOW: YES TDS: NO PORTABLE: NO DEFINITY: NO BUBBLE STUDY: NO DIAGNOSIS: CHEST PAIN, RULE OUT ACS CARDIAC HISTORY: CATHERIZATION: YES SURGERY: YES PROSTHETIC VALVE: NO PACEMAKER: NO MEASUREMENTS (cm) DIASTOLIC (NORMALS) SYSTOLIC (NORMALS) IVSd 1.4 (0.6-1.2) LA Diam 4.4 (1.9-4.0) LVEF 54% LVIDd 5.9 (3.5-5.7) LVIDs 4.2 (2.0-3.5) %FS 28% LVPWd 1.4 (0.6-1.2) Ao Diam 3.0 (2.0-3.7) 2 DIMENSIONAL ASSESSMENT: RIGHT ATRIUM: NORMAL LEFT ATRIUM: NORMAL RIGHT VENTRICLE: NORMAL LEFT VENTRICLE: NORMAL TRICUSPID VALVE: NORMAL MITRAL VALVE: NORMAL PULMONIC VALVE: NORMAL AORTIC VALVE: NORMAL PERICARDIAL EFFUSION: NONE AORTIC ROOT: NORMAL LEFT VENTRICULAR WALL MOTION: NORMAL DOPPLER/COLOR FLOW: NORMAL COMMENTS: NORMAL 2D ECHOCARDIOGRAM WITH DOPPLER. NO WALL MOTION ABNORMALITY. NO EFFUSION. TECHNOLOGIST: Sophia TAN
--- NOTE | 2018-02-23 14:28 | P.SSS ---
Patient History Date of Service: 02/23/18 Reason for admission: Chest pain rule out acute coronary syndrome History of Present Illness: Patient is a 32-year-old gentleman with a history of Coronary artery disease he has had a coronary artery bypass are ready. He had a cardiac catheterization about a year ago which revealed diffuse atherosclerotic disease in his coronary arteries. He required stands of his left circumflex in March of 2017. He has been managed medically however his atherosclerotic disease progresses. He continues to have chest pain and this time is pain will radiated to the left side. He came into the emergency room for further evaluation. He states morphine is only thing the really alleviates his pain. Nitro or Ranexa really does not work as effectively as morphine per the patient for his Coronary artery disease. Patient will have serial troponins and EKGs. Will get Cardiology consultation. Further workup per Cardiology recommendations. Allergies No Known Allergies Allergy (Verified 02/22/18 23:16) Home Medications: Aspirin [Aspirin EC 81 MG] 81 mg PO DAILY 01/02/16 Lisinopril 5 mg PO DAILY 01/02/16 Metoprolol Tartrate 100 mg PO DAILY 01/02/16 Nitroglycerin [Nitrostat*] 1 tab SL PRN PRN 06/24/17 Atorvastatin Calcium [Lipitor] 80 mg PO DAILY 06/30/17 Clopidogrel Bisulfate [Plavix] 75 mg PO DAILY 06/30/17 Prazosin HCl 5 mg PO DAILY 06/30/17 Ranolazine [Ranexa] 500 mg PO BID #30 tab.er.12h 06/30/17 Sertraline [Zoloft*] 75 mg PO DAILY 06/30/17 Metformin HCl [Metformin HCl ER] 1 tab PO BID 02/22/18 - Past Medical/Surgical History Has patient received pneumonia vaccine in the past: No Diabetic: No -: Coronary artery disease -: obesity -: HTN -: neuropathy -: spondylosis -: Coronary artery bypass grafting -: CARDIAC STENTS - Family History Father -: Heart disease, Hypertension Mother -: Diabetes - Social History Smoking Status: Former smoker Alcohol use: No CD- Drugs: No Caffeine use: No Place of Residence: Home Review of Systems 10-point ROS is otherwise unremarkable Physical Examination - Vital Signs Temperature: 97.2 F Blood Pressure: 110/71 Pulse: 69 Respirations: 18 Pulse Ox (%): 71 - Physical Exam General: Alert, In no apparent distress HEENT: Atraumatic, PERRLA, Mucous membr. moist/pink, EOMI, Sclerae nonicteric Neck: Supple, 2+ carotid pulse no bruit, No LAD, Without JVD or thyroid abnormality Respiratory: Clear to auscultation bilaterally, Normal air movement Cardiovascular: Regular rate/rhythm, Normal S1 S2 Gastrointestinal: Normal bowel sounds, No tenderness Musculoskeletal: No tenderness Integumentary: No rashes Neurological: Normal gait, Normal speech, Normal strength at 5/5 x4 extr, Normal tone, Normal affect Lymphatics: No axilla or inguinal lymphadenopathy - Studies Laboratory Data (last 24 hrs) 02/22/18 21:30: PT 12.3, INR 1.04, APTT 32.8 02/22/18 21:30: WBC 14.0 H, Hgb 13.8, Hct 40.4, Plt Count 246 02/22/18 21:30: Sodium 137, Potassium 3.9, BUN 8, Creatinine 0.90, Glucose 150 H , Magnesium 1.9, Total Bilirubin 0.5, AST 29, ALT 48, Alkaline Phosphatase 67, Lipase 138 - Diagnosis (Problem(s)) (1) Hx of CABG Status: Acute (2) Unstable angina Onset Date: 06/30/17 Status: Acute (3) HTN (hypertension) Onset Date: 06/24/17 Status: Chronic Qualifiers: Hypertension type: essential hypertension (4) Obesity Onset Date: 06/24/17 Status: Chronic Qualifiers: Obesity type: due to excess calories Serious obesity comorbidity presence: without serious comorbidity Body mass index: BMI 39.0-39.9 Treatment Summary: Overall during the hospital stay patient remained stable. Patient was admitted to the hospital for chest pain most likely secondary to unstable angina with history of CABG plus stent placement. The patient's chest pain did resolve here in the hospital after admission. Cardiology had been consulted. Patient was seen by cardiology here in the hospital who recommended the patient to be discharged home under stable condition be followed up outpatient for his unstable angina. Patient was notified. Patient demonstrated understanding and patient was thus discharged home under stable condition. Patient was asked to follow up with cardiology in about 1-2 days post discharge as well. - Disposition Disposition: ROUTINE DISCHARGE Condition: GOOD Patient Discharge Instructions: Please F.u with PCP and Cardiology in 1 to 2 week post discharge. No New medication Diet: Regular Activity: Ad renae
--- NOTE | 2018-02-24 00:17 | CON ---
Date of Consultation: 02/23/[address] Correa's service on 02/21/2018. I saw the patient on 02/23/2018. Reason For Consultation: Chest pain. History Of Present Illness: Mr. Manning is a 32-year-old unfortunate white male. He has a history of c oronary artery disease, status post CABG and stents. He has a history of hypertension, dyslipidemia, depression, neuropathy, and spondylosis. He normally gets his care at the [facility]. I did a hea rt catheterization on him in June 2017 and this showed patent stent in the circumflex and occluded FLAVIA to the RCA, occluded RCA, occluded jamul LAD with a patent SERRANO to the LAD. Since then, he nickerson s been placed on Ranexa 1000 mg b.i.d. by the [facility]. He is also on Zoloft, prazosin, metoprolo l, lisinopril, Lipitor, aspirin, and Plavix. Comes in with unstable angina. Troponin is negative. EKG showed no changes. He is pain-free now. Past Medical History: As stated earlier. Allergies: NONE. Review of Systems: Negative. Social History: Negative. Family History: Positive for heart disease. Medications: Listed earlier. Physical Examination: Vital Signs: Stable. Afebrile. HEENT: Negative. Neck: Supple. No bruit. Chest: Clear. Cardiac: Revealed a regular rhythm and rate without any murmurs, gallops, or rubs. Abdomen: Benign. Extremities: Revealed no clubbing, cyanosis, or edema. Diagnostic Data: His white count was 14,000. Rest of it was negative. Impression And Plan: Stable coronary artery disease, status post CABG, occluded FLAVIA to the RCA, occ luded jamul RCA and LAD, patent SERRANO to the LAD, and patent the circumflex with a stent in it. I th ink he may do better with a calcium channel adonay rather than a beta-adonay, I plan to change his metoprolol to Cardizem. I discussed the case with Dr. Mazariegos and he can go home on that regimen. We will see how he does. We will continue the Ranexa, lisinopril, Lipitor, aspirin, and Plavix. His ot her problems include hypertension, dyslipidemia, depression, neuropathy, and spondylosis. All of the m are pretty well controlled. An echocardiogram is pending. MARIBELL/REJI Voice ID: [id number] Report ID: [id number]
== END 2018-02-23 11:40 | disposition home or self-care (01) ==
LOC: ER 21:04 → ERHOLD 22:03 → 2ND 22:48
PROVIDERS: ADMIT Hospitalist; ATTEND Hospitalist
DX: I25.110 Atherosclerotic heart disease of native coronary artery with unstable angina pectoris (principal); I10 Essential (primary) hypertension; E66.9 Obesity, unspecified; Z68.38 Body mass index [BMI] 38.0-38.9, adult; Z95.1 Presence of aortocoronary bypass graft; Z95.5 Presence of coronary angioplasty implant and graft; E78.5 Hyperlipidemia, unspecified
CPT/HCPCS: 36415; 71045; 80048; 80061; 80076; 82550; 82553; 83690; 83735; 83880; 84484; 85025; 85610; 85730; 93005; 93306; 96372; 96374; 96375; 99285; G0378; J1650; J2405

== ENCOUNTER 2018-04-14 02:36 | Emergency (ER) | payer OTHER ==
--- OUTSIDE RECORDS SUMMARY | 2018-04-14 02:38 | XMS REPORT | Clinical Summary ---
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 after 04/13/[address] Lumbar Spine Wo Contrast (08/28/2017 [...] No definite compromise of either L5 root. [facility]-[id number] Procedure Note Interface, Radiology Results Incoming - [...] No definite compromise of either L5 root. [facility]-[id number] Performing Organization Address [facility] Phone [phone] [place] [address] after 04/13/2017 Insurance Payer Benefit Plan / Group Subscriber ID Type Phone Address COMMERCIAL MISC MISC COMMERCIAL xxxxxxxxxx Commercial [employer] xxxxxxxxxx
--- OUTSIDE RECORDS SUMMARY | 2018-04-14 02:44 | XMS REPORT | Continuity of Care Document ---
:1985 Author Organization Interface Problems Problem Status Onset Classification Date Comments Source Date Reported CHEST PAIN, Active 11/12/19 DIABETES, HTN 18 [facility] Left upper 08/28/19 11/25/2017 [facility] quadrant pain 18 Abdominal mass 08/20/19 11/25/2017 [facility] 18 Abdominal pain, 08/20/19 11/25/2017 [facility] acute 18 CHEST PAIN Active 08/19/19 [facility] [place] benjarial [place] CHSET PAIN R/O SC Active 07/05/[address] ALEXANDRA BILLING Active 03/29/[address] STEMI Active 03/29/[address] LFLT TRANSFER Active 10/08/19 [facility] [address] [place] [address] Diarrhea, 11/25/2017 [facility] unspecified Intra-abdominal 11/25/2017 [facility] and pelvic swelling, mass and lump, unspecified site Essential 11/25/2017 [facility] hypertension 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 bypass graft nursing home use of 11/25/2017 [facility] aspirin Personal history 11/25/2017 [facility] of nicotine dependence 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 STEMI (<span Resolved Problem 11/25/2017 ID="[id number]"> [facility] Confirmed</span>) [facility] CAD (<span Resolved Problem 11/25/2017 ID="[id number]"> [facility] Confirmed</span>) [facility] Knee pain Resolved Problem 11/25/2017 [facility] Hypertension Resolved Problem 11/25/2017 [facility] Obesity Resolved Problem 11/25/2017 [facility] Psoriasis (<span Resolved Problem 11/25/2017 MH ID="[id number]"> [facility] Confirmed</span>) [place] [facility] PTSD (<span Resolved Problem 11/25/2017 MH ID="[id number]"> [place] Confirmed</span>) [place] [facility] CHEST PAIN, Active UNSPECIFIED [place],[facility] DIABETES DUE TO Active UNDERLYING [facility] CONDITION W H HYPERTENSIVE Active EMERGENCY [facility] ST ELEVATION Active [facility] (STEMI) MYOCARDIAL [facility] Medications Medication Details Route Status Patient Ordering Order Source Instructions Provider Date PLease bring Pt's PLease bring No Longer Own APremilast to Pt's Own Active 2017 [facility] pharmacy for label APremilast to pharmacy for label, Reminder, Drug form: MISC, Route: MISC, Daily, 11/12/17 9:00:00 CDT, Duration: 30 day, Stop date: 12/11/17 9:00:00 CDT Sertraline 100 mg, 1 tab, No Longer Route: PO, Active 2017 [facility] Drug form: TAB, Daily, Dosing Weight 136, kg, Start date: 11/12/17 9:00:00 CDT, Duration: 30 day, Stop date: 12/11/17 9:00:00 CDTNotes: (Same as: Zoloft) Ticagrelor 90 mg, 1 tab, Inactive Route: PO, 2017 [facility] Drug form: TAB, Q12H, Dosing Weight 136, kg, Start date: 11/11/17 21:00:00 CDT, Duration: 30 day, Stop date: 12/11/17 9:00:00 CDTNotes: (Same as: Brilinta) atorvastatin 80 mg, 2 tab, Inactive Route: PO, 2017 [facility] Drug form: TAB, Bedtime, Dosing Weight 136, kg, Start date: 11/11/17 21:00:00 CDT, Duration: 30 day, Stop date: 12/10/17 21:00:00 CDTNotes: (Same as: Lipitor) Hytrin 2 mg, 1 cap, Inactive Route: PO, 2017 [facility] Drug form: CAP, Daily, Start date: 11/11/17 21:00:00 CDT, Duration: 30 day, Stop date: 12/10/17 21:00:00 CDTNotes: (Same As: Hytrin) 24 HR Metoprolol 100 mg, 1 tab, Inactive Tartrate 100 MG Route: PO, 2017 [facility] Extended Release Drug form: Tablet [Toprol] ERTAB, Daily, Start date: 11/11/17 17:00:00 CDT, Duration: 30 day, Stop date: 12/10/17 17:00:00 CDTNotes: (Same as: Toprol XL) May split tab, but do not crush. Fish Oil 1,000 mg, 1 Inactive cap, Route: 2017 [facility] PO, Drug form: CAP, BID, Dosing Weight 136, kg, Start date: 11/11/17 17:00:00 CDT, Duration: 30 day, Stop date: 12/11/17 9:00:00 CDTNotes: (Same as: MaxEPA, [place] 3 fish oil ) Non-Formulary Drug Prazosin 2 mg, Route: Inactive PO, Drug form: 2017 [facility] CAP, BID, Dosing Weight 136, kg, Start date: 11/11/17 17:00:00 CDT, Duration: 30 day, Stop date: 12/11/17 9:00:00 CDT apremilast 30 mg apremilast 30 Inactive oral tablet mg oral 2017 [facility] tablet, 30 mg, Route: PO, BID, 11/11/17 17:00:00 CDT, Duration: 30 day, Stop date: 12/11/17 9:00:00 CDT ezetimibe 10 mg, 1 tab, Inactive Route: PO, 2017 [facility] Drug form: TAB, Daily, Dosing Weight 136, kg, Start date: 11/11/17 17:00:00 CDT, Duration: 30 day, Stop date: 12/10/17 17:00:00 CDTNotes: (Same as: Zetia) Docusate Sodium 100 mg, 1 cap, Inactive 100 MG Oral Route: PO, 2017 [facility] Capsule Drug form: CAP, BID, Dosing Weight 136, kg, Start date: 11/11/17 17:00:00 CDT, Duration: 30 day, Stop date: 12/11/17 9:00:00 CDTNotes: (Same as: Colace) (Do Not Crush) morphine Sulfate 6 mg, 3 mL, Inactive Route: PO, 2017 [facility] Drug form: SOLN, Q6H, PRN Pain Score 7-10, Start date: 11/11/17 16:00:00 CDT, Duration: 30 day, Stop date: 12/11/17 15:59:00 CDTNotes: (Same as:MORPhine Sulfate) gabapentin 300 MG 300 mg, 1 cap, Inactive Oral Capsule Route: PO, 2017 [facility] Drug form: CAP, Q8H, Dosing Weight 136, kg, Start date: 11/11/17 16:00:00 CDT, Duration: 30 day, Stop date: 12/11/17 8:00:00 CDTNotes: (Same as: Neurontin) Dicyclomine 10 mg=1 cap, Active Hydrochloride 10 PO, QID-Before 2018 [place] Oral Capsule Meals, PRN [Bentyl] Abdominal Pain, # 20 cap, 0 Refill(s), Pharmacy: [facility]/pharmacy #[id number] Aspirin 81 MG 81 mg, 1 tab, Inactive Enteric Coated Route: PO2017 [facility] Tablet Drug form: ECTAB, Daily, Dosing Weight 136, kg, Start date: 11/11/17 11:00:00 CDT, Duration: 30 day, Stop date: 12/11/17 9:00:00 CDTNotes: Do not crush or chew. (Same As: Ecotrin) Isosorbide 30 mg, 1 tab, Inactive Route: PO2017 [facility] Drug form: ERTAB, QAM, Dosing Weight 136, kg, Start date: 11/11/17 11:00:00 CDT, Duration: 30 day, Stop date: 12/11/17 9:00:00 CDT Lisinopril 5 mg, 1 tab, Inactive Route: PO2017 [facility] Drug form: TAB, Daily, Dosing Weight 136, kg, Start date: 11/11/17 11:00:00 CDT, Duration: 30 day, Stop date: 12/11/17 9:00:00 CDTNotes: (Same as: Prinivil, Zestril) Morphine 2 mg, 1 mL, Inactive Route: IVP, 2017 [facility] Drug form: SOLN, Q6H, Dosing Weight 136, kg, PRN Pain Score 7-10, Start date: 11/11/17 9:48:00 CDT, Duration: 1 doses or times, Stop date: Limited # of times Acetaminophen 325 1 tab, Route: Inactive MG / Hydrocodone PO, Drug Form: 2017 [facility] Bitartrate 5 MG TAB, Dosing Oral Tablet [[place] Weight 136, 5/325] kg, Q6H, PRN Pain Score 4-6, Start date: 11/11/17 9:48:00 CDT, Duration: 30 day, Stop date: 12/11/17 9:47:00 CDTNotes: (Same as: [place] 325/5) Do not exceed 4gm/day of acetaminophen. Nitroglycerin 0.4 0.4 mg, 1 tab, Inactive MG Sublingual Route: SL2017 [facility] Tablet Drug form: TAB, Q5Min, Dosing Weight 136, kg, PRN Chest Pain, Start date: 11/11/17 9:44:00 CDT, Duration: 30 day, Stop date: 12/11/17 9:43:00 CDTNotes: (Same as:Nitroquick, Nitrostat) "Do Not Crush" Sublingual tablet Bisacodyl 5 mg, 1 tab, Inactive Route: PO, 2017 [facility] Drug form: ECTAB, Q6H, Dosing Weight 136, kg, PRN Constipation, Start date: 11/11/17 9:44:00 CDT, Duration: 30 day, Stop date: 12/11/17 9:43:00 CDTNotes: (Same As: Dulcolax, Correctol) (Do Not Crush) "Do Not Crush" Saline Flush 0.9% 10 ml, Route: Inactive IVP, Drug 2017 [facility] Form: INJ, Dosing Weight 136, kg, Q12H, Start date: 11/11/17 9:00:00 CDT, Duration: 30 day, Stop date: 12/10/17 21:00:00 CDTNotes: (Same as: BD Posiflush) Saline Flush 0.9% 10 ml, Route: Inactive IVP, Drug 2017 [facility] Form: INJ, Dosing Weight 136, kg, PRN, PRN Line Flush, Start date: 11/11/17 6:03:00 CDT, Duration: 30 day, Stop date: 12/11/17 6:02:00 CDTNotes: (Same as: BD Posiflush) Nitroglycerin 0.4 mg, 1 tab, Inactive Route: SL, 2017 [facility] Drug form: TAB, Q5Min, Dosing Weight 136, kg, PRN Chest Pain, Start date: 11/11/17 6:03:00 CDT, Duration: 3 doses or times, Stop date: Limited # of timesNotes: (Same as:Nitroquick, Nitrostat) "Do Not Crush" Sublingual tablet pneumococcal 0.5 mL, Route: Inactive capsular IM, Drug Form: 2017 [facility] polysaccharide INJ, ONCALL, type 1 vaccine [...] 0.5 mg, PO, Active TID, PRN 2017 [facility] Anxiety, 0 Refill(s) Acetaminophen 300 1 tab, PO, Active MG / Codeine Q4H, PRN Pain, 2017 [place] Phosphate 30 MG # 24 tab, 0 Oral Tablet Refill(s) [Tylenol with Codeine #3] Morphine 4 mg, 1 mL, Inactive Route: IVP, 2017 [place] Drug form: SOLN, ONCE, Dosing Weight 127.273, kg, Priority: STAT, Start date: 08/19/17 3:21:00 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 [employer]TER [employer], Stop date: 08/19/17 3:21:00 CSTNotes: (Same as:MORPhine Sulfate) Ondansetron 4 mg, 2 mL, Inactive Route: IVP, 2017 [place] Drug form: INJ, ONCE, Dosing Weight 127.273, kg, Priority: STAT, Start date: 08/19/17 3:21:00 MACHINE [employer], Stop date: 08/19/17 3:21:00 CSTNotes: (Same as: Zofran) MEDICATION WASTE Product Size: 4 mg Product Wasted: ___ mg Sodium Chloride 1,000 mL, 1000 Inactive 0.9% (Bolus) IV ml/hr, Infuse 2017 [place] Over: 1 hr, Route: IV, 1,000, Drug form: INJ, ONCE, Priority: STAT, Dosing Weight 127.273 kg, Start date: 08/19/17 3:21:00 MACHINE [employer], Stop date: 08/19/17 3:21:00 [employer]ACH[employer] indomethacin 25 mg 25 mg=1 cap, Active [...] atorvastatin 80 mg 80 mg=1 tab, Active [place] oral tablet PO, Bedtime, # 2016 [facility] 90 tab, 1 Center Refill(s) Acetaminophen 325 1 tab, PO, Inactive [place] MG / Hydrocodone Q4H, PRN Pain 2016 [facility] Bitartrate 5 MG Score 1-3, 0 Center Oral Tablet [[place] Refill(s) 5/325] metoprolol 50 mg 50 mg=1 tab, Active [place] oral tablet, PO, Daily, # 2016 [facility] extended release 90 tab, 1 Center Refill(s) Aspirin 81 MG 81 mg=1 tab, Active [place] Enteric Coated PO, Daily, # 2016 [facility] Tablet 90 tab, 1 Center Refill(s) Bupropion 150 mg, 1 tab, Inactive [place] Route: PO, 2015 [facility] Drug form: [place] ERTAB, Before Breakfast, Dosing Weight 134.347, kg, Start date: 03/31/16 11:30:00 CDT, Duration: 30 day, Stop date: 04/30/16 7:30:00 CSTNotes: (Do not crush) (Same As: Wellbutrin SR) Bupropion 100 mg, Route: No Longer [place] PO, Before Active 2015 [facility] Breakfast, Center Dosing Weight 134.347, kg, Start date: 03/31/16 7:30:00 CDT, Duration: 30 day, Stop date: 04/29/16 7:30:00 [employer]ACH[employer] Sertraline 50 mg, 1 tab, No Longer [place] Route: PO, Active 2015 [facility] Drug form: [place] TAB, Daily, Dosing Weight 131.818, kg, Start [...] atorvastatin 80 mg, 1 tab, No Longer Route: PO, Active 2015 [facility] Drug form: [place] TAB, Bedtime, Dosing Weight 134.347, kg, Start date: 03/30/16 21:00:00 CDT, Stop date: 04/28/16 21:00:00 CSTNotes: Same as Lipitor Dulcolax Laxative 5 mg, 1 tab, No Longer Route: PO, Active 2015 [facility] Drug form: [place] ECTAB, Q6H, Dosing Weight 134.347, kg, PRN Constipation, Start date: 03/30/16 17:50:00 CDT, Duration: 30 day, Stop date: 04/29/16 17:49:00 CSTNotes: (Same As: Dulcolax, Correctol) (Do Not Crush) "Do Not Crush" Motrin 200 mg, 1 tab, No Longer [place] Route: PO, Active 2015 [facility] Drug form: [place] TAB, Q6H, Dosing Weight 134.347, kg, PRN For Temp > 100.4 F, Start date: 03/30/16 17:50:00 CDT, Duration: 30 day, Stop date: 04/29/16 17:49:00 CSTNotes: (Same as: Advil) Give with food. Bupropion 150 mg, Route: Inactive [place] PO, BID, 2015 [facility] Dosing Weight [place] 134.347, kg, Start date: 03/30/16 17:00:00 CDT, Duration: 30 day, Stop date: 04/29/16 9:00:00 MACHINE [employer] Sodium Chloride 250 mL, 250 Inactive [place] 0.154 MEQ/ML ml/hr, Infuse 2016 [facility] Injectable Over: 1 hr, [place] Solution Route: IV, 250, Drug form: INJ, [...] CDT Iohexol 110 mL, Route: No Longer [place] IVP, Drug Active 2015 [facility] Form: SOLN, [place] Dosing Weight 134.347, kg, ONCALL, STAT, Start date: 03/30/16 14:11:00 CDT, Stop date: 03/31/16 0:00:00 CDT, Dose=2.2ml/kg, Max [id number] -- "To be infused by Radiology Staff ONLY"Notes: (Same as:Omnipaque 350). WASTE: F/P - Black; E - Municipal Trash Bin Lisinopril 5 mg, 1 tab, No Longer [place] Route: PO, Active 2015 [facility] Drug form: [place] TAB, Daily, Dosing Weight 131.818, kg, Start date: 03/30/16 9:00:00 CDT, Duration: 30 day, Stop date: 04/28/16 9:00:00 CSTNotes: (Same as: Prinivil, Zestril) metoprolol 12.5 mg, 1 No Longer [place] tartrate tab, Route: Active 2015 [facility] PO, Drug form: [place] TAB, Q12H, Dosing Weight 131.818, kg, Start date: 03/30/16 9:00:00 CDT, Duration: 30 day, Stop date: 04/28/16 21:00:00 CSTNotes: (Same as: Lopressor) 12.5mg=1/4 X 50 mg tab. Plavix 75 mg, 1 tab, No Longer [place] Route: PO, Active 2015 [facility] Drug form: [place] TAB, Daily, Dosing Weight 131.818, kg, Start date: 03/30/16 9:00:00 CDT, Duration: 30 day, Stop date: 04/28/16 9:00:00 CSTNotes: (Same As: Plavix) Aspirin 81 mg, 1 tab, No Longer [place] Route: PO, Active 2015 [facility] Drug form: [place] ECTAB, Daily, Dosing Weight 131.818, kg, Start date: 03/30/16 9:00:00 CDT, Duration: 30 day, Stop date: 04/28/16 9:00:00 CSTNotes: Do not crush or chew. (Same As: Ecotrin) Acetaminophen 325 1 tab, Route: No Longer [place] MG / Hydrocodone PO, Drug Form: Active 2015 [facility] Bitartrate 5 MG TAB, Dosing Center Oral Tablet [[place] Weight 5/325] 134.347, kg, Q4H, PRN Pain Score 1-3, Start date: 03/30/16 8:38:00 CDT, Duration: 30 day, Stop date: 04/29/16 8:37:00 CSTNotes: (Same as: [place] 325/5) Do not exceed 4gm/day of acetaminophen. gabapentin 300 mg, 1 cap, No Longer [place] Route: PO, Active 2015 [facility] Drug form: [place] CAP, Q8H, Dosing Weight 131.818, kg, (CrCl > 60 ml/min), Start date: 03/30/16 8:00:00 CDT, Duration: 30 day, Stop date: 04/29/16 0:00:00 CSTNotes: (Same as: Neurontin) sodium phosphate + 15 mmol, 5 mL, No Longer [place] sodium chloride Route: IVPB, Active 2015 [facility] 0.9% INJ 250 mL Drug form: [place] INJ, PRN, Dosing Weight 134.347, kg, PRN Abnormal Lab Result, For NON-ICU Patients Only., Start date: 03/30/16 6:07:00 CDT, Duration: 30 day, Stop date: 04/29/16 5:06:00 MACHINE [employer]TER [employer] potassium 30 mmol, 10 No Longer [place] phosphate + sodium mL, Route: Active 2015 [...] hours potassium 2 pkt, Route: No Longer [place] phosphate-sodium PO, Drug Form: Active 2015 Medical [...] chloride 10 mEq, 50 mL, No Longer [place] Route: IVPB, Active 2015 [facility] Drug form: Center INJ, PRN, Dosing Weight 134.347, kg, PRN Abnormal Lab Result, For NON-ICU Patients Only, Start date: 03/30/16 6:07:00 CDT, Duration: 30 day, Stop date: 04/29/16 5:06:00 CSTNotes: (Same as: KCL) Infuse over 2 hours. Magnesium Sulfate 2 gm, 50 mL, No Longer [place] Route: IVPB, Active 2015 [facility] Drug form: [place] INJ, PRN, Dosing Weight 134.347, kg, PRN Abnormal Lab Result, For NON-ICU Patients Only., Start date: 03/30/16 6:07:00 CDT, Duration: 30 day, Stop date: 04/29/16 5:06:00 CSTNotes: WASTE: F/P - Sink; E - Municipal Trash Bin Calcium Gluconate 3 gm, 30 mL, No Longer [place] Route: IVPB, Active 2015 [facility] Drug form: Center INJ, PRN, Dosing Weight 134.347, kg, PRN Abnormal Lab Result, For NON-ICU Patients Only., Start date: 03/30/16 6:07:00 CDT, Duration: 30 day, Stop date: 04/29/16 5:06:00 CSTNotes: WASTE: F/P - Sink; E - Municipal Trash Bin Magnesium Oxide 800 mg, 2 tab, No Longer [place] Route: PO, Active 2015 [facility] Drug form: Center TAB, PRN, Dosing Weight 134.347, kg, PRN Abnormal Lab Result, For NON-ICU Patients Only., Start date: 03/30/16 6:07:00 CDT, Duration: 30 day, Stop date: 04/29/16 5:06:00 CSTNotes: (Same as: Mag-Ox 400) Magnesium oxide [id number] elemental magnesium Dose=____mg magnesium oxide (___mg elemental magnesium) Ketorolac 15 mg, 1 mL, Inactive [place] Route: IV, 2015 [facility] Drug form: [place] INJ, ONCE, Dosing Weight 134.347, kg, Start date: 03/30/16 3:38:00 CDT, Stop date: 03/30/16 3:38:00 CDTNotes: (Same as:Toradol) IV bolus must be given >15 seconds. Give IM administration slowly and deeply into the muscle. Not for use > 4 days. Morphine 4 mg, Route: Inactive [facility] IVP, ONCE, 2015 Medical Dosing Weight Center 134.347, kg, Priority: STAT, Start date: 03/30/16 3:27:00 CDT, Stop date: 03/30/16 3:27:00 CDT sertraline 50 mg 50 mg=1 tab, Active [facility] oral tablet PO, Daily, 0 2015 [facility] Refill(s) [place] Tramadol 100 mg, 2 tab, No Longer [place] Route: PO, Active 2015 [facility] Drug form: [place] TAB, Q6H, Dosing Weight 131.818, kg, PRN Pain Score 4-6, Start date: 03/30/16 1:15:00 CDT, Duration: 30 day, Stop date: 04/29/16 1:14:00 CSTNotes: Not to exceed 400mg/day. (Same As: Ultram) Saline Flush 0.9% 10 mL, Route: No Longer [facility] IVP, Drug Active 2015 [facility] Form: INJ, Center Dosing Weight 131.818, kg, PRN, PRN Line Flush, Start date: 03/29/16 22:26:00 CDT, Duration: 30 day, Stop date: 04/28/16 21:25:00 CSTNotes: (Same as: BD Posiflush) Lipitor 20 mg, 1 tab, Inactive [place] Route: PO, 2016 [facility] Drug form: Center [...] oxyCODONE 5 mg 5 mg=1 tab, Active [facility] oral tablet PO, Q4H, PRN 2016 Medical [...] gabapentin 300 MG 300 mg=1 cap, Active [facility] Oral Capsule PO, Q8H-06, # 2016 Medical 60 cap, 0 Center Refill(s) celecoxib 200 mg 200 mg=1 cap, Active [facility] oral capsule PO, Q12H, # 30 2016 [...] [place] oral capsule PO, Q12H, # 30 2015 [facility] cap, 0 Center Refill(s) Oxycodone 5 mg, 1 tab, Inactive [place] Hydrochloride 5 MG Route: PO, 2016 [facility] Oral Tablet Drug form: Center TAB, Q4H, Dosing Weight 123.182, kg, PRN Pain Score 4-6, Start date: 10/22/15 8:35:00 CDT, Duration: 30 day, Stop date: 11/21/15 8:34:00 CDTNotes: (Same as: Roxicodone) gabapentin 300 MG 300 mg, 1 cap, No Longer [place] Oral Capsule Route: PO, Active 2015 [facility] Drug form: Center CAP, Q8H-06, Dosing Weight 123.182, kg, (CrCl > 60 ml/min), Start date: 10/21/15 22:00:00 CDT, Duration: 30 day, Stop date: 11/20/15 14:00:00 CDTNotes: (Same as: Neurontin) Tramadol 100 mg, 2 tab, No Longer [place] Route: PO, Active 2015 [facility] Drug form: Center TAB, Q6H, Dosing Weight 123.182, kg, Start date: 10/21/15 17:55:00 CDT, Duration: 30 day, Stop date: 11/20/15 12:00:00 CDTNotes: Not to exceed 400mg/day. (Same As: Ultram) Acetaminophen 325 1 tab, Route: No Longer [facility] MG / Hydrocodone PO, Drug Form: Active 2015 Medical Bitartrate 5 MG TAB, Dosing Center Oral Tablet [[place] Weight 5/325] 123.182, kg, Q4H, PRN Pain Score 1-3, Start date: 10/21/15 17:54:00 CDT, Duration: 30 day, Stop date: 11/20/15 17:53:00 CDTNotes: (Same as: [place] 325/5) Do not exceed 4gm/day of acetaminophen. Benzocaine 15 MG / 1 lozenge, No Longer [place] Menthol 3.6 MG Route: MUCOUS Active 2015 Medical Lozenge [Cepacol [facility], [facility] Sore Throat Pain Form: ANISHA, Relief 15/3.6] Dosing Weight 123.182, kg, Q2H, PRN Sore Throat, Start date: 10/21/15 0:30:00 CDT, Duration: 30 day, Stop date: 11/20/15 0:29:00 CDTNotes: Cepacol lozenges Dispense 1 box=16 lozenges (Same As: Cepacol Lozenges) Morphine 2 mg, 1 mL, Inactive [facility] Route: IVP2015 Medical Drug form: [place] INJ, ONCALL, Dosing Weight 123.182, kg, Start date: 10/20/15 13:00:00 CDT, Duration: 1 doses or times, Stop date: 10/21/15 0:00:00 CDTNotes: (Same as:MORPhine Sulfate) Tylenol 1,000 mg, 2 No Longer [place] tab, Route: Active 2015 Medical PO, Drug form: [place] TAB, Q6H, Dosing Weight 123.182, kg, Start date: 10/19/15 12:00:00 CDT, Duration: 30 day, Stop date: 11/18/15 6:00:00 CDTNotes: Max acetaminophen 4000 mg/day (4 gm/day). (Same as: Tylenol Extra Strength) Morphine 2 mg, 1 mL, Inactive [place] Route: IVP2015 [facility] Drug form: [place] INJ, ONCE, Dosing Weight 123.182, kg, Start date: 10/19/15 10:22:00 CDT, Stop date: 10/19/15 10:22:00 CDTNotes: (Same as:MORPhine Sulfate) Celebrex 200 mg, 1 cap, No Longer [facility] Route: PO, Active 2015 Medical Drug form: [place] CAP, Q12H, Dosing Weight 123.182, kg, Start date: 10/19/15 8:00:00 CDT, Duration: 30 day, Stop date: 11/17/15 21:00:00 CDTNotes: NSAID. Please check indication. Not for seizure. (Same As: CeleBREX) remove patch 3 patch, No Longer [facility] Route: TOP, Active 2015 Medical Bedtime, Drug Center form: ERFILM, Start date: 10/18/15 21:00:00 CDT, Duration: 30 day, Stop date: 11/16/15 21:00:00 CDTNotes: Remove patch 12 hours after application each day. metoprolol 25 mg, 1 tab, No Longer [place] tartrate Route: PO, Active 2015 Medical Drug form: Center TAB, Q12H, Dosing Weight 123.182, kg, Start date: 10/18/15 21:00:00 CDT, Duration: 30 day, Stop date: 11/17/15 9:00:00 CDTNotes: (Same as: Lopressor) Celebrex 400 mg, 2 cap, Inactive [facility] Route: PO, 2016 [facility] Drug form: [facility] CAP, ONCE, Dosing Weight 123.182, kg, Priority: [...] Lisinopril 5 mg, 1 tab, No Longer [place] Route: PO, Active 2015 Medical Drug form: [facility] TAB, Daily, Dosing Weight 123.182, kg, Start date: 10/18/15 17:00:00 CDT, Duration: 30 day, Stop date: 11/17/15 9:00:00 CDTNotes: (Same as: Prinivil, Zestril) Lidocaine 3 patch, No Longer [facility] Hydrochloride 0.05 Route: TOP, Active 2015 Medical [...] Plavix 75 mg, 1 tab, No Longer [facility] Route: PO, Active 2015 Medical Drug form: [place] TAB, Daily, Dosing Weight 123.182, kg, Start date: 10/18/15 9:00:00 CDT, Duration: 30 day, Stop date: 11/16/15 9:00:00 CDTNotes: (Same As: Plavix) metoprolol 12.5 mg, 1 No Longer [facility] tartrate tab, Route: Active 2015 Medical PO, Drug form: [place] TAB, Q12H, Dosing Weight 123.182, kg, Start date: 10/17/15 21:00:00 CDT, Duration: 30 day, Stop date: 11/16/15 9:00:00 CDTNotes: (Same as: Lopressor) 12.5mg=1/4 X 50 mg tab. sennosides, [facility] 17.2 mg, 2 No Longer [place] tab, Route: Active 2015 Medical PO, Drug Form: [place] TAB, Dosing Weight 123.182, kg, Bedtime, Start date: 10/17/15 21:00:00 CDT, Duration: 30 day, Stop date: 11/15/15 21:00:00 CDTNotes: (Same as: Senokot) Tetrahydrocannabin 5 mg, 1 cap, No Longer [facility] ol Route: PO, Active 2015 Medical Drug form: [place] CAP, Q12H, Dosing Weight 123.182, kg, Start date: 10/17/15 21:00:00 CDT, Duration: 30 day, Stop date: 11/16/15 9:00:00 CDTNotes: (Same as: Marinol) Non-Formulary Drug. Insulin Glargine 5 unit, 0.05 No Longer [place] mL, Route: Active 2015 Medical SUB-Q, Drug Center form: INJ, Daily, Dosing Weight 123.182, kg, Priority: NOW, Start date: 10/17/15 17:31:00 CDT, Duration: 30 day, Stop date: 11/16/15 9:00:00 CDTNotes: Same as Lantus Solostar PEN Do not hold insulin without contacting prescriber "single patient use only" WASTE: F/P - Black; E - Municipal Trash Bin Stable for 28 days at room temperature. Expires in days from Date Protonix 40 mg, 1 tab, No Longer [place] Route: PO, Active 2015 Medical Drug form: Center ECTAB, Before Dinner, Dosing Weight 123.182, kg, Start date: 10/17/15 16:30:00 CDT, Duration: 30 day, Stop date: 11/15/15 16:30:00 CDTNotes: Tablet should not be chewed or crushed. (Same as: Protonix) potassium 2 pkt, Route: No Longer [place] phosphate-sodium PO, Drug Form: Active 2015 Medical [...] + 15 mmol, 5 mL, No Longer [place] Sodium Chloride Route: IVPB, Active 2015 Medical 0.9% IV 250 mL PRN, Dosing Center Weight 123.182, kg, PRN Abnormal Lab Result, For NON-ICU Patients Only., Start date: 10/17/15 16:14:00 CDT, Duration: 30 day, Stop date: 11/16/15 16:13:00 CDT potassium 30 mmol, 10 No Longer [place] phosphate + Sodium mL, Route: Active 2015 [...] Sulfate 1 gm, 100 mL, No Longer [place] Route: IVPB, Active 2015 Medical Drug form: Center INJ, PRN, Dosing Weight 123.182, kg, PRN Abnormal Lab Result, For NON-ICU Patients Only., Start date: 10/17/15 16:14:00 CDT, Duration: 30 day, Stop date: 11/16/15 16:13:00 CDTNotes: WASTE: F/P - Sink; E - Municipal Trash Bin Calcium Gluconate 3 gm, 30 mL, No Longer [place] Route: IVPB, Active 2015 Medical PRN, Dosing Center Weight 123.182, kg, PRN Abnormal Lab Result, For NON-ICU Patients Only., Start date: 10/17/15 16:14:00 CDT, Duration: 30 day, Stop date: 11/16/15 16:13:00 CDTNotes: WASTE: F/P - Sink; E - Municipal Trash Bin Magnesium Oxide 800 mg, 2 tab, No Longer [place] Route: PO, Active 2015 Medical Drug form: Center TAB, PRN, Dosing Weight 123.182, kg, PRN Abnormal Lab Result, For NON-ICU Patients Only., Start date: 10/17/15 16:14:00 CDT, Duration: 30 day, Stop date: 11/16/15 16:13:00 CDTNotes: (Same as: Mag-Ox 400) Magnesium oxide [id number] elemental magnesium Dose=____mg magnesium oxide (___mg elemental magnesium) potassium chloride 10 mEq, 50 mL, No Longer [place] Route: IVPB, Active 2015 Medical Drug form: [...] 50% 25 gm, 50 mL, No Longer [place] Syringe Route: IVP, Active 2015 Medical Drug Form: Center INJ, Dosing Weight 123.182, kg, PRN, PRN Blood Glucose Results, Start date: 10/17/15 16:10:00 CDT, Duration: 30 day, Stop date: 11/16/15 16:09:00 CDT Insulin, Aspart, 6 unit, 0.06 No Longer [facility] Human mL, Route: Active 2015 Medical SUB-Q, [...] Route: PO, Active 2015 Medical Drug form: [place] CAP, Q8Hnow, Dosing Weight 123.182, kg, Start date: 10/17/15 14:00:00 CDT, Duration: 30 day, Stop date: 11/16/15 6:00:00 CDTNotes: (Same as: Lyrica) Acetaminophen 1,000 mg, 2 No Longer [place] tab, Route: Active 2015 Medical PO, Drug form: [place] TAB, Q6Hnow, Dosing Weight 123.182, kg, Start date: 10/17/15 14:00:00 CDT, Duration: 30 day, Stop date: 11/16/15 8:00:00 CDTNotes: Max acetaminophen 4000 mg/day (4 gm/day). (Same as: Tylenol Extra Strength) Docusate 100 mg, 1 cap, No Longer [facility] Route: PO, Active 2015 Medical Drug form: [place] CAP, BID, Dosing Weight 123.182, kg, Start date: 10/17/15 9:00:00 CDT, Duration: 30 day, Stop date: 11/15/15 17:00:00 CDTNotes: (Same as: Colace) (Do Not Crush) Aspirin 81 MG 162 mg, 2 tab, No Longer [facility] Enteric Coated Route: PO, Active 2015 Medical Tablet Drug form: [place] ECTAB, Daily, Dosing Weight 123.182, kg, Start date: 10/17/15 9:00:00 CDT, Duration: 30 day, Stop date: 11/15/15 9:00:00 CDTNotes: Do not crush or chew. (Same As: Ecotrin) gabapentin 100 mg, 1 cap, Inactive [facility] Route: PO, 2015 Medical Drug form: [place] CAP, Q8Hnow, Dosing Weight 123.182, kg, Start date: 10/17/15 8:00:00 CDT, Duration: 30 day, Stop date: 11/16/15 0:00:00 CDTNotes: (Same as: Neurontin) Tramadol 100 mg, 2 tab, No Longer [facility] Route: PO, Active 2015 Medical Drug form: [place] TAB, Q6Hnow, Dosing Weight 123.182, kg, Start date: 10/17/15 8:00:00 CDT, Duration: 30 day, Stop date: 11/16/15 2:00:00 CDTNotes: Not to exceed 400mg/day. (Same As: Ultram) Alprazolam 0.25 mg, 1 No Longer [facility] tab, Route: Active 2015 Medical PO, Drug form: [place] TAB, Q8H, Dosing Weight 123.182, kg, PRN Anxiety, Start date: 10/17/15 7:45:00 CDT, Duration: 30 day, Stop date: 11/16/15 7:44:00 CDTNotes: With food or milk (Same as: Xanax) Oxycodone 10 mg, 2 tab, No Longer [place] Hydrochloride 5 MG Route: PO, Active 2015 Medical Oral Tablet Drug form: [place] TAB, Q4H, Dosing Weight 123.182, kg, PRN Pain Score 7-10, Start date: 10/17/15 7:45:00 CDT, Duration: 30 day, Stop date: 11/16/15 7:44:00 CDTNotes: (Same as: Roxicodone) ketOROLAC 15 mg/mL 15 mg, 1 mL, Inactive [place] injectable Route: IV, 2015 Medical solution Drug form: [place] INJ, ONCE, Dosing Weight 123.182, kg, Start date: 10/17/15 6:05:00 CDT, Stop date: 10/17/15 6:05:00 CDTNotes: (Same as:Toradol) IV bolus must be given >15 seconds. Give IM administration slowly and deeply into the muscle. Not for use > 4 days. Acetaminophen 1,000 mg, 100 Inactive [place] mL, Route: IV, 2015 Medical Drug form: [place] INJ, Q6H, Dosing Weight 123.182, kg, Start date: 10/17/15 6:00:00 CDT, Duration: 30 day, Stop date: 11/16/15 0:00:00 CDT, > 67 kg; Pediatric DosingNotes: Infuse over 15 minutes Do not exceed 4gm/day of acetaminophen MEDICATION WASTE Product Size: 1000 mg Product Wasted: _0__ mg Hydromorphone 15 mg, 30 mL, Inactive [facility] Route: IV, 2016 Medical Initial Center Loading Dose: 0.4mg, VP SALES Dose: 0.2 mg, VP SALES Lockout: 10 minutes, Continuous Basal Rate: 0 mg, 4 Hour Limit (In MG): 6, Drug Form: INJ, Continuous, Start date: 10/17/15 2:30:00 CDT, Duration: 30 day, Stop date: 11/16/15...Not es: (Same as: Dilaudid) conc=0.5 mg/ml Hydromorphone VP SALES Dose: ;Delay: ;Basal: Naloxone 0.04 mg, 0.1 Inactive [facility] mL, Route: 2015 Medical IVP, Drug Center form: INJ, Q2MIN, Dosing Weight 123.182, kg, PRN Narcotic Reversal, Start date: 10/17/15 2:20:00 CDT, Duration: 30 day, Stop date: 11/16/15 2:19:00 CDTNotes: Same as Narcan Calcium Chloride 500 mL, 500 Inactive [facility] 0.0014 MEQ/ML / ml/hr, Infuse 2015 Medical Potassium Chloride Over: 1 hr, Center 0.004 MEQ/ML / Route: IV, Sodium Chloride 500, Drug 0.103 MEQ/ML / form: INJ, Sodium Lactate ONCE, 0.028 MEQ/ML Priority: Injectable STAT, Dosing Solution Weight 123.182 kg, Start date: 10/17/15 2:07:00 CDT, Duration: 1 doses or times, Stop date: 10/17/15 2:07:00 CDT ceFAZolin (SCIP) 2 gm, 100 mL, Inactive 10/16[facility] Route: IVPB, 2015 Medical Drug form: Center INJ, ABXQ8H, Dosing Weight 123.182, kg, Start date: 10/17/15 2:00:00 CDT, Duration: 2 day, Stop date: 10/18/15 18:00:00 CDTNotes: Same as: Ancef Calcium Chloride 500 mL, 500 Inactive 10/16[facility] 0.0014 MEQ/ML / ml/hr, Infuse 2015 [...] [facility] 0.0014 MEQ/ML / ml/hr, Infuse 2015 [facility] Potassium Chloride Over: 1 hr, [place] 0.004 MEQ/ML / Route: IV, Sodium Chloride [...] 5 MG TAB, Dosing Center Oral Tablet [[place] Weight 5/325] 123.182, kg, ONCE, Start date: 10/16/15 21:30:00 CDT, Stop date: 10/16/15 21:30:00 CDTNotes: (Same as: [place] 325/5) Do not exceed 4gm/day of acetaminophen. Dexmedetomidine 400 microgram, No Longer [facility] 4 mL, Rate: Active 2015 Medical Titrate, Start Center Dose: 0.2 microgram/kg/h r, Titration: 0.1 microgram/kg/h r every 30 min, Goal(s): RASS +1 to 0, Max Dose: 1.5 microgram/kg/h r, Route: IV, Dosing Weight 123.182 kg, Total Volume: 100, Start date: 10/16/15 21:30:...Notes : Not for use > 24 hours Calcium Carbonate 1,000 mg, 2 No Longer [facility] 500 MG Chewable tab, Route: Active 2015 Medical Tablet PO, Drug form: [place] CHEWTAB, PRN, Dosing Weight 123.182, kg, PRN Abnormal Lab Result, FOR ICU USE ONLY, Start date: 10/16/15 20:15:00 CDT, Duration: 30 day, Stop date: 11/15/15 20:14:00 CDTNotes: (Same As: Tums) Calcium Carbonate 500 nn=149 mg elemental calcium Dose= mg calcium carbonate ( mg elemental calcium) Magnesium Oxide 800 mg, 2 tab, No Longer [facility] Route: PO, Active 2015 Medical Drug form: [place] TAB, PRN, Dosing Weight 123.182, kg, PRN Abnormal Lab Result, FOR ICU USE ONLY, Start date: 10/16/15 20:15:00 CDT, Duration: 30 day, Stop date: 11/15/15 20:14:00 CDTNotes: (Same as: Mag-Ox 400) Magnesium oxide [id number] elemental magnesium Dose=____mg magnesium oxide (___mg elemental magnesium) Magnesium Sulfate 2 gm, 50 mL, No Longer [facility] Route: IVPB, Active 2015 Medical Drug form: [place] INJ, PRN, Dosing Weight 123.182, kg, PRN Abnormal Lab Result, Start date: 10/16/15 20:15:00 CDT, Duration: 30 day, Stop date: 11/15/15 20:14:00 CDT, FOR ICU USE ONLYNotes: WASTE: F/P - Sink; E - Municipal Trash Bin Neutra-Phos 2 pkt, Route: No Longer [facility] PO, Drug Form: Active 2015 Medical PDR/REC, Center Dosing Weight 123.182, kg, PRN, PRN Abnormal Lab Result, FOR ICU USE ONLY, Start date: 10/16/15 20:15:00 CDT, Duration: 30 day, Stop date: 11/15/15 20:14:00 CDTNotes: (Same as: Neutra-Phos) Each 1.25 gm pkt has 250mg phosphorous. Mix w/2.5oz water and stir. Calcium Gluconate 1 gm, 10 mL, No Longer [facility] Route: IVPB, Active 2015 Medical PRN, Dosing Center Weight 123.182, kg, PRN Abnormal Lab Result, Start date: 10/16/15 20:15:00 CDT, Duration: 30 day, Stop date: 11/15/15 20:14:00 CDT, FOR ICU USE ONLYNotes: WASTE: F/P - Sink; E - Municipal Trash Bin potassium chloride 20 mEq, 100 No Longer [place] mL, Route: Active 2015 Medical IVPB, Drug Center form: INJ, PRN, Dosing Weight 123.182, kg, PRN Abnormal Lab Result, Via central line, Start date: 10/16/15 20:15:00 CDT, Duration: 30 day, Stop date: 11/15/15 20:14:00 CDT, FOR ICU USE ONLYNotes: (Same as: KCL) Infuse no faster than 10 mEq/hr if given peripherally. sodium phosphate + 15 mmol, 5 mL, No Longer [facility] Sodium Chloride Route: IVPB, Active 2015 Medical 0.9% IV 250 mL PRN, Dosing Center Weight 123.182, kg, PRN Abnormal Lab Result, Start date: 10/16/15 20:15:00 CDT, Duration: 30 day, Stop date: 11/15/15 20:14:00 CDT, FOR ICU USE ONLY potassium 30 mmol, 10 No Longer [facility] phosphate + Sodium mL, Route: Active 2015 Medical Chloride 0.9% IV IVPB, PRN, Center 250 mL Dosing Weight 123.182, kg, PRN Abnormal Lab Result, Start date: 10/16/15 20:15:00 CDT, Duration: 30 day, Stop date: 11/15/15 20:14:00 CDT, FOR ICU USE ONLYNotes: (Same as: K Phosphate.) 1 mMol phoshate has 1.47 mEq potassium Infuse over 4 hours Norepinephrine 8 mg, 8 mL, No Longer [place] Rate: Titrate, Active 2015 Medical Start Dose: [...] Insulin regular 99 mL, Rate: No Longer [place] 100 unit + Sodium Start Insulin Active [...] Dextrose 50% 12.5 gm, 25 No Longer [place] Syringe mL, Route: Active 2015 Medical IVP, [...] 18:20:00 CDT lidocaine (ANES) Route: IV, Inactive [facility] Drug form: 2016 Medical INJ, ONCE, Center Stop date: 10/16/15 18:20:00 CDT Insulin regular Route: IV, Inactive [facility] (ANES) Drug form: 2015 Medical INJ, ONCE, Center Stop date: 10/16/15 18:15:00 CDT midazolam (ANES) Route: IV, Inactive [facility] Drug form: 2015 Medical SOLN, ONCE, Center Stop date: 10/16/15 17:40:00 CDT Thrombate III 560 unit, Inactive [facility] Route: IV, 2016 Medical Drug form: Center INJ, ONCE, Start date: 10/16/15 16:49:00 CDT, Stop date: 10/16/15 16:49:00 CDTNotes: WASTE: F/P - Red; E -Red Call 2 hours ahead for the next dose; "blood product derivative" EPINEPHrine (ANES) Route: IV, Inactive [facility] Drug form: 2015 Medical INJ, ONCE, Center Stop date: 10/16/15 16:45:00 CDT vecuronium (ANES) Route: IV, Inactive [facility] Drug form: 2016 Medical INJ, ONCE, Center Stop date: 10/16/15 16:45:00 CDT vasopressin (ANES) Route: IV, Inactive [facility] Drug form: 2016 Medical INJ, ONCE, Center Stop date: 10/16/15 16:20:00 CDT norepinephrine Route: IV, Inactive [facility] (ANES) Drug form: 2016 Medical INJ, ONCE, Center Stop date: 10/16/15 16:20:00 CDT norepinephrine Route: IV, Inactive [facility] (ANES) (ANES) Drug form: 2016 Medical INJ, Start Center date: 10/16/15 16:10:00 CDT, Stop date: 10/16/15 17:10:00 CDT antithrombin III Route: IV, Inactive [place] (ANES) Drug form: 2015 Medical INJ, ONCE, Center Stop date: 10/16/15 16:00:00 CDT ceFAZolin (ANES) Route: IV, Inactive [facility] Drug form: 2015 Medical INJ, ONCE, Center Stop date: 10/16/15 16:00:00 CDT heparin (ANES) Route: IV, Inactive [facility] Drug form: 2015 Medical INJ, ONCE, Center Stop date: 10/16/15 15:50:00 CDT Thrombate III 560 unit, Inactive [facility] Route: IV, 2015 Medical Drug form: Center INJ, ONCE, Start date: 10/16/15 15:14:00 CDT, Stop date: 10/16/15 15:14:00 CDTNotes: WASTE: F/P - Red; E -Red Call 2 hours ahead for the next dose; "blood product derivative" rocuronium (ANES) Route: IV, Inactive [facility] Drug form: 2015 Medical INJ, ONCE, Center Stop date: 10/16/15 15:10:00 CDT Antithrombin III 573 unit, Inactive [facility] Route: IVP, 2015 Medical Drug form: Center INJ, ONCE, Dosing Weight 123.182, kg, Start date: 10/16/15 15:08:00 CDT, Duration: 1 doses or times, Stop date: 10/16/15 15:08:00 CDT metoprolol (ANES) Route: IV, Inactive [facility] Drug form: 2015 Medical INJ, ONCE, Center Stop date: 10/16/15 14:45:00 CDT fentaNYL (ANES) Route: IV, Inactive [facility] Drug form: 2015 Medical INJ, ONCE, Center Stop date: 10/16/15 14:45:00 CDT ceFAZolin (ANES) Route: IV, Inactive [facility] Drug form: 2016 Medical INJ, ONCE, Center Stop date: 10/16/15 12:54:00 CDT propofol (ANES) Route: IV, Inactive [facility] Drug form: 2016 Medical INJ, ONCE, Center Stop date: 10/16/15 12:49:00 CDT lidocaine (ANES) Route: IV, Inactive [facility] Drug form: 2015 Medical INJ, ONCE, Center Stop date: 10/16/15 12:49:00 CDT fentaNYL (ANES) Route: IV, Inactive [facility] Drug form: 2015 Medical INJ, ONCE, Center Stop date: 10/16/15 12:49:00 CDT midazolam (ANES) Route: IV, Inactive [facility] Drug form: 2015 Medical SOLN, ONCE, Center Stop date: 10/16/15 12:49:00 CDT rocuronium (ANES) Route: IV, Inactive [facility] Drug form: 2015 Medical INJ, ONCE, Center Stop date: 10/16/15 12:49:00 CDT vancomycin (ANES) Route: IV, Inactive [facility] (ANES) Drug form: 2015 Medical INJ, Start Center date: 10/16/15 12:20:00 CDT, Stop date: 10/16/15 13:20:00 CDT Isolyte S PH 7.4 Route: IV, Inactive [facility] (ANES) (ANES) Total Volume: 2015 Medical 1,000, Start Center date: 10/16/15 12:13:00 CDT, Stop date: 10/16/15 13:13:00 CDT Sodium Chloride Route: IV, Inactive [facility] 0.9% IV (ANES) Drug form: 2015 Medical (ANES) + INJ, Start Center tranexamic acid date: 10/16/15 (ANES) (ANES) 12:10:00 CDT, Stop date: 10/16/15 13:10:00 CDT Lactated Ringers Route: IV, Inactive [facility] Injection IV Drug form: 2015 Medical (ANES) (ANES) + INJ, Start Center tranexamic acid date: 10/16/15 (ANES) (ANES) 12:10:00 CDT, Stop date: 10/16/15 13:10:00 CDT Sodium Chloride Route: IV, Inactive [facility] 0.9% IV (ANES) Total Volume: 2015 Medical (ANES) 1,000, Start Center date: 10/16/15 11:46:00 CDT, Stop date: 10/16/15 12:46:00 CDT NS 1,000 mL 1,000 mL, No Longer [facility] Rate: 75 Active 2015 Medical ml/hr, Infuse Center over: 13.3 hr, Route: IV, Dosing Weight 123.182 kg, Total Volume: 1,000, Start date: 10/16/15 0:01:00 CDT, Duration: 30 day, Stop date: 11/15/15 0:00:00 CDT Iohexol 99 mL, Route: Inactive [facility] IVP, Drug 2015 [facility] D[facility] 123.182, kg, ONCALL, STAT, Start date: 10/15/15 18:24:00 CDT, Duration: 1 doses or times, Dose=2.2ml/kg, Max [id number] -- "To be infused by Radiology Staff ONLY" Lisinopril 2.5 mg, 1 tab, No Longer [place] Route: PO, Active 2015 Medical Drug form: [place] TAB, Daily, Dosing Weight 123.182, kg, Start date: 10/15/15 15:05:00 CDT, Duration: 30 day, Stop date: 11/14/15 9:00:00 CDTNotes: (Same as: Prinivil) PlasmaLyte A 1,000 mL, Inactive [facility] PH-7.4 1,000 mL Rate: 75 2015 Medical ml/hr, Infuse Center over: 13.3 hr, Route: IV, Dosing Weight 123.182 kg, Total Volume: 1,000, Start date: 10/15/15 0:01:00 CDT, Duration: 30 day, Stop date: 11/14/15 0:00:00 CDTNotes: WASTE: F/P - Sink; E - Municipal Trash Bin Iohexol 100 mL, Route: Inactive [place] IVP, Drug 2015 Medical Form: SOLN, Center Dosing Weight 123.182, kg, ONCALL, STAT, Start date: 10/14/15 14:26:00 CDT, Duration: 1 doses or times, Dose=2.2ml/kg, Max [id number] -- "To be infused by Radiology Staff ONLY"Notes: (Same as:Omnipaque 350). WASTE: F/P - Black; E - Municipal Trash Bin heparin 5,000 unit, 1 Inactive [place] mL, Route: 2015 Medical SUB-Q, Drug Center [...] heparin additive 500 mL, Rate: No Longer [place] 25,000 unit [14 27.22 ml/hr, Active 2015 Medical unit/kg/hr] + Infuse over: Center Premix Diluent 18.4 hr, Dextrose 5% 500 mL Route: IV, Dosing Weight 97.21 kg, Total Volume: 500 mL, Start date: 10/12/15 15:45:00 CDT, Duration: 30 day, Stop date: 11/11/15 15:44:00 CDT topiramate 25 mg, 1 cap, No Longer [facility] Route: PO, Active 2015 Medical Drug form: Center CAP, Q12H, Dosing Weight 123.182, kg, Start date: 10/11/15 21:00:00 CDT, Duration: 30 day, Stop date: 11/10/15 9:00:00 CDTNotes: Sprinkle formulation. (Same As: Topamax) rizatriptan 10 mg, 1 tab, Inactive [place] Route: PO, 2015 Medical Drug form: Center TAB, ONCE, Dosing Weight 123.182, kg, PRN Headache 1-5, Start date: 10/11/15 11:59:00 CDTNotes: (Same as: [employer]alt-[employer]NAG[employer] MANAGER) Magnesium Sulfate 2 gm, 50 mL, No Longer [place] Route: IVPB, Active 2015 Medical Drug form: Center INJ, PRN, Dosing Weight 123.182, kg, PRN Abnormal Lab Result, For NON-ICU Patients Only., Start date: 10/11/15 11:58:00 CDT, Duration: 30 day, Stop date: 11/10/15 11:57:00 CDTNotes: WASTE: F/P - Sink; E - Municipal Trash Bin Magnesium Oxide 800 mg, 2 tab, No Longer [facility] Route: PO, Active 2015 Medical Drug form: [place] TAB, PRN, Dosing Weight 123.182, kg, PRN Abnormal Lab Result, For NON-ICU Patients Only., Start date: 10/11/15 11:58:00 CDT, Duration: 30 day, Stop date: 11/10/15 11:57:00 CDTNotes: (Same as: Mag-Ox 400) Magnesium oxide [id number] elemental magnesium Dose=____mg magnesium oxide (___mg elemental magnesium) sodium phosphate + 30 mmol, 10 No Longer [facility] Sodium Chloride mL, Route: Active 2015 Medical 0.9% IV 250 mL IVPB, PRN, Center Dosing Weight 123.182, kg, PRN Abnormal Lab Result, For NON-ICU Patients Only., Start date: 10/11/15 11:58:00 CDT, Duration: 30 day, Stop date: 11/10/15 11:57:00 CDT Calcium Gluconate 2 gm, 20 mL, No Longer [facility] Route: IVPB, Active 2015 Medical PRN, Dosing Center Weight 123.182, kg, PRN Abnormal Lab Result, For NON-ICU Patients Only., Start date: 10/11/15 11:58:00 CDT, Duration: 30 day, Stop date: 11/10/15 11:57:00 CDTNotes: WASTE: F/P - Sink; E - Municipal Trash Bin potassium chloride 20 mEq, 1 tab, No Longer [place] Route: PO, Active 2015 Medical Drug form: Center ERTAB, PRN, Dosing Weight 123.182, kg, PRN Abnormal Lab Result, For NON-ICU Patients Only, Start date: 10/11/15 11:58:00 CDT, Duration: 30 day, Stop date: 11/10/15 11:57:00 CDTNotes: (Same as: K-Dur 20) "Do Not Crush" With food and full glass of water potassium 2 pkt, Route: No Longer [place] phosphate-sodium PO, Drug Form: Active 2015 Medical [...] potassium 15 mmol, 5 mL, No Longer [place] phosphate + Sodium Route: IVPB, Active 2015 Medical Chloride 0.9% IV PRN, Dosing Center 250 mL Weight 123.182, kg, PRN Abnormal Lab Result, For NON-ICU Patients Only., Start date: 10/11/15 11:58:00 CDT, Duration: 30 day, Stop date: 11/10/15 11:57:00 CDTNotes: (Same as: K Phosphate.) 1 mMol phoshate has 1.47 mEq potassium Infuse over 4 hours Tylenol 650 mg, 2 tab, No Longer [place] Route: PO, Active 2015 Medical Drug form: Center TAB, Q6H, Dosing Weight 123.182, kg, PRN Headache 1-3, Start date: 10/11/15 11:12:00 CDT, Stop date: 11/10/15 11:11:00 CDTNotes: Do not exceed 4 gm/day. (Same as: Tylenol) potassium chloride 10 mEq, 50 mL, Inactive [place] Route: IVPB2015 Medical Drug form: Center INJ, Q1H, Dosing Weight 123.182, kg, Total Dose=40 meq, Start date: 10/11/15 7:00:00 CDT, Duration: 4 doses or times, Stop date: 10/11/15 10:00:00 CDT, Peripheral LineNotes: (Same as: KCL) Infuse over 2 hours. Magnesium Sulfate 2 gm, 50 mL, Inactive [place] Route: IVPB2015 Medical Drug form: [place] INJ, ONCE, Dosing Weight 123.182, kg, Total dose=2 gm, Start date: 10/11/15 6:22:00 CDT, Duration: 1 doses or times, Stop date: 10/11/15 6:22:00 CDTNotes: WASTE: F/P - Sink; E - Municipal Trash Bin Isolyte S PH 7.4 1,000 mL, No Longer [place] 1,000 mL Rate: 75 Active 2015 Medical ml/hr, Infuse Center over: 13.3 hr, Route: IV, Dosing Weight 123.182 kg, Total Volume: 1,000, Start date: 10/11/15 0:01:00 CDT, Duration: 30 day, Stop date: 11/10/15 0:00:00 CDTNotes: (Same as: Isolyte S PH 7.4) heparin additive 500 mL, Rate: No Longer [place] 25,000 unit [14 27.22 ml/hr, Active 2015 Medical unit/kg/hr] + Infuse over: Center Premix Diluent 18.4 hr, Dextrose 5% 500 mL Route: IV, Dosing Weight 97.21 kg, Total Volume: 500 mL, Start date: 10/10/15 14:33:00 CDT, Duration: 30 day, Stop date: 11/09/15 14:32:00 CDT Acetaminophen 325 1 tab, Route: No Longer [place] MG / Hydrocodone PO, Drug Form: Active 2015 Medical Bitartrate 5 MG TAB, Dosing Center Oral Tablet [[place] Weight 5/325] 123.182, kg, Q4H, PRN Pain Score 1-3, Start date: 10/10/15 13:43:00 CDT, Duration: 30 day, Stop date: 11/09/15 13:42:00 CDTNotes: (Same as: [place] 325/5) Do not exceed 4gm/day of acetaminophen. Alprazolam 0.5 MG 0.5 mg, 1 tab, No Longer [facility] Oral Tablet Route: PO, Active 2015 Medical [Xanax] Drug form: [place] TAB, TID, Dosing Weight 123.182, kg, PRN Anxiety, Start date: 10/10/15 13:42:00 CDT, Duration: 30 day, Stop date: 11/09/15 13:41:00 CDTNotes: With food or milk (Same as: Xanax) Melatonin 3 MG 3 mg, 1 tab, No Longer [facility] Extended Release Route: PO, Active 2015 Medical Tablet Drug Form: [place] TAB, Dosing Weight 123.182, kg, Bedtime, PRN Insomnia, Start date: 10/09/15 21:42:00 CDT, Duration: 30 day, Stop date: 11/08/15 21:41:00 CDTNotes: (Same as: Melatonin) Tylenol 650 mg, 20.3 Inactive [place] mL, Route: PO, 2015 Medical Drug form: [place] LIQ, ONCE, Dosing Weight 123.182, kg, Priority: STAT, Start date: 10/09/15 17:39:00 CDT, Stop date: 10/09/15 17:39:00 CDTNotes: Max acetaminophen= 4000mg/day (4 gm/day). (Same as: Tylenol) heparin additive 500 mL, Rate: No Longer [place] 25,000 unit [12 23.33 ml/hr, Active 2015 Medical unit/kg/hr] + Infuse over: [place] Premix Diluent 21.4 hr, Dextrose 5% 500 [...] CDT Nitroglycerin 100 mg, 250 No Longer [facility] mL, Rate: Active 2015 Medical Titrate, Start Center Dose: 0.25 microgram/kg/m in, Titration: 0.2 microgram/kg/m in every 5 minutes, Goal(s): Chest pain and SBP between 100 - 150 mmHg, Max Dose: 3 microgram/kg/m in, Route: IV, Dosing Weight 123.182 kg, Total Volume: 250...Notes: (Same as:Tridil) Final conc=0.4 mg/ml. Premix bottle. Nitroglycerin 0.4 mg, 1 tab, Inactive [place] Route: SL, 2015 Medical Drug form: [place] TAB, ONCE, Dosing Weight 123.182, kg, Start date: 10/09/15 10:41:00 CDT, Stop date: 10/09/15 10:41:00 CDTNotes: (Same as:Nitroquick, Nitrostat) "Do Not Crush" Sublingual tablet Ticagrelor 90 mg, 1 tab, Inactive [facility] Route: PO, 2015 Medical Drug form: [place] TAB, Q12H, Dosing Weight 123.182, kg, Start date: 10/09/15 9:00:00 CDT, Duration: 30 day, Stop date: 11/07/15 21:00:00 CDTNotes: (Same as: Brilinta) metoprolol 12.5 mg, 1 No Longer [facility] tartrate tab, Route: Active 2015 Medical PO, Drug form: [place] TAB, BID, Dosing Weight 123.182, kg, Start date: 10/09/15 9:00:00 CDT, Duration: 30 day, Stop date: 11/07/15 17:00:00 CDTNotes: (Same as: Lopressor) 12.5mg=1/4 X 50 mg tab. Acetaminophen 325 1 tab, Route: Inactive [facility] MG / Hydrocodone PO, Drug Form: 2015 Medical Bitartrate 5 MG TAB, Dosing Center Oral Tablet Weight 123.182, kg, ONCE, STAT, Start date: 10/09/15 5:06:00 CDT, Stop date: 10/09/15 5:06:00 CDT Aspirin 81 mg, 1 tab, No Longer [facility] Route: PO, Active 2015 Medical Drug form: [place] ECTAB, Daily, Dosing Weight 123.182, kg, Start date: 10/09/15 2:12:00 CDT, Duration: 30 day, Stop date: 11/07/15 9:00:00 CDTNotes: Do not crush or chew. (Same As: Ecotrin) atorvastatin 80 mg, 1 tab, No Longer [facility] Route: PO, Active 2015 Medical Drug form: [place] TAB, Bedtime, Dosing Weight 123.182, kg, Start date: 10/09/15 2:09:00 CDT, Stop date: 11/05/15 21:00:00 CDTNotes: Same as Lipitor Ondansetron 4 mg, Route: Inactive [facility] IVP, Drug 2015 Medical form: INJ, Center ONCE, Dosing Weight 123.182, kg, Priority: STAT, Start date: 10/08/15 20:51:00 CDT, Stop date: 10/08/15 20:51:00 CDT Morphine 4 mg, Route: Inactive [facility] IVP, ONCE, 2016 Medical Dosing Weight Center 123.182, kg, Priority: STAT, Start date: 10/08/15 20:51:00 CDT, Stop date: 10/08/15 20:51:00 CDT heparin additive 500 mL, Rate: No Longer [facility] 25,000 unit [12 23.33 ml/hr, Active 2016 Medical unit/kg/hr] + Infuse over: [place] Premix Diluent 21.4 hr, Dextrose 5% 500 mL Route: IV, Dosing Weight 97.21 kg, Total Volume: 500 mL, Start date: 10/08/15 18:16:00 CDT, Duration: 30 day, Stop date: 11/07/15 18:15:00 CDT Heparin - one time 4,000 unit, Inactive [facility] bolus for ACS Route: IV, 2015 Medical Drug form: [place] INJ, ONCE, Dosing Weight 123.182, kg, Priority: STAT, Start date: 10/08/15 18:16:00 CDT, Stop date: 10/08/15 18:16:00 CDT Heparin 60 unit/kg Route: IVP, No Longer [facility] Bolus (Heparin PRN, 5,800 Active 2015 Medical Dosing Weight) unit, 5.8 mL, Center Drug form: INJ, PRN, Heparin Protocol, Start date: 10/08/15 18:16:00 CDT Stop date: 11/07/15 18:15:00 CDT, 30 day Heparin 30 unit/kg Route: IVP, No Longer [facility] Bolus (Heparin PRN, 2,900 Active 2015 Medical Dosing Weight) unit, 2.9 mL, Center Drug form: INJ, PRN, Heparin Protocol, Start date: 10/08/15 18:16:00 CDT Stop date: 11/07/15 18:15:00 CDT, 30 day Ticagrelor 180 mg, 2 tab, Inactive [facility] Route: PO, 2015 Medical Drug form: Center TAB, ONCE, kg, Start date: 10/08/15 17:42:00 CDT, Stop date: 10/08/15 17:42:00 CDTNotes: (Same as: Brilinta) Plavix 300 mg, Route: Inactive [facility] PO, Drug form: 2015 Medical TAB, ONCE, kg, Center Priority: STAT, Start date: 10/08/15 17:36:00 CDT, Stop date: 10/08/15 17:36:00 CDT Allergies, Adverse Reactions, Alerts Substance Category Reaction Severity Reaction Status Date Comments Source type Reported Immunizations Immunization Date Given Site Status Last Updated Comments Source Results Order Name Results Value Reference Date Interpretation Comments Source Range CARDIAC Troponin-I null 0.00 - 11/11 [facility] 0.40 [facility] CARDIAC Total CK 169 unit/L 12 - 191 11/11 [facility] CARDIAC Troponin-I null 0.00 - 11/11 [facility] 0.40 [facility] CARDIAC CK MB Index 0.7 0.0 - 2.5 11/11 [facility] CARDIAC CK MB 1.2 ng/mL 0.5 - 3.6 11/11 [facility] CARDIAC Troponin-I null 0.00 - 11/11 MH [facility] 0.40 [facility] CARDIAC Total CK 207 unit/L 12 - 191 11/11 [facility] /2017 [facility] CARDIAC CK MB Index 0.6 0.0 - 2.5 30 MH [facility] /2017 [facility] CARDIAC CK MB 1.2 ng/mL 0.5 - 3.6 30 MH [facility] /2017 [facility] ELECTROLYT AGAP 19.1 meq/L 10.0 - 11/11 MH ES 20.0 [facility] ELECTROLYT eGFR 74 11/11 Result Comment: The eGFR is calculated using the CKD-EPI formula. In most young, healthy individuals the eGFR will be >90 mL/ min/1.73m2. The eGFR declines with age. An eGFR of 60-89 may be normal in [place] mL/min/1. some populations, particularly the elderly, for whom the CKD-EPI formula has not been extensively validated. Use of the eGFR is not recommended in the following populations: [facility] 3m2 Individuals with unstable creatinine concentrations, [...] mg/dL 8.5 - 10.5 11/11 MH ES [facility] ELECTROLYT Chloride Lvl 95 meq/L 95 - 109 11/11 ES [facility] ELECTROLYT CO2 25 meq/L 24 - 32 11/11 ES [facility] ELECTROLYT Sodium Lvl 134 meq/L 135 - 145 11/11 MH ES [facility] ELECTROLYT Potassium 5.1 meq/L 3.5 - 5.1 11/11 MH ES Lvl /2017 [facility] ELECTROLYT Creatinine 1.27 mg/dL 0.50 - 11/11 MH ES Lvl 1.40 /2017 [facility] ELECTROLYT Glucose Lvl 272 mg/dL 70 - 99 / MH ES /2017 [facility] ELECTROLYT BUN 12 mg/dL 7 - 22 11/11 MH ES [facility] HEMATOLOGY Basophils # 0.2 K/CMM 0.0 - 0.2 11/11 MH [facility] HEMATOLOGY Eosinophils 0.3 K/CMM 0.0 - 0.5 05/30 MH # /2018 [facility] HEMATOLOGY Monocytes # 1.2 K/CMM 0.0 - 0.8 11/11 [facility] HEMATOLOGY Lymphocytes 2.7 K/CMM 1.0 - 5.5 11/11 MH # [facility] HEMATOLOGY Segs-Bands # 11.0 K/CMM 1.5 - 8.1 11/11 [facility] HEMATOLOGY Basophils 1.1 % 0.0 - 1.0 11/11 [facility] HEMATOLOGY Eosinophils 1.7 % 0.0 - 4.0 11/11 [facility] HEMATOLOGY Monocytes 7.7 % 2.0 - 12.0 11/11 [facility] HEMATOLOGY Lymphocytes 17.5 % 20.0 - 11/11 MH 40.0 [facility] HEMATOLOGY Segs 72.0 % 45.0 - 11/11 MH 75.0 [facility] HEMATOLOGY MCV 84.9 fL 80.0 - 11/11 94.0 [facility] HEMATOLOGY MPV 9.3 fL 7.4 - 10.4 11/11 [facility] HEMATOLOGY Platelet 310 K/CMM 133 - 450 11/11 [facility] HEMATOLOGY RDW 13.6 % 11.5 - 11/11 14.5 [facility] HEMATOLOGY MCHC 33.8 g/dL 32.0 - 11/11 MH 36.0 /2017 [facility] HEMATOLOGY MCH 28.7 pg 27.0 - 11/11 MH 31.0 [facility] HEMATOLOGY Hct 45.8 % 42.0 - 11/11 54.0 [facility] HEMATOLOGY Hgb 15.5 g/dL 14.0 - 11/11 18.0 [facility] HEMATOLOGY RBC 5.39 M/CMM 4.70 - 11/11 MH 6.10 [facility] HEMATOLOGY WBC 15.3 K/CMM 3.7 - 10.4 11/11 [facility] URINE AND UA Color Yellow Yellow 08/19 STOOL [place] *NA* (08/19/17 2:08 AM) URINE AND UA Turbidity Clear Clear 08/19 STOOL [place] (08/19/17 2:08 AM) URINE AND UA Protein Negative Negative 08/19 [facility] mg/dL mg/dL [place] URINE AND UA Spec Grav 1.017 <=1.030 08/19 STOOL [place] URINE AND UA pH 5.0 5.0 - 8.0 08/19 [place] URINE AND UA Bili Negative Negative 08/19 [place] *NA* (08/19/17 2:08 AM) URINE AND UA Blood Negative Negative 08/19 STOOL [place] (08/19/17 2:08 AM) URINE AND UA Ketones Negative Negative 08/19 [facility] mg/dL mg/dL [place] URINE AND UA Nitrite Negative Negative 08/19 STOOL [place] (08/19/17 2:08 AM) URINE AND UA RBC null 0 - 2 08/19 [place] URINE AND UA Mucus Few /LPF None Seen 08/19 [facility] /LPF [place] URINE AND UA Sq Epi Occasional Few /LPF 08/19 [facility] /LPF [place] URINE AND UA WBC 1 /HPF 0 - 5 08/19 [place] URINE AND UA Leuk Est Negative Negative 08/19 [place] (08/19/17 2:08 AM) URINE AND UA Glucose 50 mg/dL 08/19 STOOL [place] URINE AND UA <=1.0 0.1 - 1.0 08/19 STOOL Urobilinogen mg/dL /2017 [place] CARDIAC CK MB Index 2.6 0.0 - 2.5 08/19 EN[facility]ES [place] CARDIAC CK MB 2.4 ng/mL 0.5 - 3.6 08/19 [facility] [place] CARDIAC Total CK 91 unit/L 12 - 191 08/19 [facility] [place] CARDIAC Troponin-I null 0.00 - 08/19 [facility] 0.40 2018 [place] CHEM PANEL Lipase Lvl 233 unit/L 73 - 393 08/19 [place] CHEM PANEL eGFR 116 08/19 Result Comment: [...] is not recommended in the following populations: [place] 3m2 Individuals with unstable creatinine concentrations, including [...] A/G Ratio 0.8 0.7 - 1.6 08/19 [place] CHEM PANEL Globulin 4.0 g/dL 2.7 - 4.2 08/19 [place] CHEM PANEL B/C Ratio 9 6 - 25 08/19 [place] CHEM PANEL AGAP 8.8 meq/L 10.0 - 03 MH 20.0 [place] CHEM PANEL Total 7.3 g/dL 6.4 - 8.4 08/19 [place] CHEM PANEL Calcium Lvl 8.6 mg/dL 8.5 - 10.5 08/19 [place] CHEM PANEL Potassium 3.8 meq/L 3.5 - 5.1 08/19 Lvl [place] CHEM PANEL CO2 27 meq/L 24 - 32 08/19 [place] CHEM PANEL Chloride Lvl 102 meq/L 95 - 109 08/19 [place] CHEM PANEL AST 48 unit/L 0 - 37 08/19 [place] CHEM PANEL ALT 64 unit/L 0 - 65 08/19 [place] CHEM PANEL Bili Total 0.4 mg/dL 0.2 - 1.3 08/19 [place] CHEM PANEL Alk Phos 73 unit/L 39 - 136 08/19 [place] CHEM PANEL Albumin Lvl 3.3 g/dL 3.5 - 5.0 08/19 [place] CHEM PANEL Glucose Lvl 236 mg/dL 70 - 99 08/19 [place] CHEM PANEL Creatinine 0.86 mg/dL 0.50 - 03 Lvl 1.40 [place] CHEM PANEL BUN 8 mg/dL 7 - 22 08/19 [place] CHEM PANEL Sodium Lvl 134 meq/L 135 - 145 08/19 [place] HEMATOLOGY Segs 66.5 % 45.0 - 08/19 MH 75.0 [place] HEMATOLOGY Lymphocytes 18.0 % 20.0 - 08/19 MH 40.0 [place] HEMATOLOGY Monocytes 7.7 % 2.0 - 12.0 08/19 [place] HEMATOLOGY Eosinophils 6.9 % 0.0 - 4.0 08/19 [place] HEMATOLOGY Basophils 0.9 % 0.0 - 1.0 08/19 [place] HEMATOLOGY Segs-Bands # 10.3 K/CMM 1.5 - 8.1 08/19 [place] HEMATOLOGY Lymphocytes 2.8 K/CMM 1.0 - 5.5 08/19 MH # [place] HEMATOLOGY Monocytes # 1.2 K/CMM 0.0 - 0.8 08/19 [place] HEMATOLOGY Eosinophils 1.1 K/CMM 0.0 - 0.5 08/19 [place] HEMATOLOGY Basophils # 0.1 K/CMM 0.0 - 0.2 08/19 [place] HEMATOLOGY WBC 15.4 K/CMM 3.7 - 10.4 08/19 [place] HEMATOLOGY RBC 4.90 M/CMM 4.70 - 08/19 MH 6.10 [place] HEMATOLOGY Hgb 14.8 g/dL 14.0 - 08/19 MH 18.0 [place] HEMATOLOGY MCH 30.2 pg 27.0 - 08/19 31.0 [place] HEMATOLOGY Hct 43.4 % 42.0 - 08/19 54.0 [place] HEMATOLOGY MCV 88.6 fL 80.0 - 08/19 94.0 [place] HEMATOLOGY MPV 9.2 fL 7.4 - 10.4 08/19 [place] HEMATOLOGY Platelet 261 K/CMM 133 - 450 08/19 [place] HEMATOLOGY RDW 13.4 % 11.5 - 08/19 14.5 [place] HEMATOLOGY MCHC 34.1 g/dL 32.0 - 08/19 36.0 [place] Chest Chest 1view Clinical Indication: - chest pain 08/19 - [facility] 1view DX DX /2017 - [place] Comparison: 07/08/2017 Read by: Loco Parr DO [...] VIEW 07/08 - [place] 1view DX DX - [facility] DATE: 07/08/2017 Read by: Mariam Larry MD [...] VIEW 07/07 - [place] 1[place] DX DX - [facility] DATE: 07/07/2017 3:00 AM [employer]ACH[employer] Read by: Anne Rao MD Dictated Date/time: [...] VIEW 07/05 - [place] 1[place] DX DX [facility] DATE: 07/05/2017 9:05 PM [employer]ACH[employer] Read by: Dewey Thomas MD Dictated Date/time: [...] Phosphorus 3.8 mg/dL 2.5 - 4.5 03/31 [facility] CHEM PANEL Magnesium 2.3 mg/dL 1.8 - 2.4 03/31 [facility] ELECTROLYT AGAP 13.4 meq/L 10. - 03/31 [facility] 20.0 [facility] ELECTROLYT eGFR 81 03/31 Result Comment: The eGFR is calculated using the CKD-EPI formula. In most young, healthy individuals the eGFR will be >90 mL/ min/1.73m2. The eGFR declines with age. An eGFR of 60-89 may be normal in [facility] mL/min/1.7 some populations, particularly the elderly, for whom the CKD-EPI formula has not been extensively validated. Use of the eGFR is not recommended in the following populations: [address] Individuals with unstable creatinine concentrations, including [...] Lvl 104 meq/L 95 - 109 03/31 [facility] ES [facility] ELECTROLYT CO2 26 meq/L 24 - 32 03/31 [facility] ELECTROLYT Calcium Lvl 8.8 mg/dL 8.5 - 10.5 03/31 [facility] ES [facility] ELECTROLYT Potassium 4.4 meq/L 3.5 - 5.1 03/31 [facility] Lv [facility] ELECTROLYT Creatinine 1.20 mg/dL 0.50 - 03/31 [facility] ELECTROLYT Sodium Lvl 139 meq/L 135 - 145 03/31 [facility] ELECTROLYT BUN 11 mg/dL 7 - 22 03/31 [facility] ELECTROLYT Glucose Lvl 98 mg/dL 70 - 99 03/31 [facility] ES [facility] HEMATOLOGY Basophils # 0.1 K/CMM 0.0 - 0.2 03/31 [facility] HEMATOLOGY Segs-Bands # 8.3 K/CMM 1.5 - 8.1 03/31 [facility] HEMATOLOGY Monocytes # 1.4 K/CMM 0.0 - 0.8 03/31 [facility] HEMATOLOGY Lymphocytes 1.9 K/CMM 1.0 - 5.5 03/31 [facility] HEMATOLOGY Segs 70.7 % 45.0 - 03/31 [place] 75.0 [facility] HEMATOLOGY Eosinophils 0.1 K/CMM 0.0 - 0.5 03/31 /2015 [facility] HEMATOLOGY Lymphocytes 15.7 % 20.0 - 03/31 [place] 40.0 [facility] HEMATOLOGY Basophils 0.4 % 0.0 - 1.0 03/31 [facility] HEMATOLOGY Eosinophils 0.9 % 0.0 - 4.0 03/31 [facility] HEMATOLOGY Monocytes 12.3 % 2.0 - 12.0 03/31 [facility] HEMATOLOGY Hgb 12.8 g/dL 14.0 - 03/31 [place] 18.0 [facility] HEMATOLOGY RBC 4.12 M/CMM 4.70 - 03/31 [place] 6.10 [facility] HEMATOLOGY MCHC 33.9 g/dL 32.0 - 03/31 [place] 36.0 /2016 [facility] HEMATOLOGY MCV 91.4 fL 80.0 - 03/31 [place] 94.0 Medical [place] HEMATOLOGY MCH 31.0 pg 27.0 - 03/31 [place] 31.0 [facility] HEMATOLOGY Hct 37.7 % 42.0 - 03/31 [place] 54.0 /2016 [facility] HEMATOLOGY RDW 15.8 % 11.5 - 03/31 [place] 14.5 2016 [facility] HEMATOLOGY Platelet 181 K/CMM 133 - 450 03/31 [facility] HEMATOLOGY MPV 9.3 fL 7.4 - 10.4 03/31 [facility] HEMATOLOGY WBC 11.8 K/CMM 3.7 - 10.4 03/31 [facility] PARATHYROI Ca Norm WB 1.12 1.05 - 03/31 [facility] D PROFILE mMol/L 1. [facility] PARATHYROI Ca Ion WB 1.19 1.05 - 03/31 [facility] D PROFILE mMol/L 1. [facility] DRUG U Cocaine Negative Negative 03/30 [place] [facility] *NA* Center (03/30/16 2:22 PM) DRUG U Propoxyph Negative Negative 03/30 [place] SCREEN Scr [facility] *NA* Center (03/30/16 2:22 PM) DRUG U Methadone Negative Negative 03/30 [place] SCREEN [facility] *NA* Center (03/30/16 2:22 PM) DRUG U Cannab Scr Negative Negative 03/30 [place] [facility] *NA* Center (03/30/16 2:22 PM) DRUG U Phencyc Negative Negative 03/30 [place] SCREEN Scr [facility] *NA* Center (03/30/16 2:22 PM) DRUG U Opiate Scr Positive Negative 03/30 [place] [facility]03/30/16 2:22 PM) DRUG UDS Note See Note 03/30 [place] [facility] (03/30/16 2:22 PM) [place] DRUG U Benzodia Negative Negative 03/30 [place] SCREEN Scr [facility] *NA* Center (03/30/16 2:22 PM) DRUG U Venita Scr Negative Negative 03/30 [place] [facility] *NA* Center (03/30/16 2:22 PM) DRUG U Amph Scr Negative Negative 03/30 [place] [facility] *NA* Center (03/30/16 2:22 PM) URINE AND UA Nitrite Negative Negative 03/30 [place] STOOL [facility] (03/30/16 2:22 PM) Center URINE AND UA 2.0 mg/dL 0.1 - 1.0 03/30 [facility] Urobilinogen [facility] URINE AND UA WBC 2 /HPF 0 - 5 03/30 [place] STOOL [facility] URINE AND UA Leuk Est Negative Negative 03/30 [facility] (03/30/16 2:22 PM) [place] URINE AND UA Blood Negative Negative 03/30 [facility] (03/30/16 2:22 PM) [place] URINE AND UA Bacteria Occasional None Seen 03/30 [facility] /HPF /HPF /2015 [facility] URINE AND UA RBC null 0 - 2 03/[address] URINE AND UA Ketones Negative Negative 03/30 [facility] mg/dL mg/dL [facility] URINE AND UA Glucose Negative Negative 03/30 [facility] mg/dL mg/dL /2015 [facility] URINE AND UA Protein 30 mg/dL Negative 03/30 [facility] mg/dL [facility] URINE AND UA Bili Negative Negative 03/30 [facility] [place] (03/30/16 2:22 PM) URINE AND UA Mucus Many /LPF None Seen 03/30 [facility] /LPF /2015 [facility] URINE AND UA Sq Epi None Seen 03/[address] URINE AND UA Color Yellow Yellow 03/30 [facility] [place] (03/30/16 2:22 PM) URINE AND UA Spec Grav 1.021 <=1.030 03/[address] URINE AND UA Turbidity Clear Clear 03/30 [facility] (03/30/16 2:22 PM) [place] URINE AND UA pH 6.0 5.0 - 8.0 03/[address] Chest Chest EXAM: CTA CHEST WITH CONTRAST 03/30 - [facility] Pulmonary Pulmonary - Medical Embolism Embolism CTA This report was dictated by a Induction Machine Operator/Fellow. I have personally reviewed the images as [...] 0.000 - 03/30 [place] [facility] ng/mL 0.100 [facility] CARDIAC Total CK 91 unit/L - 03/30 [place] [facility] /2016 [facility] CARDIAC Troponin-I 0.05 ng/mL 0.00 - 03/30 [place] [facility] 0.40 /2015 [facility] CARDIAC CK MB Index 1.1 0.0 - 2.5 03/30 [place] [facility] /2016 [facility] CARDIAC CK MB 1.0 ng/mL 0.5 - 3.6 03/30 [place] [facility] /2016 [facility] CARDIAC CK MB 0.8 ng/mL 0.5 - 3.6 03/30 [place] [facility] /2016 [facility] CARDIAC CK MB Index 0.8 0.0 - 2.5 03/30 [place] [facility] /2016 [facility] CARDIAC Troponin-T <0.010 0.000 - 03/30 [place] [facility] ng/mL 0.100 [facility] CARDIAC Total CK 106 unit/L 12 - 191 03/30 [place] [facility] /2015 [facility] CARDIAC Troponin-I 0.06 ng/mL 0.00 - 03/30 [place] [facility] 0.40 [facility] LIPIDS VLDL 19 03/30 Medical Center LIPIDS Chol 149 mg/dL <=199 03/30 [place] mg/dL /2015 [facility] LIPIDS Trig 96 mg/dL <=149 03/30 [facility] mg/dL [facility] LIPIDS HDL 45 mg/dL >=61 mg/dL 03/30 [facility] LIPIDS LDL 85 mg/dL <=99 mg/dL 03/30 [facility] (Calculated) /2015 [facility] LIPIDS CHD Risk 3.31 4.00 - 03/30 [place] 7.30 /2015 [facility] SPECIAL Hgb A1C 4.8 % <=5.6 % 03/30 [facility] CHEMISTRY /2015 [facility] HEMATOLOGY PTT 26.9 s 22.9 - 03/30 [place] 35.8 /2015 [facility] HEMATOLOGY PT 13.3 s 12.0 - 03/30 [place] 14.7 [facility] HEMATOLOGY INR 0.99 0.85 - 03/30 [place] 1.17 Medical [place] HEMATOLOGY MCHC 34.2 g/dL 32.0 - 03/30 [place] 36.0 /2016 [facility] HEMATOLOGY Hgb 13.1 g/dL 14.0 - 03/30 [place] 18.0 [facility] HEMATOLOGY RBC 4.27 M/CMM 4.70 - 03/30 [place] 6.10 [facility] HEMATOLOGY MPV 8.9 fL 7.4 - 10.4 03/30 [facility] HEMATOLOGY Platelet 205 K/CMM 133 - 450 03/30 [facility] HEMATOLOGY MCH 30.8 pg 27.0 - 03/30 [place] 31.0 2016 [facility] HEMATOLOGY RDW 15.9 % 11.5 - 03/30 [place] 14.5 2016 [facility] HEMATOLOGY Hct 38.4 % 42.0 - 03/30 [place] 54.0 /2016 [facility] HEMATOLOGY WBC 15.2 K/CMM 3.7 - 10.4 03/30 [facility] HEMATOLOGY MCV 90.0 fL 80.0 - 03/30 [place] 94.0 2016 [facility] HEMATOLOGY Lymphocytes 16.1 % 20.0 - 03/30 [place] 40.0 /2016 [facility] HEMATOLOGY Monocytes # 2.0 K/CMM 0.0 - 0.8 03/30 [facility] HEMATOLOGY Eosinophils 0.2 K/CMM 0.0 - 0.5 03/30 [facility] # /2016 [facility] HEMATOLOGY Segs 69.4 % 45.0 - 03/30 [place] 75.0 [facility] HEMATOLOGY Eosinophils 1.1 % 0.0 - 4.0 03/30 [facility] HEMATOLOGY Monocytes 13.1 % 2.0 - 12.0 03/30 [facility] HEMATOLOGY Segs-Bands # 10.5 K/CMM 1.5 - 8.1 03/30 [facility] HEMATOLOGY Basophils 0.3 % 0.0 - 1.0 03/30 [facility] HEMATOLOGY Lymphocytes 2.4 K/CMM 1.0 - 5.5 03/30 [facility] CHEM PANEL Magnesium 1.8 mg/dL 1.8 - 2.4 03/30 [facility] Lvl [facility] CHEM PANEL Phosphorus 4.3 mg/dL 2.5 - 4.5 03/30 [facility] CHEM PANEL Globulin 3.5 g/dL 2.7 - 4.2 03/30 [facility] CHEM PANEL A/G Ratio 1.0 0.7 - 1.6 03/30 [facility] CHEM PANEL Bili Total 0.9 mg/dL 0.2 - 1.3 03/30 [facility] CHEM PANEL AGAP 15.9 meq/L 10.0 - 03/30 [facility] 20.0 [facility] CHEM PANEL B/C Ratio 8 6 - 25 03/30 2015 [facility] CHEM PANEL eGFR 80 03/30 Result Comment: The eGFR is calculated using the CKD-EPI formula. In most young, healthy individuals the eGFR will be >90 mL/ min/1.73m2. The eGFR declines with age. An eGFR of 60-89 may be normal in [facility] mL/min/1.7 some populations, particularly the elderly, for whom the CKD-EPI formula has not been extensively validated. Use of the eGFR is not recommended in the following populations: [place] [address] [facility] Individuals with unstable creatinine concentrations, including patients [...] CO2 23 meq/L 24 - 32 03/30 [facility] CHEM PANEL Calcium Lvl 8.3 mg/dL 8.5 - 10.5 03/30 [facility] CHEM PANEL Total 7.0 g/dL 6.4 - 8.4 03/30 [facility] Protein [facility] CHEM PANEL AST 23 unit/L 0 - 37 03/30 [place] [facility] CHEM PANEL Alk Phos 67 unit/L 39 - 136 03/30 [place] [facility] CHEM PANEL Albumin Lvl 3.5 g/dL 3.5 - 5.0 03/30 [facility] CHEM PANEL ALT 45 unit/L 0 - 65 03/30 /2015 [facility] CHEM PANEL BUN 10 mg/dL 7 - 22 03/30 [facility] CHEM PANEL Creatinine 1.21 mg/dL 0.50 - 03/30 [facility] Lvl 1. [facility] CHEM PANEL Glucose Lvl 90 mg/dL 70 - 99 03/30 [place] /2015 [facility] CHEM PANEL Chloride Lvl 103 meq/L 95 - 109 03/30 [facility] CHEM PANEL Sodium Lvl 138 meq/L 135 - 145 03/30 [facility] CHEM PANEL Potassium 3.9 meq/L 3.5 - 5.1 03/30 [facility] /2016 [facility] CARDIAC CK MB Index 0.5 0.0 - 2.5 03/30 [facility] ENZYMES [facility] CARDIAC Troponin-I 0.07 ng/mL 0.00 - 03/30 [facility] ENZYMES 0.40 [facility] CARDIAC CK MB 0.7 ng/mL 0.5 - 3.6 03/30 [facility] ENZYMES /2016 [facility] CARDIAC Total CK 135 unit/L 12 - 191 03/30 [facility] ENZYMES 2016 [facility] CHEM PANEL Albumin Lvl 4.0 g/dL 3.5 - 5.0 03/30 [facility] /2015 [facility] CHEM PANEL Total 7.7 g/dL 6.4 - 8.4 03/30 [facility] Protein [facility] CHEM PANEL ALT 52 unit/L 0 - 65 03/30 [place] [facility] CHEM PANEL AST 28 unit/L 0 - 37 03/30 [facility] CHEM PANEL Alk Phos 72 unit/L 39 - 136 03/30 [facility] CHEM PANEL Bili Total 1.0 mg/dL 0.2 - 1.3 03/30 [facility] CHEM PANEL A/G Ratio 1.1 0.7 - 1.6 03/30 [facility] CHEM PANEL Globulin 3.7 g/dL 2.7 - 4.2 03/30 [facility] CHEM PANEL eGFR 92 03/30 Result Comment: The eGFR is calculated using the CKD-EPI formula. In most young, healthy individuals the eGFR will be >90 mL/ min/1.73m2. The eGFR declines with age. An eGFR of 60-89 may be normal in [facility] mL/min/1.7 some populations, particularly the elderly, for whom the CKD-EPI formula has not been extensively validated. Use of the eGFR is not recommended in the following populations: [address] Individuals with unstable creatinine concentrations, including [...] PANEL AGAP 14.0 meq/L 10.0 - 03/30 [facility] 20.0 [facility] CHEM PANEL Calcium Lvl 8.7 mg/dL 8.5 - 10.5 03/30 [facility] CHEM PANEL CO2 24 meq/L 24 - 32 03/30 [facility] CHEM PANEL Potassium 4.0 meq/L 3.5 - 5.1 03/30 [facility] Lvl [facility] CHEM PANEL Chloride Lvl 101 meq/L 95 - 109 03/30 [facility] CHEM PANEL Sodium Lvl 135 meq/L 135 - 145 03/30 [facility] CHEM PANEL Glucose Lvl 96 mg/dL 70 - 99 03/30 [facility] CHEM PANEL BUN 9 mg/dL 7 - 22 03/30 [facility] CHEM PANEL Creatinine 1.08 mg/dL 0.50 - 03/30 [facility] L[facility] CHEM PANEL B/C Ratio 8 6 - 25 03/30 /2015 [facility] HEMATOLOGY Segs-Bands # 12.0 K/CMM 1.5 - 8.1 03/30 [facility] HEMATOLOGY Basophils 0.5 % 0.0 - 1.0 03/30 /2015 [facility] HEMATOLOGY Monocytes # 2.4 K/CMM 0.0 - 0.8 03/30 [facility] HEMATOLOGY Lymphocytes 2.3 K/CMM 1.0 - 5.5 03/30 [place] [facility] HEMATOLOGY Basophils # 0.1 K/CMM 0.0 - 0.2 03/30 [facility] HEMATOLOGY Eosinophils 0.1 K/CMM 0.0 - 0.5 03/30 [facility] HEMATOLOGY Lymphocytes 13.6 % 20.0 - 03/30 [place] 40.0 [facility] HEMATOLOGY Eosinophils 0.8 % 0.0 - 4.0 03/30 [facility] HEMATOLOGY Monocytes 14.0 % 2.0 - 12.0 03/30 [facility] HEMATOLOGY Segs 71.1 % 45.0 - 03/30 [place] 75.0 [facility] HEMATOLOGY RDW 15.6 % 11.5 - 03/30 [place] 14.5 [facility] HEMATOLOGY Platelet 232 K/CMM 133 - 450 03/30 [facility] HEMATOLOGY MPV 8.9 fL 7.4 - 10.4 03/30 [facility] HEMATOLOGY MCH 30.8 pg 27.0 - 03/30 [place] 31.0 [facility] HEMATOLOGY MCHC 34.3 g/dL 32.0 - 03/30 [place] 36.0 2016 [facility] HEMATOLOGY Hgb 14.2 g/dL 14.0 - 03/30 [place] 18.0 2016 [facility] HEMATOLOGY Hct 41.3 % 42.0 - 03/30 [place] 54.0 2016 [facility] HEMATOLOGY MCV 89.8 fL 80.0 - 03/30 [place] 94.0 2016 [facility] HEMATOLOGY WBC 16.9 K/CMM 3.7 - 10.4 03/30 /2015 [facility] HEMATOLOGY RBC 4.60 M/CMM 4.70 - 03/30 [place] 6.10 [facility] Chest Chest 1view EXAM: XR CHEST 1 VIEW 03/29 - [facility] 1view DX - [facility] This report was dictated by a Induction Machine Operator/Fellow. I have personally reviewed the images as [...] Phosphorus 4.6 mg/dL 2.5 - 4.5 10/[address] CHEM PANEL Magnesium 1.8 mg/dL 1.8 - 2.4 10/21 [facility] Lvl [facility] CHEM PANEL Bili Direct 0.1 mg/dL 0.0 - 0.3 10/[address] CHEM PANEL Albumin Lvl 3.3 g/dL 3.5 - 5.0 10/[address] CHEM PANEL ALT 98 unit/L 0 - 65 10/[address] CHEM PANEL Bili Total 0.4 mg/dL 0.2 - 1.3 10/[address] CHEM PANEL AST 40 unit/L 0 - 37 10/[address] CHEM PANEL Alk Phos 75 unit/L 39 - 136 10/[address] CHEM PANEL Total 7.3 g/dL 6.4 - 8.4 10/21 [facility] Protein 2015 [facility] CHEM PANEL Globulin 4.0 g/dL 2.0 - 4.0 10/[address] CHEM PANEL A/G Ratio 0.8 0.7 - 1.6 10/[address] CHEM PANEL Bili 0.3 mg/dL 0.0 - 1.0 10/21 [facility]2015 [facility] CHEM PANEL eGFR 99 10/21 Result Comment: The eGFR is calculated using the CKD-EPI formula. In most young, healthy individuals the eGFR will be >90 mL/ min/1.73m2. The eGFR declines with age. An eGFR of 60-89 may be normal in [facility] mL/min/1.7 some populations, particularly the elderly, for whom the CKD-EPI formula has not been extensively validated. Use of the eGFR is not recommended in the following populations: [address] Individuals with unstable creatinine concentrations, including [...] BUN 12 mg/dL 7 - 22 10/21 [facility] CHEM PANEL Creatinine 1.01 mg/dL 0.50 - 10/21 [facility] Lvl 1.40 [facility] CHEM PANEL Sodium Lvl 136 meq/L 135 - 145 10/21 2015 [facility] CHEM PANEL Potassium 3.7 meq/L 3.5 - 5.1 10/21 [facility] Lvl [facility] CHEM PANEL Chloride Lvl 105 meq/L 95 - 109 10/21 2015 [facility] CHEM PANEL Glucose Lvl 120 mg/dL 70 - 99 10/21 [facility] CHEM PANEL CO2 20 meq/L 24 - 32 10/[address] CHEM PANEL Calcium Lvl 9.1 mg/dL 8.5 - 10.5 10/21 2015 [facility] CHEM PANEL AGAP 14.7 meq/L 10.0 - 10/21 [facility] 20.0 [facility] HEMATOLOGY Lymphocytes 2.6 K/CMM 1.0 - 5.5 05 [facility] HEMATOLOGY Basophils # 0.2 K/CMM 0.0 - 0.2 10/21 [facility] HEMATOLOGY Eosinophils 0.5 K/CMM 0.0 - 0.5 10/21 [facility] HEMATOLOGY Lymphocytes 14.4 % 20.0 - 05 [place] 40.0 [facility] HEMATOLOGY Monocytes # 1.4 K/CMM 0.0 - 0.8 10/21 2015 [facility] HEMATOLOGY Segs 74.1 % 45.0 - 10/21 [place] 75.0 /2015 [facility] HEMATOLOGY Basophils 0.8 % 0.0 - 1.0 10/21 [facility] HEMATOLOGY Segs-Bands # 13.3 K/CMM 1.5 - 8.1 10/21 [facility] HEMATOLOGY Monocytes 8.0 % 2.0 - 12.0 10/21 [facility] HEMATOLOGY Eosinophils 2.7 % 0.0 - 4.0 10/21 [facility] HEMATOLOGY Hct 30.3 % 42.0 - 10/21 [place] 54.0 /2015 [facility] HEMATOLOGY Hgb 10.5 g/dL 14.0 - 10/21 18.0 [facility] HEMATOLOGY WBC 18.0 K/CMM 3.7 - 10.4 10/21 [facility] HEMATOLOGY RBC 3.34 M/CMM 4.70 - 10/21 [place] 6.10 [facility] HEMATOLOGY MCV 90.6 fL 80.0 - 10/21 [facility] 94.0 [facility] HEMATOLOGY RDW 15.2 % 11.5 - 10/21 14.5 [facility] HEMATOLOGY MCH 31.5 pg 27.0 - 10/21 31.0 [facility] HEMATOLOGY MCHC 34.7 g/dL 32.0 - 10/21 [facility] 36.0 [facility] HEMATOLOGY Platelet 304 K/CMM 133 - 450 10/21 [facility] HEMATOLOGY MPV 7.8 fL 7.4 - 10.4 10/21 [facility] HEMATOLOGY PTT 29.8 s 22.9 - 10/21 [place] 35.8 /2015 [facility] HEMATOLOGY PT 13.8 s 12.0 - 10/21 [place] 14.7 [facility] HEMATOLOGY INR 1.03 0.85 - 10/21 [place] 1.17 [facility] PARATHYROI Ca Norm WB 1.15 1.05 - 10/21 [facility] D PROFILE mMol/L 1. [facility] PARATHYROI Ca Ion WB 1.16 1.05 - 10/21 [facility] D PROFILE mMol/L 1. [facility] Chest Chest 1view EXAM: XR CHEST 1 VIEW 10/21 - [facility] 1view DX DX /2015 - [facility] DATE: 10/22/2015 3:00 AM CDT Read by: [...] Lvl 101 mg/dL 70 - 99 10/20 [facility] CHEM PANEL eGFR 122 10/20 Result Comment: The eGFR is calculated using the CKD-EPI formula. In most young, healthy individuals the eGFR will be >90 mL/ min/1.73m2. The eGFR declines with age. An eGFR of 60-89 may be normal in [facility] mL/min/1.7 some populations, particularly the elderly, for whom the CKD-EPI formula has not been extensively validated. Use of the eGFR is not recommended in the following populations: [address] Individuals with unstable creatinine concentrations, including [...] Lvl 9.0 mg/dL 8.5 - 10.5 10/20 [facility] CHEM PANEL AGAP 10.8 meq/L 10.0 - 10/20 [facility] 20.0 [facility] CHEM PANEL Chloride Lvl 105 meq/L 95 - 109 10/20 [facility] CHEM PANEL Sodium Lvl 137 meq/L 135 - 145 10/20 [facility] CHEM PANEL CO2 25 meq/L 24 - 32 10/20 [facility]2015 [facility] CHEM PANEL Potassium 3.8 meq/L 3.5 - 5.1 10/20 [facility] CHEM PANEL Creatinine 0.76 mg/dL 0.50 - 10/20 [facility] 1.40 [facility] CHEM PANEL BUN 11 mg/dL 7 - 22 10/20 /2015 [facility] CHEM PANEL Phosphorus 4.2 mg/dL 2.5 - 4.5 / /2015 [facility] CHEM PANEL Magnesium 2.0 mg/dL 1.8 - 2.4 / [facility] Lvl /2015 [facility] CHEM PANEL Globulin 4.0 g/dL 2.0 - 4.0 / /2015 [facility] CHEM PANEL AST 45 unit/L 0 - 37 05/ [facility] CHEM PANEL A/G Ratio 0.8 0.7 - 1.6 / [facility] CHEM PANEL Albumin Lvl 3.2 g/dL 3.5 - 5.0 10/20 [facility] CHEM PANEL Alk Phos 72 unit/L 39 - 136 10/20 [facility] CHEM PANEL ALT 82 unit/L 0 - 65 10/20 /2015 [facility] CHEM PANEL Total 7.2 g/dL 6.4 - 8.4 10/20 Protein /2015 [facility] CHEM PANEL Bili Total 0.4 mg/dL 0.2 - 1.3 10/20 [facility] CHEM PANEL Bili Direct 0.1 mg/dL 0.0 - 0.3 10/20 [facility] CHEM PANEL Bili 0.3 mg/dL 0.0 - 1.0 10/20 [facility]irect /2015 [facility] HEMATOLOGY Hgb 9.8 g/dL 14.0 - 10/20 18.0 [facility] HEMATOLOGY Hct 28.2 % 42.0 - 10/20 [place] 54.0 2016 [facility] HEMATOLOGY RBC 3.09 M/CMM 4.70 - 10/20 [place] 6.10 /2016 [facility] HEMATOLOGY MCV 91.1 fL 80.0 - 10/20 [place] 94.0 /2015 [facility] HEMATOLOGY MCHC 34.6 g/dL 32.0 - 10/20 [place] 36.0 /2016 [facility] HEMATOLOGY MCH 31.5 pg 27.0 - 10/20 [place] 31.0 /2016 [facility] HEMATOLOGY Platelet 265 K/CMM 133 - 450 10/20 /2015 [facility] HEMATOLOGY RDW 15.6 % 11.5 - 05 [place] 14.5 /2016 [facility] HEMATOLOGY MPV 8.1 fL 7.4 - 10.4 10/20 /2015 [facility] HEMATOLOGY WBC 15.2 K/CMM 3.7 - 10.4 10/20 [facility] HEMATOLOGY INR 1.03 0.85 - 10/20 [place] 1.17 [facility] HEMATOLOGY PTT 30.3 s 22.9 - 10/20 [place] 35.8 /2015 [facility] HEMATOLOGY PT 13.8 s 12.0 - 10/20 [place] 14.7 /2015 [facility] HEMATOLOGY Eosinophils 0.4 K/CMM 0.0 - 0.5 10/20 [facility] # /2015 [facility] HEMATOLOGY Basophils # 0.1 K/CMM 0.0 - 0.2 10/20 [facility] HEMATOLOGY Segs-Bands # 10.7 K/CMM 1.5 - 8.1 10/20 [facility] HEMATOLOGY Lymphocytes 2.2 K/CMM 1.0 - 5.5 10/20 [facility] /2015 [facility] HEMATOLOGY Monocytes # 1.9 K/CMM 0.0 - 0.8 10/20 /2015 [facility] HEMATOLOGY Lymphocytes 14.3 % 20.0 - 10/20 [place] 40.0 /2015 [facility] HEMATOLOGY Monocytes 12.5 % 2.0 - 12.0 10/20 [facility] HEMATOLOGY Segs 70.0 % 45.0 - 10/20 [place] 75.0 [facility] HEMATOLOGY Basophils 0.5 % 0.0 - 1.0 10/20 [facility] HEMATOLOGY Eosinophils 2.7 % 0.0 - 4.0 10/20 [facility] PARATHYROI Ca Norm WB 1.16 1.05 - 10/20 [facility] D PROFILE mMol/L 1. [facility] PARATHYROI Ca Ion WB 1.16 1.05 - 10/20 [facility] D PROFILE mMol/L 1. [facility] Chest Chest 1view EXAM: XR CHEST 1 VIEW 10/20 - [facility] 1view DX [facility] DATE: 10/21/2015 3:00 AM CDT Read by: [...] change. MOLECULAR C difficile Negative Negative 10/19 [facility] DIAGNOSTIC DNA [facility] (10/20/15 4:58 PM) [place] URINE AND UA <=1.0 0.1 - 1.0 10/19 [facility] Urobilinogen mg/dL [facility] URINE AND UA Sq Epi None Seen 10/19 [facility]2015 [facility] URINE AND UA RBC 1 /HPF 0 - 2 10/19 [facility]2015 [facility] URINE AND UA WBC null 0 - 5 10/19 [facility]2015 [facility] URINE AND UA Mucus Few /LPF None Seen 10/19 [facility] STOOL /LPF /2015 [facility] URINE AND UA Turbidity Clear Clear 10/19 [facility] (10/20/15 1:35 PM) [place] URINE AND UA Color Yellow Yellow 10/19 [facility] *NA* [place] (10/20/15 1:35 PM) URINE AND UA Leuk Est Negative Negative 10/19 [facility] (10/20/15 1:35 PM) [place] URINE AND UA Blood Negative Negative 10/19 [facility] (10/20/15 1:35 PM) [place] URINE AND UA Bili Negative Negative 10/19 [facility] *NA* [place] (10/20/15 1:35 PM) URINE AND UA Nitrite Negative Negative 10/19 [facility] (10/20/15 1:35 PM) [place] URINE AND UA Protein Negative Negative 10/19 [facility] mg/dL mg/dL /2015 [facility] URINE AND UA Glucose Negative Negative 10/19 [facility] mg/dL mg/dL [facility] URINE AND UA Ketones Negative Negative 10/19 [facility] mg/dL mg/dL [facility] URINE AND UA Spec Grav 1.012 <=1.030 10/19 [facility]2015 [facility] URINE AND UA pH 7.5 5.0 - 8.0 10/19 [facility]2015 [facility] Chest Chest 1view EXAM: XR CHEST 1 VIEW 10/19 - [facility] 1view DX DX [facility] DATE: 10/20/2015 5:44 PM CDT Read [...] EXAM: XR CHEST 1 VIEW 10/19 - [facility] 1view DX DX - [facility] DATE: 10/20/2015 5:30 PM CDT Read [...] A/G Ratio 0.7 0.7 - 1.6 10/19 [facility]2015 [facility] CHEM PANEL Bili 0.6 mg/dL 0.0 - 1.0 10/19 [facility] CHEM PANEL Globulin 4.5 g/dL 2.0 - 4.0 10/[address] CHEM PANEL AST 52 unit/L 0 - 37 10/[address] CHEM PANEL ALT 66 unit/L 0 - 65 10/[address] CHEM PANEL Albumin Lvl 3.1 g/dL 3.5 - 5.0 10/[address] CHEM PANEL Total 7.6 g/dL 6.4 - 8.4 10/19 [facility] 2015 [facility] CHEM PANEL Bili Direct 0.2 mg/dL 0.0 - 0.3 10/19 [facility] CHEM PANEL Bili Total 0.8 mg/dL 0.2 - 1.3 10/19 [facility] CHEM PANEL Alk Phos 87 unit/L 39 - 136 10/19 [facility] CHEM PANEL Phosphorus 3.5 mg/dL 2.5 - 4.5 10/19 [facility] CHEM PANEL Magnesium 1.5 mg/dL 1.8 - 2.4 10/19 [facility] ELECTROLYT Potassium 3.8 meq/L 3.5 - 5.1 10/19 [facility] ELECTROLYT AGAP 16.9 meq/L 10.0 - 10/19 [facility] 20.0 [facility] ELECTROLYT eGFR 121 10/19 Result Comment: The eGFR is calculated using the CKD-EPI formula. In most young, healthy individuals the eGFR will be >90 mL/ min/1.73m2. The eGFR declines with age. An eGFR of 60-89 may be normal in [facility] mL/min/1.7 some populations, particularly the elderly, for whom the CKD-EPI formula has not been extensively validated. Use of the eGFR is not recommended in the following populations: [address] Individuals with unstable creatinine concentrations, including [...] CO2 21 meq/L 24 - 32 10/19 [facility] ELECTROLYT Calcium Lvl 8.7 mg/dL 8.5 - 10.5 10/19 [facility] ELECTROLYT Creatinine 0.78 mg/dL 0.50 - 10/19 [facility] Lvl 1.40 [facility] ELECTROLYT Glucose Lvl 61 mg/dL 70 - 99 10/19 [facility] ELECTROLYT BUN 11 mg/dL 7 - 22 10/19 [facility] ELECTROLYT Chloride Lvl 101 meq/L 95 - 109 10/19 [facility] ELECTROLYT Potassium 3.9 meq/L 3.5 - 5.1 10/19 [facility] ES Lvl /2015 [facility] ELECTROLYT Sodium Lvl 135 meq/L 135 - 145 10/19 ES [facility] HEMATOLOGY Basophils # 0.1 K/CMM 0.0 - 0.2 10/19 [facility] HEMATOLOGY Monocytes 9.8 % 2.0 - 12.0 10/19 [facility] HEMATOLOGY Lymphocytes 1.7 K/CMM 1.0 - 5.5 05 [place] # /2015 [facility] HEMATOLOGY Segs-Bands # 13.2 K/CMM 1.5 - 8.1 10/19 [facility] HEMATOLOGY Eosinophils 1.9 % 0.0 - 4.0 10/19 [facility] HEMATOLOGY Lymphocytes 10.1 % 20.0 - 10/19 [place] 40.0 /2015 [facility] HEMATOLOGY Basophils 0.4 % 0.0 - 1.0 10/19 [facility] HEMATOLOGY Monocytes # 1.6 K/CMM 0.0 - 0.8 10/19 [facility] HEMATOLOGY Eosinophils 0.3 K/CMM 0.0 - 0.5 10/19 [facility] HEMATOLOGY Segs 77.8 % 45.0 - 10/19 [place] 75.0 /2015 [facility] HEMATOLOGY INR 1.02 0.85 - 10/19 [place] 1.17 [facility] HEMATOLOGY PTT 29.6 s 22.9 - 10/19 [place] 35.8 /2015 [facility] HEMATOLOGY PT 13.7 s 12.0 - 10/19 [place] 14.7 [facility] HEMATOLOGY RBC 3.30 M/CMM 4.70 - 05 [place] 6.10 /2015 [facility] HEMATOLOGY WBC 16.9 K/CMM 3.7 - 10.4 10/19 [facility] HEMATOLOGY MPV 8.6 fL 7.4 - 10.4 10/19 [facility] HEMATOLOGY Hgb 10.4 g/dL 14.0 - 10/19 [place] 18.0 [facility] HEMATOLOGY Hct 30.1 % 42.0 - 05 [place] 54.0 /2016 [facility] HEMATOLOGY MCH 31.6 pg 27.0 - 05 [place] 31.0 2015 [facility] HEMATOLOGY MCHC 34.6 g/dL 32.0 - 10/19 [facility] 36.0 /2015 [facility] HEMATOLOGY MCV 91.3 fL 80.0 - 10/19 [facility] 94.0 [facility] HEMATOLOGY RDW 15.2 % 11.5 - 10/19 [facility] 14.5 [facility] HEMATOLOGY Platelet 227 K/CMM 133 - 450 10/19 [facility] PARATHYROI Ca Ion WB 1.16 1. - 10/19 [facility] D PROFILE mMol/L 1. [facility] PARATHYROI Ca Norm WB 1.16 1. - 10/19 [facility] D PROFILE mMol/L 1. [facility] Chest Chest 1view EXAM: XR CHEST 1 VIEW 10/19 - [place] [id number] DX DX - [facility] DATE: 10/20/2015 3:00 AM CDT Read by: [...] significant change. MOLECULAR BCR-ABL1/ABL 0.000 0.000 10/18 [facility] DIAGNOSTIC 1 % (IS) [facility] MOLECULAR BCR-ABL1 SEE NOTE 10/18 Result Comment: The P190 and P210 BCR -ABL1 fusion transcripts are [facility] DIAGNOSTIC Interp NOT detected. [facility] Reverse warp dyeing vat tender real-time PCR is performed for the P190 [...] analytical performance characteristics have been determined by [facility]. It has not been cleared or approved by FDA. This assay has been validated pursuant to the CLIA regulations and is used for clinical purposes. Test Performed at: [address] [id number] Lv Herrera MD, PhD MOLECULAR BCR-ABL1/ABL 0.000 0.000 10/18 [facility] DIAGNOSTIC 1 % /2015 [facility] MOLECULAR Source Blood 10/18 [facility] [place] BCR-ABL1 /2015 [facility] MOLECULAR BCR-ABL1 NOT GIVEN 10/18 [facility] [place] Prior Result [facility] MOLECULAR P190 NOT 10/18 Result Comment: Test Performed at: [facility] [place] BCR-ABL1 DETECTED /[address] [id number] Lv Herrera MD, PhD MOLECULAR P210 NOT 10/18 Result Comment: Test Performed at: [facility] [place] BCR-ABL1 DETECTED /[address] [id number] Lv Herrera MD, PhD Chest Chest 1view EXAM: XR CHEST 1 VIEW 10/18 - [facility] 1view DX DX - [facility] DATE: 10/19/2015 3:00 AM CDT Read [...] Acid 1.2 mMol/L 0.5 - 2.2 10/17 [facility] Chest Chest 1view EXAM: XR CHEST 1 VIEW 10/17 - [place] [id number] DX DX - [facility] DATE: 10/18/2015 3:00 AM CDT Read by: Gautam Cr MD Dictated Date/time: 10/18/15 12:13 Electronically Signed by: Gautam Cr MD 10/18/15 12:15 FINAL REPORT INDICATION: Abnormal chest sounds COMPARISON: Yesterday. TECHNIQUE: AP chest FINDINGS: Lines and tubes: Stable bilateral chest tubes. A single mediastinal drain remains in place. The [place]-Deidre catheter and a 2nd mediastinal drain was removed. Lungs and pleura: There are bilateral pleural effusions and scattered subsegmental atelectasis in both lungs. No pneumothorax given the limitation of a semiupright exam. Heart and mediastinum: Stable prominent cardiomediastinal silhouette. Bones and Soft Tissues: No significant changes. IMPRESSION: 1. No significant changes. HEMATOLOGY RBC Morph Normal 10/16 [facility]2015 [facility] (10/17/15 1:47 AM) [place] HEMATOLOGY Plt Morph Normal 10/16 [facility]2015 [facility] (10/17/15 1:47 AM) [place] Chest Chest 1view EXAM: XR CHEST 1 VIEW 10/16 - [address] DX DX - [facility] DATE: 10/17/2015 6:34 AM CDT Read [...] change. BACTERIAL MRSA by PCR Negative 10/16 [facility] - SEROLOGY [facility] (10/16/15 8:52 PM) [place] CHEM PANEL B/C Ratio 9 6 - 25 10/16 [facility] /2015 [facility] CHEM PANEL Lactic Acid 4.4 mMol/L 0.5 - 2.2 10/16 Result [facility] Lvl /2015 Comment: [facility] Critical [place] Result(s) called to Nell Huffman at 10/16/2015 21:22 by KW. Read back OK. Chest Chest 1view EXAM: XR CHEST 1 VIEW 10/15 - [facility] 1view DX DX /2015 [facility] DATE: 10/16/2015 8:15 PM CDT Read [...] be advanced further. Right internal jugular axis [place]-Deidre catheter has its tip in the main [...] Endotracheal tube in satisfactory position 2. Right-sided [place]-Deidre catheter has its tip in the main pulmonary trunk. 3. Mediastinal drains and bilateral chest drains are present. 4. Recommend further advancement of the nasogastric tube for optimal position. 5. Lungs are clear BLOOD BANK RBC product Product available 10/15 [facility] RESULTS /2015 [facility] (10/16/15 6:00 AM) [place] BLOOD BANK FFP product Product available 10/15 [facility] RESULTS /2015 [facility] (10/16/15 4:00 AM) [place] BLOOD BANK Platelet Product available 10/15 [facility] RESULTS product /2015 [facility] (10/16/15 4:00 AM) [place] Sinus w Sinus w EXAM: CT SINUS WITH CONTRAST 10/14 - [facility] contrast contrast CT /2015 - [facility] Center DATE: 10/15/2015 4:03 PM CDT [...] are normal. No inflammatory changes in the front office director spaces or facial subcutaneous soft tissues. Imaged portions of the tympanomastoid cavities are clear. Temporomandibular joints are normally aligned. Nasopharynx is unremarkable. IMPRESSION: No acute abnormality. Paranasal sinuses are clear except for minimal right maxillary sinus mucosal disease. Leftward nasal septal deviation. BLOOD BANK ABO/Rh A POS 10/13 [place] RESULTS /2015 [facility] BLOOD BANK Antibody Negative 10/13 [facility] RESULTS Scrn [facility] (10/14/15 4:36 PM) [place] BLOOD BANK FFP product Product available 10/13 [facility] RESULTS [facility] (10/14/15 10:44 AM) [place] BLOOD BANK RBC product Product available 10/13 [facility] RESULTS [facility] (10/14/15 10:44 AM) [place] Chest w Chest w EXAM: CT CHEST WITH CONTRAST 10/13 [facility] contrast contrast CT /2015 - [facility] CT Center DATE: 10/14/2015 11:53 AM CDT [...] Upper EXAM: US EXTREMITY NONVASCULAR 10/11 - [facility] non non vascular /2015 - Medical vascular [...] Troponin-I 1.18 ng/mL 0.00 - 10/11 Result [facility] ENZYMES 0.40 /2015 Comment: [facility] Critical [facility] Result(s) called to Navneet Oviedouofela villela 10/12/2015 14:15 by niall. Read back OK. HEMATOLOGY Sed Rate 22 mm/h 0 - 15 10/11 /2015 [facility] IMMUNOLOGY JOSEP Negative Negative 10/11 [facility] (10/12/15 11:36 AM) Center CHEM PANEL Procalcitoni 0.06 ng/mL 0.00 - 10/10 [facility] n Lvl 0.10 [facility] CHEM PANEL Lactic Acid 1.1 mMol/L 0.5 - 2.2 10/10 [facility] /2015 [facility] Chest Chest 1view EXAM: XR CHEST 1 VIEW 10/10 - [facility] 1view DX DX /2015 - [facility] DATE: 10/11/2015 1506 PM CDT Read by: Wilfrid Michaels MD Dictated Date/time: 10/11/15 15:42 Electronically Signed by: Wilfrid Michaels 10/11/15 15:44 FINAL REPORT INDICATION: Dyspnea COMPARISON: 10/08/2015 TECHNIQUE: AP chest FINDINGS: Stable cardiomediastinal silhouette. Low lung volumes with subsegmental atelectasis. No pleural effusion or pneumothorax. IMPRESSION: No significant change. URINE AND UA Sq Epi None Seen 10/10 [facility] URINE AND UA <=1.0 0.1 - 1.0 10/10 [facility] Urobilinogen mg/dL /2015 [facility] URINE AND UA Glucose Negative Negative 10/10 [facility] mg/dL mg/dL /2015 [facility] URINE AND UA Ketones Negative Negative 10/10 [facility] mg/dL mg/dL [facility] URINE AND UA Protein Negative Negative 10/10 [facility] mg/dL mg/dL [facility] URINE AND UA Color Yellow Yellow 10/10 [facility] *NA* [place] (10/11/15 9:14 AM) URINE AND UA pH 5.0 5.0 - 8.0 10/10 [facility] URINE AND UA Turbidity Clear Clear 10/10 [facility] (10/11/15 9:14 AM) [place] URINE AND UA Spec Grav 1.008 <=1.030 10/10 [facility] URINE AND UA Nitrite Negative Negative 10/10 [facility] STOOL [facility] (10/11/15 9:14 AM) [place] URINE AND UA Leuk Est Negative Negative 10/10 [facility] (10/11/15 9:14 AM) [place] URINE AND UA Mucus Few /LPF None Seen 10/10 [facility] STOOL /LPF /2015 [facility] URINE AND UA Bili Negative Negative 10/10 [facility] Medical *NA* [place] (10/11/15 9:14 AM) URINE AND UA Blood Negative Negative 10/10 [facility] (10/11/15 9:14 AM) [place] HEMATOLOGY RBC Morph Normal 10/10 Medical (10/11/15 3:15 AM) [place] HEMATOLOGY Plt Morph Normal 10/10 [facility] (10/11/15 3:15 AM) [place] BLOOD BANK Antibody Negative 10/09 [facility] RESULTS Sc[facility] (10/10/15 1:00 PM) [place] BLOOD BANK ABO/Rh A POS 10/09 [place] RESULTS Medical Center BLOOD BANK RBC product Product available 10/09 RESULTS Medical (10/10/15 8:06 AM) [place] BLOOD BANK FFP product Product available 10/09 [facility] RESULTS Medical (10/10/15 8:06 AM) [place] HVI VAS HVI VAS INDICATION: Pre-operative lower extremity vein mapping. - [facility] Venous Venous Lower - [facility] Lower Ext Ext Bilat This report was dictated by a Induction Machine Operator/Fellow. I have personally reviewed the images as Center Bilat Doppler well as the Resident's interpretation and [...] Plav Effect 160 PRU 10/09 [place] Plt /2015 [facility] Center HVI VAS HVI VAS INDICATION: Preoperative carotid evaluation prior to high risk surgery. 10/08 - [facility] Arterial Arterial /2015 - Medical Extracrani Extracranial This report was dictated by a Induction Machine Operator/Fellow. I have personally reviewed the images as [...] CARDIAC Troponin-T 0.744 0.000 - 10/08 Result [facility] ENZYMES ng/mL 0.100 /2015 Comment: [facility] Critical Center Result(s) called to Caro Kovacs at 10/09/2015 17:14 by TG. Read back OK. HEMATOLOGY POC 116 s 10/08 [place] Activated /2015 [facility] Time CARDIAC Troponin-I 4.01 ng/mL 0.00 - 10/08 Result [facility] [place] ENZYMES 0.40 Comment: Medical Critical Center [...] OK. CARDIAC BNP 53 pg/mL <=100 10/08 [facility] ENZYMES pg/mL /2015 [facility] LIPIDS Trig 362 mg/dL <=149 10/08 [place] mg/dL [facility] LIPIDS VLDL 72 10/08 [place] [facility] LIPIDS HDL 26 mg/dL >=61 mg/dL 10/08 [place] [facility] LIPIDS Chol 257 mg/dL <=199 10/08 [place] mg/dL [facility] LIPIDS LDL 159 mg/dL <=99 mg/dL 10/08 [place] (Calculated) [facility] LIPIDS CHD Risk 9.88 4.00 - 10/08 [place] 7.30 [facility] SPECIAL Hgb A1C 5.1 % <=5.6 % 10/08 [facility] CHEMISTRY [facility] DRUG U Opiate Scr Positive Negative 10/08 [place] SCREEN [facility] *ABN* Center (10/09/15 1:41 AM) DRUG U Cannab Scr Negative Negative 10/08 [place] SCREEN [facility] *NA* Center (10/09/15 1:41 AM) DRUG U Venita Scr Negative Negative 10/08 [place] SCREEN Medical *NA* Center (10/09/15 1:41 AM) DRUG U Cocaine Negative Negative 10/08 [place] SCREEN Scr [facility] *NA* [place] (10/09/15 1:41 AM) DRUG U Benzodia Negative Negative 10/08 [place] SCREEN Scr [facility] *NA* Center (10/09/15 1:41 AM) DRUG UDS Note See Note 10/08 [place] SCREEN [facility] (10/09/15 1:41 AM) Center DRUG U Phencyc Negative Negative 10/08 [facility] SCREEN Scr Medical *NA* [place] (10/09/15 1:41 AM) DRUG U Amph Scr Negative Negative 10/08 [facility] SCREEN Medical *NA* [place] (10/09/15 1:41 AM) URINE AND UA Amorph Many /HPF None Seen 10/08 [facility] Janet /HPF [facility] URINE AND Micro? Performed 10/08 [facility] STOOL [facility] (10/09/15 1:41 AM) [place] URINE AND UA Bacteria Few /HPF None Seen 10/08 [place] STOOL /HPF [facility] URINE AND UA Mucus Rare /LPF None Seen 10/08 [facility] STOOL /LPF /2015 [facility] URINE AND UA RBC 0-2 /HPF 0 - 2 10/08 [facility] URINE AND UA Sq Epi Rare /LPF Few /LPF 10/08 [facility] URINE AND UA WBC 0-2 /HPF None Seen 10/08 [facility] STOOL /HPF [facility] URINE AND UA Nitrite Negative Negative 10/08 [place] STOOL [facility] (10/09/15 1:41 AM) [place] URINE AND UA Bili Negative Negative 10/08 [facility] STOOL Medical *NA* [place] (10/09/15 1:41 AM) URINE AND UA 0.2 EU/dL 0.1 - 1.0 10/08 [facility] Urobilinogen /2015 [facility] URINE AND UA Blood Negative Negative 10/08 [facility] STOOL [facility] (10/09/15 1:41 AM) [place] URINE AND UA Leuk Est Negative Negative 10/08 [facility] STOOL [facility] (10/09/15 1:41 AM) [place] URINE AND UA Ketones Negative Negative 10/08 [facility] mg/dL mg/dL [facility] URINE AND UA pH 7.0 5.0 - 8.0 10/08 [facility] STOOL [facility] URINE AND UA Glucose Negative Negative 10/08 [facility] mg/dL mg/dL [facility] URINE AND UA Protein Negative Negative 10/08 [facility] mg/dL mg/dL [facility] URINE AND UA Color Yellow Yellow 10/08 [facility] STOOL Medical *NA* [place] (10/09/15 1:41 AM) URINE AND UA Spec Grav 1.020 <=1.030 10/08 [facility] STOOL /2015 Medical Center URINE AND UA Turbidity Slight Cloudy Clear 10/08 [facility] STOOL /2015 Medical (10/09/15 1:41 AM) Center CARDIAC Troponin-T 0.582 0.000 - 10/08 Result [facility] ENZYMES ng/mL 0.100 Comment: Medical Critical Center Result(s) called to Sonny Chaidez at 10/09/2015 00:36 byJw. Read back OK. Chest Chest 1view EXAM: XR CHEST 1 VIEW 10/07 - [facility] 1view DX DX /2015 - Medical This report was dictated by a Induction Machine Operator/Fellow. I have personally reviewed the images as [...] Comments Source Systolic (mm Hg) 126 11/11/2017 [facility] [...] [facility] Systolic (mm Hg) 121 08/19/2017 [facility] Diastolic (mm Hg) 72 08/19/2017 [facility] Respitory Rate 19 08/19/2017 [facility] Heart Rate 81 08/19/2017 [facility] Weight 127.273 08/19/2017 [facility] Heart Rate 89 08/19/2017 [facility] Respitory Rate 18 08/19/2017 [facility] Systolic (mm Hg) 128 08/19/2017 [facility] Diastolic (mm Hg) 79 08/19/2017 [facility] Temperature Oral (F) 98.8 F 08/19/2017 [facility] Height 185.42 cm 08/19/2017 [facility] BMI Calculated 37.02 08/19/2017 [facility] Temperature Oral (F) 100.1 F 03/31/2016 [facility] Systolic (mm Hg) 121 03/31/2016 [facility] Diastolic (mm Hg) 61 03/31/2016 [facility] Temperature Oral (F) 99.2 F 03/31/2016 [facility] Systolic (mm Hg) 123 03/31/2016 [facility] Diastolic (mm Hg) 63 03/31/2016 [facility] Systolic (mm Hg) 117 03/31/2016 [facility] Diastolic (mm Hg) 66 03/31/2016 [facility] Temperature Oral (F) 99.3 F 03/31/2016 [facility] Respitory Rate 19 03/31/2016 [facility] Respitory Rate 18 03/31/2016 [facility] Respitory Rate 14 03/31/2016 [facility] Weight 134.347 03/30/2016 [facility] Height 185.42 cm 03/30/2016 [facility] BMI Calculated 39.08 03/30/2016 [facility] Weight 131.818 03/30/2016 [facility] BMI Calculated 38.34 03/30/2016 [facility] Height 185.42 cm 03/30/2016 [facility] Heart Rate 107 03/30/2016 [facility] Systolic (mm Hg) 122 10/22/2015 [facility] Diastolic (mm Hg) 61 10/22/2015 [facility] Systolic (mm Hg) 110 10/22/2015 [facility] Diastolic (mm Hg) 60 10/22/2015 [facility] Temperature Oral (F) 98.7 F 10/22/2015 [facility] Respitory Rate 20 10/22/2015 [facility] Temperature Oral (F) 98.9 F 10/22/2015 [facility] Respitory Rate 20 10/22/2015 [facility] Systolic (mm Hg) 99 10/22/2015 [facility] Diastolic (mm Hg) 59 10/22/2015 [facility] Respitory Rate 20 10/22/2015 [facility] Temperature Oral (F) 98.2 F 10/22/2015 [facility] Height 185.42 cm 10/17/2015 [facility] Height 185.42 cm 10/17/2015 [facility] Height 185.42 cm 10/08/2015 [facility] Heart Rate 89 10/08/2015 [facility] Weight 123.182 10/08/2015 [facility] BMI Calculated 35.83 10/08/2015 [facility] Encounters Location Location Encounter Encounter Reason Attending ADM DC Status Source Details Type Number For Provider Date Date Visit [facility] [id number] [facility] 10/07 10/21 [facility] Redd Potts /2015 [facility] [id number] St[facility] 03/30 04/01 Alexandru Pool [facility] [id number] G[place] 08/19 08/19 Redd Nowak /2017 [facility] [place] [facility] [id number] [facility] 11/11 11/11 Redd Correa /2017 [facility] Procedures Procedure Code Date Perfomer Comments Source CABG - Coronary [id number] [facility] artery bypass graft CABG - Coronary [id number] [facility] artery bypass graft CABG - Coronary [id number] [facility] graft
--- OUTSIDE RECORDS SUMMARY | 2018-04-14 02:47 | XMS REPORT ---
:1985 Author Organization [facility] Address [address] [place] [address] Care Team Providers Name Role Phone Unavailable Unavailable Unavailable Payers Payer Name Policy Type Policy Number Effective Date Expiration Date Problems This patient has no known problems. Allergies, Adverse Reactions, Alerts Allergy Name Allergy Status Severity Reaction(s) Onset Inactive Treating Comments Type Date Date Clinician No Known DA Active U 2018-0 Allergies - 00:00: 00 No Known DA Active U 2009- Intolerances - 00:00: 00 Medications This patient has no known medications.
[2018-04-14 03:09] LABS: Absolute Lymphocytes (CBC) 2.6 K/uL (0.7-4.9); Absolute Monocytes 1.1 K/uL (0.1-1.3); Absolute Neutrophil 8.9 K/uL (1.8-8.0); Basophils % 0.6 % (0-1.3); Eosinophils % 1.7 % (0-4.4); Hematocrit 39.7 % (39.6-49.0); MCH 29.3 pg (27.0-35.0); MCV 86.3 fL (80-100); Monocytes % 8.2 % (3.3-12.3)
[2018-04-14 03:10] LABS: Protime INR 0.99
[2018-04-14] MEDS ORDERED: MORPHINE 4 MG/ML SYR ONE (03:11)
[2018-04-14] MEDS ORDERED: ASPIRIN 81 MG CHEWABLE TABLET ONE (03:11)
[2018-04-14] MEDS ORDERED: ONDANSETRON 4 MG/2 ML VIAL ONE (03:12)
[2018-04-14 03:35] LABS: ALT/SGPT 58 U/L (12-78); AST/SGOT 45 U/L (15-37); Albumin 3.7 g/dL (3.4-5.0); Alkaline Phosphatase 56 U/L (45-117); BUN Blood Urea Nitrogen 10 mg/dL (7-18); Bicarbonate 26 mmol/L (21-32); Bilirubin Direct 0.1 mg/dL (0-0.2); Bilirubin Total 0.3 mg/dL (0.2-1.0); Glucose Level 203 mg/dL (74-106); Magnesium 1.7 mg/dL (1.8-2.4); NT PRO-BNP 134 pg/mL (<125); Potassium 3.7 mmol/L (3.5-5.1); Protein, Total 7.2 g/dL (6.4-8.2); Sodium Level 137 mmol/L (136-145); Troponin (Emerg Dept Use Only) < 0.02 ng/mL (0.0-0.045)
--- NOTE | 2018-04-14 04:04 | ER ---
Nurse's Notes [facility] Name: Clifofrd Manning Age: 32 yrs Sex: Male : 1985 Arrival Date: 04/14/2018 Time: 02:38 Bed 5 Private MD: Diagnosis: Chest pain Presentation: 04/14 02:47 Presenting complaint: Patient states: left chest wall pain that radiates to left ak1 shoulder since midnight. pt denies N/V. pt with hx [place] in 2016. pt PCP is at [facility]. Transition of care: patient was not received from another setting of care. Onset of symptoms was April 14, 2018. Risk Assessment: Do you want to hurt yourself or someone else? Patient reports no desire to harm self or others. Initial Sepsis Screen: Does the patient meet any 2 criteria? No. Patient's initial sepsis screen is negative. Does the patient have a suspected source of infection? No. Patient's initial sepsis screen is negative. Care prior to arrival: None. 02:47 Method Of Arrival: Ambulatory ak1 02:47 Acuity: ESTUARDO 3 ak1 Triage Assessment: 02:50 General: Appears uncomfortable, Behavior is calm, cooperative. Pain: Complains of pain ak1 in left supraclavicular area, left clavicle, anterior aspect of left upper chest, mid-sternal area and left breast Pain radiates to anterior aspect of left shoulder and posterior aspect of left shoulder Pain currently is 9 out of 10 on a pain scale. Pain began 2 hours ago. EENT: No deficits noted. Neuro: No deficits noted. Cardiovascular: Reports chest pain, Denies nausea, vomiting. Respiratory: No deficits noted. GI: No signs and/or symptoms were reported involving the gastrointestinal system. : No signs and/or symptoms were reported regarding the genitourinary system. Derm: No signs and/or symptoms reported regarding the dermatologic system. Musculoskeletal: No signs and/or symptoms reported regarding the musculoskeletal system. Historical: - Allergies: 02:50 No Known Allergies; ak1 - Home Meds: 02:50 aspirin 81 mg Oral TbEC 1 tab once daily [Active]; atorvastatin 80 mg Oral tab 1 tab ak1 once daily [Active]; BRILINTA Oral 1 tab 2 times per day [Active]; gabapentin 300 mg Oral cap 1 cap 3 times per day [Active]; lisinopril 5 mg Oral tab once daily [Active]; metoprolol tartrate 25 mg Oral tab 2 times per day [Active]; nitroglycerin 0.4 mg SL subl 1 tab every 5 minutes for Angina [Active]; Ranexa Oral [Active]; sertraline Oral [Active]; Metformin Oral [Active]; - PMHx: 02:50 CAD; Diabetes - NIDDM; spondylosis; neuropathy; Hypertension; ak1 - PSHx: 02:50 CABG; grafts; Heart Surgery; Heart stents; ak1 - Immunization history:: Adult Immunizations up to date. - Social history:: Smoking status: Patient/guardian denies using tobacco. - Ebola Screening: : No symptoms or risks identified at this time. Screenin:52 Abuse screen: Denies threats or abuse. Denies injuries from another. Nutritional ak1 screening: No deficits noted. Tuberculosis screening: No symptoms or risk factors identified. Fall Risk None identified. Assessment: 02:51 Reassessment: Patient appears in no apparent distress at this time. No changes from ak1 previously documented assessment. see triage assessment. Pain: Complains of pain in left arm and posterior aspect of left shoulder and anterior aspect of left shoulder and chest and left breast and mid-sternal area and anterior aspect of left upper chest and left clavicle and left supraclavicular area. 02:51 General: Appears uncomfortable, Behavior is calm, cooperative, appropriate for age. jd3 Pain: Complains of pain in chest Quality of pain is described as sharp. Neuro: Level of Consciousness is awake, alert, obeys commands, Oriented to person, place, time, situation, Appropriate for age. Cardiovascular: Heart tones S1 S2 present Capillary refill < 3 seconds Patient's skin is warm and dry. Rhythm is regular. Respiratory: Reports shortness of breath Airway is patent Respiratory effort is even, unlabored, Respiratory pattern is regular, symmetrical, Breath sounds are clear bilaterally. GI: No signs and/or symptoms were reported involving the gastrointestinal system. : No signs and/or symptoms were reported regarding the genitourinary system. EENT: No signs and/or symptoms were reported regarding the EENT system. Derm: Skin is intact, Skin is dry, Skin is normal, Skin temperature is warm. Musculoskeletal: Circulation, motion, and sensation intact. Range of motion: intact in all extremities. 03:58 Reassessment: Patient appears in no apparent distress at this time. No changes from jd3 previously documented assessment. Patient and/or family updated on plan of care and expected duration. Pain level reassessed. Patient is alert, oriented x 3, equal unlabored respirations, skin warm/dry/pink. 04:00 Reassessment: provider at bedside discussing plan of care with pt. jd3 04:06 Reassessment: Patient appears in no apparent distress at this time. No changes from jd3 previously documented assessment. Patient and/or family updated on plan of care and expected duration. Pain level reassessed. Patient is alert, oriented x 3, equal unlabored respirations, skin warm/dry/pink. pt signed AMA form after discussing plan of care with provider. Vital Signs: 02:46 BP 116 / 71; Pulse 85; Resp 18; Temp 98.2(O); Pulse Ox 98% on R/A; Weight 131.54 kg ak1 (R); Height 6 ft. 0 in. (182.88 cm) (R); Pain 9/10; 03:11 BP 111 / 58; Pulse 82; Resp 20 S; Pulse Ox 97% on R/A; jd3 03:58 BP 106 / 60; Pulse 96; Resp 19 S; Pulse Ox 99% on R/A; jd3 02:46 Body Mass Index 39.33 (131.54 kg, 182.88 cm) ak1 ED Course: 02:38 Patient arrived in ED. am2 02:40 Jeremi Coon MD is Attending Physician. pkl 02:45 Inserted saline lock: 20 gauge in right antecubital area, using aseptic technique. jd3 Blood collected. 02:47 Arm band placed on Patient placed in an exam room, on a stretcher, on conveyor monitor, ak1 on pulse oximetry, Patient notified of wait time. EKG completed in triage. Results shown to MD. 02:48 Triage completed. ak1 02:51 Meet Solis, JEANNIE is Primary Nurse. jd3 02:52 Patient has correct armband on for positive identification. Placed in gown. Bed in low ak1 position. Side rails up X 1. phototypesetting equipment monitor on. Pulse ox on. NIBP on. 02:52 Patient maintains SpO2 saturation greater than 95% on room air. ak1 03:02 X-ray completed. Portable x-ray completed in exam room. Patient tolerated procedure kw well. 03:03 XRAY Chest (1 view) In Process Unspecified. EDMS 04:06 No provider procedures requiring assistance completed. IV discontinued, intact, jd3 bleeding controlled, No redness/swelling at site. Pressure dressing applied. Administered Medications: 03:10 Drug: Aspirin 162 mg Route: PO; jd3 04:07 Follow up: Response: No adverse reaction jd3 03:10 Drug: morphine 4 mg Route: IVP; Site: right antecubital; jd3 04:08 Follow up: Response: No adverse reaction; Pain is decreased jd3 03:10 Drug: Zofran 4 mg Route: IVP; Site: right antecubital; jd3 04:09 Follow up: Response: No adverse reaction jd3 Outcome: 04:06 AMA AMA form signed jd3 04:06 Condition: stable 04:06 Discharge instructions given to patient, Instructed on follow up and referral plans. Demonstrated understanding of instructions. 04:09 Patient left the ED. jd3 Signatures: Dispatcher [employer] EDMS Jeremi Coon MD MD pkl Whitley, Kimberlee kw Krenek, Amber, RN RN Reanna Montano Jonathon RN RN jd3
--- NOTE | 2018-04-14 04:05 | EDPHYS ---
Physician Documentation [facility] Name: Clifford Manning Age: 32 yrs Sex: Male : 1985 Arrival Date: 04/14/2018 Time: 02:38 Bed 5 Private MD: ED Physician Jeremi Coon HPI: 04/14 03:08 This 32 yrs old Male presents to ER via Ambulatory with complaints of Chest pkl Pain. 03:08 The patient or guardian reports chest pain that is located primarily in the substernal pkl area. The pain radiates to the left shoulder. Associated signs and symptoms: Pertinent positives: diaphoresis, shortness of breath. The chest pain is described as a pressure. The patient has experienced a previous episode, approximately 2 years ago. Patient said his symptoms is similar to the heart attack he had 2 years ago. S/P quadruple by pass.. Historical: - Allergies: 02:50 No Known Allergies; ak1 - Home Meds: 02:50 aspirin 81 mg Oral TbEC 1 tab once daily [Active]; atorvastatin 80 mg Oral tab 1 tab ak1 once daily [Active]; BRILINTA Oral 1 tab 2 times per day [Active]; gabapentin 300 mg Oral cap 1 cap 3 times per day [Active]; lisinopril 5 mg Oral tab once daily [Active]; metoprolol tartrate 25 mg Oral tab 2 times per day [Active]; nitroglycerin 0.4 mg SL subl 1 tab every 5 minutes for Angina [Active]; Ranexa Oral [Active]; sertraline Oral [Active]; Metformin Oral [Active]; - PMHx: 02:50 CAD; Diabetes - NIDDM; spondylosis; neuropathy; Hypertension; ak1 - PSHx: 02:50 CABG; grafts; Heart Surgery; Heart stents; ak1 - Immunization history:: Adult Immunizations up to date. - Social history:: Smoking status: Patient/guardian denies using tobacco. - Ebola Screening: : No symptoms or risks identified at this time. ROS: 03:08 Eyes: Negative for injury, pain, redness, and discharge, ENT: Negative for injury, pkl pain, and discharge, Neck: Negative for injury, pain, and swelling. 03:08 Cardiovascular: Positive for chest pain. 03:08 Respiratory: Negative for cough. 03:08 Abdomen/GI: Negative for abdominal pain, nausea, vomiting, and diarrhea. 03:08 Back: Negative for pain at rest. 03:08 : Negative for urinary symptoms. 03:08 MS/extremity: Negative for acute changes. 03:08 Skin: Negative for rash. 03:08 Neuro: Negative for altered mental status. Exam: 03:08 Head/Face: Normocephalic, atraumatic. Eyes: Pupils equal round and reactive to light, pkl extra-ocular motions intact. Lids and lashes normal. Conjunctiva and sclera are non-icteric and not injected. Cornea within normal limits. Periorbital areas with no swelling, redness, or edema. ENT: Nares patent. No nasal discharge, no septal abnormalities noted. Tympanic membranes are normal and external auditory canals are clear. Oropharynx with no redness, swelling, or masses, exudates, or evidence of obstruction, uvula midline. Mucous membranes moist. Neck: Trachea midline, no thyromegaly or masses palpated, and no cervical lymphadenopathy. Supple, full range of motion without nuchal rigidity, or vertebral point tenderness. No Meningismus. Chest/axilla: Normal chest wall appearance and motion. Nontender with no deformity. No lesions are appreciated. Cardiovascular: Regular rate and rhythm with a normal S1 and S2. No gallops, murmurs, or rubs. Normal PMI, no JVD. No pulse deficits. Respiratory: Lungs have equal breath sounds bilaterally, clear to auscultation and percussion. No rales, rhonchi or wheezes noted. No increased work of breathing, no retractions or nasal flaring. Abdomen/GI: Soft, non-tender, with normal bowel sounds. No distension or tympany. No guarding or rebound. No evidence of tenderness throughout. Back: No spinal tenderness. No costovertebral tenderness. Full range of motion. Skin: Warm, dry with normal turgor. Normal color with no rashes, no lesions, and no evidence of cellulitis. MS/ Extremity: Pulses equal, no cyanosis. Neurovascular intact. Full, normal range of motion. Neuro: Awake and alert, GCS 15, oriented to person, place, time, and situation. Cranial nerves II-XII grossly intact. Motor strength 5/5 in all extremities. Sensory grossly intact. Cerebellar exam normal. Normal gait. Vital Signs: 02:46 BP 116 / 71; Pulse 85; Resp 18; Temp 98.2(O); Pulse Ox 98% on R/A; Weight 131.54 kg ak1 (R); Height 6 ft. 0 in. (182.88 cm) (R); Pain 9/10; 03:11 BP 111 / 58; Pulse 82; Resp 20 S; Pulse Ox 97% on R/A; jd3 03:58 BP 106 / 60; Pulse 96; Resp 19 S; Pulse Ox 99% on R/A; jd3 02:46 Body Mass Index 39.33 (131.54 kg, 182.88 cm) ak1 MDM: 02:40 Patient medically screened. pkl 04:00 Data reviewed: vital signs, nurses notes, lab test result(s), EKG, radiologic studies, pkl plain films. ED course: Patient does not want to be admit for further evaluations. Signed AMA. 04/14 02:53 Order name: Basic Metabolic Panel; Complete Time: 03:47 [facility] 04/14 02:53 Order name: CBC with Diff; Complete Time: 03:17 d3 04/14 02:53 Order name: LFT's; Complete Time: 03:47 jd3 04/14 02:53 Order name: Magnesium; Complete Time: 03:47 d3 04/14 02:53 Order name: NT PRO-BNP; Complete Time: 03:47 [facility] 04/14 02:53 Order name: PT-INR; Complete Time: 03:17 jd3 04/14 02:53 Order name: Troponin (emerg Dept Use Only); Complete Time: 03:47 d3 04/14 02:53 Order name: XRAY Chest (1 view) j 04/14 02:53 Order name: EKG; Complete Time: 02:54 jd3 04/14 03:00 Order name: D-Dimer; Complete Time: 03:55 pkl 04/14 02:53 Order name: Cardiac monitoring; Complete Time: 02:54 jd3 04/14 02:53 Order name: EKG - Nurse/Tech; Complete Time: 02:54 jd3 04/14 02:53 Order name: IV Saline Lock; Complete Time: 02:54 jd3 04/14 02:53 Order name: Labs collected and sent; Complete Time: jd3 04/14 02:53 Order name: O2 Per Protocol; Complete Time: 02:54 jd3 04/14 02:53 Order name: O2 Sat Monitoring; Complete Time: 02:54 jd3 Administered Medications: 03:10 Drug: Aspirin 162 mg Route: PO; jd3 04:07 Follow up: Response: No adverse reaction jd3 03:10 Drug: morphine 4 mg Route: IVP; Site: right antecubital; jd3 04:08 Follow up: Response: No adverse reaction; Pain is decreased jd3 03:10 Drug: Zofran 4 mg Route: IVP; Site: right antecubital; jd3 04:09 Follow up: Response: No adverse reaction jd3 Disposition: 04/14/18 04:03 Patient has left against medical advice. Impression: Chest pain. - Patients states they are going to Home. - Condition is Stable. Follow up: Private Physician; When: 1 - 2 days; Reason: Re-evaluation by your physician. - Problem is new. - Symptoms have improved. Signatures: Dispatcher [employer] EDMS Jeremi Coon MD MD pkl Maureen Trejo RN RN ak1 Meet Solis RN RN jd3 Corrections: (The following items were deleted from the chart) 04:04 04:03 04/14/2018 04:03 Patients has left against medical advice. Patient states they pkl are going to Home. Condition is Stable. Follow up: Private Physician; When: 1 - 2 days; Reason: Re-evaluation by your physician. Problem is new. Symptoms have improved. pkl 04:09 04:04 04/14/2018 04:03 Patients has left against medical advice. Impression: Chest jd3 pain. Patient states they are going to Home. Condition is Stable. Follow up: Private Physician; When: 1 - 2 days; Reason: Re-evaluation by your physician. Problem is new. Symptoms have improved. pkl
[2018-04-14 04:15] VITALS: TEMP 98.2
[2018-04-14 04:17] VITALS: BP 106/60; O2SAT 99
--- NOTE | 2018-04-14 07:47 | EKG ---
Test Date: 2018-04-14 Test Time: 02:45:17 Neonatologist: YISSEL MEASUREMENT RESULTS: Intervals: Rate: 87 [place]: 176 QRSD: 136 QT: 412 QTc: 495 [place]: P: 53 [place]: 176 QRS: 163 T: 36 INTERPRETIVE STATEMENTS: Normal sinus rhythm Right axis deviation Nonspecific intraventricular block Abnormal ECG Compared to ECG 02/23/2018 08:51:35 Right-axis deviation now present Right superior axis no longer present Electronically Signed On 04-14-18 07:47:03 CDT by Rod Ceja
--- NOTE | 2018-04-14 08:47 | RAD REPORT ---
EXAM DESCRIPTION: RAD - Chest Single View - 04/14/2018 3:04 am CLINICAL HISTORY: Left-sided chest and shoulder pain COMPARISON: February 22, 2018 TECHNIQUE: AP portable chest image was obtained [id number] hours . FINDINGS: No peripheral mass or consolidation. Lung markings are similar to comparison. Sternotomy w ires are in place. Heart and vasculature are normal. No measurable pleural effusion and no pneumothor ax. No acute bony abnormality seen. No acute aortic findings suspected. IMPRESSION: No acute cardiopulmonary process. No significant change from comparison.
== END 2018-04-14 04:09 | disposition left against medical advice (07) ==
LOC: ER 02:36
DX: R07.9 Chest pain, unspecified (principal); I25.10 Atherosclerotic heart disease of native coronary artery without angina pectoris; E11.9 Type 2 diabetes mellitus without complications; I10 Essential (primary) hypertension
CPT/HCPCS: 36415; 71045; 80048; 80076; 83735; 83880; 84484; 85025; 85379; 85610; 93005; 96374; 96375; 99285; J2405